=== PATIENT | male | born 1965 | race Caucasian/White ===

== ENCOUNTER 2022-06-11 13:07 | Emergency (ER) | payer OTHER, SELFPAY ==
--- NOTE | ~2022-06-11 | CT_ITS ---
EXAMINATION: CT ABDOMEN AND PELVIS WITH CONTRAST CLINICAL INFORMATION: Right lower quadrant pain COMPARISON: Previous CT of the abdomen and pelvis September 2018 TECHNIQUE: Multidetector volumetric images were obtained from the superior aspect of the liver through the pubic symphysis following administration 85 mL of Omnipaque 350 intravenous contrast. Sagittal and coronal reformatted images were obtained on the technologist's workstation. Oral contrast: Yes This CT examination was performed using dose optimization techniques as appropriate, variously including the following: *Automated exposure control *Adjustment of mA and/or kV according to patient size (this includes techniques or standardized protocols for targeted exams where dose is matched to indication/reason for exam; i.e. extremities or head) *Use of iterative reconstruction technique DLP: 670 mGy-cm FINDINGS: LUNG BASES: The visualized lung bases are unremarkable. LIVER, GALLBLADDER, AND BILIARY TREE: The liver is normal in size, shape, and attenuation. No focal hepatic lesion or biliary ductal dilatation is present. The gallbladder is unremarkable with no evidence of radiopaque gallstones, gallbladder wall thickening, or obvious pericholecystic inflammatory changes. PANCREAS: Unremarkable. SPLEEN: Unremarkable. ADRENAL GLANDS: Unremarkable. KIDNEYS AND URETERS: The kidneys are normal in size, shape, and attenuation. No hydronephrosis, hydroureter, or calculi seen. No perinephric stranding. BLADDER: Unremarkable. GASTROINTESTINAL TRACT: There is mild diverticulosis of the colon. There is no evidence of diverticulitis. There are slightly distended fluid-filled loops of small bowel. No bowel wall thickening is seen. No inflammatory changes in the small bowel mesentery. There is a small amount of ascites in the right lower quadrant and pelvis. The appendix is normal. The stomach is normal. ABDOMINAL WALL: There is a small umbilical hernia containing fat. LYMPH NODES: Shotty small bowel mesentery lymphadenopathy. No enlarged lymph nodes. VASCULAR: Unremarkable. PELVIC VISCERA: Unremarkable. OSSEOUS STRUCTURES: Unremarkable. CT/CT abdomen pelvis w IV con IMPRESSION: Slightly distended fluid-filled loops of small bowel and small amount of fluid ascites in the right lower quadrant and pelvis. No wall thickening or mass. Small bowel ileus and partial small bowel obstruction should be considered. Small umbilical hernia containing fat. Fleischner guidelines were followed.
[2022-06-11 13:43] VITALS: BP 154/91; PULSE 76; RESP 16; TEMP 37; O2SAT 97; BMI 26.6
--- NOTE | 2022-06-11 13:49 | ED_ITS ---
HPI - Abdominal Pain General Chief Complaint: Abdominal Pain <Hubert Rose DO - Last Filed: 06/11/22 13:52> Stated Complaint: abd pain <Hubert Rose DO - Last Filed: 06/11/22 13:52> Time Seen by Provider: 06/11/22 15:26 <Hubert Rose DO - Last Filed: 06/11/22 13:52> Source: patient <TAHIR Infante Last Filed: 06/11/22 17:40> Mode of arrival: ambulatory <TAHIR Infante Last Filed: 06/11/22 17:40> Limitations: no limitations <TAHIR Infante Last Filed: 06/11/22 17:40> History of Present Illness HPI narrative: 57-year-old male with history of hypertension presents to the ER for evaluation of central abdominal pain on and off for the last 4 weeks. He states this has been accompanied with nausea, increased bloating, burping. He denies any vomiting. He states last night after he ate dinner he had worsening of the pain in his belly got distended. This morning he had an episode of loose watery diarrhea. He is passing gas. He had an aching pain so he came to the ER for evaluation. He denies any history of surgeries on his abdomen. No new medications, no history of substance abuse. Patient reports that the pain is in the middle of his abdomen& right lower quadrant. It comes and goes. He denies any chest pain, shortness of breath, fever, chills. <TAHIR Infante - Last Filed: 06/11/22 17:40> MD elicited complaint: abdominal pain <TAHIR Infante Last Filed: 06/11/22 17:40> Pertinent past history: none <TAHIR Infante Last Filed: 06/11/22 17:40> Onset (ago): week(s) (4) <TAHIR Infante Last Filed: 06/11/22 17:40> Pain Consistency: intermittent <TAHIR Infante Last Filed: 06/11/22 17:40> Location: periumbilical and RLQ <TAHIR Infante Last Filed: 06/11/22 17:40> Severity: moderate <TAHIR Infante Last Filed: 06/11/22 17:40> Quality: cramping and aching <TAHIR Infante Last Filed: 06/11/22 17:40> Radiation: epigastric <TAHIR Infante Last Filed: 06/11/22 17:40> Migration to: no migration <TAHIR Infante Last Filed: 06/11/22 17:40> Exacerbating factors: eating <TAHIR Infante Last Filed: 06/11/22 17:40> Relieving factors: nothing <TAHIR Infante Last Filed: 06/11/22 17:40> Associated symptoms: nausea and diarrhea <TAHIR Infante Last Filed: 06/11/22 17:40> Related Data Home Medications: Previous Rx's Medication Instructions Recorded polyethylene glycol 3350 17 17 g PO DAILY #238 grams 06/11/22 gram/dose oral powder (Miralax) sennosides 8.6 mg capsule (senna) 8.6 mg PO BEDTIME #20 caps 06/11/22 <Hubert Rose DO - Last Filed: 06/11/22 13:52> Allergies/Adverse Reactions: Allergies Allergy/AdvReac Type Severity Reaction Status Date / Time No Known Allergies Allergy Unverified 04/07/20 18:09 [No Known Allergies*] <Hubert Rose DO - Last Filed: 06/11/22 13:52> Review of Systems Review of Systems Constitutional: No Fever, No Chills ENT/Mouth: No sore throat, No Rhinorrhea, No Swallowing Difficulty Cardiovascular: No Chest Pain, No SOB Respiratory: No Cough, No Sputum, No Wheezing, No dyspnea Gastrointestinal: + Nausea, No Vomiting, + Diarrhea, + abdominal Pain, No Hematochezia, No Melena Genitourinary: No Dysuria, No Urinary Frequency, No Hematuria Musculoskeletal: No joint pain, No Myalgias Skin: No Skin Lesions, No rash Neuro: No Weakness, No Numbness, No Dizziness, No Headache Psych: No Anxiety/Panic, No Depression Heme/Lymph: No Bruising, No Lymphadenopathy <TAHIR Infante Last Filed: 06/11/22 17:40> PMFSH Social History Social History: Social History Advance Directives: No Advance Directives Information Provided: Yes <DO Leydi Young Last Filed: 06/11/22 13:52> Physical Exam ED Vital Signs: Vital Signs - 24 hr 06/11/22 13:43 06/11/22 15:39 Temperature 98.6 F 98.3 F Pulse Rate 76 80 Respiratory Rate 16 18 Blood Pressure 154/91 H 136/91 H Pulse Oximetry 97 96 Oxygen Delivery Method Room Air Room Air BMI result Body Mass Index 26.6 <Hubert Rose DO - Last Filed: 06/11/22 13:52> Vital Signs - 24 hr 06/11/22 13:43 06/11/22 15:39 Temperature 98.6 F 98.3 F Pulse Rate 76 80 Respiratory Rate 16 18 Blood Pressure 154/91 H 136/91 H Pulse Oximetry 97 96 Oxygen Delivery Method Room Air Room Air BMI result Body Mass Index 26.6 <TAHIR Infante Last Filed: 06/11/22 17:40> Appearance: Alert. Oriented X3. No acute distress. Eyes: Pupils equal, round and reactive to light. ENT: Pharynx normal. Neck: Normal inspection. Neck supple. CVS: Normal heart rate and rhythm. Pulses normal. Respiratory: No respiratory distress. Breath sounds normal. Abdomen: Soft, very mild tenderness to deep palpation of the right lower quadrant without rebound or guarding. No other areas of tenderness. Decreased but present +BS x4 Skin: Skin warm and dry. Normal skin color. Normal skin turgor. No rashes. Extremities: No lower extremity edema. Neuro: Oriented X 3. No motor deficit. No sensory deficit. <TAHIR Infante - Last Filed: 06/11/22 17:40> Course Course Course Narrative: 57 year old male with one month of abdominal pain. Patient states he has had this problem in the past. Patient denies diarrhea but did have three loose stools and nausea that is new since yesterday. He denies cough fever chill.s Patient looks well. I will send for CT and labs. Concern for appendicits or other intra abdominal pathology. Limited history and physical done in triage as a rapid medical exam. <DO Leydi Young Last Filed: 06/11/22 13:52> Reevaluation(s) Reevaluation #1: Labs are unremarkable. CT scan is showing ?slightly distended fluid- filled loops of small bowel and small amount of fluid ascites in the right lower quadrant and pelvis. No wall thickening or mass. Small bowel ileus and partial small bowel obstruction should be considered. Small umbilical hernia containing fat. ? Case discussed with Dr. Mandujano from General surgery who reviewed the images. Agreed with reading. Discussed admission for observation verse discharge home. Patient prefers to be discharged home with plan to follow-up with general surgery as an outpatient. He was advised to stay on clear liquids for 24-48 hours and slowly advance his diet as tolerated. He was also advised to come back to the ER if he has worsening pain or develops any vomiting. Will start patient oral laxatives as well. Comfortable with discharge home with close outpatient follow-up. Strict return precautions were again discussed. Patient agrees. <TAHIR Infante - Last Filed: 06/11/22 17:40> Medications Administered Discontinued Medications Generic Name Dose Route Start Last Admin Trade Name Freq PRN Reason Stop Dose Admin Lactated Ringer's 1,000 mls @ 999 mls/hr 06/11/22 16:00 06/11/22 16:05 Lr IV 06/11/22 17:00 999 mls/hr .Q1H1M SAEID Administration Iohexol 100 ml 06/11/22 15:03 06/11/22 15:04 Iohexol 350 Mg/Ml 100 Ml Infus..Btl IV 06/11/22 15:04 85 ml ONCE ONE Administration <Hubert Rose DO - Last Filed: 06/11/22 13:52> Medications Administered Discontinued Medications Generic Name Dose Route Start Last Admin Trade Name Freq PRN Reason Stop Dose Admin Lactated Ringer's 1,000 mls @ 999 mls/hr 06/11/22 16:00 06/11/22 16:05 Lr IV 06/11/22 17:00 999 mls/hr .Q1H1M SAEID Administration Iohexol 100 ml 06/11/22 15:03 06/11/22 15:04 Iohexol 350 Mg/Ml 100 Ml Infus..Btl IV 06/11/22 15:04 85 ml ONCE ONE Administration <TAHIR Infante - Last Filed: 06/11/22 17:40> MDM - Abdominal Pain Lab Data Result diagrams: : 06/11/22 14:01 06/11/22 14:01 <Hubert Rose DO - Last Filed: 06/11/22 13:52> Labs: Lab Results 06/11/22 06/11/22 06/11/22 Range/Units 14:01 14:01 15:45 WBC 3.6 L (4.8-10.8) X10*3/uL RBC 5.37 (4.60-5.80) X10*6/uL Hgb 16.5 (14.0-18.0) g/dl Hct 46.9 (42.0-52.0) % MCV 87.3 (80.0-98.0) fL MCH 30.7 (27.0-33.0) pg MCHC 35.2 (31.0-36.0) g/dl RDW 11.7 (11.0-16.0) % Plt Count 188 (160-400) X10*3/uL MPV 10.0 (9.4-12.4) fL Immature Gran % (Auto) 0.3 (0.0-0.4) % Neut % (Auto) 56.2 (45-73) % Lymph % (Auto) 24.9 (20-40) % [place] % (Auto) 15.5 H (2-11) % Eos % (Auto) 2.5 (0-4) % Baso % (Auto) 0.6 (0-2) % Lymph # (Auto) 0.9 L (1.2-4.9) X10*3/uL [place] # (Auto) 0.6 (0.1-1.2) X10*3/uL Eos # (Auto) 0.1 (0.0-0.4) X10*3/uL Baso # (Auto) 0.0 (0.0-0.2) X10*3/uL Abs Immat Gran (auto) 0.01 (0.00-0.03) X10*3/uL Absolute Neuts (auto) 2.0 (2.0-8.3) x10*3/uL Absolute Nucleated RBC 0.000 (0.0-0.012) X10*3/uL Nucleated RBC % (auto) 0.0 (0.0-0.2) /100WBC Sodium 139 (135-145) mmol/L Potassium 4.1 (3.3-5.1) mmol/L Chloride 107 (96-108) mmol/L Carbon Dioxide 23 (22-29) mmol/L Anion Gap 13 (12-20) BUN 8 L (9-16) mg/dL Creatinine 0.89 (0.5-1.4) mg/dL Estim Creat Clear Calc 88.5 Estimated GFR > 60 Random Glucose 119 H (60-115) mg/dL Calcium 9.1 (8.4-10.2) mg/dL Total Bilirubin 0.7 (0.0-1.0) mg/dL Direct Bilirubin 0.3 (0.0-0.5) mg/dL AST 42 H (5-37) U/L ALT 51 H (0-40) U/L Alkaline Phosphatase 87 (39-117) U/L Total Protein 7.4 (6.5-8.0) g/dL Albumin 4.4 (3.5-5.0) g/dL Lipase 47 (8-78) U/L Urine Color Yellow Urine Appearance Clear Urine pH 5.5 (5.0-9.0) Ur Specific [place] >= 1.030 H (1.005-1.025) Urine Protein Negative (Neg-Trace) mg/dL Urine Glucose (UA) Negative (Negative) mg/dL Urine Ketones Negative (Negative) mg/dL Urine Blood Small (1+) H (Negative) Urine Nitrite Negative (Negative) Ur Leukocyte Esterase Negative (Negative) Urine RBC 3-5 H (0-2) /HPF Urine WBC 0-5 (0-5) /HPF Ur Squamous Epith Cells 0-2 (0-2) /HPF Urine Bacteria None Seen (None Seen) Hyaline Casts 0-2 (0-2) /LPF COVID-19 (ADRY) (Negative) COVID-19 Clin Com 06/11/22 Range/Units 16:49 WBC (4.8-10.8) X10*3/uL RBC (4.60-5.80) X10*6/uL Hgb (14.0-18.0) g/dl Hct (42.0-52.0) % MCV (80.0-98.0) fL MCH (27.0-33.0) pg MCHC (31.0-36.0) g/dl RDW (11.0-16.0) % Plt Count (160-400) X10*3/uL MPV (9.4-12.4) fL Immature Gran % (Auto) (0.0-0.4) % Neut % (Auto) (45-73) % Lymph % (Auto) (20-40) % [place] % (Auto) (2-11) % Eos % (Auto) (0-4) % Baso % (Auto) (0-2) % Lymph # (Auto) (1.2-4.9) X10*3/uL [place] # (Auto) (0.1-1.2) X10*3/uL Eos # (Auto) (0.0-0.4) X10*3/uL Baso # (Auto) (0.0-0.2) X10*3/uL Abs Immat Gran (auto) (0.00-0.03) X10*3/uL Absolute Neuts (auto) (2.0-8.3) x10*3/uL Absolute Nucleated RBC (0.0-0.012) X10*3/uL Nucleated RBC % (auto) (0.0-0.2) /100WBC Sodium (135-145) mmol/L Potassium (3.3-5.1) mmol/L Chloride (96-108) mmol/L Carbon Dioxide (22-29) mmol/L Anion Gap (12-20) BUN (9-16) mg/dL Creatinine (0.5-1.4) mg/dL Estim Creat Clear Calc Estimated GFR Random Glucose (60-115) mg/dL Calcium (8.4-10.2) mg/dL Total Bilirubin (0.0-1.0) mg/dL Direct Bilirubin (0.0-0.5) mg/dL AST (5-37) U/L ALT (0-40) U/L Alkaline Phosphatase (39-117) U/L Total Protein (6.5-8.0) g/dL Albumin (3.5-5.0) g/dL Lipase (8-78) U/L Urine Color Urine Appearance Urine pH (5.0-9.0) Ur Specific [place] (1.005-1.025) Urine Protein (Neg-Trace) mg/dL Urine Glucose (UA) (Negative) mg/dL Urine Ketones (Negative) mg/dL Urine Blood (Negative) Urine Nitrite (Negative) Ur Leukocyte Esterase (Negative) Urine RBC (0-2) /HPF Urine WBC (0-5) /HPF Ur Squamous Epith Cells (0-2) /HPF Urine Bacteria (None Seen) Hyaline Casts (0-2) /LPF COVID-19 (ADRY) Negative (Negative) COVID-19 Clin Com See Note <Hubert Rose, DO - Last Filed: 06/11/22 13:52> Lab Results 06/11/22 06/11/22 06/11/22 Range/Units 14:01 14:01 15:45 WBC 3.6 L (4.8-10.8) X10*3/uL RBC 5.37 (4.60-5.80) X10*6/uL Hgb 16.5 (14.0-18.0) g/dl Hct 46.9 (42.0-52.0) % MCV 87.3 (80.0-98.0) fL MCH 30.7 (27.0-33.0) pg MCHC 35.2 (31.0-36.0) g/dl RDW 11.7 (11.0-16.0) % Plt Count 188 (160-400) X10*3/uL MPV 10.0 (9.4-12.4) fL Immature Gran % (Auto) 0.3 (0.0-0.4) % Neut % (Auto) 56.2 (45-73) % Lymph % (Auto) 24.9 (20-40) % [place] % (Auto) 15.5 H (2-11) % Eos % (Auto) 2.5 (0-4) % Baso % (Auto) 0.6 (0-2) % Lymph # (Auto) 0.9 L (1.2-4.9) X10*3/uL [place] # (Auto) 0.6 (0.1-1.2) X10*3/uL Eos # (Auto) 0.1 (0.0-0.4) X10*3/uL Baso # (Auto) 0.0 (0.0-0.2) X10*3/uL Abs Immat Gran (auto) 0.01 (0.00-0.03) X10*3/uL Absolute Neuts (auto) 2.0 (2.0-8.3) x10*3/uL Absolute Nucleated RBC 0.000 (0.0-0.012) X10*3/uL Nucleated RBC % (auto) 0.0 (0.0-0.2) /100WBC Sodium 139 (135-145) mmol/L Potassium 4.1 (3.3-5.1) mmol/L Chloride 107 (96-108) mmol/L Carbon Dioxide 23 (22-29) mmol/L Anion Gap 13 (12-20) BUN 8 L (9-16) mg/dL Creatinine 0.89 (0.5-1.4) mg/dL Estim Creat Clear Calc 88.5 Estimated GFR > 60 Random Glucose 119 H (60-115) mg/dL Calcium 9.1 (8.4-10.2) mg/dL Total Bilirubin 0.7 (0.0-1.0) mg/dL Direct Bilirubin 0.3 (0.0-0.5) mg/dL AST 42 H (5-37) U/L ALT 51 H (0-40) U/L Alkaline Phosphatase 87 (39-117) U/L Total Protein 7.4 (6.5-8.0) g/dL Albumin 4.4 (3.5-5.0) g/dL Lipase 47 (8-78) U/L Urine Color Yellow Urine Appearance Clear Urine pH 5.5 (5.0-9.0) Ur Specific [place] >= 1.030 H (1.005-1.025) Urine Protein Negative (Neg-Trace) mg/dL Urine Glucose (UA) Negative (Negative) mg/dL Urine Ketones Negative (Negative) mg/dL Urine Blood Small (1+) H (Negative) Urine Nitrite Negative (Negative) Ur Leukocyte Esterase Negative (Negative) Urine RBC 3-5 H (0-2) /HPF Urine WBC 0-5 (0-5) /HPF Ur Squamous Epith Cells 0-2 (0-2) /HPF Urine Bacteria None Seen (None Seen) Hyaline Casts 0-2 (0-2) /LPF COVID-19 (ADRY) (Negative) COVID-19 Clin Com 06/11/22 Range/Units 16:49 WBC (4.8-10.8) X10*3/uL RBC (4.60-5.80) X10*6/uL Hgb (14.0-18.0) g/dl Hct (42.0-52.0) % MCV (80.0-98.0) fL MCH (27.0-33.0) pg MCHC (31.0-36.0) g/dl RDW (11.0-16.0) % Plt Count (160-400) X10*3/uL MPV (9.4-12.4) fL Immature Gran % (Auto) (0.0-0.4) % Neut % (Auto) (45-73) % Lymph % (Auto) (20-40) % [place] % (Auto) (2-11) % Eos % (Auto) (0-4) % Baso % (Auto) (0-2) % Lymph # (Auto) (1.2-4.9) X10*3/uL [place] # (Auto) (0.1-1.2) X10*3/uL Eos # (Auto) (0.0-0.4) X10*3/uL Baso # (Auto) (0.0-0.2) X10*3/uL Abs Immat Gran (auto) (0.00-0.03) X10*3/uL Absolute Neuts (auto) (2.0-8.3) x10*3/uL Absolute Nucleated RBC (0.0-0.012) X10*3/uL Nucleated RBC % (auto) (0.0-0.2) /100WBC Sodium (135-145) mmol/L Potassium (3.3-5.1) mmol/L Chloride (96-108) mmol/L Carbon Dioxide (22-29) mmol/L Anion Gap (12-20) BUN (9-16) mg/dL Creatinine (0.5-1.4) mg/dL Estim Creat Clear Calc Estimated GFR Random Glucose (60-115) mg/dL Calcium (8.4-10.2) mg/dL Total Bilirubin (0.0-1.0) mg/dL Direct Bilirubin (0.0-0.5) mg/dL AST (5-37) U/L ALT (0-40) U/L Alkaline Phosphatase (39-117) U/L Total Protein (6.5-8.0) g/dL Albumin (3.5-5.0) g/dL Lipase (8-78) U/L Urine Color Urine Appearance Urine pH (5.0-9.0) Ur Specific [place] (1.005-1.025) Urine Protein (Neg-Trace) mg/dL Urine Glucose (UA) (Negative) mg/dL Urine Ketones (Negative) mg/dL Urine Blood (Negative) Urine Nitrite (Negative) Ur Leukocyte Esterase (Negative) Urine RBC (0-2) /HPF Urine WBC (0-5) /HPF Ur Squamous Epith Cells (0-2) /HPF Urine Bacteria (None Seen) Hyaline Casts (0-2) /LPF COVID-19 (ADRY) Negative (Negative) COVID-19 Clin Com See Note <TAHIR Infante - Last Filed: 06/11/22 17:40> Discharge Plan Discharge Clinical Impression: Ileus <Hubert Rose DO - Last Filed: 06/11/22 13:52> Patient Disposition: Home, Self-Care <Hubert Rose DO - Last Filed: 06/11/22 13:52> Instructions: [facility] (ED) <Hubert Rose DO - Last Filed: 06/11/22 13:52> Additional Instructions: CT scan showed Slightly distended fluid-filled loops of small bowel and small amount of fluid ascites in the right lower quadrant and pelvis. No wall thickening or mass. Small bowel ileus and partial small bowel obstruction should be considered. Small umbilical hernia containing fat. Recommend 24-48 hours of clear liquid diet - slowly advance as tolerated Recommend following up with your doctor and general surgery - call for an appointment, name and number below Take the prescribed laxative to help move your bowels along. If you develop new or worsening symptoms (like worsening pain or development of vomiting) call 911 or come back to the ER for further evaluation. <Hubert Rose DO - Last Filed: 06/11/22 13:52> Prescriptions: New polyethylene glycol 3350 [Miralax] 17 gram/dose powder 17 g PO DAILY Qty: 238 0RF senna 8.6 mg capsule 8.6 mg PO BEDTIME Qty: 20 0RF <Hubert Rose DO - Last Filed: 06/11/22 13:52> Interventions: ED Discharge Assessment Last Done: 06/11/22 17:39 <Hubert Rose DO - Last Filed: 06/11/22 13:52> Discharge Date/Time: 06/11/22 17:39 <Hubert Rose DO - Last Filed: 06/11/22 13:52>
[2022-06-11 14:06] LABS: MANUAL DIFF FLAG NO
[2022-06-11 14:07] LABS: Basophils Percent Auto 0.6 % (0-2); Eosinophils Absolute Auto 0.1 X10*3/uL (0.0-0.4); Eosinophils Percent Auto 2.5 % (0-4); Hematocrit 46.9 % (42.0-52.0); Hemoglobin 16.5 g/dl (14.0-18.0); Imm Gran Abs Auto 0.01 X10*3/uL (0.00-0.03); Imm Gran Pct Auto 0.3 % (0.0-0.4); Lymphocytes Absolute Auto 0.9 X10*3/uL (1.2-4.9); Lymphocytes Percent Auto 24.9 % (20-40); Mean Corpuscular HGB Conc 35.2 g/dl (31.0-36.0); Mean Corpuscular Hemoglobin 30.7 pg (27.0-33.0); Mean Corpuscular Volume 87.3 fL (80.0-98.0); Monocytes Absolute Auto 0.6 X10*3/uL (0.1-1.2); Monocytes Percent Auto 15.5 % (2-11); Neutrophils Percent Auto 56.2 % (45-73); Platelet Count 188 X10*3/uL (160-400); Red Blood Count 5.37 X10*6/uL (4.60-5.80); Red Cell Distribution Width 11.7 % (11.0-16.0); White Blood Count 3.6 X10*3/uL (4.8-10.8)
[2022-06-11 14:22] LABS: Alanine Aminotransferase 51 U/L (0-40); Albumin Level 4.4 g/dL (3.5-5.0); Alkaline Phosphatase 87 U/L (39-117); Anion Gap 13 (12-20); Aspartate Amino Transferase 42 U/L (5-37); Bilirubin Direct 0.3 mg/dL (0.0-0.5); Bilirubin Total 0.7 mg/dL (0.0-1.0); Blood Urea Nitrogen 8 mg/dL (9-16); Calcium 9.1 mg/dL (8.4-10.2); Carbon Dioxide 23 mmol/L (22-29); Chloride 107 mmol/L (96-108); Creatinine Clr Calc Pharmacy 88.5; Estimated Glomerular Filt Rate > 60; Glucose Random 119 mg/dL (60-115); Lipase 47 U/L (8-78); Potassium 4.1 mmol/L (3.3-5.1); Sodium 139 mmol/L (135-145); Total Protein 7.4 g/dL (6.5-8.0)
[2022-06-11] MEDS: iohexoL 350 MG/ML 100 ML INFUS..BTL IV (15:04)
[2022-06-11 15:39] VITALS: BP 136/91; PULSE 80; RESP 18; TEMP 36.8; O2SAT 96
[2022-06-11 15:57] LABS: Appearance Urine Clear; Color Urine Yellow; Glucose Urine UA Negative (Negative); Leukocyte Esterase Urine Negative (Negative); Nitrite Urine Negative (Negative); PH 5.5 (5.0-9.0); Specific Gravity - Urine >= 1.030 (1.005-1.025); UMIC TRIGGER UACC YES; Urine Blood Small (1+) (Negative); Urine Ketones Negative (Negative); Urine Protein Negative (Neg-Trace)
[2022-06-11] MEDS: Lactated Ringers 1,000 ML 999 ML IV (16:05)
[2022-06-11 16:06] LABS: Bacteria Urine None Seen (None Seen); Hyaline Casts Urine 0-2 /LPF (0-2); Squamous Epithelial Cell Urine 0-2 /HPF (0-2); WBC Urine 0-5 /HPF (0-5)
--- OUTSIDE RECORDS SUMMARY | 2022-06-11 16:19 | XMS_ITS | Encounter Summary ---
:1965 Author Organization [facility] Address [address] [place] [address] Support Name Relationship Address Phone CLASS, GINNA Unavailable [address] [facility] [place] [address] CLASS, GINNA Unavailable [address] [facility] [place] [address] Selected Encounter This section includes the information on record at [facility] for the Encounter. Date/Time Encounter Type Encounter Description Reason Provider Source May 24, 2022 12:00 Outpatient Encounter EVENT (HISTORICAL) AM [facility] Encounter Template Text not used by [facility] Plan of Treatment: Future Appointments (+ 6 months) and Future Tests (+/- 45 days) The Plan of Treatment section includes future care activities for the patient from all [facility] treatmentfacilities. This section includes future appointments and future orders which are active, pending orscheduled.Future Appointments This section includes appointments that were scheduled to occur 6 months from the date of the Encounter, up to a maximum of 20 appointments. The data comes from all [facility] treatment facilities. Appointment Date/Time Appointment Type Appointment Facili ty Name Aug 02, 2022 01:00 PM [facility] Sep 04, 2022 02:30 PM [facility]
--- OUTSIDE RECORDS SUMMARY | 2022-06-11 16:19 | XMS_ITS | Continuity of Care Document ---
:1965 Author Organization [facility] Care Team Providers Name Role Phone DOD-KS Unavailable Unavailable Problems Combined list of problems from Department of Defense and Veterans Affairs facilities. It does not include entries that were removed or entered in error. Problem Status Onset Problem Date of Comments Source Date Type Resolution Abdominal pain Active Condition Nov 10, 2018 [facility] Entered By: ANTHONY SEWELL Comment: CT, ABD at ED Shubert approx SEP 09; Nov 10, 2018 Entered By: ANTHONY SEWELL Comment: Dx: GERD?; no CA Aug 24, 2019 Entered By: ANTHONY SEWELL Comment: CT, ABD AUG 10 Vinh; No Intra-ABD Pathology Asthma Active Condition Dec 29, 2021 [facility] Entered By: ANTHONY SEWELL Comment: New Presumed Onset in JANUARY 10 Benign essential Active Condition [facility] hypertension Family history of Active Condition Nov 10 019 [facility] prostate cancer Entered By: ANTHONY SEWELL Comment: Uncles w/ BPH, Bx's; Actual Prostate CA? - Not Sure Low back pain Active Condition Aug 31, 2019 [place] Entered By: ANTHONY SEWELL Comment: CT, L-Spine MAY 09: Unremarkable Premature atrial Active Condition Aug 24 [facility] contraction Entered By: ANTHONY SEWELL Comment: PAC's AUG 10: EKG SEP 10: NSR; HR 64 screening malignant Active Condition Nov 10, 2018 [facility] neoplasm colon Entered By: ANTHONY SEWELL Comment: Colonoscopies x 2 since 2010 and a Flex Sig 2017 Nov 10, 2018 Entered By: ANTHONY SEWELL Comment: Dx; Int Hemorrhoids; Never CRC Feb 03, 2021 Entered By: ANTHONY SEWELL Comment: repeat Colonoscopy 2020 - Still has Rectal Bld w/ BM Diagnosis: Active Diagnosis [facility] ICD-10-CM L57.0 [facility] [place] Actinic [place] keratosiswith [facility] Provider Comments: Actinic Keratosis Diagnosis: Active Diagnosis [facility] ICD-10-CM L82.1 W[facility] N Other seborrheic [place] keratosiswith [facility] Provider Comments: Other Seborrheic Keratosis Diagnosis: Active Diagnosis [place] ICD-10-CM J45.909 Unspecified asthma, uncomplicatedwith Provider Comments: Asthma (RUST [id number]) Diagnosis: Active Diagnosis [place] ICD-10-CM J45.998 Other asthmawith Provider Comments: Other Asthma Diagnosis: Active Diagnosis [place] ICD-10-CM I10 Essential (primary) hypertensionwith Provider Comments: Benign essential hypertension (SCT [id number]) Diagnosis: Active Diagnosis [place] ICD-10-CM Z23 Encounter for immunizationwith Provider Comments: Encounter for Immunization Medications Combined list of outpatient medications from Department of Defense and Veterans Affairs facilities. Medications provided include 1) outpatient medications from the last 15 months, and 2) patient-reported medications. Medication Details Route Status Patient Prescription Prescription Last Ordering Order Source Instructions Expires Number Dispense Provider Date Date ALBUTEROL INHALE 1 INHALA ACTIVE 12/30/2022 [id number] KASEY SEWELL 90MCG/ACTUA PUFF BY TION 2 2021 IELD T (CFC-F) MOUTH ORAL INHL,ORAL,8 FOUR .5GM DOSE TIMES COUNTER DAILY NEEDED ONLY USE IF YOU GET OUT OF BREATH ATORVASTATI TAKE ORAL ACTIVE 02/03/2023 [id number] KASEY SEWELL N CA 80MG ONE-HALF 2 2021 IELD TAB TABLET BY MOUTH ONCE DAILY FOR CHOLESTE ROL ATORVASTATI TAKE ORAL DISCONT 02/04/2022 [id number] KASEY SEWELL N CA 80MG ONE-HALF INUED 1 2020 IELD TAB TABLET BY MOUTH ONCE DAILY FOR CHOLESTE ROL DOCUSATE NA TAKE ONE ORAL ACTIVE 02/03/2023 [id number] H KASEY ADAN 100MG CAP CAPSULE 2 2021 IELD BY MOUTH ONCE DAILY TO SOFTEN STOOL DOCUSATE NA TAKE ONE ORAL DISCONT 02/04/2022 [id number] H KASEY ADAN 100MG CAP CAPSULE INUED 1 2020 IELD BY MOUTH ONCE DAILY TO SOFTEN STOOL HYDROCHLORO TAKE ORAL ACTIVE 02/03/2023 [id number] KASEY SEWELL THIAZIDE ONE-HALF 2 2021 IELD 25MG TAB TABLET BY MOUTH ONCE DAILY TO PREVENT FLUID/CO NTROL BLOOD PRESSURE HYDROCHLORO TAKE ORAL DISCONT 02/04/2022 [id number] KASEY SEWELL THIAZIDE ONE-HALF INUED 1 2020 IELD 25MG TAB TABLET BY MOUTH ONCE DAILY TO PREVENT FLUID/CO NTROL BLOOD PRESSURE LISINOPRIL TAKE ONE ORAL DISCONT 05/20/2022 [id number] H KASEY ADAN 20MG TAB TABLET INUED 1 2020 IELD BY MOUTH EVERY DAY TO CONTROL BLOOD PRESSURE LISINOPRIL TAKE ONE ORAL DISCONT 02/04/2022 [id number] KASEY GHOSH 20MG TAB TABLET INUE 1 2020 IELD BY MOUTH EVERY DAY TO CONTROL BLOOD PRESSURE LISINOPRIL TAKE ONE ORAL ACTIVE 02/03/2023 [id number] KASEY GHOSH 30MG TAB TABLET 2 2021 IELD BY MOUTH EVERY DAY TO CONTROL BLOOD PRESSURE LISINOPRIL TAKE ONE ORAL DISCONT 07/06/2022 [id number] KASEY GHOSH 30MG TAB TABLET INUED 2 2020 IELD BY MOUTH EVERY DAY TO CONTROL BLOOD PRESSURE MOMETASONE INHALE 1 INHALA ACTIVE 12/30/2022 [id number] KASEY FORD FUROATE PUFF BY TION 2 2021 IELD 220MCG/INHL MOUTH ORAL INHL,ORAL,6 TWICE 0 DAILY --RINSE MOUTH AFTER EACH USE USE ONCE EVERY MORNING AND ONCE EVERY NIGHT TO PREVENT COUGH SILDENAFIL TAKE ONE ORAL 01/06/2022 [id number] H KASEY ADAN CITRATE TABLET 2 2020 IELD 100MG TAB BY MOUTH DIRECTED TAKE 1 HOUR PRIOR TO SEXUAL ACTIVITY Immunizations Combined list of available immunizations from the Department of Defense and Veterans Affairs facilities. Immunization Series Date Administered Site Reaction Lot CVX Drug St atus Comments Source Given By Number Code Independent Consultant COVID-19 3 complet CV S (PFIZER), 2020 ed DAYSI TE MRNA, LNP-S, C LINIC PF, 30 MCG/0.3 ML DOSE TDAP complet SPRIN GF 2020 ed IELD ZOSTER 2 complet SPRI NGF RECOMBINANT 2020 ed IE LD ZOSTER 1 complet SPRI NGF RECOMBINANT 2020 ed IE LD COVID-19 2 complet [facility] (PFIZER), 2020 ed CNTR L MRNA, LNP-S, W STRN PF, 30 [place] MCG/0.3 ML SET S DOSE HCS COVID-19 1 complet [facility] (PFIZER), 2020 ed CNTR L MRNA, LNP-S, W STRN PF, 30 [place] MCG/0.3 ML SET S DOSE HCS TDAP complet outside [facility] 2010 ed p[facility] [place] [facility] [facility] TDAP complet apprx mo [facility] 2010 ed and yr [facility] [place] [facility] [facility] Results Combined list of recent chemistry, hematology and other laboratory results from Department of Defense and Veterans Affairs, ranging from 15 months to all on record, depending upon the facility. Order Results Value Reference Date Interpretation Specimen Commen ts Source Name Range CBC LEUKOCYTES 3.94 4.50 - 0713 L Specimen Type : BLOOD [place] [#/VOLUME] 11. No comment en tered. LD IN BLOOD Ordering Provi jay jay: ANTHONY SEWELL BY Report Released Date/Time: Jul 05, 2021 01:41 PM AUTOMATED Reporting Lab : [place] [facility] [place] [facility] [address] [facility] [address] Performing Lab: [facility] [place] [facility] [address] [facility] [address] CBC ERYTHROCYT 4.93 4.23 - 07/ Specimen Type : BLOOD [place] ES 5 No comment enter ed. LD [#/VOLUME] Ordering Pro vider: ANTHONY SEWELL IN BLOOD Report Release d Date/Time: Jul 05, 2021 01:41 PM BY Reporting Lab: [facility] [place] [facility] AUTOMATED [address] [facility] [address] COUNT Performing Lab: [facility] [place] [facility] [address] [facility] [address] CBC HEMOGLOBIN 15.1 12.8 - 17 01/31 Specimen Ty pe: BLOOD [place] [MASS/VOLU /2021 No comment en tered. LD ME] IN Ordering Provid er: ANTHONY SEWELL BLOOD Report Released Date/Time: Jul 05, 2021 01:41 PM Reporting Lab: [facility] [place] [facility] [address] [facility] [address] Performing Lab: [facility] [place] [facility] [address] [facility] [address] CBC HEMATOCRIT 44.4 39.2 - 01/31 Specimen Type : BLOOD [place] [VOLUME 50.4 /2021 No comment enter ed. LD FRACTION] Ordering Prov ider: ANTHONY SEWELL OF BLOOD Report Release d Date/Time: Jul 05, 2021 01:41 PM BY Reporting Lab: [facility] [place] [facility] AUTOMATED [address] [facility] [address] COUNT Performing Lab: [facility] [place] [facility] [address] [facility] [address] CBC MCV 90.1 82 - 99 01/31 Specimen Type: B LOOD [place] [ENTITIC /2021 No comment ente red. LD VOLUME] BY Ordering Pro vider: ANTHONY SEWELL AUTOMATED Report Releas ed Date/Time: Jul 05, 2021 01:41 PM COUNT Reporting Lab: [facility] [place] [facility] [address] [facility] [address] Performing Lab: [facility] [place] [facility] [address] [facility] [address] CBC MCHC 34.0 30.8 - 01/31 Specimen Type: B LOOD [place] [MASS/VOLU 35.1 /2021 No comment en tered. LD ME] BY Ordering Provid er: ANTHONY SEWELL AUTOMATED Report Releas ed Date/Time: Jul 05, 2021 01:41 PM COUNT Reporting Lab: [facility] [place] [facility] [address] [facility] [address] Performing Lab: [facility] [place] [facility] [address] [facility] [address] CBC PLATELETS 216 140 - 360 01/31 Specimen Typ e: BLOOD [place] [#/VOLUME] /2021 No comment en tered. LD IN BLOOD Ordering Provi jay jay: ANTHONY SEWELL BY Report Released Date/Time: Jul 05, 2021 01:41 PM AUTOMATED Reporting Lab : [facility] [place] [facility] COUNT [address] [facility] [address] Performing Lab: [facility] [place] [facility] [address] [facility] [address] CBC ERYTHROCYT 11.5 12.0 - 01/31 L Specimen Type : BLOOD [place] E 16.0 /2021 No comment enter ed. LD DISTRIBUTI Ordering Pro vider: ANTHONY SEWELL ON WIDTH Report Release d Date/Time: Jul 05, 2021 01:41 PM [RATIO] BY Reporting La b: [facility] [place] [facility] AUTOMATED [address] [facility] [address] COUNT Performing Lab: [facility] [place] [facility] [address] [facility] [address] CBC MCH 30.6 26.2 - 01/31 Specimen Type: B LOOD [place] [ENTITIC 32.6 /2021 No comment ente red. LD MASS] BY Ordering Provi jay jay: ANTHONY SEWELL AUTOMATED Report Releas ed Date/Time: Jul 05, 2021 01:41 PM COUNT Reporting Lab: [facility] [place] [facility] [address] [facility] [address] Performing Lab: [facility] [place] [facility] [address] [facility] [address] URINALYS COLOR OF Yellow 01/31 Specimen Type: URINE [place] IS URINE /2021 No comment enter ed. LD Ordering Provid er: ANTHONY SEWELL Report Released Date/Time: Jul 05, 2021 01:41 PM Reporting Lab: [facility] [place] [facility] [address] [facility] [address] Performing Lab: [facility] [place] [facility] [address] [facility] [address] URINALYS APPEARANCE Clear 01/31 Specimen Typ e: URINE [place] IS OF URINE /2021 No comment ente red. LD Ordering Provid er: ANTHONY SEWELL Report Released Date/Time: Jul 05, 2021 01:41 PM Reporting [facility]: [facility] [address] [facility] [address] Performing Lab: [address] [address] URINALYS GLUCOSE Negative 01/31 Specimen Type: URINE [place] IS [MASS/VOLU /2021 No comment en tered. LD ME] IN Ordering Provid er: ANTHONY SEWELL URINE Report Released Date/Time: Jul 05, 2021 01:41 PM Reporting Lab: [address] [address] Performing Lab: [address] [address] URINALYS KETONES Negative 01/31 Specimen Type: URINE [place] IS [MASS/VOLU /2021 No comment en tered. LD ME] IN Ordering Provid er: ANTHONY SEWELL URINE BY Report Release d Date/Time: Jul 05, 2021 01:41 PM TEST STRIP Reporting La b: [facility] [address] Performing Lab: [address] [address] URINALYS ERYTHROCYT Small 01/31 Specimen Typ e: URINE [place] IS ES No comment enter ed. LD [PRESENCE] Ordering Pro vider: ANTHONY SEWELL IN URINE Report Release d Date/Time: Jul 05, 2021 01:41 PM SEDIMENT Reporting Lab: [facility] BY LIGHT [address] [facility] [address] MICROSCOPY Performing L ab: [facility] [address] [address] URINALYS PROTEIN Negative 01/31 Specimen Type: URINE [place] IS [MASS/VOLU /2021 No comment en tered. LD ME] IN Ordering Provid er: ANTHONY SEWELL URINE BY Report Release d Date/Time: Jul 05, 2021 01:41 PM TEST STRIP Reporting La b: [facility] [place] [facility] [address] [facility] [address] Performing Lab: [facility] [place] [facility] [address] [facility] [address] URINALYS NITRITE Negative 01/31 Specimen Type: URINE [place] IS [PRESENCE] /2021 No comment en tered. LD IN URINE Ordering Provi jay jay: ANTHONY SEWELL Report Released Date/Time: Jul 05, 2021 01:41 PM Reporting Lab: [facility] [place] [facility] [address] [facility] [address] Performing Lab: [place] [facility] [address] [address] URINALYS BILIRUBIN. Negative 01/31 Specimen Ty pe: URINE [place] IS TOTAL /2021 No comment enter ed. LD [PRESENCE] Ordering Pro vider: ANTHONY SEWELL IN URINE Report Release d Date/Time: Jul 05, 2021 01:41 PM Reporting Lab: [facility] [place] [facility] [address] [facility] [address] Performing Lab: [facility] [place] [address] [address] URINALYS SPECIFIC 1.018 1.016 - 01/31 Specimen Type: URINE [place] IS GRAVITY OF 1.022 /2021 No comment en tered. LD URINE BY Ordering Provi jay jay: ANTHONY SEWELL REFRACTOME Report Relea sed Date/Time: Jul 05, 2021 01:41 PM TRY Reporting Lab: [facility] [place] [address] [address] Performing Lab: [facility] [place] [address] [address] URINALYS PH OF 7.0 5.0 - 9.0 01/31 Specimen Type : URINE [place] URINE BY /2021 No comment ente red. LD TEST STRIP Ordering Pro vider: ANTHONY SEWELL Report Released Date/Time: Jul 05, 2021 01:41 PM Reporting Lab: [facility] [place] [address] [address] Performing Lab: [facility] [address] [facility] [address] URINALYS UROBILINOG <2.0 <2.0 - 2.0 01/31 Specimen Type: URINE [place] IS EN No comment enter ed. LD [MASS/VOLU Ordering Pro vider: ANTHONY SEWELL ME] IN Report Released Date/Time: Jul 05, 2021 01:41 PM URINE BY Reporting Lab: [facility] TEST STRIP [address] [facility] [address] Performing Lab: [facility] [address] [facility] [address] URINALYS LEUKOCYTE Negative 01/31 Specimen Typ e: URINE [place] IS No comment ente red. LD [PRESENCE] Ordering Pro vider: ANTHONY SEWELL IN URINE Report Release d Date/Time: Jul 05, 2021 01:41 PM BY TEST Reporting Lab: [facility] [address] [facility] [address] Performing Lab: [facility] [address] [facility] [address] HEMOGLOB HEMOGLOBIN 5.3 4.0 - 5.6 01/31 Specimen T ype: BLOOD [place] IN A1C A1C/HEMOGL /2021 Comment: Padma ues obtained from A1C measurements can vary. For typical A1C assays, a reported value of 7.0 could actually be between 6.72 and 7.28 if measured by a reference method. A reported value of 9 LD PANEL OBIN.TOTAL .0 could actu ally be between 8.73 and 9.27. Ref: http://www.ngsp.org/CAPdata.asp IN BLOOD Ordering Provi jay jay: ANTHONY SEWELL BY HPLC Report Released Date/Time: Jul 05, 2021 01:41 PM Reporting Lab: [facility]THE [facility] [address] [facility] [address] Performing Lab: [facility] [address] [facility] [address] BASIC UREA 11 7 - 25 01/31 Specimen Type: S SYLVIA [place] METABOLI NITROGEN No comment ent ered. LD C PANEL [MASS/VOLU Ordering Pro vider: SEWELLANTHONY (fasting ME] IN Report Release d Date/Time: Jul 05, 2021 01:41 PM ) SERUM OR Reporting Lab: [facility] PLASMA [address] [facility] [address] Performing Lab: [address] [address] BASIC GLUCOSE 100 65 - 100 07/ Specimen Type: SERUM [place] METABOLI [MASS/VOLU /2021 No comment e ntered. LD C PANEL ME] IN Ordering Provid er: DONATOANTHONY (fasting SERUM OR Report Releas ed Date/Time: Jul 05, 2021 01:41 PM ) PLASMA Reporting Lab: [address] [address] Performing Lab: [address] [address] BASIC SODIUM 138 135 - 145 07 Specimen Type: [place] METABOLI [MOLES/VOL /2021 No comment e ntered. LD C PANEL UME] IN Ordering Provid er: SEWELLANTHONY (fasting SERUM OR Report Releas ed Date/Time: Jul 05, 2021 01:41 PM ) PLASMA Reporting Lab: [address] [address] Performing Lab: [address] [address] BASIC POTASSIUM 4.1 3.5 - 5.0 01/31 Specimen Typ e: SERUM [place] METABOLI [MOLES/VOL /2021 No comment e ntered. LD C PANEL UME] IN Ordering Provid er: SEWELL,ANTHONY (fasting SERUM OR Report Releas ed Date/Time: Jul 05, 2021 01:41 PM ) PLASMA Reporting Lab: [address] [address] Performing Lab: [address] [address] BASIC CHLORIDE 106 100 - 110 07 Specimen Type : [place] METABOLI [MOLES/VOL /2022 No comment e ntered. LD C PANEL UME] IN Ordering Provid er: SEWELLANTHONY (fasting SERUM OR Report Releas ed Date/Time: Jul 05, 2021 01:41 PM ) PLASMA Reporting Lab: [place] [facility] [facility] [address] [facility] [address] Performing Lab: [facility] [place] [facility] [address] [facility] [address] BASIC CARBON 26 20 - 30 01/31 Specimen Type: S SYLVIA [place] METABOLI DIOXIDE, /2021 No comment ent ered. LD C PANEL TOTAL Ordering Provid er: ANTHONY SEWELL (fasting [MOLES/VOL Report Rele ased Date/Time: Jul 05, 2021 01:41 PM ) UME] IN Reporting Lab: [facility] [place] [facility] SERUM OR [address] [facility] [address] PLASMA Performing Lab: [facility] [place] [facility] [address] [facility] [address] BASIC CREATININE 0.85 0.50 - 01/31 Specimen Type : [place]UM [place] METABOLI [MASS/VOLU 1.40 /2021 No comment e ntered. LD C PANEL ME] IN Ordering Provid er: DONATOANTHONY (fasting SERUM OR Report Releas ed Date/Time: Jul 05, 2021 01:41 PM ) PLASMA Reporting Lab: [facility] [place] [facility] [address] [facility] [address] Performing Lab: [place] [facility] [place] [facility] [address] [facility] [address] BASIC GLOMERULAR >90 60 01/31 Specimen Type : [place] [place] METABOLI FILTRATION /2021 No comment e ntered. LD C PANEL RATE/1.73 Ordering Prov ider: SEWELLANTHONY (fasting SQ Report Release d Date/Time: Jul 05, 2021 01:41 PM ) JUAN Reporting La b: [facility] [place] [facility] D [VOLUME [address] [facility] [address] RATE/AREA] Performing L ab: [facility] [place] [facility] IN SERUM, [address] [facility] [address] PLASMA OR BLOOD BY CREATININE -BASED FORMULA (CKD-EPI) LIVER PROTEIN 7.1 6.0 - 8.3 01/31 Specimen Type: SERUM [place] FUNCTION [MASS/VOLU /2021 No comment e ntered. LD ME] IN Ordering Provid er: ANTHONY SEWELL SERUM OR Report Release d Date/Time: Jul 05, 2021 01:41 PM PLASMA Reporting Lab: [facility] [address] [facility] [address] Performing Lab: [place] [facility] TRN [facility] [address] [facility] [address] LIVER ALBUMIN 3.9 3.5 - 5.0 01/31 Specimen Type: SERUM [place] FUNCTION [MASS/VOLU /2021 No comment e ntered. LD ME] IN Ordering Provid er: ANTHONY SEWELL SERUM OR Report Release d Date/Time: Jul 05, 2021 01:41 PM PLASMA Reporting Lab: [facility] [address] [address] Performing Lab: [facility] [address] LIVER ALKALINE 59 40 - 150 01/31 Specimen Type: SERUM [place] FUNCTION PHOSPHATAS /2021 No comment e ntered. LD E Ordering Provid er: ANTHONY SEWELL [ENZYMATIC Report Relea sed Date/Time: Jul 05, 2021 01:41 PM ACTIVITY/V Reporting La b: [facility]ITALUSETS [facility] OLUME] [place] [address] [facility] [address] SERUM OR Performing Lab : [facility]N [facility]USE[facility] PLASMA [address] [facility] [address] LIVER ASPARTATE 23 5 - 34 01/31 Specimen Type: SER[facility] [place] FUNCTION AMINOTRANS /2021 No comment e ntered. LD FERASE Ordering Provid er: ANTHONY SEWELL [ENZYMATIC Report Relea sed Date/Time: Jul 05, 2021 01:41 PM ACTIVITY/V Reporting La b: [facility] TRN [facility]USE[facility] OLUME] [place] [address] [facility] [address] SERUM OR Performing Lab : [facility] TRN [facility]ITALUS[facility] PLASMA [address] [facility] [address] LIVER ALANINE 27 6 - 55 07/13 Specimen Type: S SYLVIA [place] FUNCTION AMINOTRANS /2021 No comment e ntered. LD FERASE Ordering Provid er: ANTHONY SEWELL [ENZYMATIC Report Relea sed Date/Time: Jul 05, 2021 01:41 PM ACTIVITY/V Reporting La b: [facility] TRN [facility] OLUME] [place] [address] [facility] [address] SERUM OR Performing Lab : [facility]ITALUSE[facility] PLASMA [address] [facility] [address] LIVER BILIRUBIN. 1.1 0.2 - 1.2 01/31 Specimen Ty pe: SERUM [place] FUNCTION TOTAL /2021 No comment ente red. LD [MASS/VOLU Ordering Pro vider: ANTHONY SEWELL ME] IN Report Released Date/Time: Jul 05, 2021 01:41 PM SERUM OR Reporting Lab: [facility] PLASMA [address] [facility] [address] Per[facility]: [facility] [address] [address] LIPID CHOLESTERO 211 7 - 199 07/13 H Specimen Type : [place] PANEL L No comment enter ed. LD FASTING [MASS/VOLU Ordering Pro vider: ANTHONY SEWELL ME] IN Report Released Date/Time: Jul 05, 2021 01:41 PM SERUM OR Reporting Lab: [facility] PLASMA [address] [facility] [address] Performing Lab: [facility] TRN [facility]PITALUSETS [facility] [address] [facility] [address] LIPID TRIGLYCERI 130 0 - 150 07/13 Specimen Type : [place] PANEL DE /2021 No comment enter ed. LD FASTING [MASS/VOLU Ordering Pro vider: ANTHONY SEWELL ME] IN Report Released Date/Time: Jul 05, 2021 01:41 PM SERUM OR Reporting Lab: [facility] [address] [facility] [address] Performing Lab: [facility] [address] [address] LIPID CHOLESTERO 138 0 - 129 07/13 H Specimen Type : [facility] [place] PANEL L IN LDL /2021 No comment ente red. LD FASTING [MASS/VOLU Ordering Pro vider: ANTHONY SEWELL ME] IN Report Released Date/Time: Jul 05, 2021 01:41 PM SERUM OR Reporting Lab: [place] [facility] [place] [facility] BY [address] [facility] [address] CALCULATIO Performing L ab: [place] [facility] [place] [facility] N [address] [address] LIPID CHOLESTERO 4.5 01/31 Specimen Type : [facility] [place] PANEL L.TOTAL/CH /2021 No comment en tered. LD FASTING OLESTEROL Ordering Prov ider: ANTHONY SEWELL IN HDL Report Released Date/Time: Jul 05, 2021 01:41 PM [MASS Reporting Lab: [facility]] IN [address] [facility] [address] [address] SERUM OR Performing Lab : [facility] [address] [address] LIPID CHOLESTERO 47 40 - 60 01/31 Specimen Type : [facility] [place] PANEL L IN HDL /2021 No comment ente red. LD FASTING [MASS/VOLU Ordering Pro vider: ANTHONY SEWELL ME] IN Report Released Date/Time: Jul 05, 2021 01:41 PM SERUM OR Reporting Lab: [facility] [address] [facility] [address] Performing Lab: [facility]ITAL[facility] [address] [address] CALCIUM CALCIUM 9.1 8.5 - 10.2 01/31 Specimen Type : SERUM [place] [MASS/VOLU /2021 No comment en tered. LD ME] IN Ordering Provid er: ANTHONY SEWELL SERUM OR Report Release d Date/Time: Jul 05, 2021 01:41 PM PLASMA Reporting Lab: [facility] [place] [address] [address] Performing Lab: [facility] [address] [address] URIC URATE 7.3 3.5 - 7.2 0713 H Specimen Type: SERUM [place] ACID [MASS/VOLU /2021 No comment en tered. LD ME] IN Ordering Provid er: ANTHONY SEWELL SERUM OR Report Release d Date/Time: Jul 05, 2021 01:41 PM PLASMA Reporting Lab: [facility] [place] [facility] [address] [facility] [address] Performing Lab: [facility] [place] [facility] [address] [facility] [address] MICROSCO LEUKOCYTES 0-5 0 - 5 01/31 Specimen Typ e: URINE [place] PIC [#/AREA] /2021 No comment ente red. LD AUTOMATE IN URINE Ordering Prov ider: ANTHONY SEWELL, URINE SEDIMENT Report Releas ed Date/Time: Jul 05, 2021 01:41 PM BY Reporting Lab: [facility] [place] [facility] MICROSCOPY [address] [facility] [address] HIGH POWER Performing L ab: [facility] [place] [facility] FIELD [address] [facility] [address] MICROSCO MUCUS FEW 01/31 Specimen Type: URINE [place] PIC [#/AREA] /2021 No comment ente red. LD AUTOMATE IN URINE Ordering Prov ider: ANTHONY SEWELL, URINE SEDIMENT Report Releas ed Date/Time: Jul 05, 2021 01:41 PM BY Reporting Lab: [facility] [place] [facility] MICROSCOPY [address] [facility] [address] LOW POWER Performing La b: [facility] [place] [facility] FIELD [address] [facility] [address] MICROSCO ERYTHROCYT 3-5 0 - 3 01/31 Specimen Typ e: URINE [place] PIC /2021 No comment enter ed. LD AUTOMATE [#/AREA] Ordering Prov ider: ANTHONY SEWELL, URINE IN URINE Report Releas ed Date/Time: Jul 05, 2021 01:41 PM SEDIMENT Reporting Lab: [facility] [place] [facility] BY [address] [facility] [address] MICROSCOPY Performing L ab: [facility] [place] [facility] HIGH POWER [address] [facility] [address] FIELD BILIRUBI BILIRUBIN. 0.4 0 - 0.5 06/29 Specimen Typ e: SERUM [facility], DIRECT No comment enter ed. LD DIRECT [MASS/VOLU Ordering Pro vider: ANTHONY SEWELL PA] IN Report Released Date/Time: Feb 03, 2021 01:27 PM SERUM OR Reporting Lab: [facility] PLASMA [address] [facility] [address] Performing Lab: [facility] [address] [facility] [address] Vital Signs Combined list of inpatient and outpatient Vital Signs from Department of Defense and Veterans Affairs, ranging from 12 months to all on record, depending upon the facility. Vital Sign Value Date Comments Source SYSTOLIC BLOOD PRESSURE 137 02/02/2022 13:27:31 [facility] DIASTOLIC BLOOD PRESSURE 84 02/02/2022 13:27:31 [facility] PULSE OXIMETRY 98% 02/02/2022 13:27:31 [facility] WEIGHT 200 02/02/2022 13:27:31 [facility] BMI 31kg/m2 02/02/2022 13:27:31 [facility] PAIN 0 02/02/2022 13:27:31 [facility] HEIGHT 67 02/02/2022 13:27:31 [facility] TEMPERATURE 98.2 02/02/2022 13:27:31 [facility] PULSE 64 02/02/2022 13:27:31 [facility] RESPIRATION 18 02/02/2022 13:27:31 [facility] SYSTOL[facility] BLOOD PRESSURE 133 12/29/2021 13:02:24 [facility] DIASTOLIC BLOOD PRESSURE 82 12/29/2021 13:02:24 [facility] PULSE OXIMETRY 97% 12/29/2021 13:02:24 [facility] WEIGHT 196 12/29/2021 13:02:24 [facility] BMI 31kg/m2 12/29/2021 13:02:24 [facility] TEMPERATURE 98.3 12/29/2021 13:02:24 [facility] PULSE 78 12/29/2021 13:02:24 [facility] SYSTOLIC BLOOD PRESSURE 170 07/05/2021 13:28:04 [facility] DIASTOLIC BLOOD PRESSURE 100 07/05/2021 13:28:04 [facility] Encounters Combined list of: 1) Encounters from Department of Veterans Affairs facilities going back up to the last 18 months. 2) Encounters from the Department of Defense facilities going back up to 280 months. Location Location Encounter Encounter Reason Attending ADM DC Stat us Disposition Source Details Type Number For Provider Date Date Visit Outpatient [id number] 01/05 [id number] [place] [facility] Outpatient [id number] 02/03 [facility] [id number] [facility] [place] [facility] OFFICE O/P [id number] Diagnos DONATODOMINIQUE 02/03 SPRING EST LOW [id number] is: N IELD 20-29 MIN 59 ICD-10- CM I10 Essenti al (primar y) hyperte nsion<b r/>with Provide r Comment s: Benign essenti al hyperte nsion (SCT [id number] ) OFFICE O/P [id number] Diagnos JABIER EPPS 03/06 SPRING[place] EST [id number] is: Y N IELD MINIMAL 63 ICD-10- PROB CM I10 Essenti al (primar y) hyperte nsion<b r/>with Provide r Comment s: Benign essenti al hyperte nsion (SCT [id number] ) Outpatient [id number] 03/07 [facility] [id number] /2021 [facility] [place] [facility] Outpatient [id number] 03/16 [facility] [id number] [facility] [place] [facility] OFFICE O/P [id number] Diagnos ALEXEYGURINDERKASEY 04/12 SPRING[place] EST [id number] is: EL IELD MINIMAL 66 ICD-10- PROB CM Z23 Encount er for immuniz ation<b r/>with Provide r Comment s: Encount er for Immuniz ation Outpatient [id number] 05/19 [facility] [id number] [facility] [place] [facility] Outpatient [id number] 06/08 [facility] Encounter [id number] [facility] [place] [facility] Outpatient [id number] 06/28 [facility] En[facility] 0NCS. MINUT E 784 CLINIC OFFICE O/P [id number] [facility]05 [facility] EST MOD [id number] is: N IELD 30-39 MIN 57 ICD-10- CM I10 Essenti al (primar y) hyperte nsion<b r/>with Provide r Comment s: Benign essenti al hyperte nsion (SCT [id number] ) Outpatient [id number] JEEVAN LAYNE 12/22 [facility] [id number] [facility] [place] [facility] OFFICE O/P 59539-2.63 Diagnos [facility] 12/29 [facility] EST LOW [id number] is: N IELD 20-29 MIN 01 ICD-10- CM J45.998 Other asthma< br/>wit h Provide r Comment s: Other Asthma Outpatient 77892-112/29 [facility] 1. [facility] [place] [facility] OFFICE O/P [id number] Diagnos [facility] 02/02 [facility] EST MOD [id number] is: N /2021 IELD 30-39 MIN 04 ICD-10- CM J45.909 Unspeci fied asthma, uncompl icated< br/>wit h Provide r Comment s: Asthma (SCT [id number] 01) TELE[facility]ALTH Diagnos VITO,E 02/09 [facility] FACILITY [id number] is: URIEL I ELD FEE 85 ICD-10- CM L82.1 Other [facility] [place] is
with Provide r Comment s: Other [facility] [place] OFFICE O/P [id number] Diagnos MCNICHOL,E 02/09 [facility] SF [id number] is: URIEL CNT RL 15-29 MIN ICD-10- [facility] [place] L82.1 SETS Other [facility] seborrh eic [place] is
with Provide r Comment s: Other [facility] [place] OFFICE O/P 21233-4.63 Diagnos MCNICHOL,E 02/28 [facility] EST LOW [id number] is: URIEL A CN TRL 20-29 MIN ICD-10- [facility] [place] L57.0 SETS [facility] [place] is
with Provide r Comment s: [facility] [place] Outpatient [id number] 05/24 [facility] [id number] [facility] [place] [facility] Outpatient 47914-3.63 ANA PAULA ESPOSITO 06/11 [facility] En[id number] [facility] [place] [facility] Social History Combined list of available smoking, tobacco, and other social history [facility]. Social History Type Response Date Comment Source Tobacco smoking status [facility] VA-TOBACCO NEVER USED 02/02/2022 [facility] History of tobacco use [place]-TOBACCO NEVER USED 02/03/2021 [facility] History of tobacco use [place]-TOBACCO NEVER USED 01/21/2020 [facility] History of tobacco use [place]-TOBACCO NEVER USED 10/29/2018 [facility] Plan of Care List of future care activities from Department of Veterans Affairs facilities. Additional future care activities may be listed in the Assessment and Plan section. Date/Time Care Activity Care Activity Detail Facility 08/02/2022 AMBULATORY - MEDICINE [facility]
--- OUTSIDE RECORDS SUMMARY | 2022-06-11 16:19 | XMS_ITS | Encounter Summary ---
:1965 Author Organization [facility] Address [address] [place] [address] Support Name Relationship Address Phone CLASS, GINNA Unavailable [address] [facility] [place] [address] CLASS, GINNA Unavailable [address] [facility] [place] [address] Selected Encounter This section includes the information on record at SD for the Encounter. Date/Time Encounter Type Encounter Reason Provider Source Description Jun 11, 2022 10:34 Outpatient TELEPHONE TRIAGE CRISSY ESPOSITO AM Encounter IHE Encounter Template Text not used by SD Plan of Treatment: Future Appointments (+ 6 months) and Future Tests (+/- 45 days) The Plan of Treatment section includes future care activities for the patient from all [place] treatmentfacilities. This section includes future appointments and future orders which are active, pending orscheduled.Future Appointments This section includes appointments that were scheduled to occur 6 months from the date of the Encounter, up to a maximum of 20 appointments. The data comes from all [place] treatment facilities. Appointment Date/Time Appointment Type Appointment Facili ty Name Aug 02, 2022 01:00 PM AMBULATORY - MEDICINE [place] Sep 04, 2022 02:30 PM AMBULATORY MEDICINE [facility] Encounter Notes: All associated encounter notes This section contains the clinical notes associated to the Encounter. Date/Time Encounter Note(s) Provider Source Jun 11, 2022 10:34 AM RN PROGRESS NOTE: [facility] LOC[facility] TITLE: CCC: CLINICAL TRIAGE [facility] STANDARD TITLE: RN PROGRESS NOTE DATE OF NOTE: JUN 11, 2022@10:34:12 ENTRY DATE: JUN 11, 2022@10:34:12 AUTHOR: MEERA ESPOSITO EXP COSIGNER: URGENCY: STATUS: COMPLETED CCC: CLINICAL TRIAGE Has ADDENDA Patient Demographics Patient Name: STEPHEN GUILLEN Patient Primary Address: [address] [place] [address]
[place] [address] Patient : 1965 SSN: [id number] Patient Age: 57 Caller/Recipient Relation to Patient: Self Call Back Number: [phone] Emergency Contactx: GINNA CLASS Triage Summary Nurse Summary: [place] reports moderate to sever e upper ABD pain x 4 weeks approx. that's worsening rosalba ng with s/sx listed and detailed at the end of this RN's assessment. Vet agrees to ED recommendation . Vet has no additional questions and/or requests at this time. Alerting PACT Team for review and f/u. - Pain Score: 7 (Moderate to Severe Pain) Conducted triage/discussed symptoms Utilized the Triage Tool: Yes Chief Complaint: Abdominal Pain System WHEN: Now Nurse's Recommendation / WHEN: Now System WHERE: Emergency department Nurse's Recommendation / WHERE: ED Other Patient Disposition Patient/Caregiver agrees to plan of care: Yes Patient WHERE: ED Other Patient WHEN: Now Summary of Actions Referred patient to emergency services Other course(s) of action Instructed to go to Emergency Department Advised of Financial Disclaimer: Patient advised that recommendation for care provided during the call does not constitute an approval or authorization for payment by the SD or its staff. Patient advised to report a community ED visit [facility] the [facility] Office of Community Care at within 72 hours. Transferred to PACT/Provider Generated msg to PACT/Provider Clinical Contact Center Codes Clinic/Location: V1 CWM PHONE CCC RN TXCC Triage Complete Triage Note: Phone Triage 11 Jun 2022 15:26:23 +0000 [facility] Demographics 57 y/o Male Results CC: Abdominal Pain Software suggested: Now Software suggested follow-up location: Emergenc y department Values and Measures Duration of CC: 4 Weeks Alerts 1) This is a HIGHER COMPLEXITY patient. 2) If this patient is in the clinic, consider t ransferring care to the ED. Positive Responses HPI: abdominal pain, localized to upper abdomen HPI: diaphoresis, with abdominal pain HPI: palpitations, with abdominal pain VS: BP not taken VS: pulse not taken Negative Responses Denies: HPI: chest pain Denies: HPI: neck or jaw pain with abdominal pa in Denies: HPI: syncope, with abdominal pain Denies: PMH: abdominal aortic aneurysm Denies: PMH: angina Denies: PMH: heart attack [place] Education Verbal Education Provided: Based on your responses, you should be treated in the emergency room. Take action: You need to see a provider now or your conditio n could worsen. Consider calling an ambulance. /es/ MEERA ESPOSITO RN REGISTERED NURSE Signed: 06/11/2022 10:34 Receipt Acknowledged By: 06/11/2022 10:35 /es/ Wilfrid Null RN Registered Nurse (RN) * AWAITING SIGNATURE * JOVANI ORLANDO 06/11/2022 ADDENDUM STATUS: COMPLETED Addendum: Vet inquiring if he can go to ED at [facility] and informed he can go to any ED close to the . /es/ JAVIER HAYS RN, MSN Signed: 06/11/2022 11:14 Receipt Acknowledged By: * AWAITING SIGNATURE * WILFRID NULL * AWAITING SIGNATURE * JOVANI ORLANDO
--- OUTSIDE RECORDS SUMMARY | 2022-06-11 16:19 | XMS_ITS | Encounter Summary ---
:1965 Author Organization [facility] Address [address] [place] [address] Support Name Relationship Address Phone CLASS, GINNA Unavailable [address] [place] [address] CLASS, GINNA Unavailable [address] [place] [address] Selected Encounter This section includes the information on record at ME for the Encounter. Date/Time Encounter Type Encounter Reason Provider Source Description Feb 28, 2022 OFFICE O/P EST DERMATOLOGY ICD-10-CM L57.0 EDY PADRON A 09:30 AM LOW 20-29 MIN [facility] DANNY A keratosis with Provider Comments: Actinic Keratosis IHE Encounter Template Text not used by [facility] Assessments - Encounter Diagnoses This section includes the primary and secondary diagnoses documented for the Encounter. Date/Time Primary/Secondary Diagnosis Name Provider Source Diagnosis Feb 28, 2022 PRIMARY Actinic [facility] [place] [facility] 09:46 AM keratosis [place] [facility] Feb 28, 2022 SECONDARY Other seborrheic VITOSHERRY [place] [facility] 09:46 AM keratosis [place]ANNY A [place] [facility] Plan of Treatment: Future Appointments (+ 6 months) and Future Tests (+/- 45 days) The Plan of Treatment section includes future care activities for the patient from all [place] treatmentfacilities. This section includes future appointments and future orders which are active, pending orscheduled.Future Appointments This section includes appointments that were scheduled to occur 6 months from the date of the Encounter, up to a maximum of 20 appointments. The data comes from all [place] treatment facilities. Appointment Date/Time Appointment Type Appointment Facili ty Name Aug 02, 2022 01:00 PM AMBULATORY - MEDICINE [facility] Lab Results: +/- 30 days of the encounter This section includes the Chemistry and Hematology Lab Results on record with [facility] for the patient. Radiology Reports and Pathology Reports are provided separately, in subsequent sections.Lab Results This section contains the Chemistry/Hematology Results that were resulted 30 days before or 30 daysafter the date of the Encounter. Date/Time Source Result Type Result - Unit Interpretation Reference Range Comment Jan 31, 2022 10:14 AM [facility] CBC Specimen Type: BLOOD No comment enter ed. Ordering Provid er: ANTHONY SEWELL Report Released Date/Time: Jul 05, 2021 01:41 PM Reporting Lab: [address] [address] Performing Lab: [address] [address] WBC 3.94 L 4.50-11.00 RBC 4.93 4.23-5.66 HGB 15.1 12.8-17 HCT 44.4 39.2-50.4 MCV 90.1 82-99 MCHC 34.0 30.8-35.1 PLT 216 140-360 RDW-CV 11.5 L 12.0-16.0 MCH 30.6 26.2-32.6 Jan 31, 2022 10:14 AM [facility] URINALYSIS Specimen Type: URINE No comment enter ed. Ordering Provid er: ANTHONY SEWELL Report Released Date/Time: Jul 05, 2021 01:41 PM Reporting Lab: [address] [address] Performing Lab: [address] [address] UA COLOR Yellow Yellow UA APPEARANCE Clear Clear UA GLUCOSE Negative Negative UA KETONES Negative Neg UA BLOOD Small Neg UA PROTEIN Negative Neg UA NITRITE Negative Neg UA BILIRUBIN Negative Neg UA SPECIFIC GRAVITY 1.018 1.016-1.02 2 UA pH 7.0 5.0-9.0 UA UROBILINOGEN <2.0 <2.0 UA LEUKOCYTE ESTERASE Negative Neg Jan 31, 2022 [facility] HEMOGLOBIN A1C Specimen Type: BLOOD 10:14 AM PANEL Comment: Values obtained from A1C measurements can vary. For typical A1C assays, a reported value of 7.0 could actually be between 6.72 and 7.28 if measured by a reference method. A reported value of 9 .0 could actuall y be between 8.73 and 9.27. Ref: http://www.ngsp.org/CAPdata.asp Ordering Provid er: ANTHONY SEWELL Report Released Date/Time: Jul 05, 2021 01:41 PM Reporting Lab: [address] [address] Performing Lab: [address] [address] HEMOGLOBIN A1C 5.3 4.0-5.6 Jan 31, 2022 10:14 AM [facility] BASIC METABOLIC PANEL Spe cimen Type: SERUM (fasting) No comment enter ed. Ordering Provid er: ANTHONY SEWELL Report Released Date/Time: Jul 05, 2021 01:41 PM Reporting Lab: [address] [address] Performing Lab: [address] [address] UREA NITROGEN 11 7-25 GLUCOSE 100 65-100 SODIUM 138 135-145 POTASSIUM 4.1 3.5-5.0 CHLORIDE 106 100-110 CO2 26 20-30 CREATININE, Serum 0.85 0.50-1.40 eGFR(CKD-EPI 2020) >90 >60 Jan 31, 2022 10:14 AM [facility] LIVER FUNCTION Specimen Type: SERUM No comment enter ed. Ordering Provid er: ANTHONY SEWELL Report Released Date/Time: Jul 05, 2021 01:41 PM Reporting Lab: [address] [address] Performing Lab: [address] [address] PROTEIN,TOTAL 7.1 6.0-8.3 ALBUMIN 3.9 3.5-5.0 ALKALINE PHOSPHATASE 59 40-150 AST 23 5-34 ALT 27 <6-55 BILIRUBIN, TOTAL 1.1 0.2-1.2 Jan 31, 2022 10:14 AM [facility] LIPID PANEL FASTING Speci men Type: SERUM No comment enter ed. Ordering Provid er: ANTHONY SEWELL Report Released Date/Time: Jul 05, 2021 01:41 PM Reporting Lab: [facility] [place] [facility] [address] [facility] [address] Performing Lab: [facility] [place] [facility] [address] [facility] [address] CHOLESTEROL 211 H <7-199 TRIGLYCERIDE 130 0-150 LDL calculated 138 H 0-129 CHOL/HDL 4.5 HDL CHOLESTEROL 47 40-60 Jan 31, 2022 10:14 AM [facility] CALCIUM Specimen Type: SERUM No comment enter ed. Ordering Provid er: ANTHONY SEWELL Report Released Date/Time: Jul 05, 2021 01:41 PM Reporting Lab: [facility] [place] [facility] [address] [facility] [address] Performing Lab: [facility] [place] [facility] [address] [facility] [address] CALCIUM 9.1 8.5-10.2 Jan 31, 2022 10:14 AM [facility] URIC ACID Specimen Type: SERUM No comment enter ed. Ordering Provid er: ANTHONY SEWELL Report Released Date/Time: Jul 05, 2021 01:41 PM Reporting [facility] [place] [facility] [address] [facility] [address] Performing Lab: [facility] [place] [facility] [address] [facility] [address] URIC ACID 7.3 H 3.5-7.2 Jan 31, 2022 10:14 AM [facility] MICROSCOPIC AUTOMATED, Sp ecimen Type: URINE URINE No comment enter ed. Ordering Provid er: ANTHONY SEWELL Report Released Date/Time: Jul 05, 2021 01:41 PM Reporting Lab: [facility] [place] [facility] [address] [facility] [address] Performing Lab: [facility] [place] [facility] [address] [facility] [address] UA WBC 0-5 0-5 UA MUCUS FEW Trace UA RBC 3-5 0-3 Encounter Notes: All associated encounter notes This section contains the clinical notes associated to the Encounter. Date/Time Encounter Note(s) Provider Source Feb 28, 2022 08:59 PRIMARY CARE NURSE PRACTITIONER OUTPATIE NOTE: LEAH PADRON [facility] AM LOCAL TITLE: NURSE PRACTITIONER OUTPATIENT NOTE H [facility] TITLE: PRIMARY CARE NURSE PRACTITIONER OUTPATIENT NOTE DATE OF NOTE: FEB 28, 2022@08:59 ENTRY DATE: FEB 28, 2022@08:59:38 AUTHOR: ENRIQUETA PADRON EXP COSIGNER: URGENCY: STATUS: COMPLETED FEB 28, 2022 STEPHEN GUILLEN Feb 57 PATIENT PHONE - [phone] [place] Skintype Patient here for:Follow up CC/HPI: Pt here to f/u on two facial lesions s/p initial eval over CVT visit: 1 - - Favor seborrheic keratosis to R cheek, ddx includes nevus or lentigo - 2 - Seborrheic keratosis vs actinic keratosis vs nevus vs dysplastic nevus to L cheek REVIEW OF SYSTEMS: Constitutional-neg Active Outpatient Medications (including Supplie s): Active Outpatient Medications Status 1) ALBUTEROL 90MCG (CFC-F) 200D ORAL INHL INHALE 1 PUFF ACTIVE BY MOUTH FOUR TIMES DAILY NEEDED ONLY USE IF YOU GET OUT OF BREATH 2) ATORVASTATIN CALCIUM 80MG TAB TAKE ONE-HALF T ABLET BY ACTIVE MOUTH ONCE DAILY FOR CHOLESTEROL 3) DOCUSATE NA 100MG CAP TAKE ONE CAPSULE BY JUJU TH ONCE ACTIVE DAILY TO SOFTEN STOOL 4) HYDROCHLOROTHIAZIDE 25MG TAB TAKE ONE-HALF TA BLET BY ACTIVE MOUTH ONCE DAILY TO PREVENT FLUID/CONTROL BLOOD PRESSURE 5) LISINOPRIL 30MG TAB TAKE ONE TABLET BY MOUTH EVERY ACTIVE DAY TO CONTROL BLOOD PRESSURE 6) MOMETASONE FUROATE 220MCG ORAL INHL 60 INHALE 1 PUFF ACTIVE BY MOUTH TWICE DAILY --RINSE MOUTH AFTER EACH U SE USE ONCE EVERY MORNING AND ONCE EVERY NIGHT TO PREVENT COUGH PHYSICAL EXAM: L cheek with hyperpigmented macule on mi ldly erythematous base, with overlying scale R lower cheek with thin waxy brown stuck on papu le L scalp with waxy stuck on papule Diagnosis/Plan: 1 - Seborrheic keratoses - Patient reass ured lesions are benign, w/o potential for malignant transformation. They can be treate d with cryo if bothersome. He declines treatment today. 2 - Actinic keratosis L cheek - -Patient education provided on relationship of AKs to squamous cell carcinoma. -Treatment options discussed. -Treated with liquid nitrogen, verbal consent ob tained and patient tolerated well. -SE including but not limited to redness, crusti ng, swelling, blistering discussed. -Patient educated on sun protection and sun avoi dance measures. Plan: f/u prn, pt agreeable. Medication Reconciliation: Outpatient: Has the patient been taking medications as docu mented in the EMLR? YES: The patient has been taking medications as documented in the EMLR. Essential Medication List for Review used to co mplete this medication reconciliation. INCLUDED IN THIS LIST: Alphabetical list of act di outpatient prescriptions dispensed from this [facility] (local) an d dispensed from another [facility] or [facility] facility (remote) as well as inpatien t orders (local, pending and active), local clinic medications, locally documented non-VA medications, and local prescriptions that have or been discontinued in the past 90 days. - All changes in medications, including all non -VA/Herbal/OTC medications were entered into CPRS. - If there were any medications the patient rojelio uld no longer take, they were discontinued. - The patient/caregiver was instructed to updat e this list, discard old lists, and take this list to the next appointme nt, whether with a VA or non-VA provider. /nestor/ ENRIQUETA PADRON NP NURSE PRACTITIONER Signed: 02/28/2022 09:46
--- OUTSIDE RECORDS SUMMARY | 2022-06-11 16:20 | XMS_ITS | Encounter Summary ---
:1965 Author Organization [facility] Address [address] [place] [address] Support Name Relationship Address Phone CLASS, GINNA Unavailable [address] [facility] [place] [address] CLASS, GINNA Unavailable [address] [facility] [place] [address] Selected Encounter This section includes the information on record at [place] for the Encounter. Date/Time Encounter Type Encounter Description Reason Provider Source Jun 28, 2021 12:00 Outpatient Encounter EVENT (HISTORICAL) AM IHE Encounter Template Text not used by [place] Plan of Treatment: Future Appointments (+ 6 months) and Future Tests (+/- 45 days) The Plan of Treatment section includes future care activities for the patient from all [place] treatmentfacilities. This section includes future appointments and future orders which are active, pending orscheduled.Future Appointments This section includes appointments that were scheduled to occur 6 months from the date of the Encounter, up to a maximum of 20 appointments. The data comes from all [place] treatment facilities. Appointment Date/Time Appointment Type Appointment Facili ty Name Jul 05, 2021 01:30 PM AMBULATORY - MEDICINE [place] Lab Results: +/- 30 days of the encounter This section includes the Chemistry and Hematology Lab Results on record with [place] for the patient. Radiology Reports and Pathology Reports are provided separately, in subsequent sections.Lab Results This section contains the Chemistry/Hematology Results that were resulted 30 days before or 30 daysafter the date of the Encounter. Date/Time Source Result Type Result - Unit Interpretation Reference Range Comment Jun 29, 2021 10:55 AM [place] BILIRUBIN, DIRECT Specime n Type: SERUM No comment enter ed. Ordering Provid er: ANTHONY SEWELL Report Released Date/Time: Feb 03, 2021 01:27 PM Reporting Lab: [facility] [address] [address] Performing Lab: [facility] [place] [facility] [address] [facility] [address] BILIRUBIN, DIRECT 0.4 0-0.5 Jun 29, 2021 10:55 AM [place] FERRITIN Specimen Type: SERUM No comment enter ed. Ordering Provid er: ANTHONY SEWELL Report Released Date/Time: Feb 03, 2021 01:27 PM Reporting Lab: [facility] [place] [facility] [address] [facility] [address] Performing Lab: [facility] [place] [facility] [address] [facility] [address] FERRITIN 61.3 20-300 Jun 29, 2021 10:55 AM [place] PSA Specimen Type: SERUM No comment enter ed. Ordering Provid er: ANTHONY SEWELL Report Released Date/Time: Feb 03, 2021 01:27 PM Reporting Lab: [facility] [place] [facility] [address] [facility] [address] Performing Lab: [facility] [place] [facility] [address] [facility] [address] PSA 0.24 0.00-4.00 Jun 29, 2021 10:55 AM [place] URINALYSIS Specimen Type: URINE No comment enter ed. Ordering Provid er: ANTHONY SEWELL Report Released Date/Time: Feb 03, 2021 01:27 PM Reporting Lab: [facility] [place] [facility] [address] [facility] [address] Performing Lab: [facility] [place] [facility] [address] [facility] [address] UA COLOR Yellow Yellow UA APPEARANCE Clear Clear UA GLUCOSE Negative Negative UA KETONES Negative Neg UA BLOOD Negative Neg UA PROTEIN Negative Neg UA NITRITE Negative Neg UA BILIRUBIN Negative Neg UA SPECIFIC GRAVITY 1.016 1.016-1.02 2 UA pH 7.0 5.0-9.0 UA UROBILINOGEN <2.0 <2.0 UA LEUKOCYTE ESTERASE Negative Neg Jun 29, 2021 10:55 AM [place] CBC Specimen Type: BLOOD No comment enter ed. Ordering Provid er: ANTHONY SEWELL Report Released Date/Time: Feb 03, 2021 01:27 PM Reporting Lab: [facility] [place] [facility] [address] [facility] [address] Performing Lab: [facility] [address] [facility] [address] WBC 4.40 L 4.50-11.00 RBC 5.26 4.23-5.66 HGB 15.8 12.8-17 HCT 46.8 39.2-50.4 MCV 89.0 82-99 MCHC 33.8 30.8-35.1 PLT 221 140-360 RDW-CV 11.9 L 12.0-16.0 MCH 30.0 26.2-32.6 Jun 29, 2021 10:55 AM [place] LIPID PANEL FASTING Speci men Type: SERUM No comment enter ed. Ordering Provid er: ANTHONY SEWELL Report Released Date/Time: Feb 03, 2021 01:27 PM Reporting Lab: [facility] [address] [facility] [address] Performing Lab: [facility] [address] [facility] [address] CHOLESTEROL 221 H 0-199 TRIGLYCERIDE 112 0-150 LDL calculated 148 H 0-129 CHOL/HDL 4.3 HDL CHOLESTEROL 51 40-60 Jun 29, 2021 10:55 AM [place] LIVER FUNCTION Specimen Type: SERUM No comment enter ed. Ordering Provid er: ANTHONY SEWELL Report Released Date/Time: Feb 03, 2021 01:27 PM Reporting Lab: [facility] [address] [facility] [address] Performing Lab: [facility] [address] [facility] [address] PROTEIN,TOTAL 7.4 6.0-8.3 ALBUMIN 3.8 3.5-5.0 ALKALINE PHOSPHATASE 74 40-150 AST 27 5-34 ALT 26 0-55 BILIRUBIN, TOTAL 1.2 0.2-1.2 Jun 29, 2021 10:55 AM [place] BASIC METABOLIC PANEL Spe cimen Type: SERUM (fasting) No comment enter ed. Ordering Provid er: ANTHONY SEWELL Report Released Date/Time: Feb 03, 2021 01:27 PM Reporting Lab: [facility] [address] [facility] [address] Performing Lab: [place] [facility] [place] [facility] [address] [facility] [address] UREA NITROGEN 8 7-25 GLUCOSE 109 H 65-100 SODIUM 137 135-145 POTASSIUM 4.3 3.5-5.0 CHLORIDE 105 100-110 CO2 24 20-30 CREATININE, Serum 0.89 0.50-1.40 eGFR (IDMS) 88 >60 Jun 29, 2021 10:55 AM [place] CALCIUM Specimen Type: SERUM No comment enter ed. Ordering Provid er: ANTHONY SEWELL Report Released Date/Time: Feb 03, 2021 01:27 PM Reporting Lab: [facility] [place] [facility] [address] [facility] [address] Performing Lab: [facility] [place] [facility] [address] [facility] [address] CALCIUM 9.4 8.5-10.2 Jun 29, 2021 10:55 AM [place] VITAMIN B12 Specimen Type: SERUM No comment enter ed. Ordering Provid er: ANTHONY SEWELL Report Released Date/Time: Feb 03, 2021 01:27 PM Reporting Lab: [facility] [place] [facility] [address] [facility] [address] Performing Lab: [facility] [place] [facility] [address] [facility] [address] VITAMIN B12 297 200-900 Jun 29, 2021 10:55 AM [place] VITAMIN D (25-[place]) Specime n Type: SERUM No comment enter ed. Ordering Provid er: ANTHONY SEWELL Report Released Date/Time: Feb 03, 2021 01:27 PM Reporting Lab: [place] [facility] [place] [facility] [address] [facility] [address] Performing Lab: [place] [facility] [place] [facility] [address] [facility] [address] VITAMIN D (25-[place]) 30 20-50 Jun 29, 2021 10:55 AM [place] URIC ACID Specimen Type: SERUM No comment enter ed. Ordering Provid er: ANTHONY SEWELL Report Released Date/Time: Feb 03, 2021 01:27 PM Reporting Lab: [place] [facility] [address] [address] Performing Lab: [address] [address] URIC ACID 6.5 3.5-7.2 Jun 29, 2021 10:55 AM [place] TSH Specimen Type: SERUM No comment enter ed. Ordering Provid er: ANTHONY SEWELL Report Released Date/Time: Feb 03, 2021 01:27 PM Reporting Lab: [address] [address] Performing Lab: [address] [address] TSH 0.98 0.35-5.00 Immunizations: All administered on the encounter date This section contains immunizations associated to the Encounter. Immunization Series Date Issued Reaction Comments COVID-19 (PFIZER), MRNA, LNP-S, PF, 30 MCG/0.3 3 Jun 28, 2021 ML DOSE
--- OUTSIDE RECORDS SUMMARY | 2022-06-11 16:20 | XMS_ITS ---
:1965 Author Organization [facility] Address [address] [place] [address] Support Name Relationship Address Phone CLASS, GINNA Unavailable [address] [facility] [place] [place] [address] CLASS, GINNA Unavailable [address] [facility] [place] [place] [address] Selected Encounter This section includes the information on record at [place] for the Encounter. Date/Time Encounter Type Encounter Reason Provider Source Description Dec 22, 2021 02:30 Outpatient TELEPHONE TRIAGE [place] [facility]INSTEIN PM Encounter IHE Encounter Template Text not used by [place] Plan of Treatment: Future Appointments (+ 6 months) and Future Tests (+/- 45 days) The Plan of Treatment section includes future care activities for the patient from all [place] treatmentfacilities. This section includes future appointments and future orders which are active, pending orscheduled.Future Appointments This section includes appointments that were scheduled to occur 6 months from the date of the Encounter, up to a maximum of 20 appointments. The data comes from all [place] treatment facilities. Appointment Date/Time Appointment Type Appointment Facili ty Name Dec 29, 2021 01:00 PM AMBULATORY - [facility]ICINE [place] Feb 02, 2022 01:30 PM [facility]BULATORY MEDICINE [place] Feb 09, 2022 01:00 PM AMBULATORY - NONE [place] [facility] [place] [facility] Feb 09, 2022 01:01 PM AMBULATORY - NONE [place] [facility] [place] [facility] Feb 28, 2022 09:30 AM AM[place]UL[facility]ORY - [place]ICINE [place] [facility] [place] [facility] Encounter Notes: All associated encounter notes This section contains the clinical notes associated to the Encounter. Date/Time Encounter Note(s) Provider Source Dec 22, 2021 02:30 PM RN PROGRESS NOTE: EDDI WEINSTEIN [facility] LOCAL TITLE: CCC: CLINICAL TRIAGE [facility] TITLE: RN PROGRESS NOTE DATE OF NOTE: DEC 22, 2021@14:30:54 ENTRY DATE: DEC 22, 2021@14:30:54 AUTHOR: EDDI WEINSTEIN EXP COSIGNER: URGENCY: STATUS: COMPLETED CCC: CLINICAL TRIAGE Has ADDENDA Patient Demographics Patient Name: STEPHEN GUILLEN Patient Primary Address: [address] [place] [id number] Patient : 1965 Patient Age: 56 Emergency Contact: [facility] Patient Primary Phone: [phone] SSN: [id number] Caller Relationship: Self Triage Summary Nurse Summary: Spoke to vet who reports that he has a spot on his face and his head x years but he would like them look ed at. The spot on his face has become somewhat sensitive to touch. The spot on his head has started to change color. He reports that his skin is intact and n ot bleeding or draining. He would like to be evaluated for skin cancer. Will fo rward to PACT for determination of PCP appointment vs dermatology. Conducted triage/discussed symptoms Chief Complaint: Skin Mole System WHEN: Within 2 Weeks System WHERE: Clinic Utilized the Triage Tool: Yes Nurse's Recommendation / WHEN: Within 2 Weeks Nurse's Recommendation / WHERE: Clinic/[facility] Summary of Actions Other course(s) of action Generated msg to PACT/Provider Clinical Contact Center Codes Clinic/Location: [facility] PHONE CCC RN ALCC Triage Complete Triage Note: Phone Triage 22 Dec 2021 18:26:24 +0000 [facility] Demographics 56 y/o Male Results CC: Skin Mole Nurse selected: Within 2 Weeks Nurse selected follow-up location: Clinic Software suggested: Within 2 Weeks Software suggested follow-up location: Clinic, consider virtual care Values and Measures Duration of CC: 12 Months Positive Responses HPI: mole or skin growth, change in color VS: temperature not taken Negative Responses Denies: HPI: mole or skin growth, bleeding Denies: HPI: mole, enlarging Denies: HPI: skin erythema, around skin lump or bump /nestor/ Eddi WeinsteinRN,BSN Call Center Registered Nurse Signed: 12/22/2021 14:30 Receipt Acknowledged By: 12/22/2021 15:36 /es/ JOVANI ORLANDO LPN LICENSED PRACTICAL NURSE 12/22/2021 14:32 /es/ TREMAYNE ANGELA, CARE TEAM ASSISTANT NURSE for [facility] 12/22/2021 ADDENDUM STATUS: COMPLETED [place] needs to be evaluated prior to Derm refe rral - please assist with PCP appt, thank you! /nestor/ TREMAYNE ANGELA CARE TEAM ASSISTANT NURSE Signed: 12/22/2021 14:33 Receipt Acknowledged By: 12/22/2021 15:42 /nestor/ MARANDA PEDRO Advanced Maintenance Shop Manager 12/22/2021 ADDENDUM STATUS: COMPLETED Voice message left to schedule appt /nestor/ MARANDA PEDRO Advanced Maintenance Shop Manager Signed: 12/22/2021 15:20 12/22/2021 ADDENDUM STATUS: COMPLETED Appt scheduled 12/29/21 /nestor/ MARANDA PEDRO Advanced Maintenance Shop Manager Signed: 12/22/2021 15:42
--- OUTSIDE RECORDS SUMMARY | 2022-06-11 16:20 | XMS_ITS | Encounter Summary ---
:1965 Author Organization [facility] Address [address] [place] [id number] Support Name Relationship Address Phone CLASS, GINNA Unavailable [address] [facility] [place] [address] CLASS, GINNA Unavailable [address] [facility] [place] [address] Selected Encounter This section includes the information on record at [place] for the Encounter. Date/Time Encounter Type Encounter Reason Provider Source Description Jul 05, 2021 OFFICE O/P EST PRIMARY ICD-10-CM I10 ANTHONY SEWELL 01:30 PM MOD 30-39 MIN CARE/MEDICINE Essential (primary) hypertension with Provider Comments: Benign essential hypertension (SCT [id number]) E Encounter Template Text not used by [facility] Assessments - Encounter Diagnoses This section includes the primary and secondary diagnoses documented for the Encounter. Date/Time Primary/Secondary Diagnosis Name Provider Source Diagnosis Jul 05, 2021 PRIMARY Essential (primary) ANTHONY SEWELL ELD 01:40 PM hypertension Jul 05, 2021 SECONDARY HyperglycemiaDONATO JOHN [place] 01:40 PM unspecified Jul 05, 2021 SECONDARY Pure ANTHONY SEWELL 01:40 PM hypercholesterolemi a, unspecified Plan of Treatment: Future Appointments (+ 6 months) and Future Tests (+/- 45 days) The Plan of Treatment section includes future care activities for the patient from all [place] treatmentfacilities. This section includes future appointments and future orders which are active, pending orscheduled.Future Appointments This section includes appointments that were scheduled to occur 6 months from the date of the Encounter, up to a maximum of 20 appointments. The data comes from all [place] treatment facilities. Appointment Date/Time Appointment Type Appointment Facili ty Name Dec 29, 2021 01:00 PM AMBULATORY - MEDICINE [facility] Lab Results: +/- 30 days of the encounter This section includes the Chemistry and Hematology Lab Results on record with [facility] for the patient. Radiology Reports and Pathology Reports are provided separately, in subsequent sections.Lab Results This section contains the Chemistry/Hematology Results that were resulted 30 days before or 30 daysafter the date of the Encounter. Date/Time Source Result Type Result - Unit Interpretation Reference Range Comment Jun 29, 2021 10:55 AM [facility] BILIRUBIN, DIRECT Specime n Type: SERUM No comment enter ed. Ordering Provid er: ANTHONY SEWELL Report Released Date/Time: Feb 03, 2021 01:27 PM Reporting Lab: [place] [facility] [place] [facility] [address] [facility] [address] Performing Lab[facility] [place] [facility] [address] [facility] [address] BILIRUBIN, DIRECT 0.4 0-0.5 Jun 29, 2021 10:55 AM [facility] FERRITIN Specimen Type: SERUM No comment enter ed. Ordering Provid er: ANTHONY SEWELL Report Released Date/Time: Feb 03, 2021 01:27 PM Reporting Lab: [facility] [place] [facility] [address] [facility] [address] Performing Lab: [facility] [place] [facility] [address] [facility] [address] FERRITIN 61.3 20-300 Jun 29, 2021 10:55 AM [place] PSA Specimen Type: SERUM No comment enter ed. Ordering Provid er: ANTHONY SEWELL Report Released Date/Time: Feb 03, 2021 01:27 PM Reporting Lab: [facility] [place] [facility] [address] [facility] [address] Performing Lab: [place] [facility] [place] [facility] [address] [facility] [address] PSA 0.24 0.00-4.00 Jun 29, 2021 10:55 AM [place] URINALYSIS Specimen Type: URINE No comment enter ed. Ordering Provid er: ANTHONY SEWELL Report Released Date/Time: Feb 03, 2021 01:27 PM Reporting Lab: [place] [facility] [place] [facility] [address] [facility] [address] Performing Lab: [facility] [place] [facility] [address] [facility] [address] UA COLOR Yellow Yellow UA APPEARANCE Clear Clear UA GLUCOSE Negative Negative UA KETONES Negative Neg UA BLOOD Negative Neg UA PROTEIN Negative Neg UA NITRITE Negative Neg UA BILIRUBIN Negative Neg UA SPECIFIC GRAVITY 1.016 1.016-1.02 2 UA pH 7.0 5.0-9.0 UA UROBILINOGEN <2.0 <2.0 UA LEUKOCYTE ESTERASE Negative Neg Jun 29, 2021 10:55 AM [place] CBC Specimen Type: BLOOD No comment enter ed. Ordering Provid er: ANTHONY SEWELL Report Released Date/Time: Feb 03, 2021 01:27 PM Reporting Lab: [facility] [address] [facility] [address] Performing Lab: [facility] [address] [facility] [address] WBC 4.40 L 4.50-11.00 RBC 5.26 4.23-5.66 HGB 15.8 12.8-17 HCT 46.8 39.2-50.4 MCV 89.0 82-99 MCHC 33.8 30.8-35.1 PLT 221 140-360 RDW-CV 11.9 L 12.0-16.0 MCH 30.0 26.2-32.6 Jun 29, 2021 10:55 AM [place] LIPID PANEL FASTING Speci men Type: SERUM No comment enter ed. Ordering Provid er: ANTHONY SEWELL Report Released Date/Time: Feb 03, 2021 01:27 PM Reporting Lab: [facility] [address] [facility] [address] Performing Lab: [facility] [address] [facility] [address] CHOLESTEROL 221 H 0-199 TRIGLYCERIDE 112 0-150 LDL calculated 148 H 0-129 CHOL/HDL 4.3 HDL CHOLESTEROL 51 40-60 Jun 29, 2021 10:55 AM [place] LIVER FUNCTION Specimen Type: SERUM No comment enter ed. Ordering Provid er: ANTHONY SEWELL Report Released Date/Time: Feb 03, 2021 01:27 PM Reporting Lab: [facility] [address] [facility] [address] Performing Lab: [facility] [address] [facility] [address] PROTEIN,TOTAL 7.4 6.0-8.3 ALBUMIN 3.8 3.5-5.0 ALKALINE PHOSPHATASE 74 40-150 AST 27 5-34 ALT 26 0-55 BILIRUBIN, TOTAL 1.2 0.2-1.2 Jun 29, 2021 10:55 AM [place] BASIC METABOLIC PANEL Spe cimen Type: SERUM (fasting) No comment enter ed. Ordering Provid er: ANTHONY SEWELL Report Released Date/Time: Feb 03, 2021 01:27 PM Reporting Lab: [facility] [place] [facility] [address] [facility] [address] Performing Lab: [facility] [address] [facility] [address] UREA NITROGEN 8 7-25 GLUCOSE 109 H 65-100 SODIUM 137 135-145 POTASSIUM 4.3 3.5-5.0 CHLORIDE 105 100-110 CO2 24 20-30 CREATININE, Serum 0.89 0.50-1.40 eGFR (IDMS) 88 >60 Jun 29, 2021 10:55 AM [place] CALCIUM Specimen Type: SERUM No comment enter ed. Ordering Provid er: ANTHONY SEWELL Report Released Date/Time: Feb 03, 2021 01:27 PM Reporting Lab: [facility] [place] [facility] [address] [facility] [address] Performing Lab: [facility] [address] [facility] [address] CALCIUM 9.4 8.5-10.2 Jun 29, 2021 10:55 AM [place] VITAMIN B12 Specimen Type: SERUM No comment enter ed. Ordering Provid er: ANTHONY SEWELL Report Released Date/Time: Feb 03, 2021 01:27 PM Reporting Lab: [facility] [address] [facility] [address] Performing Lab: [facility] [address] [facility] [address] VITAMIN B12 297 200-900 Jun 29, 2021 10:55 AM [place] VITAMIN D (25-[place]) Specime n Type: SERUM No comment enter ed. Ordering Provid er: ANTHONY SEWELL Report Released Date/Time: Feb 03, 2021 01:27 PM Reporting Lab: [facility] [place] [facility] [address] [facility] [address] Performing Lab: [facility] [place] [facility] [address] [facility] [address] VITAMIN D (25-[place]) 30 20-50 Jun 29, 2021 10:55 AM [place] URIC ACID Specimen Type: SERUM No comment enter ed. Ordering Provid er: ANTHONY SEWELL Report Released Date/Time: Feb 03, 2021 01:27 PM Reporting Lab: [facility] [place] [facility] [address] [facility] [address] Performing Lab: [facility] [place] [facility] [address] [facility] [address] URIC ACID 6.5 3.5-7.2 Jun 29, 2021 10:55 AM [place] TSH Specimen Type: SERUM No comment enter ed. Ordering Provid er: ANTHONY SEWELL Report Released Date/Time: Feb 03, 2021 01:27 PM Reporting Lab: [facility] [place] [facility] [address] [facility] [address] Performing Lab: [facility] [place] [facility] [address] [facility] [address] TSH 0.98 0.35-5.00 Vital Signs: All taken on the encounter date This section contains inpatient and outpatient Vital Signs collected on the date of the Encounter. Date/Time Temperature Pulse Blood Respiratory SP02 Pain Height Weight Tommy dy Source Pressure Rate Mass Index Jul 05 F 75 150/89 18 /min 98 % 67 in 201 lb 32 2020 01:28 /min mm[Hg] [place] PM Jul 05, 170/100 2020 01:28 mm[Hg] [place] PM Social History: Smoking Status (Most current) and Tobacco Use (All prior to encounter date) This section includes the most current, and the historical, smoking and tobacco-related health factors from the [place] facility where the Encounter took place.Current Smoking Status This section includes the most current smoking, or tobacco-related health factor, from the [place] facility where the Encounter took place. Date/Time Current Smoking Status Comment Facility Feb 03, 2021 01:00 PM [facility]-TOBACCO NEVER USED [place] Tobacco Use History This section includes a history of the smoking, or tobacco- related health factors, that were collected on or before the date of the Encounter. The data comes from the [place] facility where the Encounter took place. Date/Time Smoking Status/Tobacco Use Comment Patricia aaliyah Jan 21, 2020 03:49 PM [facility]-TOBACCO NEVER USED [place] Oct 29, 2018 01:50 PM [facility]-TOBACCO NEVER USED [place] Encounter Notes: All associated encounter notes This section contains the clinical notes associated to the Encounter. Date/Time Encounter Note(s) Provider Source Jul 31, 2021 08:31 AM NURSING NOTE: WILFRID NULL LOCAL TITLE: NURSING/TELEPHONE STANDARD TITLE: NURSING NOTE DATE OF NOTE: JUL 31, 2021@08:31 ENTRY DATE: JUL 31, 2021@08:32:01 AUTHOR: WILFRID NULL EXP COSIGNER: URGENCY: STATUS: COMPLETED Called to reschedule appt 08/04/21 @2pm, LVM to call back. /nestor/ Wilfrid Null RN Registered Nurse (RN) Signed: 07/31/2021 08:32 Jul 05, 2021 01:29 PM PREVENTIVE MEDICINE NURSING NOTE: JOVANI MONROE LOCAL TITLE: CLINICAL REMINDERS/NURSING STANDARD TITLE: PREVENTIVE MEDICINE NURSING NOTE DATE OF NOTE: JUL 05, 2021@13:29 ENTRY DATE: JUL 05, 2021@13:29:16 AUTHOR: JOVANI ORLANDO EXP COSIGNER: URGENCY: STATUS: COMPLETED [employer] Education: The patient has access or uses the internet. The patient is not registered for [employer] . The patient was educated on the availability an d features of [employer] and given handouts on how to access it and how to get the IPA process completed. Influenza Immunization: The patient declines to receive the recommended dose of seasonal influenza vaccine. COVID-19 Immunization: Pfizer COVID-19 Vaccine given previously Patient received a prior dose of the Pfizer COV ID-19 Vaccine. Date: June 28, 2021 Series: Series 3 Location: [facility] /nestor/ JOVANI ORLANDO LPN LICENSED PRACTICAL NURSE Signed: 07/05/2021 13:32 Jul 05, 2021 01:14 PM PHYSICIAN CARE INFORMATION ASSOCIATE NOTE: SEWELL,ANTHONY JO LOCAL TITLE: PA NOTE STANDARD TITLE: PHYSICIAN CARE INFORMATION ASSOCIATE NOTE DATE OF NOTE: JUL 05, 2021@13:14 ENTRY DATE: JUL 05, 2021@13:14:51 AUTHOR: ANTHONY SEWELL EXP COSIGNER: URGENCY: STATUS: COMPLETED S - CC: check bp check lipids check sugar HPI: bp not controlled lipids marginal sugar controlled ROS: constitutional sx? fever? no rigor? no night sweat? no atypical fatigue? no new or persistent cough? no unintentional, unexplained wt loss? no change; loss appetite? no nausea/vomiting? no easy bruising? no excessive bleeding? no new swelling ; i.e., generalized or localized lymphadenopathy? no denies stafford, tia sx denies ch pn, sob denies melena denies uts, but has some suprapubic bloating and burning about twice a yr; can feel a bulge ct of abd in 2019 was unremarkable - had same c omplaint then O - coop A&Ox3 NAD W-N/H/D HEENT: benign NECK: is supple mobile no bruits NT, no adeno LYMPH: head - no neck - no LUNGS: Resp full reg unlabored; CTA B/L COR: RRR, no M ABD: no bruits soft, NT no ventral hernia no mass no hepato-spleno megaly RECTAL: defer EXT: no LLE no calf tenderness LABS: reviewed, discussed w/ pt RADS: none germane to today's visit A/P - 1) Hyperglycemia - FBS only 109 in JUL 11: A1C's Historically WNL 2) HTN - BP 150/90 (but he says it normalizes a s day progresses) 3) Kidney Function Intact - eGFR > 60 and Creat 0.8 in JUL 11; K 4.3 - increase dose Zestril from 20 M/day to 30 MG/ day - cont HCTZ - RN: BP Check AUG 12 4) C/V Stable - never [facility] 5) Neuro Stable - never CVA/TIA 6) Hypercholesterolemia - LDL 148 in JUL 11 - cont Lipitor; LFT's WNL - cont diet, wt 7) CBC Profile; Anything Worrisome? no 8) UA - Heme? no 9) Fall Risk - no 10) Urinary Incontinence - no RTC FEBRUARY 09; labs few days prior Medication Reconciliation: Outpatient: Has the patient been taking medications as docu mented in the EMLR? YES: The patient has been taking medications as documented in the EMLR. Essential Medication List for Review used to co mplete this medication reconciliation. INCLUDED IN THIS LIST: Alphabetical list of act di outpatient prescriptions dispensed from this [facility] (local) an d dispensed from another [place] or [facility] facility (remote) as well as inpatien t orders (local, pending and active), local clinic medications, locally documented non-VA medications, and local prescriptions that have or been discontinued in the past 90 days. - All changes in medications, including all non -VA/Herbal/OTC medications were entered into CPRS. Changes: na - If there were any medications the patient rojelio uld no longer take, they were discontinued. D/C'd meds: na - The patient/caregiver was instructed to updat e this list, discard old lists, and take this list to the next appointme nt, whether with a VA or non-VA provider. /nestor/ ANTHONY SEWELL PA-C STAFF PHYSICIAN CARE INFORMATION ASSOCIATE Signed: 07/05/2021 13:40
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
--- OUTSIDE RECORDS SUMMARY | 2022-06-11 16:20 | XMS_ITS | Encounter Summary ---
:1965 Author Organization [facility] Address [address] [place], [place] [id number] Support Name Relationship Address Phone CLASS, GINNA Unavailable [address] [facility] [place] [address] CLASS, GINNA Unavailable [address] [facility] [place] [address] Selected Encounter This section includes the information on record at [place] for the Encounter. Date/Time Encounter Type Encounter Description Reason Provider Source Dec 29, 2021 01:00 Outpatient Encounter PRIMARY CARE/MEDICINE IHE Encounter Template Text not used by [place] Plan of Treatment: Future Appointments (+ 6 months) and Future Tests (+/- 45 days) The Plan of Treatment section includes future care activities for the patient from all [place] treatmentfacilities. This section includes future appointments and future orders which are active, pending orscheduled.Future Appointments This section includes appointments that were scheduled to occur 6 months from the date of the Encounter, up to a maximum of 20 appointments. The data comes from all [place] treatment facilities. Appointment Date/Time Appointment Type Appointment Facili ty Name Feb 02, 2022 01:30 PM AM[facility]ATORY - MEDICINE [facility] Feb 09, 2022 01:00 PM [facility] Feb 09, 2022 01:01 PM [facility] Feb 28, 2022 09:30 AM [facility] Encounter Notes: All associated encounter notes This section contains the clinical notes associated to the Encounter. Date/Time Encounter Note(s) Provider Source Dec 29, 2021 01:03 PM PREVENTIVE MEDICINE NURSING NOTE: DAVE ALEJANDRO JO LOCAL TITLE: CLINICAL REMINDERS/NURSING STANDARD TITLE: PREVENTIVE MEDICINE NURSING NOTE DATE OF NOTE: DEC 29, 2021@13:03 ENTRY DATE: DEC 29, 2021@13:03:25 AUTHOR: DAVE GARNER EXP COSIGNER: URGENCY: STATUS: COMPLETED Advance Directive Screen: Patient has an up-to-date Advance Directive at an outside, non-va facility and was asked to forward a copy to his /her clinician. /nestor/ DAVE GARNER LPN LPN Signed: 12/29/2021 13:04
--- OUTSIDE RECORDS SUMMARY | 2022-06-11 16:20 | XMS_ITS | Encounter Summary ---
:1965 Author Organization [facility] Address [address] [place] [id number] Support Name Relationship Address Phone CLASS, GINNA Unavailable [address] [place] [place] [address] CLASS, GINNA Unavailable [address] [place] [place] [address] Selected Encounter This section includes the information on record at MD for the Encounter. Date/Time Encounter Type Encounter Reason Provider Source Description Dec 29, 2021 OFFICE O/P EST PRIMARY ICD-10-CM DONATOANTHONY 01:00 PM LOW 20-29 MIN CARE/MEDICINE J45.998 Other asthma with Provider Comments: Other Asthma E Encounter Template Text not used by MD Assessments - Encounter Diagnoses This section includes the primary and secondary diagnoses documented for the Encounter. Date/Time Primary/Secondary Diagnosis Name Provider Source Diagnosis Dec 29, 2021 01:23 PRIMARY Other asthma ANTHONY SEWELL PM Dec 29, 2021 01:23 SECONDARY Actinic keratosis ANTHONY SEWELL [facility] PM Plan of Treatment: Future Appointments (+ 6 months) and Future Tests (+/- 45 days) The Plan of Treatment section includes future care activities for the patient from all [place] treatmentfacilities. This section includes future appointments and future orders which are active, pending orscheduled.Future Appointments This section includes appointments that were scheduled to occur 6 months from the date of the Encounter, up to a maximum of 20 appointments. The data comes from all [place] treatment facilities. Appointment Date/Time Appointment Type Appointment Facili ty Name Feb 02, 2022 01:30 PM AMBULATORY - MEDICINE [place] Feb 09, 2022 01:00 PM AMBULATORY - NONE [facility] Feb 09, 2022 01:01 PM AMBULATORY - NONE [facility] Feb 28, 2022 09:30 AM AMBULATORY - MEDICINE [facility] Vital Signs: All taken on the encounter date This section contains inpatient and outpatient Vital Signs collected on the date of the Encounter. Date/Time Temperature Pulse Blood Respiratory SP02 Pain Height Weight Tommy dy Source Pressure Rate Mass Index Dec 29, 98.3 F 78 133/82 97 % 196 lb 31 SPRING2021 01:02 /min mm[Hg] [facility] PM Social History: Smoking Status (Most current) and Tobacco Use (All prior to encounter date) This section includes the most current, and the historical, smoking and tobacco-related health factors from the MD facility where the Encounter took place.Current Smoking Status This section includes the most current smoking, or tobacco-related health factor, from the MD facility where the Encounter took place. Date/Time Current Smoking Status Comment Facility Feb 03, 2021 01:00 PM VA-TOBACCO NEVER USED [place] Tobacco Use History This section includes a history of the smoking, or tobacco- related health factors, that were collected on or before the date of the Encounter. The data comes from the MD facility where the Encounter took place. Date/Time Smoking Status/Tobacco Use Comment [facility] Jan 21, 2020 03:49 PM VA-TOBACCO NEVER USED [place] Oct 29, 2018 01:50 PM VA-TOBACCO NEVER USED [place] Encounter Notes: All associated encounter notes This section contains the clinical notes associated to the Encounter. Date/Time Encounter Note(s) Provider Source Dec 29, 2021 01:04 PM PHYSICIAN TECHNICAL ILLUSTRATIONS MAP INKER NOTE: ANTHONY SEWELL LOCAL TITLE: [facility] NOTE STANDARD TITLE: PHYSICIAN TECHNICAL ILLUSTRATIONS MAP INKER NOTE DATE OF NOTE: DEC 29, 2021@13:04 ENTRY DATE: DEC 29, 2021@13:04:34 AUTHOR: ANTHONY SEWELL EXP COSIGNER: URGENCY: STATUS: COMPLETED S - sick visit c/o rash and a non-bloody cough cough: +ch tightness and sob when tight no meningimus no fever no night sweat, rigor no hemoptysis no gastric reflux no post nasal drip rash: 3 spots - one R side face, one L side fac e, one L temporal aspect scalp never bleed; uniform brown color change in size? - thinks not been there for about a yr he thinks it's the sun O - coop A&Ox3 NAD W-N/H/D HEENT: benign NECK: supple mobile not tender and no adeno LUNGS: resp full reg unlabored; CTA b/l; no whee ze COR: RRR, no M ABD: no distention not tender INTEG: three lesions - all uniformily round, bro wn no evidence bleeding; no scaling A/P - 1) Lesions Appear Benign to Me Nothing Melanocytic [place] at Worst - CON: Derm, [place] 2) New Cough Sounds Asthmatic in Nature - start trials of Mometasone Inh BID fro Preven tion and - Alb Inh for Rescue NEXT RECALL FEBRUARY 09 w/ fast labs before BMI>30/>24.99 High Risk: Patient declines to discuss weight management. Patient declined weight discussion. Discussed r evisiting at a future visit. Medication Reconciliation: Outpatient: Has the patient been taking medications as docu mented in the EMLR? YES: The patient has been taking medications as documented in the EMLR. Essential Medication List for Review used to co mplete this medication reconciliation. INCLUDED IN THIS LIST: Alphabetical list of act di outpatient prescriptions dispensed from this MD (local) an d dispensed from another MD or [facility] facility (remote) as well as inpatien t orders (local, pending and active), local clinic medications, locally documented non-VA medications, and local prescriptions that have or been discontinued in the past 90 days. - All changes in medications, including all non -VA/Herbal/OTC medications were entered into CPRS. Changes: see note - If there were any medications the patient rojelio uld no longer take, they were discontinued. - The patient/caregiver was instructed to updat e this list, discard old lists, and take this list to the next appointme nt, whether with a VA or non-VA provider. Allergies/ADRs (Tool #5) FACILITY ALLERGY/ADR -------- No Remote All[facility] No Known Allergi es Med Recon NoGlossary (Tool #1) INCLUDED IN THIS LIST: Alphabetical list of act di outpatient prescriptions dispensed from this MD (local) an d dispensed from another MD or [facility] facility (remote) as well as inpatien t orders (local pending and active), local clinic medications, locally docu mented non-VA medications, and local prescriptions that have or be en discontinued in the past 90 days. Non-VA Meds Last Documented On: Data not fou nd NOTE The display of VA prescriptions disp ensed from another MD or [facility] facility (remote) is limited to [facility] matched to National Drug File at the [facility] site and may not include some items such as investigational drugs, compo unds, etc. NOT INCLUDED IN THIS LIST: Medications self-ent ered by the patient into personal health records (i.e. [employer]) ar e NOT included in this list. Non-VA medications documented outside thi s MD, remote inpatient orders (regardless of status) and remote clinic medications are NOT included in this list. The patient and provider must always discuss medications the patient is taking, regardless o f where the medication was dispensed or obtained. OUTPT ATORVASTATIN CALCIUM 80MG TAB (Status = A ctive) TAKE ONE-HALF TABLET BY MOUTH ONCE DAILY FOR CH OLESTEROL Rx# [id number] Last Released: 07/07/21 Qty/Days Melendez pply: 45/90 Rx Expiration Date: 02/04/22 Refills Remainin OUTPT DOCUSATE NA 100MG CAP (Status = Active) TAKE ONE CAPSULE BY MOUTH ONCE DAILY TO SOFTEN STOOL Rx# [id number] Last Released: 07/07/21 Qty/Days Melendez pply: 100/90 Rx Expiration Date: 02/04/22 Refills Remainin OUTPT HYDROCHLOROTHIAZIDE 25MG TAB (Status = Ac tive) TAKE ONE-HALF TABLET BY MOUTH ONCE DAILY TO PRE VENT FLUID/CONTROL BLOOD PRESSURE Rx# [id number] Last Released: 07/07/21 Qty/Days Melendez pply: 45/90 Rx Expiration Date: 02/04/22 Refills Remainin OUTPT LISINOPRIL 30MG TAB (Status = Active) TAKE ONE TABLET BY MOUTH EVERY DAY TO CONTROL B LOOD PRESSURE Rx# [id number] Last Released: 11/16/21 Qty/Days Sup ply: 60/60 Rx Expiration Date: 07/06/22 Refills Remainin OUTPT SILDENAFIL CITRATE 100MG TAB (Status = Ac tive) TAKE ONE TABLET BY MOUTH DIRECTED TAKE 1 H OUR PRIOR TO SEXUAL ACTIVITY Rx# [id number] Last Released: 09/21/21 Qty/Days Sup ply: 11/18 Rx Expiration Date: 01/06/22 Refills Remainin SUPPLIES /nestor/ ANTHONY SEWELL PA-C STAFF PHYSICIAN TECHNICAL ILLUSTRATIONS MAP INKER Signed: 12/29/2021 13:23
--- OUTSIDE RECORDS SUMMARY | 2022-06-11 16:20 | XMS_ITS | Encounter Summary ---
:1965 Author Organization [facility] Address [address] [place] [id number] Support Name Relationship Address Phone CLASS, GINNA Unavailable [address] [facility] [place] [address] CLASS, GINNA Unavailable [address] [facility] [place] [address] Selected Encounter This section includes the information on record at AL for the Encounter. Date/Time Encounter Type Encounter Reason Provider Source Description Feb 02, 2022 OFFICE O/P EST PRIMARY ICD-10-CM J45.909 ANTHONY SEWELL 01:30 PM MOD 30-39 MIN CARE/MEDICINE Unspecified asthma, uncomplicated with Provider Comments: Asthma ([facility] [id number]) IHE Encounter Template Text not used by [facility] Assessments - Encounter Diagnoses This section includes the primary and secondary diagnoses documented for the Encounter. Date/Time Primary/Secondary Diagnosis Name Provider Source Diagnosis Feb 02, 2022 PRIMARY Unspecified asthma, ANTHONY SEWELL ELD 01:40 PM uncomplicated Feb 02, 2022 SECONDARY Essential (primary) ANTHONY SEWELL ELD 01:40 PM hypertension Feb 02, 2022 SECONDARY Pure ANTHONY SEWELL 01:40 PM hypercholesterolemia , unspecified Plan of Treatment: Future Appointments (+ 6 months) and Future Tests (+/- 45 days) The Plan of Treatment section includes future care activities for the patient from all [place] treatmentfacilities. This section includes future appointments and future orders which are active, pending orscheduled.Future Appointments This section includes appointments that were scheduled to occur 6 months from the date of the Encounter, up to a maximum of 20 appointments. The data comes from all AL treatment facilities. Appointment Date/Time Appointment Type Appointment Facili ty Name Feb 09, 2022 01:00 PM AMBULATORY - NONE [facility] Feb 09, 2022 01:01 PM AMBULATORY - NONE [facility] Feb 28, 2022 09:30 AM [facility] Aug 02, 2022 01:00 PM AMBULATORY - MEDICINE [place] Lab Results: +/- 30 days of the encounter This section includes the Chemistry and Hematology Lab Results on record with AL for the patient. Radiology Reports and Pathology Reports are provided separately, in subsequent sections.Lab Results This section contains the Chemistry/Hematology Results that were resulted 30 days before or 30 daysafter the date of the Encounter. Date/Time Source Result Type Result - Unit Interpretation Reference Range Comment Jan 31, 2022 10:14 AM [place] CBC Specimen Type: BLOOD No comment enter ed. Ordering Provid er: ANTHONY SEWELL Report Released Date/Time: Jul 05, 2021 01:41 PM Reporting [facility]: [facility] [address] [address] Performing Lab: [facility] [address] [address] WBC 3.94 L 4.50-11.00 RBC 4.93 4.23-5.66 HGB 15.1 12.8-17 HCT 44.4 39.2-50.4 MCV 90.1 82-99 MCHC 34.0 30.8-35.1 PLT 216 140-360 RDW-CV 11.5 L 12.0-16.0 MCH 30.6 26.2-32.6 Jan 31, 2022 10:14 AM [place] URINALYSIS Specimen Type: URINE No comment enter ed. Ordering Provid er: ANTHONY SEWELL Report Released Date/Time: Jul 05, 2021 01:41 PM Reporting Lab: [facility] [address] [address] Performing Lab: [facility] [address] [address] UA COLOR Yellow Yellow UA APPEARANCE Clear Clear UA GLUCOSE Negative Negative UA KETONES Negative Neg UA BLOOD Small Neg UA PROTEIN Negative Neg UA NITRITE Negative Neg UA BILIRUBIN Negative Neg UA SPECIFIC GRAVITY 1.018 1.016-1.02 2 UA pH 7.0 5.0-9.0 UA UROBILINOGEN <2.0 <2.0 UA LEUKOCYTE ESTERASE Negative Neg Jan 31, 2022 [place] HEMOGLOBIN A1C Specimen Type: BLOOD 10:14 AM [...] Jul 05, 2021 01:41 PM Reporting Lab: [facility] [address] [address] Performing Lab: [address] [address] HEMOGLOBIN A1C 5.3 4.0-5.6 Jan 31, 2022 10:14 AM [place] BASIC METABOLIC PANEL Spe cimen Type: SERUM (fasting) No comment enter ed. Ordering Provid er: ANTHONY SEWELL Report Released Date/Time: Jul 05, 2021 01:41 PM Reporting Lab: [facility] [address] [address] Performing Lab: [facility] [address] [address] UREA NITROGEN 11 7-25 GLUCOSE 100 65-100 SODIUM 138 135-145 POTASSIUM 4.1 3.5-5.0 CHLORIDE 106 100-110 CO2 26 20-30 CREATININE, Serum 0.85 0.50-1.40 eGFR(CKD-EPI 2020) >90 >60 Jan 31, 2022 10:14 AM [place] LIVER FUNCTION Specimen Type: SERUM No comment enter ed. Ordering Provid er: ANTHONY SEWELL Report Released Date/Time: Jul 05, 2021 01:41 PM Reporting Lab: [facility] [address] [address] Performing Lab: [facility] [address] [address] PROTEIN,TOTAL 7.1 6.0-8.3 ALBUMIN 3.9 3.5-5.0 ALKALINE PHOSPHATASE 59 40-150 AST 23 5-34 ALT 27 <6-55 BILIRUBIN, TOTAL 1.1 0.2-1.2 Jan 31, 2022 10:14 AM [place] LIPID PANEL FASTING Speci men Type: SERUM No comment enter ed. Ordering Provid er: ANTHONY SEWELL Report Released Date/Time: Jul 05, 2021 01:41 PM Reporting Lab: [facility] [address] [address] Performing Lab: [facility] [address] [address] CHOLESTEROL 211 H <7-199 TRIGLYCERIDE 130 0-150 LDL calculated 138 H 0-129 CHOL/HDL 4.5 HDL CHOLESTEROL 47 40-60 Jan 31, 2022 10:14 AM [place] CALCIUM Specimen Type: SERUM No comment enter ed. Ordering Provid er: ANTHONY SEWELL Report Released Date/Time: Jul 05, 2021 01:41 PM Reporting Lab: [facility] [address] [address] Performing [facility]: [facility] [address] [address] CALCIUM 9.1 8.5-10.2 Jan 31, 2022 10:14 AM [place] URIC ACID Specimen Type: SERUM No comment enter ed. Ordering Provid er: ANTHONY SEWELL Report Released Date/Time: Jul 05, 2021 01:41 PM Reporting Lab[facility] [address] [address] Performing Lab: [facility] [address] [address] URIC ACID 7.3 H 3.5-7.2 Jan 31, 2022 10:14 AM [place] MICROSCOPIC AUTOMATED, Sp ecimen Type: URINE URINE No comment enter ed. Ordering Provid er: ANTHONY SEWELL Report Released Date/Time: Jul 05, 2021 01:41 PM Reporting Lab: [facility] [address] [address] Performing Lab: [facility] [address] [address] UA WBC 0-5 0-5 UA MUCUS FEW Trace UA RBC 3-5 0-3 Vital Signs: All taken on the encounter date This section contains inpatient and outpatient Vital Signs collected on the date of the Encounter. Date/Time Temperature Pulse Blood Respiratory SP02 Pain Height Weight Tommy dy Source Pressure Rate Mass Index Feb 02, 98.2 F 64 137/84 18 /min 98 % 0 67 in 200 lb 31 2021 01:27 /min mm[Hg] IELD PM Social History: Smoking Status (Most current) and Tobacco Use (All prior to encounter date) This section includes the most current, and the historical, smoking and tobacco-related health factors from the AL facility where the Encounter took place.Current Smoking Status This section includes the most current smoking, or tobacco-related health factor, from the AL facility where the Encounter took place. Date/Time Current Smoking Status Comment Facility Feb 02, 2022 01:30 PM VA-TOBACCO NEVER USED [place] Tobacco Use History This section includes a history of the smoking, or tobacco- related health factors, that were collected on or before the date of the Encounter. The data comes from the [place] facility where the Encounter took place. Date/Time Smoking Status/Tobacco Use Comment [facility] Feb 03, 2021 01:00 PM VA-TOBACCO NEVER USED [place] Jan 21, 2020 03:49 PM VA-TOBACCO NEVER USED [place] Oct 29, 2018 01:50 PM VA-TOBACCO NEVER USED [place] Encounter Notes: All associated encounter notes This section contains the clinical notes associated to the Encounter. Date/Time Encounter Note(s) Provider Source May 24, 2022 03:54 PM PREVENTIVE MEDICINE NURSING NOTE: [place] [facility] TITLE: CLINICAL REMINDERS/NURSING STANDARD TITLE: PREVENTIVE MEDICINE NURSING NOTE DATE OF NOTE: MAY 24, 2022@15:54 ENTRY DATE: MAY 24, 2022@15:54:14 AUTHOR: WILFRID NULL EXP COSIGNER: URGENCY: STATUS: COMPLETED Avg Risk Colorectal Cancer Screen: AVERAGE RISK colorectal cancer screening is due based on information available to this clinical reminder Patient declined screening/surveillance. Comment: Failed Mandated scheduling efforts Patient educated on the benefits of colorectal cancer screening/surveillance and the risk if screenin g/surveillance is not completed. Level of Understanding: Good /nestor/ Wilfrid Null, RN Registered Nurse (RN) Signed: 05/24/2022 15:55 Feb 02, 2022 01:28 PM PREVENTIVE MEDICINE NURSING NOTE: ANANTH PEREZ TITLE: CLINICAL REMINDERS/NURSING STANDARD TITLE: PREVENTIVE MEDICINE NURSING NOTE DATE OF NOTE: FEB 02, 2022@13:28 ENTRY DATE: FEB 02, 2022@13:28:24 AUTHOR: ANANTH ALMODOVAR EXP COSIGNER: URGENCY: STATUS: COMPLETED Pneumococcal Conjugate Vaccine (PCV15/PCV20): The patient declines to receive the recommended dose of pneumococcal conjugate vaccine. COVID-19 Immunization: The patient declines an additional dose of vacc ine at this time. /nestor/ ANANTH ALMODOVAR LPN Licensed Practical Nurse Signed: 02/02/2022 13:29 Feb 02, 2022 12:48 PM PHYSICIAN PATCHER BOWLING BALL NOTE: ANTHONY SEWELL TITLE: PA NOTE STANDARD TITLE: PHYSICIAN PATCHER BOWLING BALL NOTE DATE OF NOTE: FEB 02, 2022@12:48 ENTRY DATE: FEB 02, 2022@12:48:18 AUTHOR: ANTHONY SEWELL EXP COSIGNER: URGENCY: STATUS: COMPLETED S - CC: check bp check lipids check sugar HPI: bp controlled lipids not controlled sugar controlled ROS: constitutional sx? fever? no rigor? no night sweat? no atypical fatigue? no new or persistent cough? no unintentional, unexplained wt loss? no change; loss appetite? no nausea/vomiting? no easy bruising? no excessive bleeding? no new swelling ; i.e., generalized or localized lymphadenopathy? no denies stafford, tia sx denies ch pn no sob anymore (had asthmatic sx recently) denies melena denies uts he describes some superfical abd wall pain O - coop A&Ox3 NAD W-N/H/D HEENT: benign NECK: is supple mobile no bruits NT, no adeno LYMPH: head - no neck - no LUNGS: Resp full reg unlabored; CTA B/L COR: RRR, no M ABD: no bruits soft, NT no mass no hepato-spleno megaly RECTAL: defer EXT: no LLE no calf tenderness LABS: reviewed, discussed w/ pt RADS: none germane to today's visit A/P - 1) Normoglycemic 2) HTN - BP 138/84; HR 72 3) Kidney Function Intact - eGFR 90 and Creat 0 .8 in FEBRUARY 09; K 4.1 - cont Zestril - cont Norvasc - cont HCTZ - diet: *DASH (Dietary Approach Stop HTN) *Na Consumption: about one teaspoon a day (arou nd 2,300 MG) is OK - wt and aerobic exercise 4) C/V Stable - never WV 5) Neuro Stable - never CVA/TIA 6) On Anti-Coagulation? No 7) Hypercholesterolemia - LDL 138 in February 09 - cont Lipitor; LFT's WNL - cont diet, wt 8) CBC Profile; Anything Worrisome? no H/H - 15.1 / 44.4 9) UA - Heme? 3-5 RBC's - monitor 11) Fall Risk - no 12) Urinary Incontinence - no 13) Health Maintenance - due for colonoscopy 14) Asthma - (new) Inh's Effective RTC AUG 13; fast labs few days before MEDS: All Meds Reconciled, Discussed, Review ed with Patient; Patient Appraised of Any Changes, e.g., Dosi ng, Additions to Current Regimens, or Discontinuance of Any Medi cations; Meds Received from Doctors in Private Sector Reconciled in Similar Fashion as Well; Patient Verbalizs Understanding of All the A carmen; Meds List Printed for Patient's Benefit, Unl ess Not Deemed Necessary PROBLEM LIST: Reviewed and Updated as is Releva nt to Today's Visit Depression Screening: Perform PHQ-2 A PHQ-2 screen was performed. The score was 0 w hich is a negative screen for depression. Over the past two weeks, how often have you bee n bothered by the following problems? 1. Little interest or pleasure in doing things Not at all 2. Feeling down, depressed, or hopeless Not at all Suicide Screen: C-SSRS Screening Gordon-Suicide Severity Rating Scale (C-SSRS Screener) 1. Over the past month, have you wished you wer e or wished you could go to sleep and not wake up? No 2. Over the past month, have you had any actual thoughts of killing yourself? No 3. Over the past month, have you been thinking about how you might do this? Response not required due to responses to other questions. 4. Over the past month, have you had these thou ghts and had some intention of acting on them? Response not required due to responses to other questions. 5. Over the past month, have you started to wor k out or worked out the details of how to kill yourself? Response not required due to responses to other questions. 6. If yes, at any time in the past month did yo u intend to carry out this plan? Response not required due to responses to other questions. 7. In your lifetime, have you ever done anythin g, started to do anything, or prepared to do anything to end you r life (for example, collected pills, obtained a gun, gave away valu hannah, went to the roof but didn't jump)? No 8. If YES, was this within the past 3 months? Response not required due to responses to other questions. Tobacco Use Screening: The patient has never used tobacco. Alcohol Use Screen (AUDIT-C): Alcohol Screen: SCREEN FOR ALCOHOL (AUDIT-C) An alcohol screening test (AUDIT-C) was negativ e (score=1). 1. How often did you have a drink containing al cohol in the past year? Monthly or less 2. How many drinks containing alcohol did you h ave on a typical day when you were drinking in the past year? One or two drinks 3. How often did you have six or more drinks on one occasion in the past year? Never Medication Reconciliation: Outpatient: Has the patient been [...] -VA/Herbal/OTC medications were entered into CPRS. Changes: note - If there were any medications the patient rojelio uld no longer take, they were discontinued. - The patient/caregiver was instructed to updat e this list, discard old lists, and take this list to the next appointme nt, whether with a VA or non-VA provider. Allergies/ADRs (Tool #5) FACILITY ALLERGY/ADR -------- No Remote Allergy/ADR Data available for this [facility] No Known Allergi es Med Recon NoGlossary (Tool #1) INCLUDED IN THIS LIST: Alphabetical list of act di outpatient prescriptions dispensed from this AL (local) an d dispensed from another AL or [facility] facility (remote) as well as inpatien t orders (local pending and active), local clinic medications, locally docu mented non-VA medications, and local prescriptions that have or be en discontinued in the past 90 days. Non-VA Meds Last Documented On: Data not fou nd NOTE The display of VA prescriptions disp ensed from another AL or [facility] facility (remote) is limited to [facility] matched to National Drug File at the [facility] site and may not include some items such as investigational drugs, compo unds, etc. NOT INCLUDED IN THIS LIST: Medications self-ent ered by the patient into personal health records (i.e. [employer]) ar e NOT included in this list. Non-VA medications documented outside [facility] s AL, remote inpatient orders (regardless of status) and remote clinic medications are NOT included in this list. The patient and provider must always discuss medications the patient is taking, regardless o f where the medication was dispensed or obtained. OUTPT ALBUTEROL 90MCG (CFC-F) 200D ORAL INHL (S tatus = Active) INHALE 1 PUFF BY MOUTH FOUR TIMES DAILY NEED ED ONLY USE IF YOU GET OUT OF BREATH Rx# [id number] Last Released: 12/29/21 Qty/Days Sup ply: 08/20 Rx Expiration Date: 12/30/22 Refills Remainin OUTPT ATORVASTATIN CALCIUM 80MG TAB (Status = A ctive) TAKE ONE-HALF TABLET BY MOUTH ONCE DAILY FOR CH OLESTEROL Rx# [id number] Last Released: 07/07/21 Qty/Days Melendez pply: [id number] Rx Expiration Date: 02/04/22 Refills Remainin OUTPT DOCUSATE NA 100MG CAP (Status = Active) TAKE ONE CAPSULE BY MOUTH ONCE DAILY TO SOFTEN STOOL Rx# [id number] Last Released: 07/07/21 Qty/ [place] pply: [id number] Rx Expiration Date: 02/04/22 Refills Remainin OUTPT HYDROCHLOROTHIAZIDE 25MG TAB (Status = Ac tive) TAKE ONE-HALF TABLET BY MOUTH ONCE DAILY TO PRE VENT FLUID/CONTROL BLOOD PRESSURE Rx# [id number] Last Released: 07/07/21 Qty/Days [place]endez pply: [phone] Rx Expiration Date: 02/04/22 Refills Remainin OUTPT LISINOPRIL 30MG TAB (Status = Active) TAKE ONE TABLET BY MOUTH EVERY DAY TO CONTROL B LOOD PRESSURE Rx# [id number] Last Released: 11/16/21 Qty/Days Sup ply: 60/60 Rx Expiration Date: 07/06/22 Refills Remainin OUTPT MOMETASONE FUROATE 220MCG ORAL INHL 60 (S tatus = Active) INHALE 1 PUFF BY MOUTH TWICE DAILY --RINSE MOUT H AFTER EACH USE USE ONCE EVERY MORNING AND ONCE EVERY NIGHT TO PREVENT COUGH Rx# [id number] Last Released: 12/29/21 Qty/Days Sup ply: 08/20 Rx Expiration Date: 12/30/22 Refills Remainin OUTPT SILDENAFIL CITRATE 100MG TAB (Status = EX PIRED) TAKE ONE TABLET BY MOUTH DIRECTED TAKE 1 H OUR PRIOR TO SEXUAL ACTIVITY Rx# [id number] Last Released: 09/21/21 Qty/Days Sup ply: 11/18 Rx Expiration Date: 01/06/22 Refills Remainin SUPPLIES /nestor/ ANTHONY SEWELL PA-C STAFF PHYSICIAN PATCHER BOWLING BALL Signed: 02/02/2022 13:40
--- OUTSIDE RECORDS SUMMARY | 2022-06-11 16:20 | XMS_ITS | Encounter Summary ---
:1965 Author Organization [facility] Address [address] [place] [address] Support Name Relationship Address Phone CLASS, GINNA Unavailable [address] [facility] [address] CLASS, GINNA Unavailable [address] [facility] [address] Selected Encounter This section includes the information on record at [place] for the Encounter. Date/Time Encounter Type Encounter Reason Provider Source Description Feb 09, 2022 TELEHEALTH DERMATOLOGY ICD-10-CM L82.1 SHERRY GAGNON 01:00 PM FACILITY FEE Other seborrheic DANNY A keratosis with Provider Comments: Other Seborrheic Keratosis IHE Encounter Template Text not used by [facility] Assessments - Encounter Diagnoses This section includes the primary and secondary diagnoses documented for the Encounter. 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 This section includes future appointments and future orders which are active, pending orscheduled.Future Appointments This section includes appointments that were scheduled to occur 6 months from the date of the Encounter, up to a maximum of 20 appointments. The data comes from all [place] treatment facilities. Appointment Date/Time Appointment Type Appointment Facili ty Name Feb 28, 2022 09:30 AM AMBULATORY - [place]ICINE [place] [facility] Aug 02, 2022 01:00 PM AMBULATORY - MEDICINE [facility] Lab Results: +/- 30 days of the encounter This section includes the Chemistry and Hematology Lab Results on record with [place] for the patient. Radiology Reports and Pathology Reports are provided separately, in subsequent sections.Lab Results This section contains the Chemistry/Hematology Results that were resulted 30 days before or 30 daysafter the date of the Encounter. Date/Time Source Result Type Result - Unit Interpretation Reference Range Comment Jan 31, 2022 10:14 AM [facility] URINALYSIS Specimen Type: URINE No comment enter ed. Ordering Provid er: ANTHONY SEWELL Report Released Date/Time: Jul 05, 2021 01:41 PM Reporting Lab: [address] [address] Performing Lab: [address] [address] UA COLOR Yellow Yellow UA APPEARANCE Clear Clear UA GLUCOSE Negative Negative UA KETONES Negative Neg UA BLOOD Small Neg UA PROTEIN Negative Neg UA NITRITE Negative Neg UA BILIRUBIN Negative Neg UA SPECIFIC GRAVITY 1.018 1.016-1.02 2 UA pH 7.0 5.0-9.0 UA UROBILINOGEN <2.0 <2.0 UA LEUKOCYTE ESTERASE Negative Neg Jan 31, 2022 10:14 AM [facility] CBC Specimen Type: BLOOD No comment enter ed. Ordering Provid er: ANTHONY SEWELL Report Released Date/Time: Jul 05, 2021 01:41 PM Reporting Lab: [address] [address] Performing Lab: [address] [address] WBC 3.94 L 4.50-11.00 RBC 4.93 4.23-5.66 HGB 15.1 12.8-17 HCT 44.4 39.2-50.4 MCV 90.1 82-99 MCHC 34.0 30.8-35.1 PLT 216 140-360 RDW-CV 11.5 L 12.0-16.0 MCH 30.6 26.2-32.6 Jan 31, 2022 [facility] HEMOGLOBIN A1C Specimen Type: BLOOD 10:14 AM [...] Jul 05, 2021 01:41 PM Reporting Lab: [facility] [address] [facility] [address] Performing Lab: [address] [address] HEMOGLOBIN A1C 5.3 4.0-5.6 Jan 31, 2022 10:14 AM [facility] BASIC METABOLIC PANEL Spe cimen Type: SERUM (fasting) No comment enter ed. Ordering Provid er: ANTHONY SEWELL Report Released Date/Time: Jul 05, 2021 01:41 PM Reporting Lab: [address] [address] Performing Lab: [address] [address] UREA NITROGEN 11 7-25 GLUCOSE 100 65-100 SODIUM 138 135-145 POTASSIUM 4.1 3.5-5.0 CHLORIDE 106 100-110 CO2 26 20-30 CREATININE, Serum 0.85 0.50-1.40 eGFR(CKD-EPI 2020) >90 >60 Jan 31, 2022 10:14 AM [facility] LIVER FUNCTION Specimen Type: SERUM No comment enter ed. Ordering Provid er: ANTHONY SEWELL Report Released Date/Time: Jul 05, 2021 01:41 PM Reporting Lab: [facility] [address] [facility] [address] Performing Lab: [address] [address] PROTEIN,TOTAL 7.1 6.0-8.3 ALBUMIN 3.9 3.5-5.0 ALKALINE PHOSPHATASE 59 40-150 AST 23 5-34 ALT 27 <6-55 BILIRUBIN, TOTAL 1.1 0.2-1.2 Jan 31, 2022 10:14 AM [facility] CALCIUM Specimen Type: SERUM No comment enter ed. Ordering Provid er: ANTHONY SEWELL Report Released Date/Time: Jul 05, 2021 01:41 PM Reporting Lab: [facility] [place] [facility] [address] [facility] [address] Performing Lab: [place] [facility] [place] [facility] [address] [facility] [address] CALCIUM 9.1 8.5-10.2 Jan 31, 2022 10:14 AM [facility] LIPID PANEL FASTING Speci men Type: SERUM No comment enter ed. Ordering Provid er: ANTHONY SEWELL Report Released Date/Time: Jul 05, 2021 01:41 PM Reporting Lab: [facility] [place] [facility] [address] [facility] [address] Performing Lab: [facility] [place] [facility] [address] [facility] [address] CHOLESTEROL 211 H <7-199 TRIGLYCERIDE 130 0-150 LDL calculated 138 H 0-129 CHOL/HDL 4.5 HDL CHOLESTEROL 47 40-60 Jan 31, 2022 10:14 AM [facility] URIC ACID Specimen Type: SERUM No comment enter ed. Ordering Provid er: ANTHONY SEWELL Report Released Date/Time: Jul 05, 2021 01:41 PM Reporting Lab: [facility] [place] [facility] [address] [facility] [address] Performing Lab[facility] [place] [facility] [address] [facility] [address] URIC ACID 7.3 H 3.5-7.2 Jan 31, 2022 10:14 AM [facility] MICROSCOPIC AUTOMATED, Sp ecimen Type: URINE URINE No comment enter ed. Ordering Provid er: ANTHONY SEWELL Report Released Date/Time: Jul 05, 2021 01:41 PM Reporting Lab: [facility] [place] [facility] [address] [facility] [address] Performing Lab: [facility] [place] [facility] [address] [facility] [address] UA WBC 0-5 0-5 UA MUCUS FEW Trace UA RBC 3-5 0-3 Social History: Smoking Status (Most current) and Tobacco Use (All prior to encounter date) This section includes the most current, and the historical, smoking and tobacco-related health factors from the [place] facility where the Encounter took place.Current Smoking Status This section includes the most current smoking, or tobacco-related health factor, from the [place] facility where the Encounter took place. Date/Time Current Smoking Status Comment Facility Feb 02, 2022 01:30 PM VA-TOBACCO NEVER USED [place] Tobacco Use History This section includes a history of the smoking, or tobacco- related health factors, that were collected on or before the date of the Encounter. The data comes from the [place] facility where the Encounter took place. Date/Time Smoking Status/Tobacco Use Comment [facility] Feb 03, 2021 01:00 PM VA-TOBACCO NEVER USED [place] Jan 21, 2020 03:49 PM VA-TOBACCO NEVER USED [place] Oct 29, 2018 01:50 PM VA-TOBACCO NEVER USED [place] Encounter Notes: All associated encounter notes This section contains the clinical notes associated to the Encounter. Date/Time Encounter Note(s) Provider Source 2022 03:25 PM TELEHEALTH NOTE: SUHAS HERBERT LOCAL TITLE: TELEHEALTH NOTE STANDARD TITLE: TELEHEALTH NOTE DATE OF NOTE: 2022@15:25 ENTRY DATE: 2022@15:26:07 AUTHOR: SUHAS HERBERT EXP COSIGNER: URGENCY: STATUS: COMPLETED TELEHEALTH NOTE Has ADDENDA STEPHEN GUILLEN checked-in with this te chnician at: [facility]/so/cvt/dermatology/ pat identified with 2 identifiers: [X] Full Name [X] Date of [ ] Full SSN [ ] [facility] ID Card Patient consented to participate in the schedule d Clinical Video Telehealth (CVT) appointment: Yes Appointment Date/Time: Provider Name Harriet Gagnon RIVET MACHINE OPERATOR Title Job Service Specialist RIVET MACHINE OPERATOR Conducted this appointmen t/ session from [facility]/no/cvt/dermatology/fertilizer applicator via Clini stefany Video Telehealth. 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 Additional Information: N/A Does Clinical Video Telehealth (CVT) synchronous visit require Dermatology Imaging? IF YES, CONTINUE BELOW The patient was educated regarding the imaging p rocess and verbalized understanding. Yes Patient consents to have images taken, v iewed, and interpreted during this CVT encounter. Yes Patient consents to have images uploaded to [facility] record. Yes NOTE: Job Service Specialist did not need to have any images saved to note at this visit. /nestor/ SUHAS HERBERT LPN LICENSED PRACTICAL NURSE Signed: 2022 15:37 2022 ADDENDUM STATUS: COMPLETED Date and time for CVT Dermatology appointment: 0 02/09/2022 1300 /nestor/ SUHAS HERBERT LPN LICENSED PRACTICAL NURSE Signed: 2022 15:44
--- OUTSIDE RECORDS SUMMARY | 2022-06-11 16:21 | XMS_ITS | Continuity of Care Document ---
:1965 Author Organization [facility] Address [address] [place] [address]- Care Team Providers Name Role Phone Ken Parker III Primary Care Physician Encounter [facility] Date(s): 05/02/21 - 05/02/[address] [address]- Discharge Disposition: A-D/C Home Attending Physician: Melquiades Zurita MD Admitting Physician: Melquiades Zurita MD Referring Physician: Melquiades Zurita MD Allergies, Adverse Reactions, Alerts Substance Reaction Severity Status NKA Active Medications Colace sodium 100 mg oral capsule 100 mg, 1, capsule, By Mouth, 2 times a day, PRN, # 60 capsule, Refills 6, Tot. Refills 6, Maintenance, for constipation, 05/02/21 11:55:00 EDT, Route to Pharmacy Electronically, [facility]/pharmacy #[id number], Partial fill upon patient request if the prescriptio... Start Date: 05/02/21 Stop Date: 11/28/21 Status: OrderedFENTanyl Inj 50 mcg, Injection, IV Push Slowly, Every 5 minutes for 4 doses/times, in PACU ONLY, Hold for: RR less than 8 or over-sedation, PRN for Pain , Severe, Repeat until Pain Score is less than or equal to 2,Routine, 05/02/21 9:58:00 EDT, Stop date Limited... Start Date: 05/02/21 Stop Date: 05/02/21 Status: DiscontinuedLisinopril = 20 mg, By Mouth, Daily, 0 Refills, Maintenance, 03/07/21 15:32:00 EDT, Partial fill upon patient request if the prescription is for a schedule II opioid drug. Start Date: 03/07/21 Status: OrderedoxyCODONE 5 mg oral tablet 5 mg, 1, tablet, By Mouth, Every 6 hours, PRN, for 7 days, # 28 tablet, Refills 0, Tot. Refills 0, Acute 05/09/21 11:55:00 EDT, post op,pain, moderate, 05/02/21 11:55:00 EDT, Route to Pharmacy Electronically, [facility]/pharmacy #[id number], Partial fill upon ministerio... Start Date: 05/02/21 Stop Date: 05/09/21 Status: OrderedOxycodone 5mg/Acetaminophen 325mg Tablet 2 tablet, Tablet, By Mouth, Every 4 hours, PRN for Pain , Moderate, Routine, 05/02/21 10:20:00 EDT Start Date: 05/02/21 Stop Date: 05/02/21 Status: DiscontinuedValium 5 mg oral tablet 5 mg, 1, tablet, By Mouth, Every 8 hours, PRN, 1 TABLET EVERY 8 HOURS FOR ANAL SPASM DO NOT TAKE AT THE SAME TIME OXYCODONE, # 42 tablet, Refills 0, Tot. Refills 0, Maintenance, Spasm, 05/02/21 11:55:00 EDT, [facility] to [facility], [facility]... Start Date: 05/02/21 Stop Date: 05/16/21 Status: Ordered Vital Signs Most recent to oldest 1 2 3 [Reference Range]: Height 175.26 cm 175.26 cm (05/02/21 8:45 AM) (04/25/21 4:52 PM) Weight 91.9 kg 85.45 kg (05/02/21 8:45 AM) (04/25/21 4:52 PM) Oxygen Saturation [94-100 96 % 95 % 96 % %] (05/02/21 10:45 AM) (05/02/21 10:30 AM) ( 1 10:15 AM) Pulse Rate [55-90 bpm] 75 bpm (05/02/21 8:45 AM) Body Mass Index 29.92 27.82 [18.5-24.99] *H* *H* (05/02/21 8:45 AM) (04/25/21 4:52 PM) Blood Pressure 141/92 mm Hg 144/97 mm Hg 135/93 mm Hg [90-138/55-84 mm Hg] *H* *H* (05/02/21 1 0:15 AM) (05/02/21 10:45 AM) (05/02/21 10:30 AM) Respiratory Rate [16-30 18 br/min 18 br/min 18 br/mi n br/min] (05/02/21 10:50 AM) (05/02/21 10:44 AM) ( 10:36 AM) Temperature [96.8-100.4 97.8 DegF 97.4 DegF 97.8 Deg F DegF] (05/02/21 10:45 AM) (05/02/21 10:00 AM) ( 8:45 AM) Liters per Minute 6 L/min (05/02/21 10:00 AM) Mode of Delivery (Oxygen) Room air Room air Simple face mask (05/02/21 10:45 AM) (05/02/21 10:15 AM) ( 10:00 AM) Temperature Route Temporal Temporal Temporal (05/02/21 10:45 AM) (05/02/21 10:00 AM) ( 8:45 AM) Dry Weight 91.9 kg (05/02/21 8:45 AM) Weight Obtained Via Standing scale (05/02/21 8:45 AM) Dry Weight Obtained Via Standing scale (05/02/21 8:45 AM)
--- OUTSIDE RECORDS SUMMARY | 2022-06-11 16:21 | XMS_ITS | Continuity of Care Document ---
:1965 Author Organization [facility] Address Unavailable , Care Team Providers Name Role Phone Wanda HARO, Ken Pierre Primary Care Physician Encounter [facility] Date(s): 06/08/21 - 07/08/21 [facility] Attending Physician: Carson Pino Admitting Physician: AdmtrCarson Referring Physician: Admtr, Juan Antonio8 Allergies, Adverse Reactions, Alerts Substance Reaction Severity Status NKA Active Medications Colace sodium 100 mg oral capsule 100 mg, 1, capsule, By Mouth, 2 times a day, PRN, # 60 capsule, Refills 6, Tot. Refills 6, Maintenance, for constipation, 05/02/21 11:55:00 EDT, Route to [facility]ically, [id number], Partial fill upon patient request if the prescriptio... Start Date: 05/02/21 Stop Date: 11/28/21 Status: OrderedLisinopril = 20 mg, By Mouth, Daily, 0 Refills, Maintenance, 03/07/21 15:32:00 EDT, Partial fill upon patient request if the prescription is for a schedule II opioid drug. Start Date: 03/07/21 Status: OrderedValium 5 mg oral tablet 5 mg, 1, tablet, By Mouth, Every 8 hours, PRN, 1 TABLET EVERY 8 HOURS FOR ANAL SPASM DO NOT TAKE AT THE SAME TIME OXYCODONE, # 42 tablet, Refills 0, Tot. Refills 0, Maintenance, Spasm, 05/02/21 11:55:00 EDT, [facility]... Start Date: 05/02/21 Stop Date: 05/16/21 Status: Ordered
--- OUTSIDE RECORDS SUMMARY | 2022-06-11 16:21 | XMS_ITS | Continuity of Care Document ---
:1965 Author Organization [facility] Address [address] [place] [address]- Care Team Providers Name Role Phone Wanda HARO, Ken Pierre Primary Care Physician Encounter [place] Date(s): 09/07/19 - 09/07/[address] [address]- [facility] Encounter Diagnosis Epistaxis (Final) - 09/07/19 Discharge Disposition: A-D/C Home Attending Physician: Kalia Redmond MD Admitting Physician: Kalia Redmond MD Referring Physician: Not on Staff, Referring MD Allergies, Adverse Reactions, Alerts Substance Reaction Severity Status NKA Active Results Radiology Reports Exam Date Time Procedure Performing Provider Status 09/07/19 5:08 PM Chest 2 Views Frontal and Lat Stephanie Rodriguez; Addie (Verified) Notes:(Chest 2 Views Frontal and Lat) Reason For Exam: Shortness of Breath, Fever;Other:RESULT: Chest 2 Views Frontal and Lat Chest 2 Views Frontal and Lat Refer to EMR; Reason: Other:; Shortness of Breath, Fever; Clinical Question(s): Pneumonia; Hx of Present Illness: Pt reports cough x 3 weeks; had fever but now gone. no n v; +bleeding from left nare off and on x 4-5 days. Pt concerned...sts I get big clots coming out - temporal pressure reported; nodizziness. COMPARISON: None. FINDINGS: LINES AND TUBES: None. LUNGS AND PLEURA: Clear lungs. Normal pulmonary vascularity. No pleural effusion. No pneumothorax. HEART, MEDIASTINUM AND MJ: Heart is normal in size. Normal mediastinal and hilar contour. BONES AND SOFT TISSUES: No acute abnormality. IMPRESSION: No active disease. WSN: [id number] Dictated By: Dae NEWSOME, Bautista Costa Dictated Date/Time: 09/07/19 5:10 pm Reviewed By: Bautista Pearl MD Signed By: Bautista Pearl MD Signed Date/Time: 09/07/19 5:10 pm Transcribed By: CSB Transcribed Date/Time: 09/07/19 5:09 pm Vital Signs Most recent to oldest 1 2 3 [Reference Range]: Weight 93.9 kg 93.9 kg (09/07/19 1:46 PM) (09/07/19 1:16 PM) Oxygen Saturation [94-100 %] 98 % 98 % 98 % (09/07/19 6:02 PM) (09/07/19 5:45 PM) (09/07/19 3:5 7 PM) Pulse Rate [55-90 bpm] 82 bpm 82 bpm 80 bpm (09/07/19 6:02 PM) (09/07/19 5:45 PM) (09/07/19 3:5 7 PM) Blood Pressure [90-138/55-84 mm 126/88 mm Hg 126/88 mm Hg 135/85 mm Hg Hg] (09/07/19 6:02 PM) (09/07/19 5:45 PM) (09/07/19 3:5 7 PM) Respiratory Rate [16-30 br/min] 20 br/min 20 br/min 20 br/min (09/07/19 6:02 PM) (09/07/19 5:45 PM) (09/07/19 3:5 7 PM) Temperature [96.8-100.4 DegF] 98.4 DegF 98.4 DegF 98 .3 DegF (09/07/19 6:02 PM) (09/07/19 5:45 PM) (09/07/19 3:5 7 PM) Mode of Delivery (Oxygen) Room air Room air Room a ir (09/07/19 6:02 PM) (09/07/19 5:45 PM) (09/07/19 3:5 7 PM) Blood pressure sites Arm, left Arm, left Arm, left (09/07/19 6:02 PM) (09/07/19 5:45 PM) (09/07/19 3:5 7 PM) Temperature Route Oral Oral Oral (09/07/19 6:02 PM) (09/07/19 5:45 PM) (09/07/19 3:5 7 PM) Dry Weight 93.9 kg 93.9 kg (09/07/19 1:46 PM) (09/07/19 1:16 PM) Weight Obtained Via Standing scale (09/07/19 1:16 PM) Dry Weight Obtained Via Standing scale (09/07/19 1:16 PM)
--- OUTSIDE RECORDS SUMMARY | 2022-06-11 16:21 | XMS_ITS | Continuity of Care Document ---
:1965 Author Organization [facility] Address Unavailable , Care Team Providers Name Role Phone Ken Parker III Primary Care Physician Encounter [facility] Date(s): 03/16/21 - 03/23/21 [facility] Encounter Diagnosis Hemorrhoids (Discharge Diagnosis) - 03/16/21 Attending Physician: Melquiades Zurita MD Referring Physician: Ken Parker III Allergies, Adverse Reactions, Alerts Substance Reaction Severity Status NKA Active Medications Lisinopril By Mouth, Daily, 0 Refills, Maintenance, 03/07/21 15:32:00 EDT, Partial fill upon patient request ifthe prescription is for a schedule II opioid drug. Start Date: 03/07/21 Status: Ordered Problem List Diagnosis Diagnosis Type Effective Dates Health Status Clinical Serv ice Informant Hemorrhoids Discharge 03/16/21 Diagnosis Vital Signs Most recent to oldest [Reference Range]: 1 Height 175 cm (03/16/21 1:24 PM) Weight 92.2 kg (03/16/21 1:24 PM) Pulse Rate [55-90 bpm] 78 bpm (03/16/21 1:24 PM) Body Mass Index [18.5-24.99] 30.11 *>HHI* (03/16/21 1:24 PM) Blood Pressure [90-138/55-84 mm Hg] 157/87 mm Hg *H* (03/16/21 1:24 PM) Temperature [96.8-100.4 DegF] 97.9 DegF (03/16/21 1:24 PM)
--- OUTSIDE RECORDS SUMMARY | 2022-06-11 16:21 | XMS_ITS | Continuity of Care Document ---
:1965 Author Organization [facility] Address Unavailable , Care Team Providers Name Role Phone Ken Parker III Primary Care Physician [place] [facility] [place] 03/14/21 [facility] Attending Physician: Elle CONNER, Gem Florence Referring Physician: Ken Parker III Allergies, Adverse Reactions, Alerts Substance Reaction Severity Status NKA Active Medications Lisinopril By Mouth, Daily, 0 Refills, Maintenance, 03/07/21 15:32:00 EDT, Partial fill upon patient request ifthe prescription is for a schedule II opioid drug. Start Date: 03/07/21 Status: Ordered Vital Signs Most recent to oldest [Reference Range]: 1 Height 175 cm (03/07/21 3:30 PM) Weight 92.2 kg (03/07/21 3:30 PM) Pulse Rate [55-90 bpm] 74 bpm (03/07/21 3:30 PM) Body Mass Index [18.5-24.99] 30.11 *>HHI* (03/07/21 3:30 PM) Blood Pressure [90-138/55-84 mm Hg] 140/83 mm Hg *H* (03/07/21 3:30 PM) Respiratory Rate [16-30 br/min] 14 br/min *L* (03/07/21 3:30 PM) Temperature [96.8-100.4 DegF] 98 DegF (03/07/21 3:30 PM)
--- OUTSIDE RECORDS SUMMARY | 2022-06-11 16:21 | XMS_ITS | Continuity of Care Document ---
:1965 Author Organization [facility] Address Unavailable , Care Team Providers Name Role Phone Ken Parker III Primary Care Physician Encounter [facility] [place] Date(s): 06/08/21 - 06/15/21 [facility] Attending Physician: Parminder NEWSOME, Melquiades Graf Referring Physician: Ken Parker III Allergies, Adverse [...] recent to oldest [Reference Range]: 1 Height 175.26 cm (06/08/21 1:48 PM) Weight 89.6 kg (06/08/21 1:48 PM) Pulse Rate [55-90 bpm] 78 bpm (06/08/21 1:48 PM) Body Mass Index [18.5-24.99] 29.17 *H* (06/08/21 1:48 PM) Blood Pressure [90-138/55-84 mm Hg] 142/91 mm Hg *H* (06/08/21 1:48 PM) Temperature [96.8-100.4 DegF] 97.3 DegF (06/08/21 1:48 PM) Blood pressure sites Arm, right (06/08/21 1:48 PM) Temperature Route Temporal (06/08/21 1:48 PM)
[2022-06-11 17:12] LABS: COVID-19 Test Negative (Negative); IDNOW Serial# 16C4AD1C
== END 2022-06-11 17:39 | disposition home or self-care (01) ==
PROVIDERS: Physician Assistant; Student in an Organized Health Care Education/Training Program; Emergency Provider Emergency Medicine; PCP Physician Assistant Medical
DX: K56.7 Ileus, unspecified (principal); K42.9 Umbilical hernia without obstruction or gangrene; R10.9 Unspecified abdominal pain; I10 Essential (primary) hypertension; Z20.822 Contact with and (suspected) exposure to COVID-19
CPT/HCPCS: 36415; 74177; 80048; 80076; 81001; 83690; 85025; 87635; 99283; 99284; Q9967

== ENCOUNTER 2022-10-12 15:40 | Emergency (ER) | payer OTHER, SELFPAY ==
--- NOTE | ~2022-10-12 | CT_ITS ---
EXAMINATION: CT ABDOMEN AND PELVIS WITHOUT CONTRAST CLINICAL INFORMATION: Abdominal pain with hematuria. Rule out kidney stone. COMPARISON: 06/11/2022 TECHNIQUE: Multidetector volumetric imaging was performed from the superior aspect of the liver through the pubic symphysis. Sagittal and coronal reformatted images were obtained on the technologist's workstation. This CT examination was performed using dose optimization techniques as appropriate, variously including the following: *Automated exposure control *Adjustment of mA and/or kV according to patient size (this includes techniques or standardized protocols for targeted exams where dose is matched to indication/reason for exam; i.e. extremities or head) *Use of iterative reconstruction technique DLP: 586 mGy-cm FINDINGS: LUNG BASES: The visualized lung bases are unremarkable. LIVER, GALLBLADDER, AND BILIARY TREE: The liver is normal in size, shape, and attenuation. No focal hepatic lesion or biliary ductal dilatation is present. The gallbladder is unremarkable with no evidence of radiopaque gallstones, gallbladder wall thickening, or obvious pericholecystic inflammatory changes. PANCREAS: Unremarkable. SPLEEN: Unremarkable. ADRENAL GLANDS: Unremarkable. KIDNEYS AND URETERS: The kidneys are normal in size, shape, and attenuation. No hydronephrosis, hydroureter, or calculi seen. No perinephric stranding. BLADDER: Unremarkable. GASTROINTESTINAL TRACT: The stomach is unremarkable. The small bowel is dilated in the left abdomen with gas and fluid present. The distal small bowel is decompressed, with transition in the right lower quadrant. Much of the colon is decompressed. No free air. Small volume of pelvic free fluid. Normal appendix . ABDOMINAL WALL: No significant hernia is appreciated. LYMPH NODES: Normal. VASCULAR: Normal caliber aorta with mild atherosclerotic calcification. PELVIC VISCERA: The prostate and seminal vesicles are unremarkable. OSSEOUS STRUCTURES: No acute or suspicious osseous abnormality. CT/CT abdomen pelvis wo IV con IMPRESSION: The appearance is most suggestive of a partial small bowel obstruction with transition in the right lower quadrant. Fleischner guidelines were followed.
--- NOTE | 2022-10-12 16:27 | ED.ABDPAIN ---
HPI - Abdominal Pain General Chief Complaint: Abdominal Pain <TAHIR Hunt - Last Filed: 10/12/22 16:30> Stated Complaint: abdominal pain, sweats, and fever <TAHIR Hunt - Last Filed: 10/12/22 16:30> Time Seen by Provider: 10/13/22 00:05 <TAHIR Hunt - Last Filed: 10/12/22 16:30> Source: patient <Tashi Folr MD - Last Filed: 10/13/22 02:45> Mode of arrival: ambulatory <Tashi Flor MD - Last Filed: 10/13/22 02:45> Limitations: no limitations <Tashi Flor MD - Last Filed: 10/13/22 02:45> History of Present Illness HPI narrative: 57-year-old male presents with abdominal pain. The abdominal pain is and periumbilical area. Does not radiate. He comes and goes. Feels crampy in nature. There is no clear relieving or exacerbating features. Denies any fevers or chills. Denies any nausea, vomiting, diarrhea, constipation. Denies any urinary complaints such as frequency, urgency, dysuria. Patient describes the pain as moderate at its worst. He currently denies any active pain. Patient denies a history of similar pain in the past. <Tashi Flor MD - Last Filed: 10/13/22 02:45> Related Data Home Medications: Previous Rx's Medication Instructions Recorded polyethylene glycol 3350 17 17 g PO DAILY #238 grams 06/11/22 gram/dose oral powder (Miralax) sennosides 8.6 mg capsule (senna) 8.6 mg PO BEDTIME #20 caps 06/11/22 <TAHIR Hunt - Last Filed: 10/12/22 16:30> Allergies/Adverse Reactions: Allergies Allergy/AdvReac Type Severity Reaction Status Date / Time No Known Allergies Allergy Unverified 04/07/20 18:09 [No Known Allergies*] <TAHIR Hunt - Last Filed: 10/12/22 16:30> [facility] Social History Social History: Social History Advance Directives: No Advance Directives Information Provided: No <TAHIR Hunt - Last Filed: 10/12/22 16:30> Physical Exam ED Vital Signs: Vital Signs - 24 hr 10/12/22 16:29 10/12/22 21:43 10/12/22 23:48 Temperature 98 F 98.4 F 97.9 F Pulse Rate 75 69 69 Respiratory Rate 14 16 18 Blood Pressure 160/87 H 133/83 127/78 Pulse Oximetry 97 98 96 Oxygen Delivery Method Room Air Room Air Room Air BMI result Body Mass Index 25.8 <TAHIR Hunt - Last Filed: 10/12/22 16:30> Vital Signs - 24 hr 10/12/22 16:29 10/12/22 21:43 10/12/22 23:48 Temperature 98 F 98.4 F 97.9 F Pulse Rate 75 69 69 Respiratory Rate 14 16 18 Blood Pressure 160/87 H 133/83 127/78 Pulse Oximetry 97 98 96 Oxygen Delivery Method Room Air Room Air Room Air BMI result Body Mass Index 25.8 <Tashi Flor MD - Last Filed: 10/13/22 02:45> GEN: Well developed, no acute distress, alert, oriented HEENT: Normocephalic, atraumatic, normal external ears, nose appears normal, no oropharyngeal edema or exudates Eyes: Normal to appearance Neck: Supple, no lymphadenopathy Respiratory: Talks in complete sentences, no respiratory distress, clear to auscultation bilaterally Cardiovascular: Regular rate and rhythm, no murmurs rubs or gallops Abdomen: Soft, nontender, nondistended, no guarding, no rebound Back: No CVA tenderness Extremities: No clubbing cyanosis or edema Neurologic: No focal neurologic deficits, cranial nerves 2-12 intact, strength is 5/5 bilaterally, gait normal Skin: No rash <Tashi Flor MD - Last Filed: 10/13/22 02:45> Course Course Course Narrative: RME--57yo M w/PMHx ileus c/o abdominal pain x3 days with fever 101 and chills/sweats. Reports constipation x1 mos passing hard small stools. Admits to watery stool x3 episodes. Denies N/V Abd soft w/periumbilical and RUQ ttp Lab, UA ordered <TAHIR Hunt - Last Filed: 10/12/22 16:30> Reevaluation(s) Reevaluation #1: Lab work has returned. Has hematuria. Order CT scan to rule out renal colic <Tashi Flor MD - Last Filed: 10/13/22 02:45> Time: 00:42 <Tashi Flor MD - Last Filed: 10/13/22 02:45> Reevaluation #2: Patient is overall feeling well. He has had flatus. His last bowel movement was on Saturday. He has never had any surgeries in the past. Patient would like to go home an attempt to try treatment for possible constipation. He is aware of the possible diagnosis of partial small bowel obstruction. He is aware that he should come back to the hospital for worsening or progressive symptoms. <Tashi Flor MD - Last Filed: 10/13/22 02:45> Time: 02:43 <Tashi Flor MD - Last Filed: 10/13/22 02:45> Medical Decision Making Medical Decision Making MDM Narrative: Differential diagnosis includes: Abdominal pain, pancreatitis, cholecystitis, colitis, diverticulitis, renal colic, hematuria, pyelonephritis, AAA mesenteric adenitis. Abdominal exam without peritoneal signs. No evidence of acute abdomen at this time. Well appearing. Low suspicion for acute hepatobiliary disease (includng acute cholecystitis), acute pancreatitis, PUD (including perforation), acute infectious processes (pneumonia, hepatitis, pyelonephritis), acute appendicitis, vascular catastrophe, bowel obstruction or viscus perforation. Presentation not consistent with other acute, emergent causes of abdominal pain at this time. Plan: labs, UA, CT AP, pain control, serial reassessment <Tashi Flor MD - Last Filed: 10/13/22 02:45> Differential Diagnosis Differential Diagnoses: The differential diagnosis associated with the presentation includes (Abdominal pain, pancreatitis this, colitis, gastritis or a biliary colic, I VD, IBS) <Tashi Flor MD - Last Filed: 10/13/22 02:45> Acute abdominal pain <Tashi Flor MD - Last Filed: 10/13/22 02:45> Admission/Observation Consideration of admission/observation: Escalation of care including admission/observation considered <Tashi Flor MD - Last Filed: 10/13/22 02:45> Lab Data MDM Lab Attestation statement: I reviewed the patient's lab results. <Tashi Flor MD - Last Filed: 10/13/22 02:45> Result Diagrams: 10/12/22 16:49 10/12/22 16:49 <TAHIR Hunt - Last Filed: 10/12/22 16:30> Labs: Lab Results 10/12/22 10/12/22 10/12/22 Range/Units 16:49 16:49 21:46 WBC 3.8 L (4.8-10.8) X10*3/uL RBC 5.44 (4.60-5.80) X10*6/uL Hgb 16.5 (14.0-18.0) g/dl Hct 47.3 (42.0-52.0) % MCV 86.9 (80.0-98.0) fL MCH 30.3 (27.0-33.0) pg MCHC 34.9 (31.0-36.0) g/dl RDW 12.1 (11.0-16.0) % Plt Count 218 (160-400) X10*3/uL MPV 9.7 (9.4-12.4) fL Immature Gran % (Auto) 0.5 H (0.0-0.4) % Neut % (Auto) 60.7 (45-73) % Lymph % (Auto) 20.7 (20-40) % [place] % (Auto) 14.4 H (2-11) % Eos % (Auto) 3.4 (0-4) % Baso % (Auto) 0.3 (0-2) % Lymph # (Auto) 0.8 L (1.2-4.9) X10*3/uL [place] # (Auto) 0.6 (0.1-1.2) X10*3/uL Eos # (Auto) 0.1 (0.0-0.4) X10*3/uL Baso # (Auto) 0.0 (0.0-0.2) X10*3/uL Abs Immat Gran (auto) 0.02 (0.00-0.03) X10*3/uL Absolute Neuts (auto) 2.3 (2.0-8.3) x10*3/uL Absolute Nucleated RBC 0.000 (0.0-0.012) X10*3/uL Nucleated RBC % (auto) 0.0 (0.0-0.2) /100WBC Sodium 139 (135-145) mmol/L Potassium 4.0 (3.3-5.1) mmol/L Chloride 106 (96-108) mmol/L Carbon Dioxide 24 (22-29) mmol/L Anion Gap 13 (12-20) BUN 11 (9-16) mg/dL Creatinine 0.87 (0.5-1.4) mg/dL Estim Creat Clear Calc 96.7 Estimated GFR > 60 Random Glucose 110 (60-115) mg/dL Calcium 9.0 (8.4-10.2) mg/dL Magnesium 2.1 (1.6-2.6) mg/dL Total Bilirubin 1.2 H (0.0-1.0) mg/dL Direct Bilirubin 0.4 (0.0-0.5) mg/dL AST 21 (5-37) U/L ALT 21 (0-40) U/L Alkaline Phosphatase 84 (39-117) U/L Total Protein 7.2 (6.5-8.0) g/dL Albumin 4.2 (3.5-5.0) g/dL Lipase 71 (8-78) U/L Urine Color Yellow Urine Appearance Clear Urine pH 6.0 (5.0-9.0) Ur Specific [place] >= 1.030 H (1.005-1.025) Urine Protein 30 (1+) H (Neg-Trace) mg/dL Urine Glucose (UA) Negative (Negative) mg/dL Urine Ketones Negative (Negative) mg/dL Urine Blood Large (3+) H (Negative) Urine Nitrite Negative (Negative) Ur Leukocyte Esterase Negative (Negative) Urine RBC 11-20 H (0-2) /HPF Urine WBC 0-5 (0-5) /HPF Ur Squamous Epith Cells 0-2 (0-2) /HPF Urine Bacteria None Seen (None Seen) Hyaline Casts 0-2 (0-2) /LPF <TAHIR Hunt - Last Filed: 10/12/22 16:30> Lab Results 10/12/22 10/12/22 10/12/22 Range/Units 16:49 16:49 21:46 WBC 3.8 L (4.8-10.8) X10*3/uL RBC 5.44 (4.60-5.80) X10*6/uL Hgb 16.5 (14.0-18.0) g/dl Hct 47.3 (42.0-52.0) % MCV 86.9 (80.0-98.0) fL MCH 30.3 (27.0-33.0) pg MCHC 34.9 (31.0-36.0) g/dl RDW 12.1 (11.0-16.0) % Plt Count 218 (160-400) X10*3/uL MPV 9.7 (9.4-12.4) fL Immature Gran % (Auto) 0.5 H (0.0-0.4) % Neut % (Auto) 60.7 (45-73) % Lymph % (Auto) 20.7 (20-40) % [place] % (Auto) 14.4 H (2-11) % Eos % (Auto) 3.4 (0-4) % Baso % (Auto) 0.3 (0-2) % Lymph # (Auto) 0.8 L (1.2-4.9) X10*3/uL [place] # (Auto) 0.6 (0.1-1.2) X10*3/uL Eos # (Auto) 0.1 (0.0-0.4) X10*3/uL Baso # (Auto) 0.0 (0.0-0.2) X10*3/uL Abs Immat Gran (auto) 0.02 (0.00-0.03) X10*3/uL Absolute Neuts (auto) 2.3 (2.0-8.3) x10*3/uL Absolute Nucleated RBC 0.000 (0.0-0.012) X10*3/uL Nucleated RBC % (auto) 0.0 (0.0-0.2) /100WBC Sodium 139 (135-145) mmol/L Potassium 4.0 (3.3-5.1) mmol/L Chloride 106 (96-108) mmol/L Carbon Dioxide 24 (22-29) mmol/L Anion Gap 13 (12-20) BUN 11 (9-16) mg/dL Creatinine 0.87 (0.5-1.4) mg/dL Estim Creat Clear Calc 96.7 Estimated GFR > 60 Random Glucose 110 (60-115) mg/dL Calcium 9.0 (8.4-10.2) mg/dL Magnesium 2.1 (1.6-2.6) mg/dL Total Bilirubin 1.2 H (0.0-1.0) mg/dL Direct Bilirubin 0.4 (0.0-0.5) mg/dL AST 21 (5-37) U/L ALT 21 (0-40) U/L Alkaline Phosphatase 84 (39-117) U/L Total Protein 7.2 (6.5-8.0) g/dL Albumin 4.2 (3.5-5.0) g/dL Lipase 71 (8-78) U/L Urine Color Yellow Urine Appearance Clear Urine pH 6.0 (5.0-9.0) Ur Specific [place] >= 1.030 H (1.005-1.025) Urine Protein 30 (1+) H (Neg-Trace) mg/dL Urine Glucose (UA) Negative (Negative) mg/dL Urine Ketones Negative (Negative) mg/dL Urine Blood Large (3+) H (Negative) Urine Nitrite Negative (Negative) Ur Leukocyte Esterase Negative (Negative) Urine RBC 11-20 H (0-2) /HPF Urine WBC 0-5 (0-5) /HPF Ur Squamous Epith Cells 0-2 (0-2) /HPF Urine Bacteria None Seen (None Seen) Hyaline Casts 0-2 (0-2) /LPF <Tashi Flor MD - Last Filed: 10/13/22 02:45> Independent Interpretation I performed an independent interpretation of an: CT Scan <Tashi Flor MD - Last Filed: 10/13/22 02:45> Radiology Impression Discussion of test interpretation with radiology: I have reviewed the radiologist's reading. <Tashi Flor MD - Last Filed: 10/13/22 02:45> Independent Historian Clinical information obtained from an independent historian. History obtained from or confirmed by: Spouse <Tashi Flor MD - Last Filed: 10/13/22 02:45> Prescription Management I considered prescription management with: Pain Medication <Tashi Flor MD - Last Filed: 10/13/22 02:45> Discharge Plan Discharge Clinical Impression: Abdominal pain <TAHIR Hunt - Last Filed: 10/12/22 16:30> Patient Disposition: Home, Self-Care <TAHIR Hunt - Last Filed: 10/12/22 16:30> Instructions: Abdominal Pain (ED), Constipation (ED) <TAHIR Hunt - Last Filed: 10/12/22 16:30> Additional Instructions: For constipation, I am recommending the following treatment: Docusate sodium 100 mg twice daily Milk of magnesia 30 mL daily as needed Should her abdominal pain worsen, intractable nausea vomiting, unable to pass stool or flatus, please return to the emergency department for re-evaluation. <TAHIR Hunt - Last Filed: 10/12/22 16:30> Prescriptions: No Action polyethylene glycol 3350 [Miralax] 17 gram/dose powder 17 g PO DAILY Qty: 238 0RF senna 8.6 mg capsule 8.6 mg PO BEDTIME Qty: 20 0RF <TAHIR Hunt - Last Filed: 10/12/22 16:30> Referrals: Nahum Muñoz DO [Primary Care Provider] - 3 days <TAHIR Hunt - Last Filed: 10/12/22 16:30>
[2022-10-12 16:29] VITALS: BP 160/87; PULSE 75; RESP 14; TEMP 36.6; O2SAT 97; BMI 25.8
[2022-10-12 16:55] LABS: MANUAL DIFF FLAG NO
[2022-10-12 16:57] LABS: Basophils Percent Auto 0.3 % (0-2); Eosinophils Absolute Auto 0.1 X10*3/uL (0.0-0.4); Eosinophils Percent Auto 3.4 % (0-4); Hematocrit 47.3 % (42.0-52.0); Hemoglobin 16.5 g/dl (14.0-18.0); Imm Gran Abs Auto 0.02 X10*3/uL (0.00-0.03); Imm Gran Pct Auto 0.5 % (0.0-0.4); Lymphocytes Absolute Auto 0.8 X10*3/uL (1.2-4.9); Lymphocytes Percent Auto 20.7 % (20-40); Mean Corpuscular HGB Conc 34.9 g/dl (31.0-36.0); Mean Corpuscular Hemoglobin 30.3 pg (27.0-33.0); Mean Corpuscular Volume 86.9 fL (80.0-98.0); Mean Platelet Volume 9.7 fL (9.4-12.4); Monocytes Absolute Auto 0.6 X10*3/uL (0.1-1.2); Monocytes Percent Auto 14.4 % (2-11); Neutrophils Absolute Auto 2.3 x10*3/uL (2.0-8.3); Neutrophils Percent Auto 60.7 % (45-73); Platelet Count 218 X10*3/uL (160-400); Red Blood Count 5.44 X10*6/uL (4.60-5.80); Red Cell Distribution Width 12.1 % (11.0-16.0); White Blood Count 3.8 X10*3/uL (4.8-10.8)
[2022-10-12 17:18] LABS: Alanine Aminotransferase 21 U/L (0-40); Albumin Level 4.2 g/dL (3.5-5.0); Alkaline Phosphatase 84 U/L (39-117); Anion Gap 13 (12-20); Aspartate Amino Transferase 21 U/L (5-37); Bilirubin Direct 0.4 mg/dL (0.0-0.5); Bilirubin Total 1.2 mg/dL (0.0-1.0); Blood Urea Nitrogen 11 mg/dL (9-16); Carbon Dioxide 24 mmol/L (22-29); Chloride 106 mmol/L (96-108); Creatinine Clr Calc Pharmacy 96.7; Estimated Glomerular Filt Rate > 60; Glucose Random 110 mg/dL (60-115); Lipase 71 U/L (8-78); Magnesium 2.1 mg/dL (1.6-2.6); Sodium 139 mmol/L (135-145); Total Protein 7.2 g/dL (6.5-8.0)
[2022-10-12 21:43] VITALS: BP 133/83; PULSE 69; RESP 16; TEMP 36.9; O2SAT 98
--- NOTE | 2022-10-12 21:45 | MHC.EDTECH ---
PT VITALS SIGN TAKEN ,URINE SAMPLE COLLECTED AND SENT TO LAB .
[2022-10-12 21:51] LABS: Appearance Urine Clear; Color Urine Yellow; Glucose Urine UA Negative (Negative); Leukocyte Esterase Urine Negative (Negative); Nitrite Urine Negative (Negative); Specific Gravity - Urine >= 1.030 (1.005-1.025); UMIC TRIGGER UACC YES; Urine Blood Large (3+) (Negative); Urine Ketones Negative (Negative); Urine Protein 30 (1+) mg/dL (Neg-Trace)
[2022-10-12 22:03] LABS: Bacteria Urine None Seen (None Seen); Hyaline Casts Urine 0-2 /LPF (0-2); Squamous Epithelial Cell Urine 0-2 /HPF (0-2); WBC Urine 0-5 /HPF (0-5)
--- NOTE | 2022-10-12 23:08 | MHC.EDTECH ---
just taking over this assignment from [employer]
[2022-10-12 23:48] VITALS: BP 127/78; PULSE 69; RESP 18; TEMP 36.6; O2SAT 96
[2022-10-13] MEDS: Milk of Magnesia 30 ML ORAL.SUSP PO (02:59)
--- NOTE | 2022-10-13 03:05 | PC.NURSE ---
Pt. sitting on bed with at bedside, reporting mild abdominal pain. No distress noted.
== END 2022-10-13 03:06 | disposition home or self-care (01) ==
PROVIDERS: Physician Assistant; Emergency Provider Emergency Medicine; PCP Student in an Organized Health Care Education/Training Program
DX: R10.33 Periumbilical pain (principal); R50.9 Fever, unspecified; K59.00 Constipation, unspecified; R31.9 Hematuria, unspecified; R10.11 Right upper quadrant pain; Z79.899 Other long term (current) drug therapy
CPT/HCPCS: 36415; 74176; 80048; 80076; 81001; 83690; 83735; 85025; 99283; 99284

== ENCOUNTER 2023-01-01 19:48 | Emergency (ER) | payer OTHER, SELFPAY ==
--- NOTE | ~2023-01-01 | XR_ITS ---
EXAMINATION: XR CHEST CLINICAL INFORMATION: Cough and shortness of breath COMPARISON: None available. TECHNIQUE: 2 views of the chest were obtained. FINDINGS: The cardiac and mediastinal contours are normal. The lungs are clear. No pleural effusion or pneumothorax. Mild degenerative changes of the spine. XR/XR chest 2V IMPRESSION: No evidence for acute disease in the chest.
--- NOTE | 2023-01-01 20:07 | ED_ITS ---
HPI - URI/Sore Throat General Chief Complaint: Upper Respiratory Symptoms Stated Complaint: hard time breathing, air pip feels clogged, wheez Time Seen by Provider: 01/01/23 22:41 Source: patient Mode of arrival: ambulatory Limitations: no limitations History of Present Illness HPI Narrative: Patient history of asthma has not used inhaler for a while for last 5 days patient been coughing especially in the nighttime and early a.m. 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 no other family member sick Related Data Previous Rx's Medication Instructions Recorded polyethylene glycol 3350 17 17 g PO DAILY #238 grams 06/11/22 gram/dose oral powder (Miralax) sennosides 8.6 mg capsule (senna) 8.6 mg PO BEDTIME #20 caps 06/11/22 albuterol sulfate 90 mcg/actuation 2 puff inhalation Q4-6H PRN 01/01/23 aerosol inhaler (ProAir HFA) shortness of breath or wheezing #8.5 grams amoxicillin 875 mg-potassium 1 tab PO BID #20 tabs 01/01/23 clavulanate 125 mg tablet prednisone 20 mg tablet 40 mg PO DAILY #10 tabs 01/01/23 Allergies Allergy/AdvReac Type Severity Reaction Status Date / Time No Known Allergies Allergy Unverified 04/07/20 18:09 [No Known Allergies*] Review of Systems Review of Systems: Yes all other systems are reviewed and are negative [facility] Social History Social History Smoked in Last 30 Days: No Advance Directives: No Advance Directives Information Provided: No Physical Exam Vital Signs: Vital Signs: Last Vital Signs Temp 98 F 01/01/23 22:19 Pulse 76 01/01/23 23:12 Resp 16 01/01/23 23:12 BP 136/72 01/01/23 22:19 Pulse Ox 95 01/01/23 23:20 O2 Del Method Room Air 01/01/23 23:20 BMI result Body Mass Index 27.4 Appearance: Alert. Oriented X3. No acute distress. ENT: Pharynx normal. Oral Mucosa moist Neck: Normal inspection. Neck supple. CVS: Normal heart rate and rhythm. Pulses normal. Respiratory: No respiratory distress. Equal air entry bilateral, bilateral wheezing no Rales Abdomen: Soft and nontender. Bowel sounds are present, Skin: Skin warm and dry. Normal skin color. Normal skin turgor. Extremities: No lower extremity edema. No calf tenderness Neuro: Oriented X 3. Course Course Course Narrative: RME: 57yo M w/PMHx asthma. c/o URI sx since Thurs w/productive cough, SOB and sore throat. denies fever, CP oropharynx wnl, lungs mildly coarse. COVID/FLU, Rapid strep, CXR, Duoneb ordered Full HPI, ROS and PE to be performed by primary ED provider. Medications Administered Discontinued Medications Generic Name Dose Route Start Last Admin Trade Name Freq PRN Reason Stop Dose Admin Albuterol Sulfate 5 mg 01/01/23 22:50 01/01/23 23:11 Albuterol Sulfate (0.083%) 2.5 Mg/3 Ml Vial.Neb INHALE 01/01/23 22:51 5 mg ONCE ONE Administration Albuterol Sulfate 2 puff 01/01/23 22:50 01/01/23 23:11 Albuterol Sulfate 90 Mcg 8 Gm Inhaler INHALE 01/01/23 22:51 2 puff ONCE ONE Administration Albuterol/Ipratropium 3 ml 01/01/23 20:10 01/01/23 20:46 Albuterol/Iprat 2.5/0.5mg 3 Ml Ampul.Neb INHALE 01/01/23 20:11 3 ml ONCE ONE Administration Amoxicillin/Clavulanate Potassium 875 mg 01/01/23 22:51 01/01/23 23:03 Amoxicillin/Potassium Clav 875 Mg Tablet PO 01/01/23 22:52 875 mg ONCE ONE Administration Prednisone 60 mg 01/01/23 22:51 01/01/23 23:02 Prednisone 20 Mg Tablet PO 01/01/23 22:52 60 mg ONCE ONE Administration Medical Decision Making Medical Decision Making [facility] Narrative: Patient with wheezing with bronchitis with history of asthma discharge patient home on inhaler prednisone antibiotics chest x-ray negative for infiltrate Lab Data [facility] Lab Attestation statement: I reviewed the patient's lab results. Labs: Lab Results 01/01/23 01/01/23 01/01/23 Range/Units 20:53 20:53 20:53 COVID-19 (ADRY) Negative (Negative) COVID-19 Clin Com See Note Influenza Type A (MITCH) Negative (Negative) Influenza Type B (MITCH) Negative (Negative) Influenza A & B Note See Note S. pyogenes GrpA MITCH Negative (Negative) Discharge Plan Discharge Clinical Impression: Acute asthmatic bronchitis Patient Disposition: Home, Self-Care Instructions: Acute Bronchitis (ED) Additional Instructions: Use inhaler 2 puffs every 4-6 hours as needed Prednisone and antibiotics as prescribed Follow with PCP if not better Prescriptions: New albuterol sulfate [ProAir HFA] 90 mcg/actuation HFA aerosol inhaler 2 puff inhalation Q4-6H PRN (Reason: shortness of breath or wheezing) Qty: 8.5 0RF amoxicillin-pot clavulanate 875-125 mg tablet 1 tab PO BID Qty: 20 0RF prednisone 20 mg tablet 40 mg PO DAILY Qty: 10 0RF No Action polyethylene glycol 3350 [Miralax] 17 gram/dose powder 17 g PO DAILY Qty: 238 0RF senna 8.6 mg capsule 8.6 mg PO BEDTIME Qty: 20 0RF Interventions: ED Discharge Assessment Last Done: 01/01/23 23:43 Discharge Date/Time: 01/01/23 23:45
[2023-01-01 20:08] VITALS: BP 122/80; PULSE 88; RESP 16; TEMP 36.9; O2SAT 95; BMI 27.4
[2023-01-01] MEDS: Albuterol/Iprat 2.5/0.5MG 3 ML AMPUL.NEB INHALE (20:46)
[2023-01-01 20:48] VITALS: PULSE 91; RESP 18; O2SAT 96
[2023-01-01 21:21] LABS: IDNOW Serial# 08D9AD1C; Strep A Nucleic Acid Negative (Negative)
[2023-01-01 21:26] LABS: COVID-19 Test Negative (Negative); IDNOW Serial# 9DB6401D; IDNOW Serial# BCCEAD1C; Influenza A Negative (Negative); Influenza B2 Negative (Negative)
[2023-01-01 22:19] VITALS: BP 136/72; PULSE 76; RESP 16; TEMP 36.6; O2SAT 92
[2023-01-01] MEDS: predniSONE 20 MG TABLET 60 MG PO (23:02)
[2023-01-01] MEDS: Amoxicillin/Potassium Clav 875 MG TABLET PO (23:03)
--- NOTE | 2023-01-01 23:05 | PC.NURSE ---
pt medicated per SEP- awaiting respiratory for updraft
[2023-01-01] MEDS: Albuterol Sulfate (0.083%) 2.5 MG/3 ML VIAL.NEB 5 MG INHALE (23:11)
[2023-01-01] MEDS: Albuterol Sulfate 90 MCG 8 GM INHALER 2 PUFF INHALE (23:11)
[2023-01-01 23:12] VITALS: PULSE 76; RESP 16; O2SAT 95
[2023-01-01 23:20] VITALS: O2SAT 95
== END 2023-01-01 23:45 | disposition home or self-care (01) ==
PROVIDERS: Physician Assistant; Emergency Provider Internal Medicine; PCP Student in an Organized Health Care Education/Training Program
DX: J20.9 Acute bronchitis, unspecified (principal); R05.9 Cough, unspecified; R06.02 Shortness of breath; Z20.822 Contact with and (suspected) exposure to COVID-19; Z20.828 Contact with and (suspected) exposure to other viral communicable diseases; Z79.899 Other long term (current) drug therapy
CPT/HCPCS: 71046; 87502; 87635; 87651; 94640; 99284; 99285

== ENCOUNTER 2023-10-04 17:26 | Emergency (ER) | payer OTHER, SELFPAY ==
--- NOTE | ~2023-10-04 | XR_ITS ---
EXAMINATION: XR CHEST CLINICAL INFORMATION: Cough and shortness of breath COMPARISON: Previous chest x-ray December 2022 TECHNIQUE: 2 views of the chest were obtained. FINDINGS: No significant abnormality is noted involving the heart, lungs, mediastinum, bony thorax or soft tissues. XR/XR chest 2V IMPRESSION: Unremarkable examination.
[2023-10-04 18:36] VITALS: BP 154/79; PULSE 70; RESP 20; TEMP 36.6; O2SAT 95; BMI 26.6
--- NOTE | 2023-10-04 18:36 | ED_ITS ---
HPI - SOB/Dyspnea General Chief Complaint: Dyspnea Stated Complaint: Difficulty breathing Time Seen by Provider: 10/04/23 23:22 Source: patient Mode of arrival: ambulatory Limitations: no limitations History of Present Illness HPI Narrative: 58 yo male with PMH of asthma on rescue inhaler only not a smoker here with wheezing at night with exertion and clear mucous and yellow mucous with a cough feels short of breath no fevers or pain but feels that he is not getting better. He has not seen his PCP. hears him wheezing MD elicited complaint: shortness of breath and asthma attack Pertinent past history: asthma Onset (ago): month(s) (2) Context: occurred during exertion and other (at night) Timing: intermittent Severity: moderate Exacerbating factors: lying flat, exertion and coughing Relieving factors: bronchodilators Known history of: asthma Associated symptoms: denies other symptoms Treatment prior to arrival: none Related Data Previous Rx's Medication Instructions Recorded polyethylene glycol 3350 17 17 g PO DAILY #238 grams 06/11/22 gram/dose oral powder (Miralax) sennosides 8.6 mg capsule (senna) 8.6 mg PO BEDTIME #20 caps 06/11/22 albuterol sulfate 90 mcg/actuation 2 puff inhalation Q4-6H PRN 01/01/23 aerosol inhaler (ProAir HFA) shortness of breath or wheezing #8.5 grams amoxicillin 875 mg-potassium 1 tab PO BID #20 tabs 01/01/23 clavulanate 125 mg tablet prednisone 20 mg tablet 40 mg (2 x 20 mg) PO DAILY #10 tabs 01/01/23 azithromycin 250 mg tablet See Rx Instructions PO .COMPLEX #6 10/04/23 tabs fluticasone 100 mcg-salmeterol 50 1 inh inhalation BID #60 ea 10/04/23 mcg/dose blistr powdr for inhalation (Wixela Inhub) prednisone 20 mg tablet 40 mg (2 x 20 mg) PO DAILY 4 days 10/04/23 #8 tabs Allergies Allergy/AdvReac Type Severity Reaction Status Date / Time No Known Allergies Allergy Verified 10/04/23 18:38 [No Known Allergies*] Review of Systems 2 Review of Systems: Constitutional : No Fever, No Chills ENT/Mouth : No Hoarseness, No sore throat, No Rhinorrhea Eyes: No Redness, No Discharge, No Vision Changes Cardiovascular : No Chest Pain, positive SOB, positive Dyspnea on Exertion, No Edema Respiratory : positive Cough, pos Sputum, positive Wheezing, Gastrointestinal : No Nausea, No Vomiting, No Diarrhea, No abdominal Pain Genitourinary : No Dysuria, No Hematuria Musculoskeletal : No joint pain, No Myalgias Skin : No rash Neuro : No Weakness, No Numbness, No Headache Psych : No anxiety, depression All other systems reviewed and are negative [facility] Past Medical History Attestation statement: The following information was validated with the patient. Source: old records reviewed Medical History Asthma Social History Social History (Updated 10/04/23 @ 23:32 by Barb Millard DO) Patient Tobacco Use Status: Never used Tobacco Physical Exam 2 Vital Signs: Vital Signs: Last Vital Signs Temp 97.8 F 10/04/23 18:36 Pulse 70 10/04/23 18:36 Resp 20 10/04/23 18:36 BP 154/79 H 10/04/23 18:36 Pulse Ox 95 10/04/23 18:36 O2 Del Method Room Air 10/04/23 18:36 BMI result Body Mass Index 26.6 Appearance: Alert. Oriented X3. No acute distress. Eyes: Pupils equal, round and reactive to light. ENT: Pharynx normal. Neck: Normal inspection. Neck supple. CVS: Normal heart rate and rhythm. Pulses normal. Respiratory: No respiratory distress. Breath sounds slightly diminished Abdomen: Soft and non-tender. Skin: Skin warm and dry. Normal skin color. Normal skin turgor. Extremities: No lower extremity edema. Neuro: Oriented X 3. No motor deficit. No sensory deficit. Course Course Course Narrative: This is an RME: Additional HPI, ROS, PE not included below will be deferred to primary provider. Patient is a 58-year-old male who presents emergency department for evaluation of cough, shortness of breath for the past 2 months. Progressively worsening over the past 3 weeks. 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 He had a routine appointment with his primary care provider 1 month ago was given a prescription for albuterol inhaler which has not improved his symptoms. I/E wheezing and rhonchi Plan: Labs, CXR, viral testing Medical Decision Making Medical Decision Making MDM Narrative: 58 yo male with worsening asthma symptoms and productive cough for 2 months at this time diminished lung sounds but hears wheezing at night and with exertion has no CP or signs of volume overload has never beenon maintenance inhaler will obtain labs, CXR and start on steroids/zpak along with steroid and long acting med given he is using his rescue frequently without relief. Follow up with PCP next week. Differential Diagnosis Differential Diagnoses: The differential diagnosis associated with the presentation includes asthma, bronchitis, reactive airway disease Admission/Observation Consideration of admission/observation: Escalation of care including admission/observation considered no hypoxia stable for outpatient care Lab Data MDM Lab Attestation statement: I reviewed the patient's lab results. 10/04/23 18:56 10/04/23 18:56 Labs: Lab Results 10/04/23 10/04/23 10/04/23 Range/Units 18:56 18:57 20:02 WBC 5.5 (4.8-10.8) X10*3/uL RBC 5.40 (4.60-5.80) X10*6/uL Hgb 16.7 (14.0-18.0) g/dl Hct 47.2 (42.0-52.0) % MCV 87.4 (80.0-98.0) fL MCH 30.9 (27.0-33.0) pg MCHC 35.4 (31.0-36.0) g/dl RDW 11.7 (11.0-16.0) % Plt Count 227 (160-400) X10*3/uL MPV 10.1 (9.4-12.4) fL Immature Gran % (Auto) 0.4 (0.0-0.4) % Neut % (Auto) 45.1 (45-73) % Lymph % (Auto) 33.2 (20-40) % [place] % (Auto) 9.2 (2-11) % Eos % (Auto) 11.2 H (0-4) % Baso % (Auto) 0.9 (0-2) % Lymph # (Auto) 1.8 (1.2-4.9) X10*3/uL [place] # (Auto) 0.5 (0.1-1.2) X10*3/uL Eos # (Auto) 0.6 H (0.0-0.4) X10*3/uL Baso # (Auto) 0.1 (0.0-0.2) X10*3/uL Abs Immat Gran (auto) 0.02 (0.00-0.03) X10*3/uL Absolute Neuts (auto) 2.5 (2.0-8.3) x10*3/uL Absolute Nucleated RBC 0.000 (0.0-0.012) X10*3/uL Nucleated RBC % (auto) 0.0 (0.0-0.2) /100WBC Sodium 140 (135-145) mmol/L Potassium 4.0 (3.3-5.1) mmol/L Chloride 107 (96-108) mmol/L Carbon Dioxide 26 (22-29) mmol/L Anion Gap 11 L (12-20) BUN 10 (9-16) mg/dL Creatinine 1.03 (0.5-1.4) mg/dL Estim Creat Clear Calc 75.6 Estimated GFR > 60 Random Glucose 95 (60-115) mg/dL Calcium 9.6 D (8.4-10.2) mg/dL B-Natriuretic Peptide < 10 (<100) pg/mL Influenza Type A (PCR) NEGATIVE (Negative) Influenza Type B (PCR) NEGATIVE (Negative) RSV RNA Qual (PCR) NEGATIVE (Negative) SARS-CoV-2 RNA (RT-PCR) NEGATIVE (Negative) Independent Interpretation I performed an independent interpretation of an: Plain X-Ray (normal ) Independent Historian Clinical information obtained from an independent historian. History obtained from or confirmed by: Spouse External Record Review External record reviewed: Office record Prescription Management I considered prescription management with: Antibiotic and Other Discharge Plan Discharge Clinical Impression: Bronchitis Asthma with exacerbation Qualifiers: Asthma severity: moderate Asthma persistence: persistent Qualified Code(s): J 45.41 - Moderate persistent asthma with (acute) exacerbation Patient Disposition: Home, Self-Care Instructions: Asthma (ED), Acute Bronchitis (ED) Additional Instructions: start the new inhaler after you finish the prednisone. remember to rinse your mouth after the inhaler. return for any worsening symptoms, chest pain or concerns. follow up with your doctor in 1 -2 weeks after being on the inhaler to see how you are feeling and if it is helping. you have to take it regularly it is not a rescue it is a maintenance inhaler Prescriptions: New azithromycin 250 mg tablet See Rx Instructions .ROUTE .COMPLEX Qty: 6 0RF Rx Instructions: For 250 mg dose pack: take 500 mg today (day 1), then 250 mg for 4 days (days 2-5) prednisone 20 mg tablet 40 mg PO DAILY 4 Days Qty: 8 0RF fluticasone propion-salmeterol [Wixela Inhub] 100-50 mcg/dose blister with device 1 inh inhalation BID Qty: 60 0RF Rx Instructions: rinse mouth after use No Action polyethylene glycol 3350 [Miralax] 17 gram/dose powder 17 g PO DAILY Qty: 238 0RF senna 8.6 mg capsule 8.6 mg PO BEDTIME Qty: 20 0RF albuterol sulfate [ProAir HFA] 90 mcg/actuation HFA aerosol inhaler 2 puff inhalation Q4-6H PRN (Reason: shortness of breath or wheezing) Qty: 8.5 0RF amoxicillin-pot clavulanate 875-125 mg tablet 1 tab PO BID Qty: 20 0RF prednisone 20 mg tablet 40 mg PO DAILY Qty: 10 0RF
[2023-10-04 19:19] LABS: Basophils Absolute Auto 0.1 X10*3/uL (0.0-0.2); Basophils Percent Auto 0.9 % (0-2); Eosinophils Absolute Auto 0.6 X10*3/uL (0.0-0.4); Eosinophils Percent Auto 11.2 % (0-4); Hematocrit 47.2 % (42.0-52.0); Hemoglobin 16.7 g/dl (14.0-18.0); Imm Gran Abs Auto 0.02 X10*3/uL (0.00-0.03); Imm Gran Pct Auto 0.4 % (0.0-0.4); Lymphocytes Absolute Auto 1.8 X10*3/uL (1.2-4.9); Lymphocytes Percent Auto 33.2 % (20-40); MANUAL DIFF FLAG NO; Mean Corpuscular HGB Conc 35.4 g/dl (31.0-36.0); Mean Corpuscular Hemoglobin 30.9 pg (27.0-33.0); Mean Corpuscular Volume 87.4 fL (80.0-98.0); Mean Platelet Volume 10.1 fL (9.4-12.4); Monocytes Absolute Auto 0.5 X10*3/uL (0.1-1.2); Monocytes Percent Auto 9.2 % (2-11); Neutrophils Absolute Auto 2.5 x10*3/uL (2.0-8.3); Neutrophils Percent Auto 45.1 % (45-73); Platelet Count 227 X10*3/uL (160-400); Red Cell Distribution Width 11.7 % (11.0-16.0); White Blood Count 5.5 X10*3/uL (4.8-10.8)
[2023-10-04 19:46] LABS: Anion Gap 11 (12-20); Blood Urea Nitrogen 10 mg/dL (9-16); Calcium 9.6 mg/dL (8.4-10.2); Carbon Dioxide 26 mmol/L (22-29); Chloride 107 mmol/L (96-108); Creatinine Clr Calc Pharmacy 75.6; Estimated Glomerular Filt Rate > 60; Glucose Random 95 mg/dL (60-115); Sodium 140 mmol/L (135-145)
[2023-10-04 19:50] LABS: B Type Natriuretic Peptide < 10 pg/mL (<100)
[2023-10-04 20:46] LABS: Influenza A PCR NEGATIVE (Negative); Influenza B PCR NEGATIVE (Negative); Resp Syncy Virus RNA Qual PCR NEGATIVE (Negative); SARS COV2 PCR INHOUSE NEGATIVE (Negative)
[2023-10-04] MEDS: Albuterol/Iprat 2.5/0.5MG 3 ML AMPUL.NEB INHALE (23:45)
[2023-10-04 23:47] VITALS: PULSE 72; RESP 18; O2SAT 95
[2023-10-05] MEDS: predniSONE 20 MG TABLET 40 MG PO (00:11)
[2023-10-05 00:22] VITALS: BP 133/77; PULSE 84; RESP 14; TEMP 36.4; O2SAT 95
== END 2023-10-05 00:23 | disposition home or self-care (01) ==
PROVIDERS: Nurse Practitioner Family; Emergency Provider Emergency Medicine; PCP Student in an Organized Health Care Education/Training Program
DX: J45.41 Moderate persistent asthma with (acute) exacerbation (principal); J40 Bronchitis, not specified as acute or chronic; Z11.52 Encounter for screening for COVID-19; Z20.828 Contact with and (suspected) exposure to other viral communicable diseases
CPT/HCPCS: 0241U; 36415; 71046; 80048; 83880; 85025; 94640; 99283; 99284

== ENCOUNTER 2023-12-23 20:15 | Emergency (ER) | payer SELFPAY ==
--- NOTE | ~2023-12-23 | XR_ITS ---
EXAMINATION: XR HAND, RIGHT CLINICAL INFORMATION: Foreign body. COMPARISON: None available. TECHNIQUE: PA, lateral, and oblique views of the right hand. XR/XR hand RT min 3V FINDINGS / IMPRESSION: There is no fracture or dislocation. There is an 8 mm curvilinear radiopaque structure within the soft tissues of the dorsal aspect of the hand. On the AP projection this structure overlies the distal aspect of the third metacarpal bone.
[2023-12-23 20:46] VITALS: BP 145/76; PULSE 65; RESP 16; TEMP 36.9; O2SAT 96; BMI 28.2
--- NOTE | 2023-12-23 20:51 | ED.GENADULT ---
HPI - General Adult General Stated complaint: fishng hook stuck in hand Related Data Previous Rx's ?Medication ?Instructions ?Recorded polyethylene glycol 3350 17 17 g PO DAILY #238 grams 06/11/22 gram/dose oral powder (Miralax) sennosides 8.6 mg capsule (senna) 8.6 mg PO BEDTIME #20 caps 06/11/22 albuterol sulfate 90 mcg/actuation 2 puff inhalation Q4-6H PRN 01/01/23 aerosol inhaler (ProAir HFA) shortness of breath or wheezing #8.5 grams amoxicillin 875 mg-potassium 1 tab PO BID #20 tabs 01/01/23 clavulanate 125 mg tablet prednisone 20 mg tablet 40 mg (2 x 20 mg) PO DAILY #10 tabs 01/01/23 azithromycin 250 mg tablet See Rx Instructions PO .COMPLEX #6 10/04/23 tabs fluticasone 100 mcg-salmeterol 50 1 inh inhalation BID #60 ea 10/04/23 mcg/dose blistr powdr for inhalation (Wixela Inhub) prednisone 20 mg tablet 40 mg (2 x 20 mg) PO DAILY 4 days 10/04/23 #8 tabs Allergies Allergy/AdvReac Type Severity Reaction Status Date / Time No Known Allergies Allergy Verified 12/23/23 20:50 [No Known Allergies*] [facility] Past Medical History Medical History Asthma Social History Social History (Updated 10/04/23 @ 23:32 by Barb Millard DO) Patient Tobacco Use Status: Never used Tobacco Course Course Course Narrative: RME, this is a rapid medical exam performed by Isaías Saleh please refer to primary provider for complete H&P- 58-year-old male presents for evaluation of a fishhook to the back of his right hand. He has a foreign body protruding overlying the right 3rd MCP joint. Plan for x-ray Discharge Plan Discharge Prescriptions: No Action polyethylene glycol 3350 [Miralax] 17 gram/dose powder 17 g PO DAILY Qty: 238 0RF senna 8.6 mg capsule 8.6 mg PO BEDTIME Qty: 20 0RF azithromycin 250 mg tablet See Rx Instructions .ROUTE .COMPLEX Qty: 6 0RF Rx Instructions: For 250 mg dose pack: take 500 mg today (day 1), then 250 mg for 4 days (days 2-5) prednisone 20 mg tablet 40 mg PO DAILY 4 Days Qty: 8 0RF fluticasone propion-salmeterol [Wixela Inhub] 100-50 mcg/dose blister with device 1 inh inhalation BID Qty: 60 0RF Rx Instructions: rinse mouth after use albuterol sulfate [ProAir HFA] 90 mcg/actuation HFA aerosol inhaler 2 puff inhalation Q4-6H PRN (Reason: shortness of breath or wheezing) Qty: 8.5 0RF amoxicillin-pot clavulanate 875-125 mg tablet 1 tab PO BID Qty: 20 0RF prednisone 20 mg tablet 40 mg PO DAILY Qty: 10 0RF Print Language: Belarusian
== END 2023-12-24 04:05 | disposition left against medical advice (07) ==
LOC: HO.ED 12-24 03:55
PROVIDERS: Emergency Provider Emergency Medicine; PCP Student in an Organized Health Care Education/Training Program
DX: M79.641 Pain in right hand (principal)
CPT/HCPCS: 73130; 99281; 99283

== ENCOUNTER 2024-04-16 15:04 | Emergency (ER) | payer OTHER, SELFPAY ==
--- NOTE | ~2024-04-16 | XR_ITS ---
EXAMINATION: XR CHEST CLINICAL INFORMATION: Pneumonia. Cough. Difficulty breathing. COMPARISON: Chest radiograph dated 10/04/2023. TECHNIQUE: Frontal view of the chest was obtained. FINDINGS: The lungs are clear. The cardiomediastinal silhouette is normal in size. There is no pleural effusion or pneumothorax. No acute osseous abnormality. XR/XR chest 1V IMPRESSION: No acute cardiopulmonary findings. Electronically signed by: Juan Berg MD 04/16/2024 09:31 PM EDT
[2024-04-16 16:07] VITALS: BP 131/75; PULSE 85; RESP 16; TEMP 36.8; O2SAT 96; BMI 29.0
--- NOTE | 2024-04-16 16:14 | ED_ITS ---
HPI - General Adult General Chief complaint: Upper Respiratory Symptoms Stated complaint: mucus/coughing/chest sore Time Seen by Provider: 04/16/24 19:19 Source: patient Mode of arrival: ambulatory Limitations: no limitations History of Present Illness ED Provider: Edmond Jenkins PA-C HPI narrative: 59-year-old male with history of asthma presents to the ER for evaluation of 2 weeks of cough. He reports that he initially started having a fever and cold symptoms about 2 weeks ago. He states all his symptoms resolved aside from cough and shortness of breath. He is now bringing up yellow phlegm when he coughs. He reports chest discomfort when coughing only. Denies any ongoing fevers, chills, nausea, vomiting, diarrhea or abdominal pain. He has some ongoing chest and nasal congestion. He reports his cough is worse at nighttime. He just started using his p.r.n. albuterol inhaler 2 days ago. He is unsure if it is helping or not. Denies any sick contacts MD complaint: Cough with productive phlegm Onset (ago): week(s) Location: chest Radiation: non-radiation Severity: moderate Quality: aching Pain Consistency: intermittent Relieving factors: none Exacerbating factors: other (Coughing) Associated symptoms: cough and shortness of breath Treatments prior to arrival: none Related Data Previous Rx's ?Medication ?Instructions ?Recorded polyethylene glycol 3350 17 17 g PO DAILY #238 grams 06/11/22 gram/dose oral powder (Miralax) sennosides 8.6 mg capsule (senna) 8.6 mg PO BEDTIME #20 caps 06/11/22 albuterol sulfate 90 mcg/actuation 2 puff inhalation Q4-6H PRN 01/01/23 aerosol inhaler (ProAir HFA) shortness of breath or wheezing #8.5 grams amoxicillin 875 mg-potassium 1 tab PO BID #20 tabs 01/01/23 clavulanate 125 mg tablet prednisone 20 mg tablet 40 mg (2 x 20 mg) PO DAILY #10 tabs 01/01/23 azithromycin 250 mg tablet See Rx Instructions PO .COMPLEX #6 10/04/23 tabs fluticasone 100 mcg-salmeterol 50 1 inh inhalation BID #60 ea 10/04/23 mcg/dose blistr powdr for inhalation (Wixela Inhub) prednisone 20 mg tablet 40 mg (2 x 20 mg) PO DAILY 4 days 10/04/23 #8 tabs azithromycin 250 mg tablet See Rx Instructions PO .COMPLEX #6 04/16/24 (Zithromax Z-Marshall) tabs hydrocodone-homatropine 5 mg-1.5 5 ml PO Q6H PRN cough #60 mL 04/16/24 mg/5 mL oral syrup (Hycodan (with homatropine)) prednisone 20 mg tablet 40 mg (2 x 20 mg) PO DAILY #10 tabs 04/16/24 Allergies Allergy/AdvReac Type Severity Reaction Status Date / Time No Known Allergies Allergy Verified 04/16/24 16:13 [No Known Allergies*] Review of Systems Review of Systems: Yes all other systems are reviewed and are negative [facility] Past Medical History Medical History Asthma Social History Social History (Updated 10/04/23 @ 23:32 by Barb Millard DO) Patient Tobacco Use Status: Never used Tobacco Advance Directives: No Advance Directives Information Provided: No Do you have a plan to hurt others: No Plan Physical Exam ED Vital Signs: Vital Signs - 24 hr 04/16/24 16:07 04/16/24 16:55 04/16/24 18:56 Temperature 98.3 F 98.7 F Pulse Rate 85 86 92 Respiratory Rate 16 16 18 Blood Pressure 131/75 137/80 Pulse Oximetry 96 98 Oxygen Delivery Method Room Air Room Air 04/16/24 20:23 Temperature 98.7 F Pulse Rate 92 Respiratory Rate 18 Blood Pressure 137/80 Pulse Oximetry 98 Oxygen Delivery Method Room Air BMI result Body Mass Index 29.0 Appearance: Alert. Oriented X3. No acute distress. Head: normocephalic, atraumatic. Eyes: Pupils equal, round and reactive to light. ENT: Pharynx normal. No tonsillar swelling or exudate. Neck: Normal inspection. Neck supple. CVS: Normal heart rate and rhythm. Pulses normal. Respiratory: No respiratory distress. Breath sounds with expiratory wheezes in the right middle and right lower lobes. Abdomen: Soft and nontender. +BS x4 Skin: Skin warm and dry. Normal skin color. Normal skin turgor. No rashes. Extremities: No peripheral edema, no joint swelling Neuro/psych: Oriented X 3. Grossly normal, nonfocal Course Course Course Narrative: RME: DOne by TAHIR Cox. 59-year-old male presents to ED for coughing yellow phlegm, wheezing, and body aches and chills. Patient denies any chest pain, ple urisy, recent long travel, recent surgery. Lungs are exam positive for wheezing. Negative for leg swelling, pitting edema, calf pain. X-ray SARs ordered. Medications Administered Discontinued Medications Generic Name Dose Route Start Last Admin Trade Name Radha PRN Reason Stop Dose Admin Albuterol Sulfate 5 mg/ 0 mg 04/16/24 16:47 04/16/24 16:54 Albuterol/Ipratropium 3 ml INHALE 04/16/24 16:48 7.5 each ONCE ONE Administration Guaifenesin/Dextromethorphan 5 ml 04/16/24 19:32 04/16/24 20:01 Guaifenesin Dm 100/10/5 Ml 5 Ml Syrup PO 04/16/24 19:33 5 ml ONCE ONE Administration Prednisone 40 mg 04/16/24 19:32 04/16/24 20:01 Prednisone 20 Mg Tablet PO 04/16/24 19:33 40 mg ONCE ONE Administration Medical Decision Making Medical Decision Making MDM Narrative: 59-year-old male with history of asthma, history of bronchitis in the past who presents to the ER for evaluation of upper respiratory congestion and productive cough for the last 2 weeks. Initially had fevers and chills but these symptoms subsided. He reports ongoing chest congestion, productive cough and shortness of breath. On arrival to the ER his vital signs are stable. In triage she was wheezy and ER bronchodilator protocol was started. He was given a DuoNeb. He was tested for COVID, flu, RSV and results were negative. A chest x-ray was taken, no significant change from prior, no focal infiltrate. Upon re-evaluation patient had improvement in his wheezing, only some slight expiratory wheezing in the right middle lobe. He is breathing comfortably and in no respiratory distress. Will treat for acute bronchitis with steroids, azithromycin, antitussive agents. Will encourage ongoing albuterol use at home. Return precautions were discussed. Stable for discharge home Differential Diagnosis Differential Diagnoses: The differential diagnosis associated with the presentation includes Acute asthma exacerbation, pneumonia, bronchitis, viral pneumonia, COPD Admission/Observation Consideration of admission/observation: Escalation of care including admission/observation considered Lab Data MDM Lab Attestation statement: I reviewed the patient's lab results. Negative COVID, flu, RSV Labs: Lab Results 04/16/24 Range/Units 16:34 Influenza Type A (PCR) NEGATIVE (Negative) Influenza Type B (PCR) NEGATIVE (Negative) RSV RNA Qual (PCR) NEGATIVE (Negative) SARS-CoV-2 RNA (RT-PCR) NEGATIVE (Negative) Independent Interpretation I performed an independent interpretation of an: Plain X-Ray Interpretation: No focal infiltrate or effusion Independent Historian Clinical information obtained from an independent historian. History obtained from or confirmed by: Spouse External Record Review External record reviewed: Outpatient record, Prior outpatient labs and Prior outpatient radiology Prescription Management I considered prescription management with: Antibiotic and Other (Prednisone) Chronic Conditions Patient?s care impacted by: Other (Asthma) Critical Care Time Critical Care Time Critical Care Time: No Discharge Plan Discharge Clinical Impression: Bronchitis Patient Disposition: Home, Self-Care Instructions: Acute Bronchitis (ED) Additional Instructions: You tested negative for COVID, flu, RSV. Take the prescribed steroids for the inflammation and wheezing in your lungs. Next dose is due tomorrow morning. Use your albuterol inhaler every 2-4 hours as needed for shortness of breath and wheezing. Take the prescribed cough syrup as needed at nighttime for coughing. Do not drive after taking this medication. Take the prescribed antibiotics as directed, complete the entire course and do not miss any doses Follow-up with your doctor. If you develop new or worsening symptoms call 911 or come back to the ER for further evaluation. Prescriptions: New prednisone 20 mg tablet 40 mg PO DAILY Qty: 10 0RF hydrocodone-homatropine [Hycodan (with homatropine)] 5-1.5 mg/5 mL syrup 5 ml PO Q6H PRN (Reason: cough) Qty: 60 0RF Rx Instructions: Partial Fill upon patient request. azithromycin [Zithromax Z-Marshall] 250 mg tablet See Rx Instructions PO .COMPLEX Qty: 6 0RF Rx Instructions: take 500 mg today (day 1), then 250 mg for 4 days (days 2-5) No Action polyethylene glycol 3350 [Miralax] 17 gram/dose powder 17 g PO DAILY Qty: 238 0RF senna 8.6 mg capsule 8.6 mg PO BEDTIME Qty: 20 0RF azithromycin 250 mg tablet See Rx Instructions .ROUTE .COMPLEX Qty: 6 0RF Rx Instructions: For 250 mg dose pack: take 500 mg today (day 1), then 250 mg for 4 days (days 2-5) prednisone 20 mg tablet 40 mg PO DAILY 4 Days Qty: 8 0RF fluticasone propion-salmeterol [Wixela Inhub] 100-50 mcg/dose blister with device 1 inh inhalation BID Qty: 60 0RF Rx Instructions: rinse mouth after use albuterol sulfate [ProAir HFA] 90 mcg/actuation HFA aerosol inhaler 2 puff inhalation Q4-6H PRN (Reason: shortness of breath or wheezing) Qty: 8.5 0RF amoxicillin-pot clavulanate 875-125 mg tablet 1 tab PO BID Qty: 20 0RF prednisone 20 mg tablet 40 mg PO DAILY Qty: 10 0RF Referrals: Nahum Muñoz DO [Primary Care Provider] - Interventions: ED Discharge Assessment Last Done: 04/16/24 20:23 Discharge Date/Time: 04/16/24 20:23 Print Language: Cook Islander
[2024-04-16] MEDS: Albuterol Sulfate 5 MG, Albuterol/Iprat 2.5/0.5MG 3 ML 3 ML INHALE (16:54)
[2024-04-16 16:55] VITALS: PULSE 86; RESP 16; O2SAT 98
[2024-04-16 17:46] LABS: Influenza A PCR NEGATIVE (Negative); Influenza B PCR NEGATIVE (Negative); Resp Syncy Virus RNA Qual PCR NEGATIVE (Negative); SARS COV2 PCR INHOUSE NEGATIVE (Negative)
[2024-04-16 18:56] VITALS: BP 137/80; PULSE 92; RESP 18; TEMP 37.1; O2SAT 98
[2024-04-16] MEDS: predniSONE 20 MG TABLET 40 MG PO (20:01)
[2024-04-16] MEDS: guaiFENesin DM 100/10/5 ML 5 ML SYRUP PO (20:01)
[2024-04-16 20:23] VITALS: BP 137/80; PULSE 92; RESP 18; TEMP 37.1; O2SAT 98
== END 2024-04-16 20:23 | disposition home or self-care (01) ==
PROVIDERS: Physician Assistant; Emergency Provider Internal Medicine; PCP Student in an Organized Health Care Education/Training Program
DX: J40 Bronchitis, not specified as acute or chronic (principal); R05.9 Cough, unspecified; R50.9 Fever, unspecified; R06.02 Shortness of breath; R09.81 Nasal congestion; Z03.818 Encounter for observation for suspected exposure to other biological agents ruled out; Z79.899 Other long term (current) drug therapy
CPT/HCPCS: 0241U; 71045; 94640; 99284

== ENCOUNTER 2024-09-01 14:10 | Emergency (ER) | payer OTHER, SELFPAY ==
--- NOTE | ~2024-09-01 | XR_ITS ---
EXAMINATION: XR CHEST 1 VIEW HISTORY: cOughing. Pneumonia? COMPARISON: Comparison is made with the prior examination dated 04/16/2024. FINDINGS: A single AP portable view of the chest performed at 3:55 PM is submitted. The lungs are expanded and clear. There is no pleural effusion, pneumothorax, or pulmonary vascular congestion. The heart is normal in size. The bones are intact. XR/XR chest 1V IMPRESSION: No acute cardiopulmonary abnormality. Electronically signed by: Raul Grayson MD 09/01/2024 03:54 PM EST
[2024-09-01 14:58] VITALS: BP 129/82; PULSE 95; RESP 18; TEMP 36.4; O2SAT 96; BMI 27.4
--- NOTE | 2024-09-01 15:01 | ED_ITS ---
HPI - Asthma General Chief Complaint: Asthma Stated Complaint: SOB Time Seen by Provider: 09/01/24 21:30 Source: patient Mode of arrival: ambulatory Limitations: no limitations History of Present Illness ED Provider: samia hernández np HPI Narrative: Patient is a 59-year-old male presents emergency department for evaluation admits to a productive cough with yellow phlegm intermittent tightness in his chest during coughing episodes over the past 5 days. He has been using his albuterol inhaler with minimal relief. He does state that he has a nebulizer machine at home, that does not have any solution for it. He denies any known sick contacts, fevers, chills, dyspnea on exertion, significant shortness of breath, lower extremity edema or swelling or pain, numbness or tingling of the extremities. Related Data Previous Rx's ?Medication ?Instructions ?Recorded polyethylene glycol 3350 17 17 g PO DAILY #238 grams 06/11/22 gram/dose oral powder (Miralax) sennosides 8.6 mg capsule (senna) 8.6 mg PO BEDTIME #20 caps 06/11/22 albuterol sulfate 90 mcg/actuation 2 puff inhalation Q4-6H PRN 01/01/23 aerosol inhaler (ProAir HFA) shortness of breath or wheezing #8.5 grams amoxicillin 875 mg-potassium 1 tab PO BID #20 tabs 01/01/23 clavulanate 125 mg tablet prednisone 20 mg tablet 40 mg (2 x 20 mg) PO DAILY #10 tabs 01/01/23 azithromycin 250 mg tablet See Rx Instructions PO .COMPLEX #6 10/04/23 tabs fluticasone 100 mcg-salmeterol 50 1 inh inhalation BID #60 ea 10/04/23 mcg/dose blistr powdr for inhalation (Wixela Inhub) prednisone 20 mg tablet 40 mg (2 x 20 mg) PO DAILY 4 days 10/04/23 #8 tabs azithromycin 250 mg tablet See Rx Instructions PO .COMPLEX #6 04/16/24 (Zithromax Z-Marshall) tabs hydrocodone-homatropine 5 mg-1.5 5 ml PO Q6H PRN cough #60 mL 04/16/24 mg/5 mL oral syrup (Hycodan (with homatropine)) prednisone 20 mg tablet 40 mg (2 x 20 mg) PO DAILY #10 tabs 04/16/24 albuterol sulfate 2.5 mg/3 mL 2.5 mg (3 mL) inhalation Q4-6H PRN 09/01/24 (0.083 %) solution for nebulization shortness of breath or wheezing #90 mL azithromycin 250 mg tablet See Rx Instructions PO .COMPLEX #6 09/01/24 tabs prednisone 20 mg tablet 20 mg PO BID #8 tabs 09/01/24 Allergies Allergy/AdvReac Type Severity Reaction Status Date / Time No Known Allergies Allergy Verified 09/01/24 14:59 [No Known Allergies*] Review of Systems Review of Systems: Yes all other systems are reviewed and are negative PMFSH Past Medical History Attestation statement: The following information was validated with the patient. Source: old records reviewed Medical History Asthma Social History Social History (Updated 10/04/23 @ 23:32 by Barb Millard DO) Patient Tobacco Use Status: Never used Tobacco Advance Directives: No Advance Directives Information Provided: No Do you have a plan to hurt others: No Plan Physical Exam Vital Signs: Vital Signs: Last Vital Signs Temp 0 F L 09/01/24 23:35 Pulse 0 L 09/01/24 23:35 Resp 0 L 09/01/24 23:35 BP 0/0 L 09/01/24 23:35 Pulse Ox 0 L 09/01/24 23:35 O2 Del Method Room Air 09/01/24 23:35 BMI result Body Mass Index 27.4 Appearance: Alert.?Oriented to person, place and time. No acute distress.?Normal affect. Eyes: Pupils equal, round and reactive to light.? ENT: TM normal bilaterally. Pharynx normal.?? Neck: Normal inspection.? Neck supple.??No cervical adenopathy CVS: Heart sounds normal. Normal heart rate and rhythm.? Pulses normal.?? Respiratory: No respiratory distress.? Lung sounds with mild expiratory wheezing bilaterally Abdomen: Soft and non-tender. Normoactive bowel sounds. Skin: Skin warm and dry.? Normal skin color.? ? Extremities: No lower extremity edema.? Neuro: Moves all extremities spontaneously. Sensation intact bilaterally. No motor deficits. Ambulates with normal steady gait. Course Course Course Narrative: RME: 59-year-old male history of asthma presents to ED for chest tightness cough and wheezing. Positive for auditory wheezing that is mild. Lower extremity negative for swelling pitting edema calf tenderness. Chest x-ray SARs strep odor. Medications Administered Discontinued Medications Generic Name Dose Route Start Last Admin Trade Name Leonardoq PRN Reason Stop Dose Admin Albuterol Sulfate 2.5 mg/ 0 mg 09/01/24 16:28 09/01/24 16:33 Albuterol/Ipratropium 3 ml INHALE 09/01/24 16:29 1 dose ONCE ONE Administration Prednisone 40 mg 09/01/24 23:27 09/01/24 23:47 Prednisone 20 Mg Tablet PO 09/01/24 23:28 40 mg ONCE ONE Administration Medical Decision Making Medical Decision Making [facility] Narrative: Patient is a 59 year male with past medical history of asthma presenting for evaluation of productive cough intermittent chest tightness over the past 5 days as per HPI. COVID-19/influenza/RSV testing negative. Group a strep testing is negative. CXR without evidence of consolidation infiltrate to suggest pneumonia. At this time history and physical exam not consistent with ACS/PE/pneumonia. Well-appearing, nontoxic, afebrile, no tachycardia or tachypnea/hypoxia. Speaking clear full sentences, ambulatory with steady gait. Symptoms at this time with consistent bronchitis, received a single dose of prednisone in the emergency department in addition to nebulizer she feels helped his symptoms greatly, I have sent a prescription for prednisone, albuterol solution for his nebulizer machine as well as azithromycin. Discussed conservative treatment including rest, hydration, Tylenol/ibuprofen as needed for fever and body aches, saline nasal spray, humidifier, [id number] cold medication. Advised to follow-up with primary care provider as needed, discussed reasons to return back to the emergency department. All questions were answered. Patient discharged home in stable condition. Differential Diagnosis Differential Diagnoses: The differential diagnosis associated with the presentation includes ( See narrative above) Admission/Observation Consideration of admission/observation: Escalation of care including admission/observation considered ( see narrative above) Lab Data [facility] Lab Attestation statement: I reviewed the patient's lab results. ( see narrative above) Labs: Lab Results 09/01/24 Range/Units 15:07 Influenza Type A (PCR) NEGATIVE (Negative) Influenza Type B (PCR) NEGATIVE (Negative) RSV RNA Qual (PCR) NEGATIVE (Negative) SARS-CoV-2 RNA (RT-PCR) NEGATIVE (Negative) S. pyogenes GrpA MITCH Negative (Negative) Independent Interpretation I performed an independent interpretation of an: Plain X-Ray (See narrative above) Radiology Impression Discussion of test interpretation with radiology: I have reviewed the radiologist's reading. Independent Historian Clinical information obtained from an independent historian. History obtained from or confirmed by: Spouse External Record Review External record reviewed: Outpatient record Prescription Management I considered prescription management with: Pain Medication ( acetaminophen/ibuprofen) Discharge Plan Discharge Clinical Impression: Bronchitis Patient Disposition: Home, Self-Care Instructions: Acute Bronchitis (ED) Prescriptions: New albuterol sulfate 2.5 mg /3 mL (0.083 %) solution for nebulization 2.5 mg inhalation Q4-6H PRN (Reason: shortness of breath or wheezing) Qty: 90 0RF azithromycin 250 mg tablet See Rx Instructions .ROUTE .COMPLEX Qty: 6 0RF Rx Instructions: For 250 mg dose pack: take 500 mg today (day 1), then 250 mg for 4 days (days 2-5) prednisone 20 mg tablet 20 mg PO BID Qty: 8 0RF No Action polyethylene glycol 3350 [Miralax] 17 gram/dose powder 17 g PO DAILY Qty: 238 0RF senna 8.6 mg capsule 8.6 mg PO BEDTIME Qty: 20 0RF azithromycin 250 mg tablet See Rx Instructions .ROUTE .COMPLEX Qty: 6 0RF Rx Instructions: For 250 mg dose pack: take 500 mg today (day 1), then 250 mg for 4 days (days 2-5) prednisone 20 mg tablet 40 mg PO DAILY 4 Days Qty: 8 0RF fluticasone propion-salmeterol [Wixela Inhub] 100-50 mcg/dose blister with device 1 inh inhalation BID Qty: 60 0RF Rx Instructions: rinse mouth after use prednisone 20 mg tablet 40 mg PO DAILY Qty: 10 0RF hydrocodone-homatropine [Hycodan (with homatropine)] 5-1.5 mg/5 mL syrup 5 ml PO Q6H PRN (Reason: cough) Qty: 60 0RF Rx Instructions: Partial Fill upon patient request. azithromycin [Zithromax Z-Marshall] 250 mg tablet See Rx Instructions PO .COMPLEX Qty: 6 0RF Rx Instructions: take 500 mg today (day 1), then 250 mg for 4 days (days 2-5) albuterol sulfate [ProAir HFA] 90 mcg/actuation HFA aerosol inhaler 2 puff inhalation Q4-6H PRN (Reason: shortness of breath or wheezing) Qty: 8.5 0RF amoxicillin-pot clavulanate 875-125 mg tablet 1 tab PO BID Qty: 20 0RF prednisone 20 mg tablet 40 mg PO DAILY Qty: 10 0RF Referrals: Physician,Unknown J [Primary Care Provider] - Interventions: ED Discharge Assessment Last Done: 09/01/24 23:35 Discharge Date/Time: 09/02/24 00:04 Print Language: Faroese
[2024-09-01 15:25] LABS: IDNOW Serial# 6674DD1D; Strep A Nucleic Acid Negative (Negative)
[2024-09-01 15:51] LABS: Influenza A PCR NEGATIVE (Negative); Influenza B PCR NEGATIVE (Negative); Resp Syncy Virus RNA Qual PCR NEGATIVE (Negative); SARS COV2 PCR INHOUSE NEGATIVE (Negative)
[2024-09-01] MEDS: Albuterol Sulfate 2.5 MG, Albuterol/Iprat 2.5/0.5MG 3 ML 3 ML INHALE (16:33)
[2024-09-01 16:34] VITALS: PULSE 85; RESP 18; O2SAT 96
[2024-09-01 19:56] VITALS: BP 135/74; PULSE 77; RESP 16; TEMP 36.7; O2SAT 96
[2024-09-01 21:21] VITALS: BP 135/71; PULSE 79; RESP 18; TEMP 37; O2SAT 100
--- OUTSIDE RECORDS SUMMARY | 2024-09-01 21:39 | XMS_ITS | Encounter Summary ---
Author Name [facility] Organization [facility] Address [address] [place] [address] Care Team Providers Care Administrative Personal Assistant Name Role Phone DONATO ANTHONY Primary Care Provider Unavailabl e Selected Encounter This section includes the information on record at [facility] for the Encounter. Date/Time Encounter Type Encounter Description Reason Pro vider Source Sep 01, 2024 01:40 PM Outpatient Encounter TELEPHONE TRIAGE IHE Encounter Template Text not used by [facility] Plan of Treatment: Future Appointments (+ 6 months) and Future Tests (+/- 45 days) The Plan of Treatment section includes future care activities for the patient from all [facility] treatmentfacilities. This section includes future appointments and future orders which are active, pending or scheduled. Future Appointments This section includes appointments that were scheduled to occur 6 months from the date of the Encounter, up to a maximum of 20 appointments. The data comes from all [facility] treatment facilities. Appointment Date/Time Appointment Type Appointme nt Facility Name Oct 13, 2024 02:30 PM [facility]INE [facility] Nov 02, 2024 01:00 PM AMBULATORY - MEDICINE [facility] Encounter Notes: All associated encounter notes This section contains the clinical notes associated to the Encounter. Date/Time Encounter Note(s) Provider Source Sep 01, 2024 01:40 PM RN PROGRESS NOTE: LOCAL TITLE: CCC: CLINICAL TRIAGE STANDARD TITLE: RN PROGRESS NOTE DATE OF NOTE: SEP 01, 2024@13:40:46 ENTRY DATE: SEP 01, 2024@13:40:47 AUTHOR: KOMANECKY,DARREL EXP COSIGNER: URGENCY: STATUS: COMPLETED CCC: CLINICAL TRIAGE Has ADDENDA Patient Demographics Patient Name: STEPHEN GUILLEN Patient Primary [address]: [address] [place] [address] Patient Primary Phone: [phone] Patient : 1965 Patient Age: 59 Caller/Recipient Relation to Patient: Self Caller Name: STEPHEN GUILLEN Emergency Contact: [facility] Triage Summary Conducted triage/discussed symptoms Pain Score: 0 (No Pain) Utilized the Triage Tool: Yes Chief Complaint: Shortness Of Breath (wheezing) System WHEN: Nurse's Recommendation / WHEN: 91 System WHERE: Emergency department Nurse's Recommendation / WHERE: ED Other Patient Disposition Patient/Caregiver agrees to plan of care: Yes Patient is Urgent or Emergent Nursing Plan and Disposition Referred patient to higher level of care Instructed to go to Emergency Room (ER) Advised of Financial Disclaimer: Patient advised that recommendation for care provided during the call does not constitute an approval or authorization for payment by the [facility] or its staff. Patient advised to report a community ED visit to the [facility] Office of Community Care at within 72 hours. Other course(s) of action Generated msg to PACT/Provider Provided guidance for worsening symptoms: *Caller/Patient* advised to call facilities [facility] Clinical Contact Center or seek immediate medical attention for new or worsening symptoms Nurse Summary Nurse Summary: [place] calling to report shortness of breath with wheezing not relieved by use of his inhaler. agrees to go to the [facility] ED now for evaluation. understands that the Triage Line is staffed to 24/7 should any need arise. stated no additional concerns to address at this time. +++PACT please follow up with .+++ Clinical Contact Center Codes Clinic/Location: [facility] PHONE CCC RN Decision Support System Output: Triage Complete Triage Date: 09/01/2024, 01:36 PM Triage Note: Decision Support Tool Used: [facility] Phone Triage 01 Sep 2024 18:36:06 +0000 UTC Demographics 59 y/o Male Results CC: Shortness Of Breath (wheezing) Software suggested: Software suggested follow-up location: Emergency department Values and Measures Duration of CC: 6 Days Positive Responses HPI: dyspnea, severe HPI: wheezing, severe HPI: wheezing, within past hour PMH: asthma IMPORTANT: This note was created by [facility] Clinical Contact Center staff. Please do not alert the staff member by adding them as a signer for future communications. Alerts are not monitored by this user. /nestor/ DARREL GALVEZ Signed: 09/01/2024 13:40 Receipt Acknowledged By: 09/01/2024 13:43 /audrey Null RN Registered Nurse (RN) 09/01/2024 14:15 /nestor/ JOVANI ORLANDO LPN LICENSED PRACTICAL NURSE 09/01/2024 ADDENDUM STATUS: COMPLETED noted /nestor/ Bettye Null RN Registered Nurse (RN) Signed: 09/01/2024 13:43 DARREL GALVEZ CNTRL [facility]N [facility]
--- OUTSIDE RECORDS SUMMARY | 2024-09-01 21:39 | XMS_ITS | Encounter Summary ---
Author Name [facility] Organization [facility] Address [address] [place] [id number] Care Team Providers Care Load Tester Name Role Phone ANTHONY SEWELL Primary Care Provider Eleanor montgomery Selected Encounter This section includes the information on record at [place] for the Encounter. Date/Time Encounter Type Encounter Description Reason Provider Source Sep 23, 2023 02:00 PM COMPRE OPH EXAM EST PT 1/> OPTOMETRY ICD-10-CM H25.13 Age-related nuclear cataract, bilateral KATIE PUENTE Gabby Encounter Template Text not used by [place] Assessments - Encounter Diagnoses This section includes the primary and secondary diagnoses documented for the Encounter. Date/Time Primary/Secondary Diagnosis Diagnosis Name Provider Source Sep 23, 2023 02:32 PM PRIMARY Age-related nuclear cataract, bilateral KATIE PUENTE [facility] Lab Results: +/- 30 days of the encounter This section includes the Chemistry and Hematology Lab Results on record with [place] for the patient. Radiology Reports and Pathology Reports are provided separately, in subsequent sections. Lab Results This section contains the Chemistry/Hematology Results that were resulted 30 days before or 30 daysafter the date of the Encounter. Date/Time Source Result Type Result - Unit Interpretation Reference Range Comment Sep 02, 2023 09:58 AM [facility] LIVER FUNCTION Specimen Type: SERUM No comment entered. Ordering Provider: ANTHONY SEWELL Report Released Date/Time: Jan 30, 2023 01:28 PM Reporting Lab: [facility] [address] [address] Performing Lab: [facility] [address] [facility] [address] PROTEIN,TOTAL 7.3 g/dL 6.0-8.3 ALBUMIN 4.2 g/dL 3.5-5.0 ALKALINE PHOSPHATASE 64 U/L 40-150 AST 19 U/L 5-34 ALT 22 U/L BILIRUBIN, TOTAL 0.8 mg/dL 0.2-1.2 Sep 02, 2023 09:58 AM [facility] CALCIUM Specimen Type: SERUM No comment entered. Ordering Provider: ANTHONY SEWELL Report Released Date/Time: Jan 30, 2023 01:28 PM Reporting Lab: [address] [address] Performing Lab: [address] [address] CALCIUM 9.1 mg/dL 8.5-10.2 Sep 02, 2023 09:58 AM [facility] LIPID PANEL FASTING Specimen Type: SERUM No comment entered. Ordering Provider: ANTHONY SEWELL Report Released Date/Time: Jan 30, 2023 01:28 PM Reporting Lab: [address] [address] Performing Lab: [address] [address] CHOLESTEROL 204 mg/dL H TRIGLYCERIDE 87 mg/dL 0-150 LDL calculated 138 mg/dL H 0-129 CHOL/HDL 4.2 HDL CHOLESTEROL 49 mg/dL 40-60 Sep 02, 2023 09:58 AM [facility] URIC ACID Specimen Type: SERUM No comment entered. Ordering Provider: ANTHONY SEWELL Report Released Date/Time: Jan 30, 2023 01:28 PM Reporting Lab: [address] [address] Performing Lab: [address] [address] URIC ACID 7.1 mg/dL 3.5-7.2 Sep 02, 2023 09:58 AM [facility] URINALYSIS Specimen Type: URINE Comment: If Glucose = >500 and Ketones are positive, please alert the Physician. Ordering Provider: ANTHONY SEWELL Report Released Date/Time: Jan 30, 2023 01:28 PM Reporting Lab: [address] [address] Performing Lab: [address] [address] UA COLOR Light-Yellow Yellow UA APPEARANCE Clear Clear UA GLUCOSE NEGATIVE mg/dL Negative UA KETONES NEGATIVE mg/dL Negative UA BLOOD NEGATIVE mg/dL Negative UA PROTEIN NEGATIVE mg/dL Negative UA NITRITE NEGATIVE mg/dL Negative UA BILIRUBIN NEGATIVE mg/dL Negative UA SPECIFIC GRAVITY 1.019 1.016-1.02 2 UA pH 6.5 5.0-9.0 UA UROBILINOGEN <2.0 mg/dL <2.0 UA LEUKOCYTE NEGATIVE Negative Sep 02, 2023 09:58 AM [facility] MICROALBUMIN CREATININE RATIO PANEL Spe cimen Type: URINE No comment entered. Ordering Provider: ANTHONY SEWELL Report Released Date/Time: Jan 30, 2023 01:28 PM Reporting Lab: [address] [address] Performing Lab: [address] [address] MICROALBUMIN/CR EATININE RATIO 7.6 mg/g 0-29.9 MICROALBUMIN,QU ANTITATIVE 1.1 mg/dL RR UNAVAIL CREATININE URINE 144.23 mg/dL Sep 02, 2023 09:58 AM [facility] VITAMIN B12 Specimen Type: SERUM No comment entered. Ordering Provider: ANTHONY SEWELL Report Released Date/Time: Jan 30, 2023 01:28 PM Reporting Lab: [address] [address] Performing Lab: [address] [address] VITAMIN B12 271 pg/mL 200-900 Sep 02, 2023 09:58 AM [facility] VITAMIN D (25-OH) Specimen Type: SERUM No comment entered. Ordering Provider: ANTHONY SEWELL Report Released Date/Time: Jan 30, 2023 01:28 PM Reporting Lab: [address] [address] Performing Lab: [facility] [address] [facility] [address] VITAMIN D (25-OH) <13 ng/mL L 20-50 Sep 02, 2023 09:58 AM [facility] CBC AND DIFF (AUTO) Specimen Type: BLOOD No comment entered. Ordering Provider: ANTHONY SEWELL Report Released Date/Time: Jan 30, 2023 01:28 PM Reporting Lab: [facility] [address] [facility] [address] Performing Lab: [facility] [address] [facility] [address] WBC 4.83 10*3/uL 4.50-11.00 RBC 5.33 10*6/uL 4.23-5.66 HGB 16.4 g/dL 12.8-17 HCT 46.6 39.2-50.4 MCV 87.4 fL 82-99 MCHC 35.2 g/dL H 30.8-35.1 PLT 217 10*3/uL 140-360 RDW-CV 11.8 L 12.0-16.0 Meagher, Abs 0.46 10*3/uL 0.30-1.10 MCH 30.8 pg 26.2-32.6 Neut % 46.1 43.7-75.8 Lymph % 27.5 14.0-42.3 Meagher % 9.5 5.1-13.7 Eos % 15.5 H 0.4-6.8 Baso % 1.0 0.1-2.0 Neut, Abs 2.22 10*3/uL 2.20-7.60 Lymph, Abs 1.33 10*3/uL 1.00-3.20 Eos, Abs 0.75 10*3/uL H 0.03-0.44 Baso, Abs 0.05 10*3/uL 0.01-0.13 Immature Gran % 0.4 0.0-0.7 Immature Gran, Abs 0.02 10*3/uL 0.00-0.06 Sep 02, 2023 09:58 AM [facility] RETICULOCYTES Specimen Type: BLOOD No comment entered. Ordering Provider: ANTHONY SEWELL Report Released Date/Time: Jan 30, 2023 01:28 PM Reporting Lab: [facility] [address] [facility] [address] Performing Lab: [facility] [address] [address] RETIC % 1.9 0.6-2.0 RETIC, ABS 100.2 10*3/uL H 30.0-90.0 Ret-He % 35.0 27.9-42.0 Sep 02, 2023 09:58 AM [facility] FERRITIN Specimen Type: SERUM No comment entered. Ordering Provider: ANTHONY SEWELL Report Released Date/Time: Jan 30, 2023 01:28 PM Reporting Lab: [facility] [address] [address] Performing Lab: [address] [address] FERRITIN 158 ng/mL 20-300 Sep 02, 2023 09:58 AM [facility] HEMOGLOBIN A1C PANEL Specimen Type: BLOOD Comment: Values obtained from A1C measurements can vary. For atypical A1C assays, a reported value of 7.0 could actually be between 6.72 and 7.28 if measured by a reference method. A reported value of 9.0 could actually be between 8.73 and 9.27. Ref: http://www.ngs p.org/CAPdata. asp Ordering Provider: ANTHONY SEWELL Report Released Date/Time: Jan 30, 2023 01:28 PM Reporting Lab: [facility] [address] [address] Performing Lab: [facility] [address] [address] HEMOGLOBIN A1C 5.2 4.0-5.6 Sep 02, 2023 09:58 AM [facility] TSH Specimen Type: SERUM No comment entered. Ordering Provider: ANTHONY SEWELL Report Released Date/Time: Jan 30, 2023 01:28 PM Reporting Lab: [facility] [address] [address] Performing Lab: [facility] [address] [address] TSH 0.59 u[IU]/mL 0.35-5.00 Sep 02, 2023 09:58 AM [facility] PSA Specimen Type: SERUM No comment entered. Ordering Provider: ANTHONY SEWELL Report Released Date/Time: Jan 30, 2023 01:28 PM Reporting Lab: [address] [address] Performing Lab: [address] [address] PSA 0.91 ng/mL 0.00-4.00 Sep 02, 2023 09:58 AM [facility] BASIC METABOLIC PANEL (fasting) Specime n Type: SERUM No comment entered. Ordering Provider: ANTHONY SEWELL Report Released Date/Time: Jan 30, 2023 01:28 PM Reporting Lab: [address] [address] Performing Lab: [address] [address] UREA NITROGEN 11 mg/dL 7-25 GLUCOSE 105 mg/dL H 65-100 SODIUM 139 mmol/L 135-145 POTASSIUM 4.2 mmol/L 3.5-5.0 CHLORIDE 107 mmol/L 100-110 CO2 25 meq/L 20-30 CREATININE, Serum 0.90 mg/dL 0.50-1.40 eGFR(CKD-EPI 2020) >90 mL/min >60 Encounter Notes: All associated encounter notes This section contains the clinical notes associated to the Encounter. Date/Time Encounter Note(s) Provider Source Sep 23, 2023 02:29 PM OPTOMETRY NOTE: LOCAL TITLE: OPTOMETRY NOTE STANDARD TITLE: OPTOMETRY NOTE DATE OF NOTE: SEP 23, 2023@14:29 ENTRY DATE: SEP 23, 2023@14:29:57 AUTHOR: VIRGILIO PUENTE EXP COSIGNER: URGENCY: STATUS: COMPLETED This patient in conjunction with the student and agree with stated findings and plan as noted below after reviewing both the history and repeating fang elements of the physical exam now. Patient last seen here October 02, 2022 returns today for comprehensive eye examination. Anterior segment evaluation shows clear cornea with quiet anterior chamber and normal iris with trace nuclear sclerosis each eye. Dilated fundus examination shows healthy optic nerve head appearance with distinct disc margins, good color and normal macula no evidence of retinal hole, tear, detachment either eye. Impression: Early bilateral nuclear sclerotic cataracts not visually significant at present. Update glasses today. Plan: Patient education as noted above reviewed exam findings now. Ordering new glasses today. Return in 12 months or sooner if need be. Ophthalmic medication reconciliation: He is currently not taking or prescribed any ocular medications. EYE: Visual Function Reminder: Normal Vision: 20/25 or better: Unspecified disorder of refraction or accommodation (367.9). Medication Reconciliation: Outpatient: Has the patient been taking medications as documented in the EMLR? YES: The patient has been taking medications as documented in the EMLR. Essential Medication List for Review used to complete this medication reconciliation. INCLUDED IN THIS LIST: Alphabetical list of active outpatient prescriptions dispensed from this [facility] (local) and dispensed from another [place] or [facility] facility (remote) as well as inpatient orders (local, pending and active), local clinic medications, locally documented non-VA medications, and local prescriptions that have or been discontinued in the past 90 days. - All changes in medications, including all non-VA/Herbal/OTC medications were entered into CPRS. - If there were any medications the patient should no longer take, they were discontinued. - The patient/caregiver was instructed to update this list, discard old lists, and take this list to the next appointment, whether with a VA or non-VA provider. Medication List: JLV Link Data on this list may not be complete. Please check JLV. Allergies/ADRs (Tool #5) FACILITY ALLERGY/ADR -------- No Remote Allergy/ADR Data available for this patient [facility] [place] [facility] No Known Allergies Med. Reconciliation (Tool #1) INCLUDED IN THIS LIST: Alphabetical list of active outpatient prescriptions dispensed from this VA (local) and dispensed from another [place] or [facility] facility (remote) as well as inpatient orders (local pending and active), local clinic medications, locally documented non-VA medications, and local prescriptions that have or been discontinued in the past 90 days. Non-VA Meds Last Documented On: Data not found NOTE The display of VA prescriptions dispensed from another [place] or [facility] facility (remote) is limited to active outpatient prescription entries matched to National Drug File at the originating site and may not include some items such as investigational drugs, compounds, etc. NOT INCLUDED IN THIS LIST: Medications self-entered by the patient into personal health records (i.e. Appiterate) are NOT included in this list. Non-VA medications documented outside this [place], remote inpatient orders (regardless of status) and remote clinic medications are NOT included in this list. The patient and provider must always discuss medications the patient is taking, regardless of where the medication was dispensed or obtained. OUTPT ALBUTEROL 90MCG (CFC-F) 200D ORAL INHL (Status = Discontinued) INHALE 1 PUFF BY MOUTH FOUR TIMES DAILY NEEDED ONLY USE IF YOU GET OUT OF BREATH Rx# [id number] Last Released: 07/31/23 Qty/Days Supply: 08/20 Rx Expiration Date: 01/31/24 Refills Remainin OUTPT ALBUTEROL 90MCG (CFC-F) 200D ORAL INHL (Status = Active) INHALE 1 PUFF BY MOUTH FOUR TIMES DAILY NEEDED ONLY USE IF YOU GET OUT OF BREATH Rx# [id number] Last Released: 09/10/23 Qty/Days Supply: 08/20 Rx Expiration Date: 09/04/24 Refills Remainin OUTPT ATORVASTATIN CALCIUM 80MG TAB (Status = Active) TAKE ONE-HALF TABLET BY MOUTH ONCE DAILY FOR CHOLESTEROL Rx# [id number] Last Released: 02/01/23 Qty/Days Supply: Rx Expiration Date: 01/31/24 Refills Remainin OUTPT CHOLECALCIF 50MCG (D3-2,000UNIT) TAB (Status = Active) TAKE ONE TABLET BY MOUTH ONCE DAILY FOR VITAMIN SUPPLEMENTATION Rx# [id number] Last Released: 09/10/23 Qty/Days Supply: 100/ Rx Expiration Date: 09/04/24 Refills Remainin Indication: FOR VITAMIN D DEFICIENCY OUTPT CICLESONIDE 160MCG 60D ORAL INHL (Status = Discontinued) INHALE 1 PUFF BY MOUTH TWICE DAILY FOR ASTHMA --RINSE MOUTH AFTER EACH USE USE ONCE EVERY MORNING AND ONCE EVERY NIGHT TO PREVENT COUGH REPLACES ASMANEX [MOMETASONE] INHALER Rx# [id number] Last Released: 07/30/23 Qty/Days Supply: 08/20 Rx Expiration Date: 01/31/24 Refills Remainin Indication: FOR ASTHMA OUTPT CICLESONIDE 160MCG 60D ORAL INHL (Status = Active) INHALE 1 PUFF BY MOUTH TWICE DAILY FOR ASTHMA --RINSE MOUTH AFTER EACH USE USE ONCE EVERY MORNING AND ONCE EVERY NIGHT TO PREVENT COUGH REPLACES ASMANEX [MOMETASONE] INHALER Rx# [id number] Last Released: 09/06/23 Qty/Days Supply: 08/20 Rx Expiration Date: 09/04/24 Refills Remainin Indication: FOR ASTHMA OUTPT HYDROCHLOROTHIAZIDE 25MG TAB (Status = Discontinued) TAKE ONE-HALF TABLET BY MOUTH ONCE DAILY TO PREVENT FLUID/CONTROL BLOOD PRESSURE Rx# [id number] Last Released: 02/01/23 Qty/Days Supply: 4590 Rx Expiration Date: 01/31/24 Refills Remainin OUTPT HYDROCHLOROTHIAZIDE 25MG TAB (Status = Active) TAKE ONE-HALF TABLET BY MOUTH ONCE DAILY TO PREVENT FLUID/CONTROL BLOOD PRESSURE Rx# [id number] Last Released: 09/11/23 Qty/Days Supply: 45 Rx Expiration Date: 09/04/24 Refills Remainin OUTPT LISINOPRIL 30MG TAB (Status = Discontinued) TAKE ONE TABLET BY MOUTH EVERY DAY TO CONTROL BLOOD PRESSURE Rx# [id number] Last Released: 08/01/23 Qty/Days Supply: 60/60 Rx Expiration Date: 01/31/24 Refills Remainin OUTPT LISINOPRIL 30MG TAB (Status = Active) TAKE ONE TABLET BY MOUTH EVERY DAY TO CONTROL BLOOD PRESSURE Rx# [id number] Last Released: 09/13/23 Qty/Days Supply: 60/60 Rx Expiration Date: 09/04/24 Refills Remainin OUTPT PANTOPRAZOLE NA 40MG EC TAB (Status = Active) TAKE ONE TABLET BY MOUTH EVERY MORNING 30 MINUTES BEFORE BREAKFAST FOR EXCESSIVE PRODUCTION OF STOMACH ACID Rx# [id number] Last Released: 02/01/23 Qty/Days Supply: Rx Expiration Date: 01/31/24 Refills Remainin Indication: FOR EXCESSIVE PRODUCTION OF STOMACH ACID OUTPT SILDENAFIL CITRATE 100MG TAB (Status = Active) TAKE ONE TABLET BY MOUTH DIRECTED TAKE 1 HOUR PRIOR TO SEXUAL ACTIVITY Rx# [id number] Last Released: 04/13/23 Qty/Days Supply: 01/18 Rx Expiration Date: 04/11/24 Refills Remainin Indication: FOR ERECTILE DYSFUNCTION OUTPT SIMETHICONE 80MG CHEW TAB (Status = Active) CHEW TWO TABLETS BY MOUTH TWICE DAILY FOR YOUR DIGESTION Rx# [id number] Last Released: 02/01/23 Qty/Days Supply: Rx Expiration Date: 01/31/24 Refills Remainin Indication: ACIF SUPPLIES PHARMACY TERMS AND POSSIBLE PATIENT ACTIONS INPT = PA inpatient order IV = PA intravenous medication OUTPT = PA outpatient prescription PHARMACY POSSIBLE PATIENT TERMS EXPLANATION ACTIONS -------- --- ACTIVE A prescription that can be If you have refills, filled at the local [place] pharmacy. you may request a refill of this prescription from your VA pharmacy. CLINIC A medication you received during If you have questions a visit to a VA clinic or about this medication emergency department. contact your VA healthcare team. DISCONTINUED A prescription your provider has Contact your VA stopped. It is no longer healthcare team if you available to be sent to you or need more of this picked up at the PA pharmacy medication. window. A prescription which is too old Contact your VA to fill. This does not refer to healthcare team if you the expiration date of the need more of this medication in the container. medication. NON-VA A medication that came from If this medication someplace other than a VA information is pharmacy. This may be a incorrect or out of prescription from either the VA date, please tell your or non VA providers that was VA healthcare team. filled outside the VA. Or, it may be an [id number] (OTC), herbal, dietary supplements or sample medication. ON HOLD An active prescription that will Contact your VA not be filled until pharmacy pharmacy when you need resolves the issue. more of this medication. PARKED An active prescription that will Contact your VA not be filled until the patient pharmacy when you need requests it. this medication. PENDING This prescription order has been If you have been sent to the pharmacy for review instructed to start and is not ready yet. this medication now, contact your VA pharmacy. SUSPENDED An active prescription that is Contact your PA not scheduled to be filled yet. pharmacy if you need You should receive it before this medication now. you run out. ======== Declines printed copy of medication list now. /nestor/ Virgilio Puente OD CHIEF OF OPTOMETRY Signed: 09/23/2023 14:33 VIRGILIO PUENTE [facility] [place] [facility] Sep 23, 2023 08:08 AM OPTOMETRY NOTE: LOCAL TITLE: OPTOMETRY NOTE STANDARD TITLE: OPTOMETRY NOTE DATE OF NOTE: SEP 23, 2023@08:08 ENTRY DATE: SEP 23, 2023@08:09:28 AUTHOR: OSCAR BARTH EXP COSIGNER: VIRGILIO PUENTE URGENCY: STATUS: COMPLETED Active problems - Computerized Problem List is the source for the followin. Benign essential microscopic hematuria 2. Dyspepsia 3. Asthma 4. Benign essential hypertension 5. Low back pain 6. Premature atrial contraction 7. Family history of prostate cancer 8. Screening for malignant neoplasm of colon done (SNOMED CT [id number]) 9. Abdominal pain Active Outpatient Medications (including Supplies): Active Outpatient Medications Status 1) ALBUTEROL 90MCG (CFC-F) 200D ORAL INHL INHALE 1 PUFF ACTIVE BY MOUTH FOUR TIMES DAILY NEEDED ONLY USE IF YOU GET OUT OF BREATH 2) ATORVASTATIN CALCIUM 80MG TAB TAKE ONE-HALF TABLET BY ACTIVE MOUTH ONCE DAILY FOR CHOLESTEROL 3) CHOLECALCIF 50MCG (D3-2,000UNIT) TAB TAKE ONE TABLET ACTIVE BY MOUTH ONCE DAILY FOR VITAMIN SUPPLEMENTATION 4) CICLESONIDE 160MCG 60D ORAL INHL INHALE 1 PUFF BY ACTIVE MOUTH TWICE DAILY FOR ASTHMA --RINSE MOUTH AFTER EACH USE USE ONCE EVERY MORNING AND ONCE EVERY NIGHT TO PREVENT COUGH REPLACES ASMANEX [MOMETASONE] INHALER 5) HYDROCHLOROTHIAZIDE 25MG TAB TAKE ONE-HALF TABLET BY ACTIVE MOUTH ONCE DAILY TO PREVENT FLUID/CONTROL BLOOD PRESSURE 6) LISINOPRIL 30MG TAB TAKE ONE TABLET BY MOUTH EVERY ACTIVE DAY TO CONTROL BLOOD PRESSURE 7) PANTOPRAZOLE NA 40MG EC TAB TAKE ONE TABLET BY MOUTH ACTIVE EVERY MORNING 30 MINUTES BEFORE BREAKFAST FOR EXCESSIVE PRODUCTION OF STOMACH ACID 8) SILDENAFIL CITRATE 100MG TAB TAKE ONE TABLET BY MOUTH ACTIVE DIRECTED TAKE 1 HOUR PRIOR TO SEXUAL ACTIVITY 9) SIMETHICONE 80MG CHEW TAB CHEW TWO TABLETS BY MOUTH ACTIVE TWICE DAILY FOR YOUR DIGESTION Allergies: Patient has answered NKA All medications including those prescribed by outside VA's, community providers, and all OTC meds were reviewed and reconciled with patient to the best of their abilities. This 58 year old MALE is seen today for a comprehensive eye exam Chief Complaint: Pt. complains of seeing a small half collazo shaped black thing in his vision in OD, constantly there and moves with him. He also see's a little dot that comes and goes. Pt. states that his glasses work well for him. He states that when he is driving, he notices that when he is looking at the speedometer it looks tilted. It was explained to the patient that this is most likely due to the difference in astimgatism between both eyes or that he is using his dvo for near. He states that he only wears his glasses for distance and only really when he is driving and watching tv. Pt. went fishing and lost one of his pairs of glasses. OHx: 1. Myopia with regular astigmatism 2. Early Nuclear Sclerosis (-) Pain: (-) GARCIA: (-) Diplopia: (-) Flashes: (+) Floaters: 1-2 floaters in OD (-) Amaurosis Fugax/Tia's: (-) Eye Injury: (-) Eye Surgery: (-) TBI Family Ocular History: (-) Glaucoma/ARMD/Blindness Social History: (-) Smoker/Length of Time/PPD: Current Rx with last BCVA: OD: -0.75 -2.75 axis 085 20/20 OS: -1.50 -1.50 axis 090 20/20 DVA ( )sc (x)cc OD: 20/20 OS: 20/20 Pupils: PERRL (-)APD EOMs: SAFE OU, (-)Pain/Diplopia CVF (facial, peripheral): FTFC OU Subjective Refraction: OD: -0.75 -2.75 axis 085 20/20 OS: -1.50 -1.50 axis 090 20/20 Pt. states that he is not interested in getting a reading perscription. All the above performed by student, reviewed by attending Anterior segment: Performed by student, repeated by attending Lids: trace blepharitis OU Conj: white and quiet OU Cornea: Diffuse SPK OU AC: 4x4 OU Iris: flat and clear OU Lens: trace NS OU Tonometry(Icare): Performed by student, reviewed by attending OD 11 mmHg OS 13 mmHg Time: 1:45pm Fundus exam: Dilated: xxx 1:48PM Dilating Drops: 1GTT 1 % Tropicamide OU & 1GTT 2.5% Phenylephrine OU (Pt. ed. on side effects, dilation warning given and verbal consent obtained) Patient advised not to drive if they feel they have any symptoms which could affect their ability to drive safely. Patient advised not to engage in any activities which could put themselves or others at risk if they feel they have any symptoms which could affect their ability to perform those activities safely. Performed by student, repeated by attending Vit: floater OD, clear OS C/D: 0.30/0.30 OD, 0.25/0.25 OS Disc: Rim tissue is pink and healthy OU Macula: flat and clear OU PPole: clear A/V: 2/3 Vessels: normal caliber OU Periph: flat and intact (-)holes, tears, detachments 360 OU Assessment/Plan: 1. Myopia with regular astigmatism - pt. not interested in getting correction for near vision - stable SRx, pt. to fill same SRx with new frames - monitor condition 2. Early Nuclear Sclerosis - Pt. ed on today's findings - pt. ed on importance of using sunprotection to slow progression of cataract development - no cataract surgery needed at this time - return to cin in 1 year or prn Return to Clinic 1 year or earlier PRN /nestor/ OSCAR BARTH OPTOMETRY STUDENT Signed: 09/23/2023 15:50 /nestor/ Virgilio Puente OD CHIEF OF OPTOMETRY Cosigned: 09/24/2023 07:28 OSCAR BARTH [facility]
--- OUTSIDE RECORDS SUMMARY | 2024-09-01 21:39 | XMS_ITS | Encounter Summary ---
Author Name [facility] Organization [facility] Address [address] [place] [address] Care Team Providers Care Urban Redevelopment Specialist Name Role Phone SEWELLANTHONY Primary Care Provider Unavailabl e Selected Encounter This section includes the information on record at NH for the Encounter. Date/Time Encounter Type Encounter Description Reason Provider Source Apr 24, 2024 02:00 PM OFFICE O/P NEW LOW 30 MIN PODIATRY ICD-10-CM M72.2 Plantar fascial fibromatosis JOANA CASTILLO [facility] Encounter Template Text not used by [place] Assessments - Encounter Diagnoses This section includes the primary and secondary diagnoses documented for the Encounter. Date/Time Primary/Secondary Diagnosis Diagnosis Name Provider Source Apr 24, 2024 02:30 PM PRIMARY Plantar fascial fibromatosis JOANA CASTILLO Apr 24, 2024 02:30 PM SECONDARY Pain in left foot JOANA CASTILLO JO Plan of Treatment: Future Appointments (+ 6 months) and Future Tests (+/- 45 days) The Plan of Treatment section includes future care activities for the patient from all [place] treatmentfacilities. This section includes future appointments and future orders which are active, pending or scheduled. Future Appointments This section includes appointments that were scheduled to occur 6 months from the date of the Encounter, up to a maximum of 20 appointments. The data comes from all [place] treatment facilities. Appointment Date/Time Appointment Type Appointme nt Facility Name Oct 13, 2024 02:30 PM AMBULATORY - MEDICINE [facility] Active, Pending, and Scheduled Orders This section includes a listing of several types of active, pending, and scheduled orders, including clinic medications orders, diagnostic test orders, procedure orders and consult orders; where the start date of the order is 45 days before the date of the Encounter or 45 days after the date of theEncounter. The data comes from all [place] treatment facilities. Test Date/Time Test Type Test Details Facility Name Apr 02, 2024 01:17 PM Consult Order COMMUNITY CARE-COLONOSCOPY SCREENING [facility] Apr 02, 2024 01:27 PM Consult Order PODIATRY/S POPC OUTPT Cons [facility] Lab Results: +/- 30 days of the encounter This section includes the Chemistry and Hematology Lab Results on record with NH for the patient. Radiology Reports and Pathology Reports are provided separately, in subsequent sections. Lab Results This section contains the Chemistry/Hematology Results that were resulted 30 days before or 30 daysafter the date of the Encounter. Date/Time Source Result Type Result - Unit Interpretation Reference Range Comment Apr 02, 2024 01:42 PM [facility] URINALYSIS Specimen Type: URINE Comment: If Glucose = >500 and Ketones are positive, please alert the Physician. Ordering Provider: ANTHONY SEWELL Report Released Date/Time: Mar 24, 2024 01:28 PM Reporting Lab: [address] [phone] Performing Lab: [address] [phone] UA COLOR Light-Yellow Yellow UA APPEARANCE Clear Clear UA GLUCOSE Normal mg/dL Negative UA KETONES NEGATIVE mg/dL Negative UA BLOOD NEGATIVE mg/dL Negative UA PROTEIN NEGATIVE mg/dL Negative UA NITRITE NEGATIVE mg/dL Negative UA BILIRUBIN NEGATIVE mg/dL Negative UA SPECIFIC GRAVITY 1.016 1.016-1.022 UA pH 6.5 5.0-9.0 UA UROBILINOGEN Normal mg/dL <2.0 UA LEUKOCYTE NEGATIVE Negative Apr 02, 2024 01:01 PM [facility] LIPID PANEL FASTING Specimen Type: SERUM No comment entered. Ordering Provider: ANTHONY SEWELL Report Released Date/Time: Mar 24, 2024 01:28 PM Reporting Lab: [address] [phone] Performing Lab: [address] [phone] CHOLESTEROL 220 mg/dL H TRIGLYCERIDE 146 mg/dL 0-150 LDL calculated 140 mg/dL H 0-129 CHOL/HDL 4.3 HDL CHOLESTEROL 51 mg/dL 40-60 Apr 02, 2024 01:01 PM [facility] BASIC METABOLIC PANEL (fasting) Specime n Type: SERUM No comment entered. Ordering Provider: ANTHONY SEWELL Report Released Date/Time: Mar 24, 2024 01:28 PM Reporting Lab: [address] [phone] Performing Lab: [address] [address] UREA NITROGEN 10 mg/dL 7-25 GLUCOSE 165 mg/dL H 65-100 SODIUM 138 mmol/L 135-145 POTASSIUM 4.0 mmol/L 3.5-5.0 CHLORIDE 107 mmol/L 100-110 CO2 23 meq/L 20-30 CREATININE, Serum 0.89 mg/dL 0.50-1.40 eGFR(CKD-EPI 2020) >90 mL/min >60 Apr 02, 2024 01:01 PM [facility] LIVER FUNCTION Specimen Type: SERUM No comment entered. Ordering Provider: ANTHONY SEWELL Report Released Date/Time: Mar 24, 2024 01:28 PM Reporting Lab: [address] [address] Performing Lab: [address] [address] PROTEIN,TOTAL 7.1 g/dL 6.0-8.3 ALBUMIN 4.1 g/dL 3.5-5.0 ALKALINE PHOSPHATASE 57 U/L 40-150 AST 24 U/L 5-34 ALT 24 U/L BILIRUBIN, TOTAL 0.9 mg/dL 0.2-1.2 Apr 02, 2024 01:01 PM [facility] HEMOGLOBIN A1C PANEL Specimen Type: BLOOD Comment: Values obtained from A1C measurements can vary. For atypical A1C assays, a reported value of 7.0 could actually be between 6.72 and 7.28 if measured by a reference method. A reported value of 9.0 could actually be between 8.73 and 9.27. Ref: http://www.ngs p.org/CAPdata. asp Ordering Provider: ANTHONY SEWELL Report Released Date/Time: Mar 24, 2024 01:28 PM Reporting Lab: [facility] [address] [address] Performing Lab: [facility] [address] [address] HEMOGLOBIN A1C 5.2 4.0-5.6 Apr 02, 2024 01:01 PM [facility] CBC AND DIFF (AUTO) Specimen Type: BLOOD No comment entered. Ordering Provider: ANTHONY SEWELL Report Released Date/Time: Mar 24, 2024 01:28 PM Reporting Lab: [facility] [address] [address] Performing Lab: [facility] [address] [address] WBC 3.60 10*3/uL L 4.50-11.00 RBC 4.97 10*6/uL 4.23-5.66 HGB 15.6 g/dL 12.8-17 HCT 44.1 39.2-50.4 MCV 88.7 fL 82-99 MCHC 35.4 g/dL H 30.8-35.1 PLT 234 10*3/uL 140-360 RDW-CV 11.8 L 12.0-16.0 MONO, ABS 0.28 10*3/uL L 0.30-1.10 MCH 31.4 pg 26.2-32.6 NEUT % 56.1 43.7-75.8 LYMPH % 30.8 14.0-42.3 MONO % 7.8 5.1-13.7 EOS % 4.2 0.4-6.8 BASO % 0.8 0.1-2.0 NEUT, ABS 2.02 10*3/uL L 2.20-7.60 LYMPH, ABS 1.11 10*3/uL 1.00-3.20 EOS, ABS 0.15 10*3/uL 0.03-0.44 BASO, ABS 0.03 10*3/uL 0.01-0.13 IMMATURE GRAN % 0.3 0.0-0.7 IMMATURE GRAN, ABS 0.01 10*3/uL 0.00-0.06 NRBC % 0.0 0.0-0.0 NRBC, ABS 0.00 10*3/uL 0.00-0.00 Apr 02, 2024 01:01 PM [facility] TSH Specimen Type: SERUM No comment entered. Ordering Provider: ANTHONY SEWELL Report Released Date/Time: Mar 24, 2024 01:28 PM Reporting Lab: [address] [phone] Performing Lab: [address] [phone] TSH 0.64 u[IU]/mL 0.35-5.00 Apr 02, 2024 01:01 PM [facility] CALCIUM Specimen Type: SERUM No comment entered. Ordering Provider: ANTHONY SEWELL Report Released Date/Time: Mar 24, 2024 01:28 PM Reporting Lab: [address] [phone] Performing Lab: [address] [address] CALCIUM 9.4 mg/dL 8.5-10.2 Apr 02, 2024 01:01 PM [facility] URIC ACID Specimen Type: SERUM No comment entered. Ordering Provider: ANTHONY SEWELL Report Released Date/Time: Mar 24, 2024 01:28 PM Reporting Lab: [address] [phone] Performing Lab: [address] [address] URIC ACID 6.0 mg/dL 3.5-7.2 Social History: Smoking Status (Most current) and Tobacco Use (All prior to encounter date) This section includes the most current, and the historical, smoking and tobacco- related health factors from the [place] facility where the Encounter took place. Current Smoking Status This section includes the most current smoking, or tobacco-related health factor, from the [place] facility where the Encounter took place. Date/Time Current Smoking Status Comment Patricia fischer Apr 02, 2024 01:00 PM [facility]-TOBACCO NEVER USED [facility] Tobacco Use History This section includes a history of the smoking, or tobacco-related health factors, that were collected on or before the date of the Encounter. The data comes from the [place] facility where the Encounter took place. Date/Time Smoking Status/Tobacco Use Comment F acility Jan 30, 2023 01:00 PM [facility] NEVER USED [facility] Feb 02, 2022 01:30 PM [facility]-TOBACCO NEVER USED [facility] Feb 03, 2021 01:00 PM [facility]-TO[facility]ACCO NEVER USED [facility] Jan 21, 2020 03:49 PM [facility]-TO[facility]ACCO NEVER USED [facility] Oct 29, 2018 01:50 PM [facility]-TOBACCO NEVER USED [facility] Radiology Reports: +/- 30 days of the encounter Radiology Reports For cases when an order for radiology services may have been completed prior to the date of the Encounter, the report list includes the Radiology Reports that were completed up to 30 days before dateof the Encounter. For cases when an order for radiology services may have been completed after the date of the Encounter, the report list also includes the Radiology Reports that were completed up to30 days after date of the Encounter. The data comes from all [place] treatment facilities. Date/Time Radiology Report Provider Source Apr 21, 2024 02:43 PM FOOT 3 OR MORE VIEWS(LEFT): GUILLENSTEPHENFred ENNIS [id number] -1965 M Exm Date: APR 21, 2024@14:43 Req Phys: ANTHONY SEWELL Loc: CWM/SO/PACT 3 WH (Req'g Loc) Img Loc: [facility] 1 Service: [place] [address] (Case [id number] COMPLETE) FOOT 3 OR MORE VIEWS(LEFT) (RAD Detailed) CPT:85167 CPT Modifiers : LT LEFT SIDE Reason for Study: heel spur Clinical History: request views for podiatry Report Status: Verified Date Reported: APR 21, 2024 Date Verified: APR 21, 2024 Product Support Sales Representative E-Sig:/ES/SANJANA LINK JR Report: Study: Weight-bearing AP, lateral, and oblique views of the left foot. Comparison: None. Findings: Prominent vascular calcifications are present in the foot soft tissues. Otherwise, the soft tissues appear normal with no soft tissue swelling or radiopaque foreign body identified. The bony mineralization is normal. There is no bony fracture, dislocation or subluxation. The plantar arch is maintained. Small to moderate-sized superior and inferior calcaneal spurs are present. No acute bony abnormality is seen. There is no radiographic evidence of osteomyelitis. Impression: No acute bony abnormality identified. Primary Diagnostic Code: No immediate attention required Primary Interpreting Staff: SANJANA LINK JR, Radiologist (Product Support Sales Representative) /SANJANA FERRER JR [facility] Encounter Notes: All associated encounter notes This section contains the clinical notes associated to the Encounter. Date/Time Encounter Note(s) Provider Source Apr 24, 2024 08:21 AM PODIATRY NOTE: LOCAL TITLE: PODIATRY NOTE STANDARD TITLE: PODIATRY NOTE DATE OF NOTE: APR 24, 2024@08:21 ENTRY DATE: APR 24, 2024@08:22:07 AUTHOR: JOANA CASTILLO COSIGNER: URGENCY: STATUS: COMPLETED NAME: STEPHEN GUILLEN DATE: APR 24, 2024 : Feb PCP: ANTHONY SEWELL LAST SEEN: INITIAL CONSULT VISIT TODAY HPI: Pt. is a 59 yo alert WDWN MALE who presents for initial podiatric examination with Dr. Castillo for treatment of a presenting complaint of a painful HEEL DUE TO PLANTAR FASCIITIS AND A POSSIBLE HEEL SPUR PER PCP WITH X- RAYS PENDING. Patient has NOT BEEN SEEN BY PODIATRY FOR THIS CONDITION IT IS OF RECENT OCCURENCE (6 MONTHS) Patient has been referred by: TAHIR MICHEL Location of symptoms are: medial plantar calcaneal tuberosity left Onset of symptoms has been several months due to this being a recent condition that has been exacerbating over the past few weeks. Duration of symptoms is daily & intermittently with periods of exacerbation and remission. Description of symptoms is of an aching nature WITH PAIN LEVEL 6-7/10. HE RELATES POST STATIC DYSKINESIA Contributing factors are: shoes and increased activity AND POSSIBLE LLD LT> RT 1/4 . Previous treatment: SEEN BY PCP AND REFRRED FOR RADIOGRAPHS WHICH DISPLAY A PLANTAR CALCANEAL SPUR LEFT FOOT-DISPLAYED TO PATIENT PMH: Active problems - Computerized Problem List is the source for the followin. Benign essential microscopic hematuria 2. Dyspepsia 3. Asthma 4. Benign essential hypertension 5. Low back pain 6. Premature atrial contraction 7. Family history of prostate cancer 8. Screening for malignant neoplasm of colon done (SNOMED CT [id number]) 9. Abdominal pain *NOTE: REVIEWED ABOVE, NOTING NON-CONTRIBUTORY TO THE CC Family History: Non-contributory Social History: N/A Current medications: Active Outpatient Medications (including Supplies): *NOTE: DENIES ANY RECENT CHANGES IN MEDS UPON QUESTIONING TODAY-SEE RECONCILIATION PERFOMED THIS DATE BELOW TOBACCO USE = NONE Active Outpatient Medications Status = 1) ALBUTEROL 90MCG (CFC-F) 200D ORAL INHL [...] PREVENT COUGH REPLACES ASMANEX [MOMETASONE] INHALER 5) LISINOPRIL 30MG TAB TAKE ONE TABLET BY MOUTH ONCE ACTIVE DAILY TO CONTROL BLOOD PRESSURE Allergies:Patient has answered NKA Previous Surgery/Hospitalization: N/A TO THE CC HEIGHT:202 lb [91.63 kg] (04/02/2024 13:16) WEIGHT:67 in [170.2 cm] (01/30/2023 13:05) REVIEW OF SYSTEMS: DEFERRED BEING NON-CONTRIBUTORY TO THE CC & I HAVE REVIEWED THE PCP NOTES & PMH WELL. O: DERMATOLOGICAL: Exam reveals skin color, TEMP & text to be WNL. There is normal distribution of hair noted. Nails are WNLAND NOT IN NEED OF ATTENTION. There are no superficial painful hyperkeratotic lesions noted at this time.There are no rashes, ulcers, indurations or nodules noted. VASCULAR: Exam reveals DP & PT pulses to be +2 equal & symmetrical bilateral. CFT is < 3 sec x 10. There are no superficial varices noted and there is no edema noted. MUSCULOSKELETAL: Exam reveals muscle strength and tone to be equal & symmetrical bilaterally & WNL for an individual of this age and present physical-medical condition. There is pain free ROM at all joints distal to and including the ankle. *THERE ARE NO APPARENT BONY ABNORMALITIES NOTED AT THIS TIME. THERE IS A POSSIBLELLD LT> RT NOTED. THERE IS PAIN ON PALPATION AT THE MEDIALPLANTAR CALCANEAL TUBEROSITY LEFT AND NOPAIN RT. NEUROLOGICAL: Exam reveals S/D, vibratory, light touch & proprioception sensations to be equal & symmetrical bilaterally & WNL for an individual of this age and present physical-medical status. Protective sensation utilizing a Dupo-Baltazar lOg monofilament is 10/10 bilateral. BIOMECHANICAL: Exam is deferred at this time due to the presence of pain. A: Clinical Impression is painful ACUTE PLANTAR FASCIITIS LEFT. P: Treatment consists of STS CASTING FOR CUSTOM PORTHOSES AND DISPENSING POWER STEP INSERTS M 10-10 1/2 AND HE NOTES AN IMMEDIATE IMPROVEMENT UPONINITAL WEIGHT BEARING AND SHORT WALK. All care rendered without complications & the patient is progressing well after podiatric care this date and will be HAVE ORTHOSES MAILED TOMOISES [place] HE WILLCALL AFTERUTILIZING FOR 1 MONTH OR IF HE IS EXPERIENCING ANYDIFFICULTY IN FITTING IN SHOES. Return to Clinic: Weeks *DISCUSSED NEW PROTOCOLS AND W/C GEOVANNA FOR RESCHEDULING NEEDED./ I DISCUSSED THE FINDINGS & PLAN WITH PATIENT (UNCHANGED SINCE PREVIOUS VISIT) & PATIENT AGREES AND UNDERSTANDS PLAN Medication Reconciliation: PERFORMED TODAY - SEE BELOW. Outpatient: Has the patient been taking medications as documented in the EMLR? YES: The patient has been taking medications as documented in the EMLR. Essential Medication List for Review used to complete this medication reconciliation. INCLUDED IN THIS LIST: Alphabetical list of active outpatient prescriptions dispensed from this [facility] (local) and dispensed from another [facility] or [facility] facility (remote) as well as [...] with a VA or non-VA provider. /nestor/ JOANA CASTILLO DPM ECOLOGIST Signed: 04/24/2024 14:31 JOANA CASTILLO
--- OUTSIDE RECORDS SUMMARY | 2024-09-01 21:39 | XMS_ITS | Encounter Summary ---
Author Name [facility] Organization [facility] [place] Address [address] [place] [id number] Care Team Providers Care Doctor Assistant Name Role Phone DONATO ANTHONY Primary Care Provider Unavailabl e Selected Encounter This section includes the information on record at [place] for the Encounter. Date/Time Encounter Type Encounter Description Reason Provider Source Sep 04, 2023 01:00 PM OFFICE O/P EST MOD 30 MIN PRIMARY CARE/MEDICINE ICD-10-CM I10 Essential (primary) hypertension ANTHONY SEWELL [place] Encounter Template Text not used by [place] Assessments - Encounter Diagnoses This section includes the primary and secondary diagnoses documented for the Encounter. Date/Time Primary/Secondary Diagnosis Diagnosis Name Provider Source Sep 04, 2023 01:36 PM PRIMARY Essential (primary) hypertension ANTHONY SEWELL Sep 04, 2023 01:36 PM SECONDARY Encounter for screening for malignant neoplasm of colon ANTHONY SEWELL Sep 04, 2023 01:36 PM SECONDARY Unspecified asthma, uncomplicated ANTHONY SEWELL [place] Plan of Treatment: Future Appointments (+ 6 [...] [place] treatment facilities. Appointment Date/Time Appointment Type Appointme nt Facility Name Sep 10, 2023 02:30 PM [facility] Sep 23, 2023 02:00 PM AMBULATORY - MEDICINE [facility] Lab Results: +/- 30 days of the encounter This section includes the Chemistry and Hematology Lab Results on record with [place] for the patient. Radiology Reports and Pathology Reports are provided separately, in subsequent sections. Lab Results This section contains the Chemistry/Hematology Results that were resulted 30 days before or 30 daysafter the date of the Encounter. Date/Time Source Result Type Result - Unit Interpretation Reference Range Comment Sep 02, 2023 09:58 AM [place] LIVER FUNCTION Specimen Type: SERUM No comment entered. Ordering Provider: ANTHONY SEWELL Report Released Date/Time: Jan 30, 2023 01:28 PM Reporting Lab: [address] [address] Performing Lab: [address] [address] PROTEIN,TOTAL 7.3 g/dL 6.0-8.3 ALBUMIN 4.2 g/dL 3.5-5.0 ALKALINE PHOSPHATASE 64 U/L 40-150 AST 19 U/L 5-34 ALT 22 U/L BILIRUBIN, TOTAL 0.8 mg/dL 0.2-1.2 Sep 02, 2023 09:58 AM [place] CALCIUM Specimen Type: SERUM No comment entered. Ordering Provider: ANTHONY SEWELL Report Released Date/Time: Jan 30, 2023 01:28 PM Reporting Lab: [address] [address] Performing Lab: [address] [address] CALCIUM 9.1 mg/dL 8.5-10.2 Sep 02, 2023 09:58 AM [place] LIPID PANEL FASTING Specimen Type: SERUM No comment entered. Ordering Provider: ANTHONY SEWELL Report Released Date/Time: Jan 30, 2023 01:28 PM Reporting Lab: [address] [address] Performing Lab: [address] [address] CHOLESTEROL 204 mg/dL H TRIGLYCERIDE 87 mg/dL 0-150 LDL calculated 138 mg/dL H 0-129 CHOL/HDL 4.2 HDL CHOLESTEROL 49 mg/dL 40-60 Sep 02, 2023 09:58 AM [place] URIC ACID Specimen Type: SERUM No comment entered. Ordering Provider: ANTHONY SEWELL Report Released Date/Time: Jan 30, 2023 01:28 PM Reporting Lab: [address] [address] Performing Lab: [address] [address] URIC ACID 7.1 mg/dL 3.5-7.2 Sep 02, 2023 09:58 AM [place] MICROALBUMIN CREATININE RATIO PANEL Spe cimen Type: URINE No comment entered. Ordering Provider: ANTHONY SEWELL Report Released Date/Time: Jan 30, 2023 01:28 PM Reporting Lab: [address] [address] Performing Lab: [address] [address] MICROALBUMIN/CR EATININE RATIO 7.6 mg/g 0-29.9 MICROALBUMIN,QU ANTITATIVE 1.1 mg/dL RR UNAVAIL CREATININE URINE 144.23 mg/dL Sep 02, 2023 09:58 AM [facility] URINALYSIS Specimen Type: URINE Comment: If Glucose = >500 and Ketones are positive, please alert the Physician. Ordering Provider: ANTHONY SEWELL Report Released Date/Time: Jan 30, 2023 01:28 PM Reporting Lab: [address] [address] Performing Lab: [address] [address] UA COLOR Light-Yellow Yellow UA APPEARANCE Clear Clear UA GLUCOSE NEGATIVE mg/dL Negative UA KETONES NEGATIVE mg/dL Negative UA BLOOD NEGATIVE mg/dL Negative UA PROTEIN NEGATIVE mg/dL Negative UA NITRITE NEGATIVE mg/dL Negative UA BILIRUBIN NEGATIVE mg/dL Negative UA SPECIFIC GRAVITY 1.019 1.016-1.02 2 UA pH 6.5 5.0-9.0 UA UROBILINOGEN <2.0 mg/dL <2.0 UA LEUKOCYTE NEGATIVE Negative Sep 02, 2023 09:58 AM [place] VITAMIN B12 Specimen Type: SERUM No comment entered. Ordering Provider: ANTHONY SEWELL Report Released Date/Time: Jan 30, 2023 01:28 PM Reporting Lab: [address] [address] Performing Lab: [address] [address] VITAMIN B12 271 pg/mL 200-900 Sep 02, 2023 09:58 AM [place] VITAMIN D (25-OH) Specimen Type: SERUM No comment entered. Ordering Provider: ANTHONY SEWELL Report Released Date/Time: Jan 30, 2023 01:28 PM Reporting Lab: [address] [address] Performing Lab: [address] [address] VITAMIN D (25-OH) <13 ng/mL L 20-50 Sep 02, 2023 09:58 AM [place] CBC AND DIFF (AUTO) Specimen Type: BLOOD No comment entered. Ordering Provider: ANTHONY SEWELL Report Released Date/Time: Jan 30, 2023 01:28 PM Reporting Lab: [address] [address] Performing Lab: [address] [address] WBC 4.83 10*3/uL 4.50-11.00 RBC 5.33 10*6/uL 4.23-5.66 HGB 16.4 g/dL 12.8-17 HCT 46.6 39.2-50.4 MCV 87.4 fL 82-99 MCHC 35.2 g/dL H 30.8-35.1 PLT 217 10*3/uL 140-360 RDW-CV 11.8 L 12.0-16.0 [place], Abs 0.46 10*3/uL 0.30-1.10 MCH 30.8 pg 26.2-32.6 Neut % 46.1 43.7-75.8 Lymph % 27.5 14.0-42.3 [place] % 9.5 5.1-13.7 Eos % 15.5 H 0.4-6.8 Baso % 1.0 0.1-2.0 Neut, Abs 2.22 10*3/uL 2.20-7.60 Lymph, Abs 1.33 10*3/uL 1.00-3.20 Eos, Abs 0.75 10*3/uL H 0.03-0.44 Baso, Abs 0.05 10*3/uL 0.01-0.13 Immature Gran % 0.4 0.0-0.7 Immature Gran, Abs 0.02 10*3/uL 0.00-0.06 Sep 02, 2023 09:58 AM [place] RETICULOCYTES Specimen Type: BLOOD No comment entered. Ordering Provider: ANTHONY SEWELL Report Released Date/Time: Jan 30, 2023 01:28 PM Reporting Lab: [address] [address] Performing Lab: [address] [address] RETIC % 1.9 0.6-2.0 RETIC, ABS 100.2 10*3/uL H 30.0-90.0 Ret-He % 35.0 27.9-42.0 Sep 02, 2023 09:58 AM [place] FERRITIN Specimen Type: SERUM No comment entered. Ordering Provider: ANTHONY SEWELL Report Released Date/Time: Jan 30, 2023 01:28 PM Reporting Lab: [address] [address] Performing Lab: [address] [address] FERRITIN 158 ng/mL 20-300 Sep 02, 2023 09:58 AM [place] HEMOGLOBIN A1C PANEL Specimen Type: BLOOD Comment: [...] 01:28 PM Reporting Lab: [facility] [address] [address] Performing [facility]: [facility] [place] [address] [address] HEMOGLOBIN A1C 5.2 4.0-5.6 Sep 02, 2023 09:58 AM [place] TSH Specimen Type: SERUM No comment entered. Ordering Provider: ANTHONY SEWELL Report Released Date/Time: Jan 30, 2023 01:28 PM Reporting Lab: [facility] [place] [address] [address] Performing [facility]: [facility] [address] TSH 0.59 u[IU]/mL 0.35-5.00 Sep 02, 2023 09:58 AM [place] PSA Specimen Type: SERUM No comment entered. Ordering Provider: ANTHONY SEWELL Report Released Date/Time: Jan 30, 2023 01:28 PM Reporting Lab: [facility] [place] [address] [address] Performing Lab: [facility] [place] [address] [address] PSA 0.91 ng/mL 0.00-4.00 Sep 02, 2023 09:58 AM [place] BASIC METABOLIC PANEL (fasting) Specime n Type: SERUM No comment entered. Ordering Provider: ANTHONY SEWELL Report Released Date/Time: Jan 30, 2023 01:28 PM Reporting Lab: [facility] [place] [address] [address] Performing Lab: [facility] [place] [address] [address] UREA NITROGEN 11 mg/dL 7-25 GLUCOSE 105 mg/dL H 65-100 SODIUM 139 mmol/L 135-145 POTASSIUM 4.2 mmol/L 3.5-5.0 CHLORIDE 107 mmol/L 100-110 CO2 25 meq/L 20-30 CREATININE, Serum 0.90 mg/dL 0.50-1.40 eGFR(CKD-EPI 2020) >90 mL/min >60 Social History: Smoking Status (Most current) and Tobacco Use (All prior to encounter date) This section includes the most current, and the historical, smoking and tobacco- related health factors from the [place] facility where the Encounter took place. Current Smoking Status This section includes the most current smoking, or tobacco-related health factor, from the [place] facility where the Encounter took place. Date/Time Current Smoking Status Comment Patricia fischer Jan 30, 2023 01:00 PM VA-TOBACCO NEVER USED [place] Tobacco Use History This section includes a history of the smoking, or tobacco-related health factors, that were collected on or before the date of the Encounter. The data comes from the [place] facility where the Encounter took place. Date/Time Smoking Status/Tobacco Use Comment F acility Feb 02, 2022 01:30 PM VA-TOBACCO NEVER USED [place] Feb 03, 2021 01:00 PM VA-TOBACCO NEVER USED [facility] Jan 21, 2020 03:49 PM VA-TOBACCO NEVER USED JO Oct 29, 2018 01:50 PM VA-TOBACCO NEVER USED JO Encounter Notes: All associated encounter notes This section contains the clinical notes associated to the Encounter. Date/Time Encounter Note(s) Provider Source Sep 04, 2023 01:12 PM PREVENTIVE MEDICIN E NURSING NOTE: LOCAL TITLE: CLINICAL REMINDERS/NURSING STANDARD TITLE: PREVENTIVE MEDICINE NURSING NOTE DATE OF NOTE: SEP 04, 2023@13:12 ENTRY DATE: SEP 04, 2023@13:12:16 AUTHOR: JOVANI ORLANDO EXP COSIGNER: URGENCY: STATUS: COMPLETED Colonoscopy GAP Reminder: Recommendations are needed in the clinical reminder system following the patient's most recent colorectal cancer screening/surveillance test (Colonoscopy, Sigmoidoscopy or CT Colonography) Patient declined average risk screening. Comment: canceled appt. due to his having surgery Patient educated on the benefits of colorectal cancer screening/surveillance and the risk if screening/surveillance is not completed. Level of Understanding: Good HIV Screening: Patient has been offered HIV testing and has declined. I have explained that HIV testing is recommended for all adults, even if all risk factors are absent. The patient was educated on the risk of delayed screening. Homelessness/Food Insecurity Screen: In the past 2 months, have you been living in stable housing that you own, rent, or stay in as part of a household? Yes - Living in stable housing. Are you worried or concerned that in the next 2 months you may NOT have stable housing that you own, rent, or stay in as part of a household? No - Not worried about housing near future The reports the following: Within the past 12 months, you worried whether your food would run out before you got money to buy more. Never true Within the past 12 months, the food you bought just didn't last and you didn't have money to get more. Never true Pneumococcal Conjugate Vaccine (PCV15/PCV20): Refuses PCV vaccine Immunization: PNEUMOCOCCAL CONJUGATE, UNSPECIFIED FORMULATION Refusal Reason: PATIENT DECISION Patient refuses all immunization(s) in the PneumoPCV group Date Documented: 09/04/23 13:14 PTSD Screening: PC-PTSD-5 A PTSD screening test (PC-PTSD-5) was negative (score=0). IN THE PAST MONTH, have you ever had any experience that was so frightening, horrible or traumatic. For example: A serious accident or fire a physical or sexual assault or abuse An earthquake or flood A war Seeing someone be killed or seriously injured Having a loved one through homicide or suicide 1. Have you ever experienced this kind of event? NO 2. Had nightmares about the event(s) or thought about the event(s) when you did not want to? Response not required due to responses to other questions. 3. Tried hard not to think about the event(s) or went out of your way to avoid situations that reminded you of the event(s)? Response not required due to responses to other questions. 4. Been constantly on guard, watchful, or easily startled? Response not required due to responses to other questions. 5. [place] numb or detached from people, activities, or your surroundings? Response not required due to responses to other questions. 6. [place] guilty or unable to stop blaming yourself or others for the event(s) or any problems the event(s) may have caused? Response not required due to responses to other questions. Influenza Immunization: The patient declines to receive the recommended dose of seasonal influenza vaccine. Immunization: INFLUENZA, UNSPECIFIED FORMULATION Refusal Reason: PATIENT DECISION Patient refuses all immunization(s) in the FLU group Date Documented: 09/04/23 13:20 Sexual Orientation: The patient thinks of their sexual orientation as: Straight or Heterosexual RHS Screen: RHS Screen Environmental Check Upon inquiry, the individual reports that the environment is safe to proceed. Informed Consent to Screen and Document The individual consents to proceed with screening. The individual consents to documentation of responses. PRIMARY SCREEN: In the past 12 months, how often did a current or former intimate partner (e.g., boyfriend, girlfriend, , , sexual partner): 1. Scream or curse at you Never 2. Insult or talk down to you Never 3. Threaten you with harm Never 4. Physically hurt you Never 5. Force or pressure you to have sexual contact against your will, or when you were unable to say no Never ?? The HITS tool (items 1-4 above) is [place] copyright protected by Rajat Baltazar MD, and the user has full rights to use it throughout the [place] system. PRIMARY SCREEN RESULT: The Primary Screen is NEGATIVE. The individual answered never to all forms of IPV above (i.e., answered never to all 5 items) The individual accepts education and/or resources: No EDUCATION: Other: Advance Directive Screen MH AD: Patient has an up-to-date Advance Directive at an outside, non-va facility and was asked to forward a copy to his/her clinician. /nestor/ JOVANI ORLANDO LPN LICENSED PRACTICAL NURSE Signed: 09/04/2023 13:24 JOVANI ORLANDO [place] Sep 04, 2023 01:11 PM PHYSICIAN ASSISTGALE [place] NOTE: LOCAL TITLE: [place] NOTE STANDARD TITLE: PHYSICIAN MECHANIC HELPER NOTE DATE OF NOTE: SEP 04, 2023@13:11 ENTRY DATE: SEP 04, 2023@13:11:26 AUTHOR: ANTHONY SEWELL COSIGNER: URGENCY: STATUS: COMPLETED S - routine re-eval c/o hemorrhoids no stafford, tia sx no ch pn, [place] no abd pn no n/v/d no constipation or melena no uts O - coop A&Ox3 NAD W-N/H/D EYES: anicteric OU NECK: supple mobile not tender and no adeno LUNGS: resp full reg unlabored; no distress; some wheeze on auscultation COR: RRR, no M ABD: soft, not tender RECTAL: one ext hemorrhoid, not thrombosed prostate not enlarged, contour smooth and w/ nodules no tender, lobes symmetyric EXT: no LLE LABS: reviewed w/ pt A/P - 1) HTN - BP 142/86; HR 72 2) Renals Intact - eGFR 90 and Creat 0.9 in SEP 14; K 4.2 3) Asthma - ref Celesonide Ing for Maintenance and Alb Inh for Rescue 4) C/V Stable - never NH 5) Neuro Stable - never CVA/TIA 6) Hypercholesterolemia - LDL 138 in SEP 14 - cont Lipitor; LFT's WNL - diet, wt 7) Ext and Int Hemorrhoids - CON: Re-Submit Referral for Colonoscopy 8) Health Maintenance - CON: Colonoscopy - VID Low - Rx VIT Supplem 9) Stress? nothing untoward RTC MAR 24 - non fast labs before PTSD Screening: PC-PTSD-5 A PTSD screening test (PC-PTSD-5) was negative (score=0). IN THE PAST MONTH, have you ever had any experience that was so frightening, horrible or traumatic. For example: A serious accident or fire a physical or sexual assault or abuse An earthquake or flood A war Seeing someone be killed or seriously injured Having a loved one through homicide or suicide 1. Have you ever experienced this kind of event? NO 2. Had nightmares about the event(s) or thought about the event(s) when you did not want to? Response not required due to responses to other questions. 3. Tried hard not to think about the event(s) or went out of your way to avoid situations that reminded you of the event(s)? Response not required due to responses to other questions. 4. Been constantly on guard, watchful, or easily startled? Response not required due to responses to other questions. 5. [place] numb or detached from people, activities, or your surroundings? Response not required due to responses to other questions. 6. [place] guilty or unable to stop blaming yourself or others for the event(s) or any problems the event(s) may have caused? Response not required due to responses to other questions. Homelessness/Food Insecurity Screen: In the past 2 months, have you been living in stable housing that you own, rent, or stay in as part of a household? Yes - Living in stable housing. Are you worried or concerned that in the next 2 months you may NOT have stable housing that you own, rent, or stay in as part of a household? No - Not worried about housing near future The [place] reports the following: Within the past 12 months, you worried whether your food would run out before you got money to buy more. Never true Within the past 12 months, the food you bought just didn't last and you didn't have money to get more. Never true Sexual Orientation: The patient thinks of their sexual orientation as: Straight or Heterosexual Medication Reconciliation: Outpatient: Has the patient been taking medications as documented in the EMLR? YES: The patient has been taking medications as documented in the EMLR. Essential Medication List for Review used to complete this medication reconciliation. INCLUDED IN THIS LIST: Alphabetical list of active outpatient prescriptions dispensed from this [place] (local) and dispensed from another VA or [facility] facility (remote) as well as inpatient orders (local, pending and active), local clinic medications, locally documented non-VA medications, and local prescriptions that have or been discontinued in the past 90 days. - All changes in medications, including all non-VA/Herbal/OTC medications were entered into CPRS. Changes: nt - If there were any medications the patient should no longer take, they were discontinued. - The patient/caregiver was instructed to update this list, discard old lists, and take this list to the next appointment, whether with a VA or non-VA provider. Colonoscopy GAP Reminder: Recommendations are needed in the clinical reminder system following the patient's most recent colorectal cancer screening/surveillance test (Colonoscopy, Sigmoidoscopy or CT Colonography) Screening is due now. Colonoscopy consult has been ordered. See orders tab for details. /nestor/ ANTHONY SEWELL PA-C STAFF PHYSICIAN MECHANIC HELPER Signed: 09/04/2023 13:37 ANTHONY SEWELL
--- OUTSIDE RECORDS SUMMARY | 2024-09-01 21:39 | XMS_ITS | Clinical Summary ---
Author Organization [facility] it Address [address] [place] [address] Care Team Providers Care Studio Operator Name Role Phone Unavailable Primary Care Provider Unavailabl e Social History Tobacco Use Types Packs/Day Years Used Date Smoking Tobacco: Never Assessed Sex and Gender Information Value Date Recorded Sex Assigned at Not on file Legal Sex Male 12:59 AM EST Gender Identity Not on file Sexual Orientation Not on file Plan of Treatment Health Maintenance Due Date Last Done Comments Hepatitis B Vaccines (1 of 3 - 19+ 3-dose series) 02/22/1984 Zoster Vaccines (1 of 2) 2015 COVID-19 Vaccine (2023-2 5 season) 2024 Influenza Vaccine (#1) 2024 Cholesterol Screening (Lipid Panel) 04/30/2024 Colorectal Cancer Screening: Colonoscopy 04/30/2024 Depression Screening 04/30/2024 HIV Screening 04/30/2024 Hepatitis C Screening 04/30/2024 Social Influencers of Health Screening 04/30/2024 DTaP,Tdap,and Td Vaccines (2 - Td or Tdap) 12/23/2033 12/24/2023 RSV Immunization Patients 60 + Years Old (1 - 1-dose 75+ series) 02/22/2040 HIB Vaccines Aged Out No longer eligi ble based on patient's age to complete this topic HPV Vaccines Aged Out No longer eligi ble based on patient's age to complete this topic Hepatitis A Vaccines Aged Out No long er eligible based on patient's age to complete this topic IPV Vaccines Aged Out No longer eligi ble based on patient's age to complete this topic MMR Vaccines Aged Out No longer eligi ble based on patient's age to complete this topic Meningococcal ACWY Vaccine Aged Out N o longer eligible based on patient's age to complete this topic Pneumococcal Vaccine: Pediat rics (0 to 5 Years) and At-Risk Patients (6 to 64 Years) Aged Out No longer eligi ble based on patient's age to complete this topic RSV Immunization Patients Un jay jay 20 months Aged Out No longer eligible b ased on patient's age to complete this topic Varicella Vaccines Aged Out No longer eligible based on patient's age to complete this topic
--- OUTSIDE RECORDS SUMMARY | 2024-09-01 21:39 | XMS_ITS | Encounter Summary ---
Author Name [facility] Organization [facility] Address [address] [place] [address] Care Team Providers Care Technologist Development Name Role Phone DONATO ANTHONY Primary Care Provider Unavailabl e Selected Encounter This section includes the information on record at [place] for the Encounter. Date/Time Encounter Type Encounter Description Reason Provider Source Apr 02, 2024 01:00 PM OFFICE O/P EST MOD 30 MIN PRIMARY CARE/MEDICINE ICD-10-CM R31.1 Benign essential microscopic hematuria ANTHONY SEWELL [place] Encounter Template Text not used by [place] Assessments - Encounter Diagnoses This section includes the primary and secondary diagnoses documented for the Encounter. Date/Time Primary/Secondary Diagnosis Diagnosis Name Provider Source Apr 02, 2024 01:28 PM PRIMARY Benign essential microscopic hematuria ANTHONY SEWELL JO Apr 02, 2024 01:28 PM SECONDARY Essential (primary) hypertension ANTHONY SEWELL [facility] [facility] Apr 02, 2024 01:28 PM SECONDARY Unspecified asthma, uncomplicated ANTHONY SEWELL [place] Plan of Treatment: Future Appointments (+ 6 months) and Future Tests (+/- 45 days) The Plan of Treatment section includes future care activities for the patient from all [place] treatmentfacilities. This section includes future appointments and future orders which are active, pending or scheduled. Future Appointments This section includes appointments that were scheduled to occur 6 months from the date of the Encounter, up to a maximum of 20 appointments. The data comes from all [place] treatment facilities. Appointment Date/Time Appointment Type Appointme nt Facility Name Apr 24, 2024 02:00 PM AMBULATORY - MEDICINE [place] [place] Active, Pending, and Scheduled Orders This section includes a listing of several types of active, pending, and scheduled orders, including clinic medications orders, diagnostic test orders, procedure orders and consult orders; where the start date of the order is 45 days before the date of the Encounter or 45 days after the date of theEncounter. The data comes from all [place] treatment facilities. Test Date/Time Test Type Test Details Facility Name Apr 02, 2024 01:17 PM Consult Order COMMUNITY CARE-COLONOSCOPY SCREENING [facility] Apr 02, 2024 01:27 PM Consult Order PODIATRY/S POPC OUTPT [facility] Lab Results: +/- 30 days of the encounter This section includes the Chemistry and Hematology Lab Results on record with [facility] for the patient. Radiology Reports and Pathology Reports are provided separately, in subsequent sections. Lab Results This section contains the Chemistry/Hematology Results that were resulted 30 days before or 30 daysafter the date of the Encounter. Date/Time Source Result Type Result - Unit Interpretation Reference Range Comment Apr 02, 2024 01:42 PM [facility] URINALYSIS Specimen Type: URINE Comment: If Glucose = >500 and Ketones are positive, please alert the Physician. Ordering Provider: ANTHONY SEWELL Report Released Date/Time: Mar 24, 2024 01:28 PM Reporting Lab: [address] [address] Performing Lab: [address] [address] UA COLOR Light-Yellow Yellow UA APPEARANCE Clear Clear UA GLUCOSE Normal mg/dL Negative UA KETONES NEGATIVE mg/dL Negative UA BLOOD NEGATIVE mg/dL Negative UA PROTEIN NEGATIVE mg/dL Negative UA NITRITE NEGATIVE mg/dL Negative UA BILIRUBIN NEGATIVE mg/dL Negative UA SPECIFIC GRAVITY 1.016 1.016-1.022 UA pH 6.5 5.0-9.0 UA UROBILINOGEN Normal mg/dL <2.0 UA LEUKOCYTE NEGATIVE Negative Apr 02, 2024 01:01 PM [facility] BASIC METABOLIC PANEL (fasting) Specime n Type: SERUM No comment entered. Ordering Provider: ANTHONY SEWELL Report Released Date/Time: Mar 24, 2024 01:28 PM Reporting Lab: [address] [address] Performing Lab: [address] [address] UREA NITROGEN 10 mg/dL 7-25 GLUCOSE 165 mg/dL H 65-100 SODIUM 138 mmol/L 135-145 POTASSIUM 4.0 mmol/L 3.5-5.0 CHLORIDE 107 mmol/L 100-110 CO2 23 meq/L 20-30 CREATININE, Serum 0.89 mg/dL 0.50-1.40 eGFR(CKD-EPI 2020) >90 mL/min >60 Apr 02, 2024 01:01 PM [facility] LIPID PANEL FASTING Specimen Type: SERUM No comment entered. Ordering Provider: ANTHONY SEWELL Report Released Date/Time: Mar 24, 2024 01:28 PM Reporting Lab: [address] [address] Performing Lab: [address] [address] CHOLESTEROL 220 mg/dL H TRIGLYCERIDE 146 mg/dL 0-150 LDL calculated 140 mg/dL H 0-129 CHOL/HDL 4.3 HDL CHOLESTEROL 51 mg/dL 40-60 Apr 02, 2024 01:01 PM [facility] LIVER FUNCTION Specimen Type: SERUM No comment entered. Ordering Provider: ANTHONY SEWELL Report Released Date/Time: Mar 24, 2024 01:28 PM Reporting Lab: [address] [address] Performing Lab: [address] [address] PROTEIN,TOTAL 7.1 g/dL 6.0-8.3 ALBUMIN 4.1 g/dL 3.5-5.0 ALKALINE PHOSPHATASE 57 U/L 40-150 AST 24 U/L 5-34 ALT 24 U/L BILIRUBIN, TOTAL 0.9 mg/dL 0.2-1.2 Apr 02, 2024 01:01 PM [facility] HEMOGLOBIN A1C PANEL Specimen Type: BLOOD Comment: [...] Mar 24, 2024 01:28 PM Reporting Lab: [facility] [address] [facility] [address] Performing Lab: [facility] [address] [facility] [address] HEMOGLOBIN A1C 5.2 4.0-5.6 Apr 02, 2024 01:01 PM [facility] [facility] TSH Specimen Type: SERUM No comment entered. Ordering Provider: ANTHONY SEWELL Report Released Date/Time: Mar 24, 2024 01:28 PM Reporting Lab: [facility] [address] [facility] [address] Performing Lab: [facility] [address] TSH 0.64 u[IU]/mL 0.35-5.00 Apr 02, 2024 01:01 PM [place] [facility] CALCIUM Specimen Type: SERUM No comment entered. Ordering Provider: ANTHONY SEWELL Report Released Date/Time: Mar 24, 2024 01:28 PM Reporting Lab: [facility] [address] [facility] [address] Performing Lab: [facility] [address] CALCIUM 9.4 mg/dL 8.5-10.2 Apr 02, 2024 01:01 PM [place] URIC ACID Specimen Type: SERUM No comment entered. Ordering Provider: ANTHONY SEWELL Report Released Date/Time: Mar 24, 2024 01:28 PM Reporting Lab: [facility] [address] [facility] [address] Performing Lab: [facility] [address] [address] URIC ACID 6.0 mg/dL 3.5-7.2 Apr 02, 2024 01:01 PM [place] [facility] CBC AND DIFF (AUTO) Specimen Type: BLOOD No comment entered. Ordering Provider: ANTHONY SEWELL Report Released Date/Time: Mar 24, 2024 01:28 PM Reporting Lab: [facility] [address] Performing Lab: [place] [facility] [address] [facility] [address] WBC 3.60 10*3/uL L 4.50-11.00 RBC 4.97 [...] 0.0 0.0-0.0 NRBC, ABS 0.00 10*3/uL 0.00-0.00 Vital Signs: All taken on the encounter date This section contains inpatient and outpatient Vital Signs collected on the date of the Encounter. Date/Time Temperature Pulse Blood Pressure Respiratory Rate SP02 Pain Height Weight Body Mass Index Source Apr 02, 2024 01:16 PM 75 139/87 18 99 202 32 [place] Social History: Smoking Status (Most current) and Tobacco Use (All prior to encounter date) This section includes the most current, and the historical, smoking and tobacco- related health factors from the [place] facility where the Encounter took place. Current Smoking Status This section includes the most current smoking, or tobacco-related health factor, from the [place] facility where the Encounter took place. Date/Time Current Smoking Status Comment Patricia ity Apr 02, 2024 01:00 PM VA-TOBACCO NEVER USED [facility] [facility] Tobacco Use History This section includes a history of the smoking, or tobacco-related health factors, that were collected on or before the date of the Encounter. The data comes from the [place] facility where the Encounter took place. Date/Time Smoking Status/Tobacco Use Comment F acility Jan 30, 2023 01:00 PM VA-TOBACCO NEVER USED [place] Feb 02, 2022 01:30 PM VA-TOBACCO NEVER USED [place] Feb 03, 2021 01:00 PM VA-TOBACCO NEVER USED [place] Jan 21, 2020 03:49 PM VA-TOBACCO NEVER USED [place] Oct 29, 2018 01:50 PM VA-TOBACCO NEVER USED [place] Radiology Reports: +/- 30 days of the [...] the Encounter. The data comes from all [place] treatment facilities. Date/Time Radiology Report Provider Source Apr 21, 2024 02:43 PM FOOT 3 OR MORE VIEWS(LEFT): STEPHEN GUILLEN [id number] -[id number] M Exm Date: APR 21, 2024@14:43 Req Phys: ANTHONY SEWELL Loc: CWM/SO/PACT 3 WH (Req'g Loc) Img Loc: [facility] [address] Service: [place] [address] (Case 75 COMPLETE) FOOT 3 OR MORE VIEWS(LEFT) (RAD Detailed) CPT:00097 CPT Modifiers : LT LEFT SIDE Reason for Study: heel spur Clinical History: request views for podiatry Report Status: Verified Date Reported: APR 21, 2024 Date Verified: APR 21, 2024 Operational Test Mechanic E-Sig:/ES/SANJANA LINK JR Report: Study: Weight-bearing AP, [...] Primary Interpreting Staff: SANJANA LINK JR, Radiologist (Operational Test Mechanic) /EAD SANJANA LINK JR [facility] Encounter Notes: All associated encounter notes This section contains the clinical notes associated to the Encounter. Date/Time Encounter Note(s) Provider Source Apr 29, 2024 01:12 PM LETTERS: LOCAL TITLE: PATIENT LETTER (T) STANDARD TITLE: LETTERS DATE OF NOTE: APR 29, 2024@13:12 ENTRY DATE: APR 29, 2024@13:12:56 AUTHOR: ANTHONY SEWELL COSIGNER: URGENCY: STATUS: COMPLETED DEPARTMENT OF [facility] Toll Free Number Primary Care Telephone Assistance can be reached at extension [phone] [facility] scheduling can be reached at extension [phone] [facility] scheduling can be reached at ext [phone] STEPHEN GUILLEN [address] [place] [place], [place], [address] Dear Romario, The foot x-ray do show a small bone spur of the heel. It is too small to get surgery. I hope you can get inserts from the foot doctor if he agrres that inserts are a good idea. ANTHONY SEWELL Physician Direct Support Professional Sincerely, Your Primary Care Team [facility] [address] [address] [place] [address] [phone] [facility] [address] [place] [address] [place] [address] [phone] [facility] [address] [facility],[address] [place] [address] [place] [address] ANTHONY SEWELL [place] Apr 02, 2024 01:15 PM PREVENTIVE MEDICIN E NURSING NOTE: LOCAL TITLE: CLINICAL REMINDERS/NURSING STANDARD TITLE: PREVENTIVE MEDICINE NURSING NOTE DATE OF NOTE: APR 02, 2024@13:15 ENTRY DATE: APR 02, 2024@13:15:29 AUTHOR: JOVANI ORLANDO EXP COSIGNER: URGENCY: STATUS: COMPLETED Advance Directive Screen MH AD: Patient does not have a completed advance directive on file at any facility, [place] or outside. S/he is not interested in completing one at this time. The patient received education about Advance Directives and written notification of his/her rights. BMI>30/>24.99 High Risk: At this visit, the health risks of obesity were reviewed and discussed with the , and the benefits of a weight management treatment program, such as [facility]! was discussed and offered to the . After discussing the health risks of being overweight or obese and providing information about available weight management treatment, and offering a referral to [facility] or another weight management treatment program outside the [facility], the patient DECLINES REFERRAL to [facility] or any other weight management treatment program at this time. Influenza Immunization: Deferral / Refusal The patient declines to receive the recommended dose of seasonal influenza vaccine. Immunization: INFLUENZA, UNSPECIFIED FORMULATION Refusal Reason: PATIENT DECISION Patient refuses all immunization(s) in the FLU group Date Documented: 04/02/24 13:17 COVID-19 Immunization: Refused Moderna Monovalent COVID-19 vaccine Immunization: COVID-19 (MODERNA), MRNA, LNP-S, PF, 50 MCG/0.5 ML (AGES 12+ YEARS) Refusal Reason: PATIENT DECISION Patient refuses all immunization(s) in the COVID-19 group Date Documented: 04/02/24 13:17 Pneumococcal Conjugate Vaccine (PCV15/PCV20): Refuses PCV vaccine Immunization: PNEUMOCOCCAL CONJUGATE, UNSPECIFIED FORMULATION Refusal Reason: PATIENT DECISION Patient refuses all immunization(s) in the PneumoPCV group Date Documented: 04/02/24 13:17 /nestor/ JOVANI ORLANDO LPN LICENSED PRACTICAL NURSE Signed: 04/02/2024 13:18 JOVANI ORLANDO [facility] [facility] Apr 02, 2024 01:07 PM PHYSICIAN ASSISTAN T NOTE: LOCAL TITLE: PA NOTE STANDARD TITLE: PHYSICIAN WRITER EDITOR NOTE DATE OF NOTE: APR 02, 2024@13:07 ENTRY DATE: APR 02, 2024@13:07:35 AUTHOR: ANTHONY SEWELL EXP COSIGNER: URGENCY: STATUS: COMPLETED S - routine eval O - HEENT: normocephalic NECK: supple mobile no bruits not tender and no adeno LUNGS: resp full reg unlabored; CTA b/l COR: RRR, no M ABD: soft and not tender EXT: no LLE or calf tendernes FEET: no palpable tenderness L heel LABS: results pending A/P - 1) Calcaneal Spur, L Foot - RADS: X-Ray, R Foot - CON: Podiatry after Films Complete 2) Hx Int and or Ext Hemorrhoids - CON: Screen Colonoscopy (last one in 2010) 3) HTN - BP 140/88; HR 74 - only on Zestril - stopped HCTZ 4) Lipidemia - Lipids pending - cont Lipitor 5) GERD - better - no longer uses PPI daily 6) Asthma - Mild Symptomatology of Late - has Inh's RTC NOV 13 - labs before Suicide Screen: C-SSRS Screening [place]-Suicide Severity Rating Scale (C-SSRS Screener) 1. Over the past month, have you wished you were or wished you could go to sleep and not wake up? No 2. Over the past month, have you had any actual thoughts of killing yourself? No 3. Over the past month, have you been thinking about how you might do this? Response not required due to responses to other questions. 4. Over the past month, have you had these thoughts and had some intention of acting on them? Response not required due to responses to other questions. 5. Over the past month, have you started to work out or worked out the details of how to kill yourself? Response not required due to responses to other questions. 6. If yes, at any time in the past month did you intend to carry out this plan? Response not required due to responses to other questions. 7. In your lifetime, have you ever done anything, started to do anything, or prepared to do anything to end your life (for example, collected pills, obtained a gun, gave away valuables, went to the roof but didn't jump)? No 8. If YES, was this within the past 3 months? Response not required due to responses to other questions. Depression Screening: Perform PHQ-2 A PHQ-2 screen was performed. The score was 0 which is a negative screen for depression. Over the past two weeks, how often have you been bothered by the following problems? 1. Little interest or pleasure in doing things Not at all 2. Feeling down, depressed, or hopeless Not at all Tobacco Use Screening: The patient has never used tobacco. Medication Reconciliation: Outpatient: Has the patient been taking medications as documented in the EMLR? YES: The patient has been taking medications as documented in the EMLR. Essential Medication List for Review used to complete this medication reconciliation. INCLUDED IN THIS LIST: Alphabetical list of active outpatient prescriptions dispensed from this [place] (local) and dispensed from another [facility] or [facility] facility (remote) as well as inpatient orders [...] whether with a [facility] or non-VA provider. Alcohol Use Screen (AUDIT-C): Alcohol Screen: SCREEN FOR ALCOHOL (AUDIT-C) An alcohol screening test (AUDIT-C) was negative (score=1). 1. How often did you have a drink containing alcohol in the past year? Consider a drink to be a 12 ounce can or bottle of regular beer, 8 ounces of malt liquor, a 5 ounce glass of table wine, or a 1.5 ounce shot of liquor (like scotch, gin, or vodka). Monthly or less 2. How many drinks containing alcohol did you have on a typical day when you were drinking in the past year? One or two drinks 3. How often did you have six or more drinks on one occasion in the past year? Never Avg Risk Colorectal Cancer Screen: AVERAGE RISK colorectal cancer screening is due based on information available to this clinical reminder Screening is due now. Colonoscopy consult has been ordered. See orders tab for details. /nestor/ ANTHONY SEWELL PA-C STAFF PHYSICIAN WRITER EDITOR Signed: 04/02/2024 13:28 ANTHONY SEWELL
--- OUTSIDE RECORDS SUMMARY | 2024-09-01 21:39 | XMS_ITS | Continuity of Care Document ---
Author Name [facility] Organization [facility] Care Team Providers Care Industrial Sales Manager Name Role Phone [facility] Unavailable Unavailable Problems Combined list of problems from Department of Defense and Veterans Affairs facilities. It does not include entries that were removed or entered in error. Problem Status Onset Date Problem Type Date of Resolution Comments Source Abdominal pain Active Condition Oct 212018 Entered By: ANTHONY SEWELL Comment: CT, ABD at ED [place] approx SEP 09;Nov 10, 2018 Entered By: ANTHONY SEWELL Comment: Dx: GERD?; no CAFeb 2019 Entered By: ANTHONY SEWELL Comment: CT, ABD AUG 10 [place]; No Intra-ABD Pathology [place] Asthma Active Condition Dec 29 Entered By: ANTHONY SEWELL Comment: New Presumed Onset in JANUARY 10 [place] Benign essential hypertension Active Condition [place] Benign essential microscopic hematuria Active Condition [place] Dyspepsia Active Condition Aug 02 Entered By: ANTHONY SEWELL Comment: Indigestion and Some Post-Prandial Bloating [place] Family history of prostate cancer Active Condition Nov 10, 2018 Entered By: ANTHONY SEWELL Comment: Uncles w/ BPH, Bx's; Actual Prostate CA? - Not Sure [place] Low back pain Active Condition Aug Entered By: ANTHONY SEWELL Comment: CT, L-Spine MAY 09: Unremarkable [place] Premature atrial contraction Active Condition Aug 24, 2019 Entered By: ANTHONY SEWELL Comment: PAC's AUG 10: EKG SEP 10: NSR; HR 64 [place] Screening for malignant neoplasm of colon done (SNOMED CT [id number] ) Active Condition Nov 10, 2018 Entered By: ANTHONY SEWELL Comment: Colonoscopies x 2 since 2010 and a Flex Sig 2018 Entered By: ANTHONY SEWELL Comment: Dx; Int Hemorrhoids; Never CRCJul 2020 Entered By: ANTHONY SEWELL Comment: repeat Colonoscopy 2020 - Still has Rectal Bld w/ BMJan 2022 Entered By: ANTHONY SEWELL Comment: Do New Colonocopy Consult in Jul Entered By: ANTHONY SEWELL Comment: Type One More Referral for Screen Colonoscopy APR 14 [place] Diagnosis: ICD-10-CM 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 Diagnosis [place] Diagnosis: ICD-10-CM R31.1 Benign essential microscopic hematuria Active Diagnosis [place] Diagnosis: ICD-10-CM Z46.0 Encounter for fit/adjst of spectacles and contact lenses Active Diagnosis [facility] Diagnosis: ICD-10-CM H25.13 Age-related nuclear cataract, bilateral Active Diagnosis [facility] Diagnosis: ICD-10-CM I10 Essential (primary) hypertension Active Diagnosis [place] Medications Combined list of outpatient medications from Department of Defense and Veterans Affairs facilities.Medications provided include 1) outpatient medications from the last 15 months, and 2) patient-reported medications. Medication Details Route Status Patient Instructions Prescription Expires Prescription Number Last Dispense Date Ordering Provider Order Date Order Qty Source ALBUTEROL 90MCG/ACTUA T (CFC-F) INHL,ORAL,8 .5GM DOSE COUNTER INHALE 1 PUFF BY MOUTH FOUR TIMES DAILY NEEDED ONLY USE IF YOU GET OUT OF BREATH RESPIR ATORY (INHAL ATION) ACTIVE 04/03/2025 [id number] 4 KASEY SEWELL 2023 1 [facility] IELD ALBUTEROL 90MCG/ACTUA T (CFC-F) INHL,ORAL,8 .5GM DOSE COUNTER INHALE 1 PUFF BY MOUTH FOUR TIMES DAILY NEEDED ONLY USE IF YOU GET OUT OF BREATH RESPIR ATORY (INHAL ATION) DISCONT INUED 09/04/2024 [id number] 4 KASEY SEWELL 2023 1 [place] ALBUTEROL 90MCG/ACTUA T (CFC-F) INHL,ORAL,8 .5GM DOSE COUNTER INHALE 1 PUFF BY MOUTH FOUR TIMES DAILY NEEDED ONLY USE IF YOU GET OUT OF BREATH RESPIR ATORY (INHAL ATION) DISCONT INUED 01/31/2024 [id number] 4 KASEY SEWELL 2022 1 [facility] IELD ATORVASTATI N [place] 80MG TAB TAKE ONE-HALF TABLET BY MOUTH ONCE DAILY FOR CHOLESTE ROL ORAL ACTIVE 04/03/2025 [id number] 4 KASEY SEWELL 2023 45 [place] CHOLECALCIF [place] 50MCG (2,000UNIT) TAB TAKE ONE TABLET BY MOUTH ONCE DAILY FOR VITAMIN SUPPLEME NTATION ORAL ACTIVE 09/04/2024 [id number] 4 KASEY SEWELL 2023 100 [place] CICLESONIDE 160MCG/SPRA Y INHL,ORAL,6 .1GM INHALE 1 PUFF BY MOUTH TWICE DAILY FOR ASTHMA --RINSE MOUTH AFTER EACH USE USE ONCE EVERY MORNING AND ONCE EVERY NIGHT TO PREVENT COUGH REPLAC ES ASMANEX [MOMETAS ONE] INHALER* * RESPIR ATORY (INHAL ATION) ACTIVE 04/03/2025 [id number] 4 KASEY SEWELL 2023 1 [place] CICLESONIDE 160MCG/SPRA Y INHL,ORAL,6 .1GM INHALE 1 PUFF BY MOUTH TWICE DAILY FOR ASTHMA --RINSE MOUTH AFTER EACH USE USE ONCE EVERY MORNING AND ONCE EVERY NIGHT TO PREVENT COUGH REPLAC ES ASMANEX [MOMETAS ONE] INHALER* * RESPIR ATORY (INHAL ATION) DISCONT INUED 09/04/2024 [id number] 4 KASEY SEWELL 2023 1 [place] CICLESONIDE 160MCG/SPRA Y INHL,ORAL,6 .1GM INHALE 1 PUFF BY MOUTH TWICE DAILY FOR ASTHMA --RINSE MOUTH AFTER EACH USE USE ONCE EVERY MORNING AND ONCE EVERY NIGHT TO PREVENT COUGH REPLAC ES ASMANEX [MOMETAS ONE] INHALER* * RESPIR ATORY (INHAL ATION) DISCONT INUED 01/31/2024 [id number] 4 KASEY SEWELL 2022 1 [facility] HYDROCHLORO THIAZIDE 25MG TAB TAKE ONE-HALF TABLET BY MOUTH ONCE DAILY TO PREVENT FLUID/CO NTROL BLOOD PRESSURE ORAL DISCONT INUED BY VENANCIO R 09/04/2024 [id number] 4 KASEY SEWELL 2023 45 [place] LISINOPRIL 30MG TAB TAKE ONE TABLET BY MOUTH ONCE DAILY TO CONTROL BLOOD PRESSURE ORAL DISCONT INUED 01/09/2024 [id number] 4 KASEY SEWELL 2023 90 [place] LISINOPRIL 30MG TAB TAKE ONE TABLET BY MOUTH EVERY DAY TO CONTROL BLOOD PRESSURE ORAL DISCONT INUED 09/04/2024 [id number] 4 KASEY SEWELL 2023 60 [place] LISINOPRIL 30MG TAB TAKE ONE TABLET BY MOUTH EVERY DAY TO CONTROL BLOOD PRESSURE ORAL DISCONT INUED (EDIT) 01/09/2024 [id number] 4 KASEY SEWELL 2023 90 [place] LISINOPRIL 30MG TAB TAKE ONE TABLET BY MOUTH EVERY DAY TO CONTROL BLOOD PRESSURE ORAL DISCONT INUED 01/31/2024 [id number] 4 KASEY SEWELL 2022 60 [place] LISINOPRIL 30MG TAB TAKE ONE TABLET BY MOUTH ONCE DAILY TO CONTROL BLOOD PRESSURE ORAL 07/01/2024 [id number] 4 KASEY SEWLEL 2023 90 [place] Immunizations Combined list of available immunizations from the Department of Defense and Veterans Affairs facilities. Immunization Series Date Given Administered By Site Reaction Lot Number CVX Code Drug Outsole Skiver Status Comments Source INFLUENZA, INJECTABLE, QUADRIVALENT, PRESERVATIVE FREE 2022 MIRIAN [place] F LEFT DELTO ID [id number] 150 complet ed [place] COVID-19 (PFIZER), MRNA, LNP-S, PF, 30 MCG/0.3 ML DOSE 3 2020 208 complet ed [facility] TDAP 2020 115 complet ed [place] ZOSTER RECOMBINANT 2 2020 187 complet ed [place] ZOSTER RECOMBINANT 1 2020 187 complet ed [place] COVID-19 (PFIZER), MRNA, LNP-S, PF, 30 MCG/0.3 ML DOSE 2 2020 208 complet ed [facility] COVID-19 (PFIZER), MRNA, LNP-S, PF, 30 MCG/0.3 ML DOSE 1 2020 208 complet ed [facility] TDAP 2010 115 complet ed outside pcp [facility] TDAP 2010 115 complet ed apprx mo and yr [facility] Results Combined list of recent chemistry, hematology and other laboratory results from Department of Defense and Veterans Affairs, ranging from 15 months to all on record, depending upon the facility. Order Name Results Value Reference Range Date Interpretation Specimen Comments Source URINALYS IS COLOR OF URINE Light-Ye llow 04/02 Specimen Type: URINE Comment: If Glucose = >500 and Ketones are positive, please alert the Physician. Ordering Provider: ANTHONY SEWELL Report Released Date/Time: Mar 24, 2024 01:28 PM Reporting Lab: [facility] [employer] [address] Performing Lab: [address] [address] [place] [employer] URINALYS IS APPEARANCE OF URINE Clear 04/02 Specimen Type: URINE Comment: If Glucose = >500 and Ketones are positive, please alert the Physician. Ordering Provider: ANTHONY SEWELL Report Released Date/Time: Mar 24, 2024 01:28 PM Reporting Lab: [facility] [employer] [facility] [address] Performing Lab: [address] [address] [employer] [place] URINALYS IS GLUCOSE [MASS/VOLU ME] IN URINE Normalmg /dL 04/02 Specimen Type: URINE Comment: If Glucose = >500 and Ketones are positive, please alert the Physician. Ordering Provider: ANTHONY SEWELL Report Released Date/Time: Mar 24, 2024 01:28 PM Reporting Lab: [facility] [employer], IncUSETS [address] [address] Performing Lab: [facility] [address] [address] [employer] [place] URINALYS IS KETONES [MASS/VOLU ME] IN URINE BY TEST STRIP NEGATIVE mg/dL 04/02 Specimen Type: URINE Comment: If Glucose = >500 and Ketones are positive, please alert the Physician. Ordering Provider: ANTHONY SEWELL Report Released Date/Time: Mar 24, 2024 01:28 PM Reporting Lab: [address] [address] Performing Lab: [address] [address] [place] URINALYS IS ERYTHROCYT ES [PRESENCE] IN URINE SEDIMENT BY LIGHT MICROSCOPY NEGATIVE mg/dL 04/02 Specimen Type: URINE Comment: If Glucose = >500 and Ketones are positive, please alert the Physician. Ordering Provider: ANTHONY SEWELL Report Released Date/Time: Mar 24, 2024 01:28 PM Reporting Lab: [address] [address] Performing Lab: [address] [address] [place] URINALYS IS PROTEIN [MASS/VOLU ME] IN URINE BY TEST STRIP NEGATIVE mg/dL 04/02 Specimen Type: URINE Comment: If Glucose = >500 and Ketones are positive, please alert the Physician. Ordering Provider: ANTHONY SEWELL Report Released Date/Time: Mar 24, 2024 01:28 PM Reporting Lab: [address] [address] Performing Lab: [address] [address] [place] URINALYS IS NITRITE [PRESENCE] IN URINE NEGATIVE mg/dL 04/02 Specimen Type: URINE Comment: If Glucose = >500 and Ketones are positive, please alert the Physician. Ordering Provider: ANTHONY SEWELL Report Released Date/Time: Mar 24, 2024 01:28 PM Reporting Lab: [address] [address] Performing Lab: [address] [address] [place] URINALYS IS BILIRUBIN. TOTAL [PRESENCE] IN URINE NEGATIVE mg/dL 04/02 Specimen Type: URINE Comment: If Glucose = >500 and Ketones are positive, please alert the Physician. Ordering Provider: ANTHONY SEWELL Report Released Date/Time: Mar 24, 2024 01:28 PM Reporting Lab: [address] [address] Performing Lab: [address] [address] [employer] [place] URINALYS IS SPECIFIC GRAVITY OF URINE BY REFRACTOME TRY 1.016 1.016 - 1.022 04/02 Specimen Type: URINE Comment: If Glucose = >500 and Ketones are positive, please alert the Physician. Ordering Provider: ANTHONY SEWELL Report Released Date/Time: Mar 24, 2024 01:28 PM Reporting Lab: [address] [address] Performing Lab: [address] [address] [employer] [place] URINALYS IS PH OF URINE BY TEST STRIP 6.5 5.0 - 9.0 04/02 Specimen Type: URINE Comment: If Glucose = >500 and Ketones are positive, please alert the Physician. Ordering Provider: ANTHONY SEWELL Report Released Date/Time: Mar 24, 2024 01:28 PM Reporting Lab: [address] [address] Performing Lab: [address] [address] [employer] [place] URINALYS IS UROBILINOG EN [MASS/VOLU ME] IN URINE BY TEST STRIP Normalmg /dL <2.0 - 2.0 04/02 Specimen Type: URINE Comment: If Glucose = >500 and Ketones are positive, please alert the Physician. Ordering Provider: ANTHONY SEWELL Report Released Date/Time: Mar 24, 2024 01:28 PM Reporting Lab: [address] [address] Performing Lab: [address] [address] [place] URINALYS IS LEUKOCYTE ESTERASE [PRESENCE] IN URINE BY TEST STRIP NEGATIVE 04/02 Specimen Type: URINE Comment: If Glucose = >500 and Ketones are positive, please alert the Physician. Ordering Provider: ANTHONY SEWELL Report Released Date/Time: Mar 24, 2024 01:28 PM Reporting Lab: [address] [address] Performing Lab: [address] [address] [place] LIPID PANEL FASTING CHOLESTERO L [MASS/VOLU ME] IN SERUM OR PLASMA 220 mg/dL 04/02 H Specimen Type: SERUM No comment entered. Ordering Provider: ANTHONY SEWELL Report Released Date/Time: Mar 24, 2024 01:28 PM Reporting Lab: [address] [address] Performing Lab: [address] [address] [place] LIPID PANEL FASTING TRIGLYCERI DE [MASS/VOLU ME] IN SERUM OR PLASMA 146 mg/dL 0 - 150 04/02 Specimen Type: SERUM No comment entered. Ordering Provider: ANTHONY SEWELL Report Released Date/Time: Mar 24, 2024 01:28 PM Reporting Lab: [address] [address] Performing Lab: [address] [address] [place] LIPID PANEL FASTING CHOLESTERO L IN LDL [MASS/VOLU ME] IN SERUM OR PLASMA BY CALCULATIO N 140 mg/dL 0 - 129 04/02 H Specimen Type: SERUM No comment entered. Ordering Provider: ANTHONY SEWELL Report Released Date/Time: Mar 24, 2024 01:28 PM Reporting Lab: [address] [address] Performing Lab: [address] [address] [place] LIPID PANEL FASTING CHOLESTERO L.TOTAL/CH OLESTEROL IN HDL [MASS RATIO] IN SERUM OR PLASMA 4.3 04/02 Specimen Type: SERUM No comment entered. Ordering Provider: ANTHONY SEWELL Report Released Date/Time: Mar 24, 2024 01:28 PM Reporting Lab: [address] [address] Performing Lab: [address] [address] [place] LIPID PANEL FASTING CHOLESTERO L IN HDL [MASS/VOLU ME] IN SERUM OR PLASMA 51 mg/dL 40 - 60 04/02 Specimen Type: SERUM No comment entered. Ordering Provider: ANTHONY SEWELL Report Released Date/Time: Mar 24, 2024 01:28 PM Reporting Lab: [address] [address] Performing Lab: [address] [address] [place] BASIC METABOLI C PANEL (fasting ) UREA NITROGEN [MASS/VOLU ME] IN SERUM OR PLASMA 10 mg/dL 7 - 25 04/02 Specimen Type: SERUM No comment entered. Ordering Provider: ANTHONY SEWELL Report Released Date/Time: Mar 24, 2024 01:28 PM Reporting Lab: [address] [address] Performing Lab: [address] [address] [place] BASIC METABOLI C PANEL (fasting ) GLUCOSE [MASS/VOLU ME] IN SERUM OR PLASMA 165 mg/dL 65 - 100 04/02 H Specimen Type: SERUM No comment entered. Ordering Provider: ANTHONY SEWELL Report Released Date/Time: Mar 24, 2024 01:28 PM Reporting Lab: [address] [address] Performing Lab: [address] [address] [place] BASIC METABOLI C PANEL (fasting ) SODIUM [MOLES/VOL UME] IN SERUM OR PLASMA 138 mmol/L 135 - 145 04/02 Specimen Type: SERUM No comment entered. Ordering Provider: ANTHONY SEWELL Report Released Date/Time: Mar 24, 2024 01:28 PM Reporting Lab: [address] [address] Performing Lab: [address] [address] [place] BASIC METABOLI C PANEL (fasting ) POTASSIUM [MOLES/VOL UME] IN SERUM OR PLASMA 4.0 mmol/L 3.5 - 5.0 04/02 Specimen Type: SERUM No comment entered. Ordering Provider: ANTHONY SEWELL Report Released Date/Time: Mar 24, 2024 01:28 PM Reporting Lab: [address] [address] Performing Lab: [address] [address] [place] BASIC METABOLI C PANEL (fasting ) CHLORIDE [MOLES/VOL UME] IN SERUM OR PLASMA 107 mmol/L 100 - 110 04/02 Specimen Type: SERUM No comment entered. Ordering Provider: ANTHONY SEWELL Report Released Date/Time: Mar 24, 2024 01:28 PM Reporting Lab: [address] [address] Performing Lab: [address] [address] [place] BASIC METABOLI C PANEL (fasting ) CARBON DIOXIDE, TOTAL [MOLES/VOL UME] IN SERUM OR PLASMA 23 meq/L 20 - 30 04/02 Specimen Type: SERUM No comment entered. Ordering Provider: ANTHONY SEWELL Report Released Date/Time: Mar 24, 2024 01:28 PM Reporting Lab: [address] [address] Performing Lab: [address] [address] [place] BASIC METABOLI C PANEL (fasting ) CREATININE [MASS/VOLU ME] IN SERUM OR PLASMA 0.89 mg/dL 0.50 - 1.40 04/02 Specimen Type: SERUM No comment entered. Ordering Provider: ANTHONY SEWELL Report Released Date/Time: Mar 24, 2024 01:28 PM Reporting Lab: [address] [address] Performing Lab: [address] [address] [place] BASIC METABOLI C PANEL (fasting ) GLOMERULAR FILTRATION RATE/1.73 SQ M.PREDICTE D [VOLUME RATE/AREA] IN SERUM, PLASMA OR BLOOD BY CREATININE -BASED FORMULA (CKD-EPI 2020) >90mL/mi n 60 04/02 Specimen Type: SERUM No comment entered. Ordering Provider: ANTHONY SEWELL Report Released Date/Time: Mar 24, 2024 01:28 PM Reporting Lab: [address] [address] Performing Lab: [address] [address] [place] LIVER FUNCTION PROTEIN [MASS/VOLU ME] IN SERUM OR PLASMA 7.1 g/dL 6.0 - 8.3 04/02 Specimen Type: SERUM No comment entered. Ordering Provider: ANTHONY SEWELL Report Released Date/Time: Mar 24, 2024 01:28 PM Reporting Lab: [address] [address] Performing Lab: [address] [address] [place] LIVER FUNCTION ALBUMIN [MASS/VOLU ME] IN SERUM OR PLASMA 4.1 g/dL 3.5 - 5.0 04/02 Specimen Type: SERUM No comment entered. Ordering Provider: ANTHONY SEWELL Report Released Date/Time: Mar 24, 2024 01:28 PM Reporting Lab: [address] [address] Performing Lab: [address] [address] [place] LIVER FUNCTION ALKALINE PHOSPHATAS E [ENZYMATIC ACTIVITY/V OLUME] IN SERUM OR PLASMA 57 U/L 40 - 150 04/02 Specimen Type: SERUM No comment entered. Ordering Provider: ANTHONY SEWELL Report Released Date/Time: Mar 24, 2024 01:28 PM Reporting Lab: [facility] [address] [facility] [address] Performing Lab: [address] [address] [place] LIVER FUNCTION ASPARTATE AMINOTRANS FERASE [ENZYMATIC ACTIVITY/V OLUME] IN SERUM OR PLASMA 24 U/L 5 - 34 04/02 Specimen Type: SERUM No comment entered. Ordering Provider: ANTHONY SEWELL Report Released Date/Time: Mar 24, 2024 01:28 PM Reporting Lab: [address] [address] Performing Lab: [address] [address] [place]IVER FUNCTION ALANINE AMINOTRANS FERASE [ENZYMATIC ACTIVITY/V OLUME] IN SERUM OR PLASMA 24 U/L 04/02 Specimen Type: SERUM No comment entered. Ordering Provider: ANTHONY SEWELL Report Released Date/Time: Mar 24, 2024 01:28 PM Reporting Lab: [address] [address] Performing Lab: [address] [address] [place]IVER FUNCTION BILIRUBIN. TOTAL [MASS/VOLU ME] IN SERUM OR PLASMA 0.9 mg/dL 0.2 - 1.2 04/02 Specimen Type: SERUM No comment entered. Ordering Provider: ANTHONY SWEELL Report Released Date/Time: Mar 24, 2024 01:28 PM Reporting Lab: [address] [address] Performing Lab: [address] [address] [place] HEMOGLOB IN A1C PANEL HEMOGLOBIN A1C/HEMOGL OBIN.TOTAL IN BLOOD BY HPLC 5.2 4.0 - 5.6 04/02 Specimen Type: BLOOD Comment: Values obtained from A1C measurement s can vary. For atypical A1C assays, a reported value of 7.0 could actually be between 6.72 and 7.28 if measured by a reference method. A reported value of 9.0 could actually be between 8.73 and 9.27. Ref: http://www. ngsp.org/[place] Pdata.asp Ordering Provider: ANTHONY SEWELL Report Released Date/Time: Mar 24, 2024 01:28 PM Reporting Lab: [address] [address] Performing Lab: [address] [address] [place] CBC AND DIFF (AUTO) LEUKOCYTES [#/VOLUME] IN BLOOD BY AUTOMATED COUNT 3.60 10*3/uL 4.50 - 11.00 04/02 L Specimen Type: BLOOD No comment entered. Ordering Provider: ANTHONY SEWELL Report Released Date/Time: Mar 24, 2024 01:28 PM Reporting Lab: [address] [address] Performing Lab: [address] [address] [place] CBC AND DIFF (AUTO) ERYTHROCYT ES [#/VOLUME] IN BLOOD BY AUTOMATED COUNT 4.97 10*6/uL 4.23 - 5.66 04/02 Specimen Type: BLOOD No comment entered. Ordering Provider: ANTHONY SEWELL Report Released Date/Time: Mar 24, 2024 01:28 PM Reporting Lab: [address] [address] Performing Lab: [address] [address] [place] CBC AND DIFF (AUTO) HEMOGLOBIN [MASS/VOLU ME] IN BLOOD 15.6 g/dL 12.8 - 17 04/02 Specimen Type: BLOOD No comment entered. Ordering Provider: ANTHONY SEWELL Report Released Date/Time: Mar 24, 2024 01:28 PM Reporting Lab: [address] [place] [address] Performing Lab: [facility] [address] [address] [place] CBC AND DIFF (AUTO) HEMATOCRIT [VOLUME FRACTION] OF BLOOD BY AUTOMATED COUNT 44.1 39.2 - 50.4 04/02 Specimen Type: BLOOD No comment entered. Ordering Provider: ANTHONY SEWELL Report Released Date/Time: Mar 24, 2024 01:28 PM Reporting Lab: [facility] [place] [address] [address] Performing Lab: [facility] [address] [address] [place] CBC AND DIFF (AUTO) MCV [ENTITIC VOLUME] BY AUTOMATED COUNT 88.7 fL 82 - 99 04/02 Specimen Type: BLOOD No comment entered. Ordering Provider: ANTHONY SEWELL Report Released Date/Time: Mar 24, 2024 01:28 PM Reporting Lab: [facility] [address] [address] Performing Lab: [facility] [address] [address] [place] CBC AND DIFF (AUTO) MCHC [MASS/VOLU ME] BY AUTOMATED COUNT 35.4 g/dL 30.8 - 35.1 04/02 H Specimen Type: BLOOD No comment entered. Ordering Provider: ANTHONY SEWELL Report Released Date/Time: Mar 24, 2024 01:28 PM Reporting Lab: [facility] [place] [address] [address] Performing Lab: [facility] [address] [address] [place] CBC AND DIFF (AUTO) PLATELETS [#/VOLUME] IN BLOOD BY AUTOMATED COUNT 234 10*3/uL 140 - 360 04/02 Specimen Type: BLOOD No comment entered. Ordering Provider: ANTHONY SEWELL Report Released Date/Time: Mar 24, 2024 01:28 PM Reporting Lab: [facility] [place] [address] [address] Performing Lab: [facility] [address] [facility] [address] [place] CBC AND DIFF (AUTO) ERYTHROCYT E DISTRIBUTI ON WIDTH [RATIO] BY AUTOMATED COUNT 11.8 12.0 - 16.0 04/02 L Specimen Type: BLOOD No comment entered. Ordering Provider: ANTHONY SEWELL Report Released Date/Time: Mar 24, 2024 01:28 PM Reporting Lab: [facility] [place] [facility] [address] [facility] [address] Performing Lab: [facility] [address] [place] CBC AND DIFF (AUTO) MONOCYTES [#/VOLUME] IN BLOOD BY AUTOMATED COUNT 0.28 10*3/uL 0.30 - 1.10 04/02 L Specimen Type: BLOOD No comment entered. Ordering Provider: ANTHONY SEWELL Report Released Date/Time: Mar 24, 2024 01:28 PM Reporting Lab: [facility] [place] [facility] [address] [facility] [address] Performing Lab: [facility] [address] [address] [place] CBC AND DIFF (AUTO) MCH [ENTITIC MASS] BY AUTOMATED COUNT 31.4 pg 26.2 - 32.6 04/02 Specimen Type: BLOOD No comment entered. Ordering Provider: ANTHONY SEWELL Report Released Date/Time: Mar 24, 2024 01:28 PM Reporting Lab: [facility] [place] [facility] [address] [facility] [address] Performing Lab: [facility]TR[facility] [address] [address] [place] CBC AND DIFF (AUTO) NEUTROPHIL S/100 LEUKOCYTES IN BLOOD BY AUTOMATED COUNT 56.1 43.7 - 75.8 04/02 Specimen Type: BLOOD No comment entered. Ordering Provider: ANTHONY SEWELL Report Released Date/Time: Mar 24, 2024 01:28 PM Reporting Lab: [facility] [address] [address] Performing Lab: [facility]ITALUSEMICHA[place] [address] [facility] [address] [place] CBC AND DIFF (AUTO) LYMPHOCYTE S/100 LEUKOCYTES IN BLOOD BY AUTOMATED COUNT 30.8 14.0 - 42.3 04/02 Specimen Type: BLOOD No comment entered. Ordering Provider: ANTHONY SEWELL Report Released Date/Time: Mar 24, 2024 01:28 PM Reporting Lab: [facility] [address] [address] Performing Lab: [facility] [address] [address] [place] CBC AND DIFF (AUTO) MONOCYTES/ 100 LEUKOCYTES IN BLOOD BY AUTOMATED COUNT 7.8 5.1 - 13.7 04/02 Specimen Type: BLOOD No comment entered. Ordering Provider: ANTHONY SEWELL Report Released Date/Time: Mar 24, 2024 01:28 PM Reporting Lab: [facility] [address] [address] Performing Lab: [facility] [address] [address] [place] CBC AND DIFF (AUTO) EOSINOPHIL S/100 LEUKOCYTES IN BLOOD BY AUTOMATED COUNT 4.2 0.4 - 6.8 04/02 Specimen Type: BLOOD No comment entered. Ordering Provider: ANTHONY SEWELL Report Released Date/Time: Mar 24, 2024 01:28 PM Reporting Lab: [facility] [address] [address] Performing Lab: [facility] [address] [address] [place] CBC AND DIFF (AUTO) BASOPHILS/ 100 LEUKOCYTES IN BLOOD BY AUTOMATED COUNT 0.8 0.1 - 2.0 04/02 Specimen Type: BLOOD No comment entered. Ordering Provider: ANTHONY SEWELL Report Released Date/Time: Mar 24, 2024 01:28 PM Reporting Lab: [facility] [address] [address] Performing Lab: [facility] [address] [address] [place] CBC AND DIFF (AUTO) NEUTROPHIL S [#/VOLUME] IN BLOOD BY AUTOMATED COUNT 2.02 10*3/uL 2.20 - 7.60 04/02 L Specimen Type: BLOOD No comment entered. Ordering Provider: ANTHONY SEWELL Report Released Date/Time: Mar 24, 2024 01:28 PM Reporting Lab: [address] [address] Performing Lab: [address] [address] [place] CBC AND DIFF (AUTO) LYMPHOCYTE S [#/VOLUME] IN BLOOD BY AUTOMATED COUNT 1.11 10*3/uL 1.00 - 3.20 04/02 Specimen Type: BLOOD No comment entered. Ordering Provider: ANTHONY SEWELL Report Released Date/Time: Mar 24, 2024 01:28 PM Reporting Lab: [address] [address] Performing Lab: [address] [address] [place] CBC AND DIFF (AUTO) EOSINOPHIL S [#/VOLUME] IN BLOOD BY AUTOMATED COUNT 0.15 10*3/uL 0.03 - 0.44 04/02 Specimen Type: BLOOD No comment entered. Ordering Provider: ANTHONY SEWELL Report Released Date/Time: Mar 24, 2024 01:28 PM Reporting Lab: [address] [address] Performing Lab: [address] [address] [place] CBC AND DIFF (AUTO) BASOPHILS [#/VOLUME] IN BLOOD BY AUTOMATED COUNT 0.03 10*3/uL 0.01 - 0.13 04/02 Specimen Type: BLOOD No comment entered. Ordering Provider: ANTHONY SEWELL Report Released Date/Time: Mar 24, 2024 01:28 PM Reporting Lab: [address] [address] Performing Lab: [address] [address] [place] CBC AND DIFF (AUTO) IMMATURE GRANULOCYT ES/100 LEUKOCYTES IN BLOOD BY AUTOMATED COUNT 0.3 0.0 - 0.7 04/02 Specimen Type: BLOOD No comment entered. Ordering Provider: ANTHONY SEWELL Report Released Date/Time: Mar 24, 2024 01:28 PM Reporting Lab: [facility] [address] [address] Performing Lab: [facility] [address] [address] [place] CBC AND DIFF (AUTO) IMMATURE GRANULOCYT ES [#/VOLUME] IN BLOOD 0.01 10*3/uL 0.00 - 0.06 04/02 Specimen Type: BLOOD No comment entered. Ordering Provider: ANTHONY SEWELL Report Released Date/Time: Mar 24, 2024 01:28 PM Reporting Lab: [address] [address] Performing Lab: [address] [address] [place] CBC AND DIFF (AUTO) NRBC % 0.0 0.0 - 0.0 04/02 Specimen Type: BLOOD No comment entered. Ordering Provider: ANTHONY SEWELL Report Released Date/Time: Mar 24, 2024 01:28 PM Reporting Lab: [address] [address] Performing Lab: [address] [address] [place] CBC AND DIFF (AUTO) NRBC, ABS 0.00 10*3/uL 0.00 - 0.00 04/02 Specimen Type: BLOOD No comment entered. Ordering Provider: ANTHONY SEWELL Report Released Date/Time: Mar 24, 2024 01:28 PM Reporting Lab: [address] [address] Performing Lab: [address] [address] [place] TSH THYROTROPI N [UNITS/VOL UME] IN SERUM OR PLASMA 0.64 u[IU]/mL 0.35 - 5.00 04/02 Specimen Type: SERUM No comment entered. Ordering Provider: ANTHONY SEWELL Report Released Date/Time: Mar 24, 2024 01:28 PM Reporting Lab: [facility] [address] [facility] [address] Performing Lab: [address] [address] [place] CALCIUM CALCIUM [MASS/VOLU ME] IN SERUM OR PLASMA 9.4 mg/dL 8.5 - 10.2 04/02 Specimen Type: SERUM No comment entered. Ordering Provider: ANTHONY SEWELL Report Released Date/Time: Mar 24, 2024 01:28 PM Reporting Lab: [address] [address] Performing Lab: [address] [address] [place] URIC ACID URATE [MASS/VOLU ME] IN SERUM OR PLASMA 6.0 mg/dL 3.5 - 7.2 04/02 Specimen Type: SERUM No comment entered. Ordering Provider: ANTHONY SEWELL Report Released Date/Time: Mar 24, 2024 01:28 PM Reporting Lab: [address] [address] Performing Lab: [address] [address] [place] LIVER FUNCTION PROTEIN [MASS/VOLU ME] IN SERUM OR PLASMA 7.3 g/dL 6.0 - 8.3 09/02 Specimen Type: SERUM No comment entered. Ordering Provider: ANTHONY SEWELL Report Released Date/Time: Jan 30, 2023 01:28 PM Reporting Lab: [address] [address] Performing Lab: [address] [address] [place] LIVER FUNCTION ALBUMIN [MASS/VOLU ME] IN SERUM OR PLASMA 4.2 g/dL 3.5 - 5.0 09/02 Specimen Type: SERUM No comment entered. Ordering Provider: ANTHONY SEWELL Report Released Date/Time: Jan 30, 2023 01:28 PM Reporting Lab: [facility] [address] [facility] [address] Performing Lab: [facility] [address] [address] [place] LIVER FUNCTION ALKALINE PHOSPHATAS E [ENZYMATIC ACTIVITY/V OLUME] IN SERUM OR PLASMA 64 U/L 40 - 150 09/02 Specimen Type: SERUM No comment entered. Ordering Provider: ANTHONY SEWELL Report Released Date/Time: Jan 30, 2023 01:28 PM Reporting Lab: [facility] [address] [address] Performing Lab: [facility] [address] [address] [place] LIVER FUNCTION ASPARTATE AMINOTRANS FERASE [ENZYMATIC ACTIVITY/V OLUME] IN SERUM OR PLASMA 19 U/L 5 - 34 09/02 Specimen Type: SERUM No comment entered. Ordering Provider: ANTHONY SEWELL Report Released Date/Time: Jan 30, 2023 01:28 PM Reporting Lab: [facility] [address] [address] Performing Lab: [facility] [address] [place] LIVER FUNCTION ALANINE AMINOTRANS FERASE [ENZYMATIC ACTIVITY/V OLUME] IN SERUM OR PLASMA 22 U/L 09/02 Specimen Type: SERUM No comment entered. Ordering Provider: ANTHONY SEWELL Report Released Date/Time: Jan 30, 2023 01:28 PM Reporting Lab: [facility] [address] [address] Performing Lab: [facility] [address] [address] [facility] LIVER FUNCTION BILIRUBIN. TOTAL [MASS/VOLU ME] IN SERUM OR PLASMA 0.8 mg/dL 0.2 - 1.2 09/02 Specimen Type: SERUM No comment entered. Ordering Provider: ANTHONY SEWELL Report Released Date/Time: Jan 30, 2023 01:28 PM Reporting Lab: [facility] [address] [facility] [address] Performing Lab: [place] [facility] [address] [facility] [address] [facility] Vital Signs Combined list of inpatient and outpatient Vital Signs from Department of Defense and Veterans Affairs, ranging from 12 months to all on record, depending upon the facility. Vital Sign Value Date Comments Source SYSTOLIC BLOOD PRESSURE 139 04/02/2024 13:16:11 [place] DIASTOLIC BLOOD PRESSURE 87 04/02/2024 13:16:11 [place] PULSE OXIMETRY 99 04/02/2024 13:16:11 [place] WEIGHT 202 04/02/2024 13:16:11 [place] BMI 32 kg/m2 04/02/2024 13:16:11 [place] PULSE 75 04/02/2024 13:16:11 [place] RESPIRATION 18 04/02/2024 13:16:11 [place] Encounters Combined list of: 1) Encounters from Department of Veterans Affairs facilities going backup to the last 18 months, not all MD inpatient encounters are included; 2) Encounters from the Department of Defense facilities going backup to 280 months. Location Location Details Encounter Type Encounter Number Reason For Visit Attending Provider ADM Date DC Date Status Disposition Source [facility] [place] [facility] Outpatient Encounter [id number] 04/10 [place] [facility] [facility] [place] [facility] Outpatient Encounter [id number] 09/04 [place] [facility] [facility] OFFICE O/P EST MOD 30 MIN [id number] Diagnos is: ICD-10- CM I10 Essenti al (primar y) hyperte nsrefugio DOMINIQUE SEWELL 09/04 [place] [facility] [place] [facility] COMPRE OPH EXAM EST PT 1/> [id number] Diagnos is: ICD-10- CM H25.13 Age-rel ated nuclear catarac t, bilater al ROGELIO PUENTE 09/22 [facility] [place] FIT SPECTACLES MONOFOCAL [id number] Diagnos is: ICD-10- CM Z46.0 Encount er for fit/adj st of spectac les and contact lenses ROGELIO PUENTE 09/23 [facility] Out[facility] Encounter [id number] JOSE MERCADO 10/03 [facility] [place] En[facility] [id number] 10/23 [facility] [place] Encounter [id number] 12/22 [facility] [place] Encounter [id number] 12/23 [facility] [place] [facility] Encounter [id number] 02/03 [facility] [place] Encounter [id number] 1.04/02 [facility] [place] En[facility] [id number] 1.04/02 [facility] [place] [facility] OFFICE O/P EST MOD 30 MIN [id number] Diagnos is: ICD-10- CM R31.1 Benign essenti al microsc opic hematur DOMINIQUE Guo 04/02 [place] [facility] Outpatient Encounter [id number] 1.04/16 [facility] [place] [facility] [facility] [place] Outpatient Encounter [id number] 1.04/16 [facility] [place] [facility] OFFICE O/P NEW LOW 30 MIN [id number] Diagnos is: ICD-10- CM M72.2 Plantar fascial fibroma RONEY Mireles ES F 04/24 [facility] [place] [facility] [place] [facility] Outpatient Encounter [id number] 1.05/27 [facility] [place] [place] [facility] [place] [facility] Outpatient Encounter [id number] [facility] [place] [facility] Social History Combined list of available smoking, tobacco, and other social history from Department of Defense and Veterans Affairs facilities. Social History Type Response Date Comment Sour e Tobacco smoking status AZIS MD-TOBACCO NEVER USED 04/02/20 [place] History of tobacco use MD-TOBACCO NEVER USED 01/30/2023 [place] History of tobacco use MD-TOBACCO NEVER USED 02/02/2022 [place] History of tobacco use MD-TOBACCO NEVER USED 02/03/2021 [place] History of tobacco use MD-TOBACCO NEVER USED 01/21/2020 [place] History of tobacco use MD-TOBACCO NEVER USED 10/29/2018 [place] Plan of Care List of future care activities from Department of Veterans Affairs facilities. Additional future care activities may be listed in the Assessment and Plan section. Date/Time Care Activity Care Activity Detail Facili ty 10/13/2024 AMBULATORY - MEDICINE [facility] [place] [facility] 11/02/2024 AMBULATORY - MEDICINE AM[facility]ULATORY [facility] [place]
--- OUTSIDE RECORDS SUMMARY | 2024-09-01 21:39 | XMS_ITS | Encounter Summary ---
Author Name [facility] [place] [facility] [place] [facility] [place] Address [address] [place] [address] Care Team Providers Care Auditing Control Clerk Name Role Phone ANTHONY SEWELL Primary Care Provider Unavailabl e Selected Encounter This section includes the information on record at [facility] for the Encounter. Date/Time Encounter Type Encounter Description Reason Pro vider Source IHE Encounter Template Text not used by [place]
[2024-09-01 22:28] VITALS: BP 134/78; PULSE 75; RESP 19; TEMP 36.6; O2SAT 97
[2024-09-01 23:35] VITALS: BP 0/0; PULSE 0; RESP 0; TEMP -17.7; TEMP 0; O2SAT 0
[2024-09-01] MEDS: predniSONE 20 MG TABLET 40 MG PO (23:47)
== END 2024-09-02 00:04 | disposition home or self-care (01) ==
PROVIDERS: Physician Assistant; Emergency Provider Emergency Medicine Emergency Medical Services
DX: J40 Bronchitis, not specified as acute or chronic (principal); R06.02 Shortness of breath; R05.9 Cough, unspecified; Z03.818 Encounter for observation for suspected exposure to other biological agents ruled out
CPT/HCPCS: 0241U; 71045; 87651; 94640; 99283; 99284

== ENCOUNTER → 2024-09-01 15:02 | Outpatient (BNV) | payer OTHER, SELFPAY | PROVIDERS: Visit Provider Radiology Diagnostic Radiology | DX: R05.9 Cough, unspecified (principal) | CPT/HCPCS: 71045 ==

== ENCOUNTER 2024-09-21 12:54 | Emergency (ER) | payer OTHER, SELFPAY ==
--- NOTE | ~2024-09-21 | XR_ITS ---
EXAMINATION: XR CHEST CLINICAL INFORMATION: cough COMPARISON: Chest x-ray 09/01/2024. TECHNIQUE: 2 views of the chest were obtained. FINDINGS: No significant abnormality is noted involving the heart, lungs, mediastinum, bony thorax or soft tissues. XR/XR chest 2V IMPRESSION: Unremarkable chest examination. Electronically signed by: John Paul Carrillo MD 09/21/2024 02:57 PM [facility]
[2024-09-21 14:12] VITALS: BP 150/88; PULSE 94; RESP 18; TEMP 36.6; O2SAT 96; BMI 27.4
--- NOTE | 2024-09-21 14:13 | ED.GENADULT ---
HPI - General Adult General Chief complaint: Upper Respiratory Symptoms Stated complaint: asthma, diff breathing Source: patient Mode of arrival: ambulatory Limitations: no limitations History of Present Illness ED Provider: Dr. Rose HPI narrative: 59-year-old male presents emergency department complaining of cough. Patient was seen here several weeks ago diagnosed with bronchitis and was sent home with azithromycin and prednisone. Patient also had scripts for albuterol as he has a nebulizer at home he states he is here today for the same he states he did feel better initially after treatment but states he is starting to feel worse he denies any falls or injuries chest pain nausea vomiting or diarrhea. Patient did have COVID flu RSV and a Related Data Previous Rx's ?Medication ?Instructions ?Recorded polyethylene glycol 3350 17 17 g PO DAILY #238 grams 06/11/22 gram/dose oral powder (Miralax) sennosides 8.6 mg capsule (senna) 8.6 mg PO BEDTIME #20 caps 06/11/22 albuterol sulfate 90 mcg/actuation 2 puff inhalation Q4-6H PRN 01/01/23 aerosol inhaler (ProAir HFA) shortness of breath or wheezing #8.5 grams amoxicillin 875 mg-potassium 1 tab PO BID #20 tabs 01/01/23 clavulanate 125 mg tablet prednisone 20 mg tablet 40 mg (2 x 20 mg) PO DAILY #10 tabs 01/01/23 azithromycin 250 mg tablet See Rx Instructions PO .COMPLEX #6 10/04/23 tabs fluticasone 100 mcg-salmeterol 50 1 inh inhalation BID #60 ea 10/04/23 mcg/dose blistr powdr for inhalation (Wixela Inhub) prednisone 20 mg tablet 40 mg (2 x 20 mg) PO DAILY 4 days 10/04/23 #8 tabs azithromycin 250 mg tablet See Rx Instructions PO .COMPLEX #6 04/16/24 (Zithromax Z-Marshall) tabs hydrocodone-homatropine 5 mg-1.5 5 ml PO Q6H PRN cough #60 mL 04/16/24 mg/5 mL oral syrup (Hycodan (with homatropine)) prednisone 20 mg tablet 40 mg (2 x 20 mg) PO DAILY #10 tabs 04/16/24 albuterol sulfate 2.5 mg/3 mL 2.5 mg (3 mL) inhalation Q4-6H PRN 09/01/24 (0.083 %) solution for nebulization shortness of breath or wheezing #90 mL azithromycin 250 mg tablet See Rx Instructions PO .COMPLEX #6 09/01/24 tabs prednisone 20 mg tablet 20 mg PO BID #8 tabs 09/01/24 benzonatate 100 mg capsule 100 mg PO BID PRN cough #20 caps 09/21/24 prednisone 10 mg tablet 10 mg PO DIRECTED copd #52 tabs 09/21/24 Allergies Allergy/AdvReac Type Severity Reaction Status Date / Time No Known Allergies Allergy Verified 09/21/24 14:15 [No Known Allergies*] Review of Systems Review of Systems: Review of systems: General: Patient denies any fever chills recent illness or falls Musculoskeletal: Denies back pain or body aches or other injuries HEENT: denies headache, runny nose, ear pain Respiratory: shortness of breath, cough Cardiovascular: no chest pain or palpitations : denies dysuria, frequency Abdomen: no nausea vomiting denies abdominal pain Extremities: no swelling, no pain Skin: no diaphoresis Yes all other systems are reviewed and are negative PMFSH Past Medical History Medical History Asthma Social History Social History (Updated 10/04/23 @ 23:32 by Barb Millard DO) Patient Tobacco Use Status: Never used Tobacco Physical Exam ED Vital Signs: Vital Signs - 24 hr 09/21/24 14:12 Temperature 98 F Pulse Rate 94 Respiratory Rate 18 Blood Pressure 150/88 H Pulse Oximetry 96 Oxygen Delivery Method Room Air BMI result Body Mass Index 27.4 General: Well-appearing well-nourished in no signs of distress HEENT: Normocephalic atraumatic Neck: No signs of JVD, no masses no tenderness or lymphadenopathy Cardiovascular: Regular rate and rhythm Respiratory: Wheezing bilaterally Abdomen: Soft nontender no masses Extremities: Normal pedal pulses no signs of edema Skin: Dry warm no rashes Back: No tenderness full ROM Course Course Course Narrative: RME performed by [place] PA-C. Patient is a 59 year old assigned male at presenting to the emergency department with a cough. Patient states that he was seen here on 09/01/2024 and diagnosed with bronchitis. Patient states that he was getting better but now it is getting worse again. Patient states that he has an appointment with a auto vinyl top installer but he isn't sure when as the [place] is coordinating it. Detailed physical exam and review of systems are deferred to the substance abuse clinician. Imaging and swabs ordered. Patient placed back in the waiting room pending room availability and results. Medical Decision Making Medical Decision Making [facility] Narrative: patient looks remarkably well I do not think there is any indication to start the patient on azithromycin units the patient has no signs of infection there is a negative x-ray and he looks otherwise well I do think the patient benefit from prednisone he will send her home with Satnam Banks and follow up with his doctor. As the patient is currently sitting in the hallway or in the waiting room do not think the patient needs to get any breathing treatment I do not think we can give them while the patient is sitting in the hallway he is okay with this plan he does not want to wait for a room to breathing treatments and states he has a nebulizer at home. Differential Diagnosis Differential Diagnoses: The differential diagnosis associated with the presentation includes pneumonia COVID flu RSV asthma exacerbation Lab Data [facility] Lab Attestation statement: I reviewed the patient's lab results. Labs: Lab Results 09/21/24 Range/Units 14:17 Influenza Type A (PCR) NEGATIVE (Negative) Influenza Type B (PCR) NEGATIVE (Negative) RSV RNA Qual (PCR) NEGATIVE (Negative) SARS-CoV-2 RNA (RT-PCR) NEGATIVE (Negative) Independent Interpretation I performed an independent interpretation of an: Plain X-Ray Radiology Impression Discussion of test interpretation with radiology: I have reviewed the radiologist's reading. Discharge Plan Discharge Clinical Impression: Bronchitis Patient Disposition: Home, Self-Care Prescriptions: New prednisone 10 mg tablet 10 mg PO DIRECTED Qty: 52 0RF Rx Instructions: see taper instructions. Please take 6 tabs for 5 days then 5 tabs for 5 days then 4 tabs for 5 days then 3 tabs for 5 days then 2 tabs for 5 days then 1 tab for 5days benzonatate 100 mg capsule 100 mg PO BID PRN (Reason: cough) Qty: 20 0RF No Action polyethylene glycol 3350 [Miralax] 17 gram/dose powder 17 g PO DAILY Qty: 238 0RF senna 8.6 mg capsule 8.6 mg PO BEDTIME Qty: 20 0RF azithromycin 250 mg tablet See Rx Instructions .ROUTE .COMPLEX Qty: 6 0RF Rx Instructions: For 250 mg dose pack: take 500 mg today (day 1), then 250 mg for 4 days (days 2-5) prednisone 20 mg tablet 40 mg PO DAILY 4 Days Qty: 8 0RF fluticasone propion-salmeterol [Wixela Inhub] 100-50 mcg/dose blister with device 1 inh inhalation BID Qty: 60 0RF Rx Instructions: rinse mouth after use prednisone 20 mg tablet 40 mg PO DAILY Qty: 10 0RF hydrocodone-homatropine [Hycodan (with homatropine)] 5-1.5 mg/5 mL syrup 5 ml PO Q6H PRN (Reason: cough) Qty: 60 0RF Rx Instructions: Partial Fill upon patient request. azithromycin [Zithromax Z-Marshall] 250 mg tablet See Rx Instructions PO .COMPLEX Qty: 6 0RF Rx Instructions: take 500 mg today (day 1), then 250 mg for 4 days (days 2-5) albuterol sulfate [ProAir HFA] 90 mcg/actuation HFA aerosol inhaler 2 puff inhalation Q4-6H PRN (Reason: shortness of breath or wheezing) Qty: 8.5 0RF amoxicillin-pot clavulanate 875-125 mg tablet 1 tab PO BID Qty: 20 0RF prednisone 20 mg tablet 40 mg PO DAILY Qty: 10 0RF albuterol sulfate 2.5 mg /3 mL (0.083 %) solution for nebulization 2.5 mg inhalation Q4-6H PRN (Reason: shortness of breath or wheezing) Qty: 90 0RF azithromycin 250 mg tablet See Rx Instructions .ROUTE .COMPLEX Qty: 6 0RF Rx Instructions: For 250 mg dose pack: take 500 mg today (day 1), then 250 mg for 4 days (days 2-5) prednisone 20 mg tablet 20 mg PO BID Qty: 8 0RF Print Language: Uruguayan
[2024-09-21 15:05] LABS: Influenza A PCR NEGATIVE (Negative); Influenza B PCR NEGATIVE (Negative); Resp Syncy Virus RNA Qual PCR NEGATIVE (Negative); SARS COV2 PCR INHOUSE NEGATIVE (Negative)
--- OUTSIDE RECORDS SUMMARY | 2024-09-21 20:35 | XMS_ITS | Clinical Summary ---
Author Organization [employer] [facility] ity Address [address] [place] [address] Care Team Providers Care Chief Of [employer] Name Role Phone Unavailable Primary Care Provider [...] of 3 - 19+ 3-dose series) 02/22/1984 Pneumococcal Vaccine: 50+ Ye ars (1 of 1 - PCV) 2015 Zoster Vaccines (1 of 2) 2015 COVID-19 Vaccine ( - 2023-2 5 season) 2024 Influenza Vaccine (#1) 2024 [...] patient's age to complete this topic Meningococcal B Vacine Aged Out No lo nger eligible based on patient's age to complete [...]
--- OUTSIDE RECORDS SUMMARY | 2024-09-21 20:36 | XMS_ITS | Continuity of Care Document ---
Author Name [facility] Organization [facility] Care Team Providers Care Electrical Calibrator Name Role Phone [facility] Unavailable Unavailable Problems Combined list of problems from Department of Defense and Veterans Affairs facilities. It does not include entries that were removed or entered in error. Problem Status Onset Date Problem Type Date of Resolution Comments Source Abdominal pain Active Condition Oct 212018 Entered By: ANTHONY SEWELL Comment: CT, ABD at ED [place] approx SEP 09;Nov 10, 2018 Entered By: ANTHONY SEWELL Comment: Dx: GERD?; no CAFeb 2019 Entered By: ANTHONY SEWELL Comment: CT, ABD AUG 10 [place]; No Intra-ABD Pathology [place] Asthma Active Condition Dec 29 Entered By: ANTHONY SEWELL Comment: New Presumed Onset in JANUARY 10 [place] Benign essential hypertension Active Condition [place] Benign essential microscopic hematuria Active Condition [place] Dyspepsia Active Condition Aug 02 Entered By: ANTHONY SEWELL Comment: Indigestion and Some Post-Prandial Bloating [place] Family history of prostate cancer Active Condition Nov 10, 2018 Entered By: ANTHONY SEEWLL Comment: Uncles w/ BPH, Bx's; Actual Prostate CA? 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 Diagnosis [place] Diagnosis: ICD-10-CM R31.1 Benign essential microscopic hematuria Active Diagnosis [place] Diagnosis: ICD-10-CM Z46.0 Encounter for fit/adjst of spectacles and contact lenses Active Diagnosis [facility] Diagnosis: ICD-10-CM H25.13 Age-related nuclear cataract, bilateral Active Diagnosis [facility] Diagnosis: ICD-10-CM I10 Essential (primary) hypertension Active Diagnosis [place] Medications Combined list of outpatient medications from [...] BREATH RESPIR ATORY (INHAL ATION) ACTIVE 04/03/2025 [id number] 4 KASEY SEWELL 2023 1 [facility] IELD ALBUTEROL 90MCG/ACTUA T (CFC-F) INHL,ORAL,8 .5GM DOSE COUNTER INHALE 1 PUFF BY MOUTH FOUR TIMES DAILY NEEDED ONLY USE IF YOU GET OUT OF BREATH RESPIR ATORY (INHAL ATION) DISCONT INUED 09/04/2024 [id number] 4 KASEY SEWELL 2023 1 [place] ALBUTEROL 90MCG/ACTUA T (CFC-F) INHL,ORAL,8 .5GM DOSE COUNTER INHALE 1 PUFF BY MOUTH FOUR TIMES DAILY NEEDED ONLY USE IF YOU GET OUT OF BREATH RESPIR ATORY (INHAL ATION) DISCONT INUED 01/31/2024 [id number] 4 KASEY SEWELL 2022 1 [facility] IELD ATORVASTATI N CA 80MG TAB TAKE ONE-HALF TABLET BY MOUTH ONCE DAILY FOR CHOLESTE ROL ORAL ACTIVE 04/03/2025 [id number] 4 KASEY SEWELL 2023 45 [place] CHOLECALCIF [place] 50MCG (2,000UNIT) TAB TAKE ONE TABLET BY MOUTH ONCE DAILY FOR VITAMIN SUPPLEME NTATION ORAL 09/04/2024 [id number] 4 KASEY SEWELL 2023 100 [place] CICLESONIDE 160MCG/SPRA Y INHL,ORAL,6 .1GM INHALE 1 PUFF BY MOUTH TWICE DAILY FOR ASTHMA --RINSE MOUTH AFTER EACH USE USE ONCE EVERY MORNING AND ONCE EVERY NIGHT TO PREVENT COUGH REPLAC ES ASMANEX [MOMETAS ONE] INHALER* * RESPIR ATORY (INHAL ATION) ACTIVE 04/03/2025 [id number] 4 KASEY SEWELL 2023 1 [place] CICLESONIDE 160MCG/SPRA Y INHL,ORAL,6 .1GM INHALE 1 PUFF BY MOUTH TWICE DAILY FOR ASTHMA --RINSE MOUTH AFTER EACH USE USE ONCE EVERY MORNING AND ONCE EVERY NIGHT TO PREVENT COUGH REPLAC ES ASMANEX [MOMETAS ONE] INHALER* * RESPIR ATORY (INHAL ATION) DISCONT INUED 09/04/2024 [id number] 4 KASEY SEWELL 2023 1 [place] CICLESONIDE 160MCG/SPRA Y INHL,ORAL,6 .1GM INHALE 1 PUFF BY MOUTH TWICE DAILY FOR ASTHMA --RINSE MOUTH AFTER EACH USE USE ONCE EVERY MORNING AND ONCE EVERY NIGHT TO PREVENT COUGH REPLAC ES ASMANEX [MOMETAS ONE] INHALER* * RESPIR ATORY (INHAL ATION) DISCONT INUED 01/31/2024 [id number] 4 KASEY SEWELL 2022 1 [place] HYDROCHLORO THIAZIDE 25MG TAB TAKE ONE-HALF TABLET BY MOUTH ONCE DAILY TO PREVENT FLUID/CO NTROL BLOOD PRESSURE ORAL DISCONT INUED BY VENANCIO R 09/04/2024 [id number] 4 KASEY SEWELL 2023 45 [place] LISINOPRIL 30MG TAB TAKE ONE TABLET BY MOUTH ONCE DAILY TO CONTROL BLOOD PRESSURE ORAL DISCONT INUED 01/09/2024 [id number] 4 KASEY SEWELL 2023 90 [place] LISINOPRIL 30MG TAB TAKE ONE TABLET BY MOUTH EVERY DAY TO CONTROL BLOOD PRESSURE ORAL DISCONT INUED 09/04/2024 [id number] 4 KASEY SEWELL 2023 60 [place] LISINOPRIL 30MG TAB TAKE ONE TABLET BY MOUTH EVERY DAY TO CONTROL BLOOD PRESSURE ORAL DISCONT INUED (EDIT) 01/09/2024 [id number] 4 KASEY SEWELL 2023 90 [place] LISINOPRIL 30MG TAB TAKE ONE TABLET BY MOUTH EVERY DAY TO CONTROL BLOOD PRESSURE ORAL DISCONT INUED 01/31/2024 [id number] 4 KASEY SEWELL 2022 60 [place] LISINOPRIL 30MG TAB TAKE ONE TABLET BY MOUTH ONCE DAILY TO CONTROL BLOOD PRESSURE ORAL 07/01/2024 [id number] 4 KASEY SEWELL 2023 90 [place] Immunizations Combined list of available immunizations from the Department of Defense and Veterans Affairs facilities. Immunization Series Date Given Administered By Site Reaction Lot Number CVX Code Drug Pointer Helper Status Comments Source INFLUENZA, INJECTABLE, QUADRIVALENT, PRESERVATIVE FREE 2022 M[place] LEFT DELTO ID [id number] 150 complet ed [place] COVID-19 (Promolta), MRNA, LNP-S, PF, 30 MCG/0.3 ML DOSE 3 2020 208 complet ed [facility] TDAP 2020 115 complet ed [place] ZOSTER RECOMBINANT 2 2020 187 complet ed [place] ZOSTER RECOMBINANT 1 2020 187 complet ed [place] COVID-19 (PFIZER), MRNA, LNP-S, PF, 30 MCG/0.3 ML DOSE 2 2020 208 complet ed [facility] COVID-19 (PFIZER), [...] Mar 24, 2024 01:28 PM Reporting Lab: [facility] [employer] [address] Performing Lab: [address] [address] [place] URINALYS IS APPEARANCE OF URINE Clear 04/02 Specimen Type: URINE Comment: If Glucose = >500 and Ketones are positive, please alert the Physician. Ordering Provider: ANTHONY SEWELL Report Released Date/Time: Mar 24, 2024 01:28 PM Reporting Lab: [facility] [employer] [address] [address] Performing Lab: [address] [address] [place] URINALYS IS GLUCOSE [MASS/VOLU ME] IN URINE Normalmg /dL 04/02 Specimen Type: URINE Comment: If Glucose = >500 and Ketones are positive, please alert the Physician. Ordering Provider: ANTHONY SEWELL Report Released Date/Time: Mar 24, 2024 01:28 PM Reporting Lab: [facility] [employer] WorldTVUSETS [address] [address] Performing Lab: [address] [address] [place] URINALYS IS KETONES [MASS/VOLU ME] IN URINE BY TEST STRIP NEGATIVE mg/dL 04/02 Specimen Type: URINE Comment: If Glucose = >500 and Ketones are positive, please alert the Physician. Ordering Provider: ANTHONY SEWELL Report Released Date/Time: Mar 24, 2024 01:28 PM Reporting Lab: [address] [address] Performing Lab: [address] [address] [place] URINALYS IS ERYTHROCYT ES [PRESENCE] IN URINE SEDIMENT BY LIGHT MICROSCOPY NEGATIVE mg/dL 04/02 Specimen Type: URINE Comment: If Glucose = >500 and Ketones are positive, please alert the Physician. Ordering Provider: ANTHONY SEWELL Report Released Date/Time: Mar 24, 2024 01:28 PM Reporting Lab: [address] [address] Performing Lab: [address] [address] [place] URINALYS IS PROTEIN [MASS/VOLU ME] IN URINE BY TEST STRIP NEGATIVE mg/dL 04/02 Specimen Type: URINE Comment: If Glucose = >500 and Ketones are positive, please alert the Physician. Ordering Provider: ANTHONY SEWELL Report Released Date/Time: Mar 24, 2024 01:28 PM Reporting Lab: [address] [address] Performing Lab: [address] [address] [place] URINALYS IS NITRITE [PRESENCE] IN URINE NEGATIVE mg/dL 04/02 Specimen Type: URINE Comment: If Glucose = >500 and Ketones are positive, please alert the Physician. Ordering Provider: ANTHONY SEWELL Report Released Date/Time: Mar 24, 2024 01:28 PM Reporting Lab: [address] [address] Performing Lab: [address] [address] [place] URINALYS IS BILIRUBIN. TOTAL [PRESENCE] IN URINE NEGATIVE mg/dL 04/02 Specimen Type: URINE Comment: If Glucose = >500 and Ketones are positive, please alert the Physician. Ordering Provider: ANTHONY SEWELL Report Released Date/Time: Mar 24, 2024 01:28 PM Reporting Lab: [address] [address] Performing Lab: [address] [address] [place] URINALYS IS SPECIFIC GRAVITY OF URINE BY REFRACTOME TRY 1.016 1.016 - 1.022 04/02 Specimen Type: URINE Comment: If Glucose = >500 and Ketones are positive, please alert the Physician. Ordering Provider: ANTHONY SEWELL Report Released Date/Time: Mar 24, 2024 01:28 PM Reporting Lab: [address] [address] Performing Lab: [address] [address] [place] URINAL[place] IS PH OF URINE BY TEST STRIP 6.5 5.0 - 9.0 04/02 Specimen Type: URINE Comment: If Glucose = >500 and Ketones are positive, please alert the Physician. Ordering Provider: ANTHONY SEWELL Report Released Date/Time: Mar 24, 2024 01:28 PM Reporting Lab: [address] [address] Performing Lab: [address] [address] [place] URINALYS IS UROBILINOG EN [MASS/VOLU ME] IN URINE BY TEST STRIP Normalmg /dL <2.0 - 2.0 04/02 Specimen Type: URINE Comment: If Glucose = >500 and Ketones are positive, please alert the Physician. Ordering Provider: ANTHONY SEWELL Report Released Date/Time: Mar 24, 2024 01:28 PM Reporting Lab: [address] [address] Performing Lab: [address] [address] [place] URINALYS IS LEUKOCYTE ESTERASE [PRESENCE] IN URINE BY TEST STRIP NEGATIVE 04/02 Specimen Type: URINE Comment: If Glucose = >500 and Ketones are positive, please alert the Physician. Ordering Provider: ANTHONY SEWELL Report Released Date/Time: Mar 24, 2024 01:28 PM Reporting Lab: [address] [address] Performing Lab: [address] [address] [place] BASIC METABOLI C PANEL (fasting ) UREA NITROGEN [MASS/VOLU ME] IN SERUM OR PLASMA 10 mg/dL 7 - 25 04/02 Specimen Type: SERUM No comment entered. Ordering Provider: ANTHONY SEWELL Report Released Date/Time: Mar 24, 2024 01:28 PM Reporting Lab: [address] [address] Performing Lab: [address] [address] [place] BASIC METABOLI C PANEL (fasting ) GLUCOSE [MASS/VOLU ME] IN SERUM OR PLASMA 165 mg/dL 65 - 100 04/02 H Specimen Type: SERUM No comment entered. Ordering Provider: ANTHONY SEWELL Report Released Date/Time: Mar 24, 2024 01:28 PM Reporting Lab: [address] [address] Performing Lab: [address] [address] [place] BASIC METABOLI C PANEL (fasting ) SODIUM [MOLES/VOL UME] IN SERUM OR PLASMA 138 mmol/L 135 - 145 04/02 Specimen Type: SERUM No comment entered. Ordering Provider: ANTHONY SEWELL Report Released Date/Time: Mar 24, 2024 01:28 PM Reporting Lab: [address] [address] Performing Lab: [address] [address] [place] BASIC METABOLI C PANEL (fasting ) POTASSIUM [MOLES/VOL UME] IN SERUM OR PLASMA 4.0 mmol/L 3.5 - 5.0 04/02 Specimen Type: SERUM No comment entered. Ordering Provider: ANTHONY SEWELL Report Released Date/Time: Mar 24, 2024 01:28 PM Reporting Lab: [facility] [address] [facility] [address] Performing Lab: [facility] [address] [facility] [address] [facility] BASIC METABOLI C PANEL (fasting ) CHLORIDE [MOLES/VOL UME] IN SERUM OR PLASMA 107 mmol/L 100 - 110 04/02 Specimen Type: SERUM No comment entered. Ordering Provider: ANTHONY SEWELL Report Released Date/Time: Mar 24, 2024 01:28 PM Reporting Lab: [address] [address] Performing Lab: [facility] [address] [facility] [address] [facility] BASIC METABOLI C PANEL (fasting ) CARBON DIOXIDE, TOTAL [MOLES/VOL UME] IN SERUM OR PLASMA 23 meq/L 20 - 30 04/02 Specimen Type: SERUM No comment entered. Ordering Provider: ANTHONY SEWELL Report Released Date/Time: Mar 24, 2024 01:28 PM Reporting Lab: [address] [address] Performing Lab: [facility] [address] [facility] [address] [facility] BASIC METABOLI C PANEL (fasting ) CREATININE [MASS/VOLU ME] IN SERUM OR PLASMA 0.89 mg/dL 0.50 - 1.40 04/02 Specimen Type: SERUM No comment entered. Ordering Provider: ANTHONY SEWELL Report Released Date/Time: Mar 24, 2024 01:28 PM Reporting Lab: [facility] [address] [facility] [address] Performing Lab: [address] [address] [facility] BASIC METABOLI C PANEL (fasting ) GLOMERULAR FILTRATION RATE/1.73 SQ M.PREDICTE D [VOLUME RATE/AREA] IN SERUM, PLASMA OR BLOOD BY CREATININE -BASED FORMULA (CKD-EPI 2020) >90mL/mi n 60 04/02 Specimen Type: SERUM No comment entered. Ordering Provider: ANTHONY SEWELL Report Released Date/Time: Mar 24, 2024 01:28 PM Reporting Lab: [facility]ATRN [facility] [address] [facility] [address] Performing Lab: [facility]ATRN [facility]ITALUSE[address] [address] [place] LIPID PANEL FASTING CHOLESTERO L [MASS/VOLU ME] IN SERUM OR PLASMA 220 mg/dL 04/02 H Specimen Type: SERUM No comment entered. Ordering Provider: ANTHONY SEWELL Report Released Date/Time: Mar 24, 2024 01:28 PM Reporting Lab: [facility] [address] [address] Performing Lab: [facility]ATRN [facility] [address] [place] LIPID PANEL FASTING TRIGLYCERI DE [MASS/VOLU ME] IN SERUM OR PLASMA 146 mg/dL 0 - 150 04/02 Specimen Type: SERUM No comment entered. Ordering Provider: ANTHONY SEWELL Report Released Date/Time: Mar 24, 2024 01:28 PM Reporting Lab: [facility]N [facility]ITALUSE[address] [address] Performing Lab: [facility]ATRN [facility]ITALUSE[address] [address] [place] LIPID PANEL FASTING CHOLESTERO L IN LDL [MASS/VOLU ME] IN SERUM OR PLASMA BY CALCULATIO N 140 mg/dL 0 - 129 04/02 H Specimen Type: SERUM No comment entered. Ordering Provider: ANTHONY SEWELL Report Released Date/Time: Mar 24, 2024 01:28 PM Reporting Lab: [facility]ENTERTRN [employer] [address] Performing Lab: [facility]N [facility]ITALUSE[address] [address] [place] LIPID PANEL FASTING CHOLESTERO L.TOTAL/CH OLESTEROL IN HDL [MASS RATIO] IN SERUM OR PLASMA 4.3 04/02 Specimen Type: SERUM No comment entered. Ordering Provider: ANTHONY SEWELL Report Released Date/Time: Mar 24, 2024 01:28 PM Reporting Lab: [facility]ITALR[facility] [address] [facility] [address] Performing Lab: [facility]OSPITALRL TRN [facility]ITALUSE[address] [address] [place] LIPID PANEL FASTING CHOLESTERO L IN HDL [MASS/VOLU ME] IN SERUM OR PLASMA 51 mg/dL 40 - 60 04/02 Specimen Type: SERUM No comment entered. Ordering Provider: ANTHONY SEWELL Report Released Date/Time: Mar 24, 2024 01:28 PM Reporting Lab: [facility] [address] [address] Performing Lab: [facility] [address] [address] [place] LIVER FUNCTION PROTEIN [MASS/VOLU ME] IN SERUM OR PLASMA 7.1 g/dL 6.0 - 8.3 04/02 Specimen Type: SERUM No comment entered. Ordering Provider: ANTHONY SEWELL Report Released Date/Time: Mar 24, 2024 01:28 PM Reporting Lab: [facility] [address] [address] Performing Lab: [facility]ITALUSE[address] [address] [place] LIVER FUNCTION ALBUMIN [MASS/VOLU ME] IN SERUM OR PLASMA 4.1 g/dL 3.5 - 5.0 04/02 Specimen Type: SERUM No comment entered. Ordering Provider: ANTHONY SEWELL Report Released Date/Time: Mar 24, 2024 01:28 PM Reporting Lab: [facility]ITALRL TRN [facility]ITALUSE[address] [address] Performing Lab: [facility]N [facility]ITALUSE[address] [address] [place] LIVER FUNCTION ALKALINE PHOSPHATAS E [ENZYMATIC ACTIVITY/V OLUME] IN SERUM OR PLASMA 57 U/L 40 - 150 04/02 Specimen Type: SERUM No comment entered. Ordering Provider: ANTHONY SEWELL Report Released Date/Time: Mar 24, 2024 01:28 PM Reporting Lab: [address] [address] Performing Lab: [address] [address] [place] LIVER FUNCTION ASPARTATE AMINOTRANS FERASE [ENZYMATIC ACTIVITY/V OLUME] IN SERUM OR PLASMA 24 U/L 5 - 34 04/02 Specimen Type: SERUM No comment entered. Ordering Provider: ANTHONY SEWELL Report Released Date/Time: Mar 24, 2024 01:28 PM Reporting Lab: [address] [address] Performing Lab: [address] [address] [place]IVER FUNCTION ALANINE AMINOTRANS FERASE [ENZYMATIC ACTIVITY/V OLUME] IN SERUM OR PLASMA 24 U/L 04/02 Specimen Type: SERUM No comment entered. Ordering Provider: ANTHONY SEWELL Report Released Date/Time: Mar 24, 2024 01:28 PM Reporting Lab: [address] [address] Performing Lab: [address] [address] [place] FUNCTION BILIRUBIN. TOTAL [MASS/VOLU ME] IN SERUM OR PLASMA 0.9 mg/dL 0.2 - 1.2 04/02 Specimen Type: SERUM No comment entered. Ordering Provider: ANTHONY SEWELL Report Released Date/Time: Mar 24, 2024 01:28 PM Reporting Lab: [address] [address] Performing Lab: [address] [address] [place] HEMOGLOB IN A1C PANEL HEMOGLOBIN A1C/HEMOGL OBIN.TOTAL [...] Mar 24, 2024 01:28 PM Reporting Lab: [facility] [address] [address] Performing Lab: [facility] [address] [address] [place] TSH THYROTROPI N [UNITS/VOL UME] IN SERUM OR PLASMA 0.64 u[IU]/mL 0.35 - 5.00 04/02 Specimen Type: SERUM No comment entered. Ordering Provider: ANTHONY SEWELL Report Released Date/Time: Mar 24, 2024 01:28 PM Reporting Lab: [facility] [address] [address] Performing Lab: [facility] [address] [address] [place] CBC AND DIFF (AUTO) LEUKOCYTES [#/VOLUME] IN BLOOD BY AUTOMATED COUNT 3.60 10*3/uL 4.50 - 11.00 04/02 L Specimen Type: BLOOD No comment entered. Ordering Provider: ANTHONY SEWELL Report Released Date/Time: Mar 24, 2024 01:28 PM Reporting Lab: [facility] [address] [address] Performing Lab: [facility] [address] [address] [place] CBC AND DIFF (AUTO) ERYTHROCYT ES [#/VOLUME] IN BLOOD BY AUTOMATED COUNT 4.97 10*6/uL 4.23 - 5.66 04/02 Specimen Type: BLOOD No comment entered. Ordering Provider: ANTHONY SEWELL Report Released Date/Time: Mar 24, 2024 01:28 PM Reporting Lab: [facility]N [facility]OSPITALUSETS [facility] [address] [facility] [address] Performing Lab: [facility]ITALR[facility]ITALUSE[address] [address] [place] CBC AND DIFF (AUTO) HEMOGLOBIN [MASS/VOLU ME] IN BLOOD 15.6 g/dL 12.8 - 17 04/02 Specimen Type: BLOOD No comment entered. Ordering Provider: ANTHONY SEWELL Report Released Date/Time: Mar 24, 2024 01:28 PM Reporting Lab: [facility]ITALRL TRN [facility]ITALUSE[address] [address] Performing Lab: [facility]ITAL[facility] [address] [address] [place] CBC AND DIFF (AUTO) HEMATOCRIT [VOLUME FRACTION] OF BLOOD BY AUTOMATED COUNT 44.1 39.2 - 50.4 04/02 Specimen Type: BLOOD No comment entered. Ordering Provider: ANTHONY SEWELL Report Released Date/Time: Mar 24, 2024 01:28 PM Reporting Lab: [facility]ITALRL [facility] [address] [address] Performing Lab: [facility] [address] [address] [place] CBC AND DIFF (AUTO) MCV [ENTITIC VOLUME] BY AUTOMATED COUNT 88.7 fL 82 - 99 04/02 Specimen Type: BLOOD No comment entered. Ordering Provider: ANTHONY SEWELL Report Released Date/Time: Mar 24, 2024 01:28 PM Reporting Lab: [facility]ITALRL TRN [facility]ITALUSE[address] [address] Performing Lab: [facility] [address] [address] [place] CBC AND DIFF (AUTO) MCHC [MASS/VOLU ME] BY AUTOMATED COUNT 35.4 g/dL 30.8 - 35.1 04/02 H Specimen Type: BLOOD No comment entered. Ordering Provider: ANTHONY SEWELL Report Released Date/Time: Mar 24, 2024 01:28 PM Reporting Lab: [facility] [address] [address] Performing Lab: [facility]ITALR [facility] [place] [facility] [address] [facility] [address] [place] CBC AND DIFF (AUTO) PLATELETS [#/VOLUME] IN BLOOD BY AUTOMATED COUNT 234 10*3/uL 140 - 360 04/02 Specimen Type: BLOOD No comment entered. Ordering Provider: ANTHONY SEWELL Report Released Date/Time: Mar 24, 2024 01:28 PM Reporting Lab: [facility] [place] [facility] [address] [facility] [address] Performing Lab: [facility]ITALRL TRN [facility]ITALUSE[address] [address] [place] CBC AND DIFF (AUTO) ERYTHROCYT E DISTRIBUTI ON WIDTH [RATIO] BY AUTOMATED COUNT 11.8 12.0 - 16.0 04/02 L Specimen Type: BLOOD No comment entered. Ordering Provider: ANTHONY SEWELL Report Released Date/Time: Mar 24, 2024 01:28 PM Reporting Lab: [facility] [place] [address] [address] Performing Lab: [facility]ITALRT[facility] AL[facility]AMATRN [place] [address] [address] [place] CBC AND DIFF (AUTO) MONOCYTES [#/VOLUME] IN BLOOD BY AUTOMATED COUNT 0.28 10*3/uL 0.30 - 1.10 04/02 L Specimen Type: BLOOD No comment entered. Ordering Provider: ANTHONY SEWELL Report Released Date/Time: Mar 24, 2024 01:28 PM Reporting Lab: [facility]RL [place] [address] [address] Performing Lab: [facility]ITALRL TRN [facility]PITALUSETS [address] [address] [place] CBC AND DIFF (AUTO) MCH [ENTITIC MASS] BY AUTOMATED COUNT 31.4 pg 26.2 - 32.6 04/02 Specimen Type: BLOOD No comment entered. Ordering Provider: ANTHONY SEWELL Report Released Date/Time: Mar 24, 2024 01:28 PM Reporting Lab: [facility]ITALRT[facility]ATRN [facility]ITALUSE[address] [address] Performing Lab: [facility] [place] [facility] [address] [facility] [address] [place] CBC AND DIFF (AUTO) NEUTROPHIL S/100 LEUKOCYTES IN BLOOD BY AUTOMATED COUNT 56.1 43.7 - 75.8 04/02 Specimen Type: BLOOD No comment entered. Ordering Provider: ANTHONY SEWELL Report Released Date/Time: Mar 24, 2024 01:28 PM Reporting Lab: [facility] [address] [address] Performing Lab: [facility] [address] [address] [place] CBC AND DIFF (AUTO) LYMPHOCYTE S/100 LEUKOCYTES IN BLOOD BY AUTOMATED COUNT 30.8 14.0 - 42.3 04/02 Specimen Type: BLOOD No comment entered. Ordering Provider: ANTHONY SEWELL Report Released Date/Time: Mar 24, 2024 01:28 PM Reporting Lab: [facility] [address] [address] Performing Lab: [facility] [address] [address] [place] CBC AND DIFF (AUTO) MONOCYTES/ 100 LEUKOCYTES IN BLOOD BY AUTOMATED COUNT 7.8 5.1 - 13.7 04/02 Specimen Type: BLOOD No comment entered. Ordering Provider: ANTHONY SEWELL Report Released Date/Time: Mar 24, 2024 01:28 PM Reporting Lab: [facility] [address] [address] Performing Lab: [facility] [address] [address] [place] CBC AND DIFF (AUTO) EOSINOPHIL S/100 LEUKOCYTES IN BLOOD BY AUTOMATED COUNT 4.2 0.4 - 6.8 04/02 Specimen Type: BLOOD No comment entered. Ordering Provider: ANTHONY SEWELL Report Released Date/Time: Mar 24, 2024 01:28 PM Reporting Lab: [facility]USE[address] [address] Performing Lab: [facility]ITALRTAN[facility] ALABAMATRN [facility]ITALUSE[address] [address] [place] CBC AND DIFF (AUTO) BASOPHILS/ 100 LEUKOCYTES IN BLOOD BY AUTOMATED COUNT 0.8 0.1 - 2.0 04/02 Specimen Type: BLOOD No comment entered. Ordering Provider: ANTHONY SEWELL Report Released Date/Time: Mar 24, 2024 01:28 PM Reporting Lab: [facility]RT[facility] AL[facility]AMATRN [address] [address] Performing Lab: [facility]RT[facility]AMATRN [facility]ITALUSE[address] [address] [place] CBC AND DIFF (AUTO) NEUTROPHIL S [#/VOLUME] IN BLOOD BY AUTOMATED COUNT 2.02 10*3/uL 2.20 - 7.60 04/02 L Specimen Type: BLOOD No comment entered. Ordering Provider: ANTHONY SEWELL Report Released Date/Time: Mar 24, 2024 01:28 PM Reporting Lab: [facility]REN[facility] [address] [address] Performing Lab: [facility]RTAN[facility] ALABAMATRN [facility]ITALUSE[address] [address] [place] CBC AND DIFF (AUTO) LYMPHOCYTE S [#/VOLUME] IN BLOOD BY AUTOMATED COUNT 1.11 10*3/uL 1.00 - 3.20 04/02 Specimen Type: BLOOD No comment entered. Ordering Provider: ANTHONY SEWELL Report Released Date/Time: Mar 24, 2024 01:28 PM Reporting Lab: [facility] [address] [address] Performing Lab: [facility]RT[facility]AMATRN [facility]ITALUSE[address] [address] [place] CBC AND DIFF (AUTO) EOSINOPHIL S [#/VOLUME] IN BLOOD BY AUTOMATED COUNT 0.15 10*3/uL 0.03 - 0.44 04/02 Specimen Type: BLOOD No comment entered. Ordering Provider: ANTHONY SEWELL Report Released Date/Time: Mar 24, 2024 01:28 PM Reporting Lab: [facility]ATRN [address] [address] Performing Lab: [facility]ITALRENCOM[facility]ITALUSE[address] [address] [place] CBC AND DIFF (AUTO) BASOPHILS [#/VOLUME] IN BLOOD BY AUTOMATED COUNT 0.03 10*3/uL 0.01 - 0.13 04/02 Specimen Type: BLOOD No comment entered. Ordering Provider: ANTHONY SEWELL Report Released Date/Time: Mar 24, 2024 01:28 PM Reporting Lab: [facility] [address] [address] Performing Lab: [facility] [address] [address] [place] CBC AND DIFF (AUTO) IMMATURE GRANULOCYT ES/100 LEUKOCYTES IN BLOOD BY AUTOMATED COUNT 0.3 0.0 - 0.7 04/02 Specimen Type: BLOOD No comment entered. Ordering Provider: ANTHONY SEWELL Report Released Date/Time: Mar 24, 2024 01:28 PM Reporting Lab: [facility] [address] [address] Performing Lab: [facility] [address] [address] [place] CBC AND DIFF (AUTO) IMMATURE GRANULOCYT ES [#/VOLUME] IN BLOOD 0.01 10*3/uL 0.00 - 0.06 04/02 Specimen Type: BLOOD No comment entered. Ordering Provider: ANTHONY SEWELL Report Released Date/Time: Mar 24, 2024 01:28 PM Reporting Lab: [facility] [address] [address] Performing Lab: [facility] [address] [address] [place] CBC AND DIFF (AUTO) NRBC % 0.0 0.0 - 0.0 04/02 Specimen Type: BLOOD No comment entered. Ordering Provider: ANTHONY SEWELL Report Released Date/Time: Mar 24, 2024 01:28 PM Reporting Lab: [facility] [address] [address] Performing Lab: [facility] [address] [address] [place] CBC AND DIFF (AUTO) NRBC, ABS 0.00 10*3/uL 0.00 - 0.00 04/02 Specimen Type: BLOOD No comment entered. Ordering Provider: ANTHONY SEWELL Report Released Date/Time: Mar 24, 2024 01:28 PM Reporting Lab: [facility] [address] [facility] [address] Performing Lab: [address] [address] [place] CALCIUM CALCIUM [MASS/VOLU ME] IN SERUM OR PLASMA 9.4 mg/dL 8.5 - 10.2 04/02 Specimen Type: SERUM No comment entered. Ordering Provider: ANTHONY SEWELL Report Released Date/Time: Mar 24, 2024 01:28 PM Reporting Lab: [address] [address] Performing Lab: [address] [address] [place] URIC ACID URATE [MASS/VOLU ME] IN SERUM OR PLASMA 6.0 mg/dL 3.5 - 7.2 04/02 Specimen Type: SERUM No comment entered. Ordering Provider: ANTHONY SEWELL Report Released Date/Time: Mar 24, 2024 01:28 PM Reporting Lab: [facility] [address] [facility] [address] Performing Lab: [address] [address] [place] LIVER FUNCTION PROTEIN [MASS/VOLU ME] IN SERUM OR PLASMA 7.3 g/dL 6.0 - 8.3 09/02 Specimen Type: SERUM No comment entered. Ordering Provider: ANTHONY SEWELL Report Released Date/Time: Jan 30, 2023 01:28 PM Reporting Lab: [address] [address] Performing Lab: [address] [address] [place] LIVER FUNCTION ALBUMIN [MASS/VOLU ME] IN SERUM OR PLASMA 4.2 g/dL 3.5 - 5.0 09/02 Specimen Type: SERUM No comment entered. Ordering Provider: ANTHONY SEWELL Report Released Date/Time: Jan 30, 2023 01:28 PM Reporting Lab: [facility]ITALRTAN[facility]AMATRN [facility]ITALUSEST[facility] [address] [facility] [address] Performing Lab: [facility]ITALRENCOM[facility]ITALUSE[address] [address] [place] LIVER FUNCTION ALKALINE PHOSPHATAS E [ENZYMATIC ACTIVITY/V OLUME] IN SERUM OR PLASMA 64 U/L 40 - 150 09/02 Specimen Type: SERUM No comment entered. Ordering Provider: ANTHONY SEWELL Report Released Date/Time: Jan 30, 2023 01:28 PM Reporting Lab: [facility]ITALRENCOM[facility] [address] [facility] [address] Performing Lab: [facility]ITALREN[facility]ITAL[facility] [address] [place] LIVER FUNCTION ASPARTATE AMINOTRANS FERASE [ENZYMATIC ACTIVITY/V OLUME] IN SERUM OR PLASMA 19 U/L 5 - 34 09/02 Specimen Type: SERUM No comment entered. Ordering Provider: ANTHONY SEWELL Report Released Date/Time: Jan 30, 2023 01:28 PM Reporting Lab: [facility] [address] [address] Performing Lab: [facility]ITALREN[facility]ITAL[facility] [address] [facility] L[facility] FUNCTION ALANINE AMINOTRANS FERASE [ENZYMATIC ACTIVITY/V OLUME] IN SERUM OR PLASMA 22 U/L 09/02 Specimen Type: SERUM No comment entered. Ordering Provider: ANTHONY SEWELL Report Released Date/Time: Jan 30, 2023 01:28 PM Reporting Lab: [facility]ITALREN[facility] [address] [address] Performing Lab: [facility]N [facility]ITALUSE[address] [address] [facility] L[facility] FUNCTION BILIRUBIN. TOTAL [MASS/VOLU ME] IN SERUM OR PLASMA 0.8 mg/dL 0.2 - 1.2 09/02 Specimen Type: SERUM No comment entered. Ordering Provider: ANTHONY SEWELL Report Released Date/Time: Jan 30, 2023 01:28 PM Reporting Lab: [facility] [place] [place] [facility] [address] [facility] [address] Performing Lab: [place] [facility] [address] [facility] [address] [facility] Vital Signs Combined list of inpatient and outpatient Vital Signs from Department of Defense and Veterans Affairs, ranging from 12 months to all on record, depending upon the facility. Vital Sign Value Date Comments Source SYSTOLIC BLOOD PRESSURE 139 04/02/2024 13:16:11 [place] DIASTOLIC BLOOD PRESSURE 87 04/02/2024 13:16:11 [place] PULSE OXIMETRY 99 04/02/2024 13:16:11 [place] WEIGHT 202 04/02/2024 13:16:11 [place] BMI 32 kg/m2 04/02/2024 13:16:11 [place] PULSE 75 04/02/2024 13:16:11 [place] RESPIRATION 18 04/02/2024 13:16:11 [place] Encounters Combined list of: 1) Encounters from Department of Veterans Affairs facilities going backup to the last 18 months, not all [place] inpatient encounters are included; 2) Encounters from the Department of Defense facilities going backup to 280 months. Location Location Details Encounter Type Encounter Number Reason For Visit Attending Provider ADM Date DC Date Status Disposition Source [place] [facility] [facility] Outpatient Encounter [id number] 04/10 [place] [facility] [place] [facility] Outpatient Encounter [id number] 09/04 [place] [facility] OFFICE O/P EST MOD 30 MIN [id number] Diagnos is: ICD-10- CM I10 Essenti al (primar y) hyperte nsion DOMINIQUE SEWELL 09/04 [place] [facility] COMPRE OPH EXAM EST PT 1/> [id number] Diagnos is: ICD-10- CM H25.13 Age-rel ated nuclear catarac t, bilater al ROGELIO PUENTE 09/22 [facility] [place] [facility] FIT SPECTACLES [place] [id number] Diagnos is: ICD-10- CM Z46.0 Encount er for fit/adj st of spectac les and contact lenses ROGELIO PUENTE 09/23 [facility] [place] [facility] [place] En[facility] [id number] JOSE MERCADO 10/03 [facility] [place] [facility] [place] En[facility] [id number] 10/23 [facility] [place] [facility] [place] En[facility] [id number] 12/22 [facility] [place] [facility] [place] En[facility] [id number] 12/23 [facility] [place] [facility] [place] En[facility] [id number] 02/03 [facility] [place] [facility] [place] [id number] 1.04/02 [facility] [place] [facility] [facility] [place] [id number] 1.04/02 [facility] [place] [facility] [facility] OFFICE O/P EST MOD 30 MIN [id number] Diagnos is: ICD-10- CM R31.1 Benign essenti al microsc opic hematur DOMINIQUE Guo 04/02 [place] [facility] [place] [facility] Outpatient Encounter [id number] 1.04/16 [facility] [place] [facility] [facility] [place] [facility] Outpatient Encounter [id number] 1.04/16 [facility] [place] [facility] OFFICE O/P NEW LOW 30 MIN [id number] Diagnos is: ICD-10- CM M72.2 Plantar fascial fibroma RONEY Mireles ES F 04/24 [facility] [place] [facility] [place] [facility] Outpatient Encounter [id number] 05/27 [facility] [place] [facility] [place] [facility] Outpatient Encounter [id number] 09/01 [facility] [place] [facility] [place] [facility] Outpatient Encounter [id number] 09/21 [facility] [place] [facility] Social History Combined list of available smoking, tobacco, and other social history from Department of Defense and Veterans Affairs facilities. Social History Type Response Date Comment Sour e Tobacco smoking status [facility] VA-TOBACCO NEVER USED 04/02/20 [place] History of tobacco use HI-TOBACCO NEVER USED 01/30/2023 [place] History of tobacco use HI-TOBACCO NEVER USED 02/02/2022 [place] History of tobacco use HI-TOBACCO NEVER USED 02/03/2021 [place] History of tobacco use HI-TOBACCO NEVER USED 01/21/2020 [place] History of tobacco use VA-TOBACCO NEVER USED 10/29/2018 [place] Plan of Care List of future care activities from Department of Veterans Affairs facilities. Additional future care activities may be listed in the Assessment and Plan section. Date/Time Care Activity Care Activity Detail Facili ty 10/13/2024 AMBULATORY - MEDICINE AMBULATORY [place] [facility] 11/02/2024 AMBULATORY - MEDICINE AM[place]ULATORY - [place]IC[place]
--- NOTE | 2024-09-21 20:54 | PC.NURSE ---
printed discharge paper work for pt, pt departed. no sign of distress.
== END 2024-09-21 20:55 | disposition home or self-care (01) ==
PROVIDERS: Physician Assistant Medical; Emergency Provider Student in an Organized Health Care Education/Training Program
DX: J40 Bronchitis, not specified as acute or chronic (principal); R05.9 Cough, unspecified; Z11.52 Encounter for screening for COVID-19
CPT/HCPCS: 0241U; 71046; 99281; 99283

== ENCOUNTER → 2024-09-21 14:14 | Outpatient (BNV) | payer OTHER, SELFPAY | PROVIDERS: Visit Provider Radiology Diagnostic Radiology | DX: R05.9 Cough, unspecified (principal) | CPT/HCPCS: 71046 ==